=== PATIENT | female | born 1980 | race Caucasian/White ===

== ENCOUNTER 2018-10-12 08:22 | Inpatient (IN) | payer MEDICAID ==
[~2018-10-12] VITALS: Ht 167.6 cm; Wt 62.3 kg
[2018-10-12] VITALS (16 sets, daily range): BP systolic 106–161; BP diastolic 62–101; BMI 20.1
[2018-10-12 09:09] LABS: ALBUMIN 4.8 g/dL (3.4-5.0); ALKALINE PHOSPHATASE 143 U/L (46-116); ALT (SGPT) 66 U/L (10-68); BILIRUBIN - TOTAL 0.38 mg/dL (0.2-1.3); CALC OSMOLALITY 282 mosm/kg (275-300); CALCIUM 9.7 mg/dL (8.5-10.1); CHLORIDE - SERUM 109 mmol/L (98-107); CREATININE - SERUM 1.2 mg/dL (0.6-1.3); GLUCOSE 115 mg/dL (74-106); PROTEIN - SERUM 9.7 g/dL (6.4-8.2); SODIUM 143 mmol/L (136-145); TROPONIN-I < 0.017 ng/mL (0.000-0.060); UREA NITROGEN 5 mg/dL (7-18); eGFR NON AFRICAN AMERICAN 53 mL/min (90-120)
--- NOTE | 2018-10-12 09:14 | NUR ---
CRITICAL LABCO2 6.6; RECEIVED FROM MARÍA ELENA IN LAB; WHITNEY LANDIN NOTIFIED.
[2018-10-12 09:15] LABS: CARBON DIOXIDE 6.6 mmol/L (21.0-32.0)
[2018-10-12 09:19] LABS: UDS - AMPHET NEGATIVE QUAL (NEGATIVE); UDS - BARB NEGATIVE QUAL (NEGATIVE); UDS - BENZO NEGATIVE QUAL (NEGATIVE); UDS - COCAINE NEGATIVE QUAL (NEGATIVE); UDS - OPIATE NEGATIVE QUAL (NEGATIVE); UDS - PCP NEGATIVE QUAL (NEGATIVE); UDS - THC NEGATIVE QUAL (NEGATIVE)
[2018-10-12 09:22] LABS: BASOPHILS 0.3 % (0-2); EOSINOPHILS 0.4 % (0-7); HEMOGLOBIN 17.7 g/dL (12-16); IMMATURE GRANULOCYTES 0.6 % (0-5); LYMPHOCYTES 10.6 % (15-50); MCH 35.5 pg (26.0-34.0); MCV 104.4 fL (80.0-100.0); MEAN PLATELET VOLUME 10.6 fL (7.4-10.4); MONOCYTES 9.1 % (2-11); PLATELET COUNT 206 10x3/uL (130-400); RBC 4.98 10x6/uL (4.00-5.40); RDW 14.5 % (11.5-14.5); WBC 18.7 10x3/uL (4.8-10.8)
[2018-10-12 09:25] LABS: APPEARANCE SL CLDY (CLEAR); BACTERIA MODERATE /hpf (NONE SEEN); BILIRUBIN NEGATIVE (NEGATIVE); COLOR YELLOW (YELLOW); GLUCOSE NEGATIVE (NEGATIVE); KETONE NEGATIVE (NEGATIVE); MUCUS <1+ /lpf (NONE SEEN); NITRITE NEGATIVE (NEGATIVE); PROTEIN TRACE mg/dL (NEGATIVE); SPECIFIC GRAVITY 1.015 (1.005-1.020); UROBILINOGEN NORMAL (NORMAL); WHITE CELLS - URINE RARE /hpf (0-5)
--- NOTE | 2018-10-12 09:25 | NUR ---
HOB AT 70 DEGREE ANGLE; PATIENT RESPONDS TO "YES" AND "NO" TYPE QUESTIONS; DENIES INJURY; PAIN; DRUG USE; ETOH USE; BREATHING CONTINUES TO BE LABORED; BLOOD CULTURES DRAWN BY LAB;
[2018-10-12 09:40] LABS: CALCIUM OXALATE CRYSTALS 0-5 /hpf (NONE SEEN)
[2018-10-12 10:15] LABS: HCG SERUM NEGATIVE (NEGATIVE)
--- NOTE | 2018-10-12 10:31 | NUR ---
PER DAVID COX RN; [facility] WAS CALLED TO REQUEST A BEDSIDE SITTER DUE TO SI WITH ATTEMPT.
--- NOTE | 2018-10-12 10:50 | NUR ---
PT RECEIVED. DIALYSIS AND DR CONROY GIVEN UDPATE
--- NOTE | 2018-10-12 11:05 | NUR ---
UNABLE TO COMPLETE SUICIDE ASSESSMENT AT THIS TIME. PT UNABLE THE ANSWER QUESTIONS AT THIS TIME. SITTER ORDERED PER DR. SHEEHAN. SITTER AT BEDSIDE FOR SAFETY. WILL ATTEMPT SUICIDE ASSESSMENT AT LATER TIME.
--- NOTE | 2018-10-12 11:20 | NUR ---
DR LARA AT BEDSIDE GIVENUPDATE
[2018-10-12 11:21] LABS: % SATURATION 20 % (15-55); IRON 46 ug/dl (35-150); TOTAL IRON BIND CAPACITY 227 ug/dl (260-445); UNSAT IRON BIND CAPACITY 181 ug/dl (150-375)
--- NOTE | 2018-10-12 13:16 | NUR ---
YOSEPH RODRIGUEZ CALLED GIVEN UDPATE, STATED TO GIVE ANTIZOL FOR 24HRS DR LARA CALLED GIVEN UPDATE. NO NEW ORDERS. WILL CONTINUE TO MONITOR
--- NOTE | 2018-10-12 15:15 | NUR ---
REASSESSMENT COMPLETE PER FLOW SHEET. VSS. NO NEW CAHNGES WILL CONTINUE TO MONITOR
--- NOTE | 2018-10-12 17:20 | NUR ---
DR DAVIS AND DR LARA CALLED GIVEN UPDATE NEW ORDERS REICEVED
--- NOTE | 2018-10-12 18:23 | NUR ---
DR. SHEEHAN NOTIIFED AND SITTER ORDERED. SITTER AT BEDSIDE. NOTIFIED CHARGE NURSE AND ATTENDING IN REGARDS TO ASSESSMENT FINDINGS. RESOURCES GIVEN TO PT AND SAFETY PLAN INITIATED.
--- NOTE | 2018-10-12 19:03 | NUR ---
BEDSIDE SHIFT REPORT GIVEN BY DEPARTING RN. PT LAYING IN BED WITH SITTER IN ROOM. AAOX4. PERRLA. DENIES ANY PAIN OR NEEDS. VSS. F/C DRAINING TO GRAVITY. ASSESSMENT COMPLETE. SEE FLOWSHEET FOR DETAILS. SAFETY MEASURES IN PLACE. CBIR.
--- NOTE | 2018-10-12 21:12 | NUR ---
ICE CHIPS PROVIDED
--- NOTE | 2018-10-12 23:38 | NUR ---
REASSESSMENT COMPLETE. NO NEW CHANGES NOTED IN PT CONDITION. ASLEEP SHOWING NO SS OF DISTRESS.
[2018-10-13] VITALS (24 sets, daily range): BP systolic 95–127; BP diastolic 7–91; Ht 167.6 cm; Wt 62.3 kg
--- NOTE | 2018-10-13 00:39 | NUR ---
N&V. WET RAG PROVIDED PER PT REQUEST. TOLERATED WELL. VSS.
--- NOTE | 2018-10-13 01:45 | NUR ---
ASLEEP SHOWING NO SS OF DISTRESS. SITTER REMAINS IN ROOM.
--- NOTE | 2018-10-13 02:36 | NUR ---
SUICIDE RISK ASSESSMENT COMPLETE. MODERATE-SEVERE THREAT NOTED. CONTINUE 1:1 SITTER.
--- NOTE | 2018-10-13 03:54 | NUR ---
CHG BATH GIVEN TO SELF. LINENS CHANGED. ORAL CARE PROVIDED. EKG PADS REPLACED. MARY CARE PERFORMED. TOLERATED WELL. REASSESSMENT COMPLETE. NO NEW CHANGES NOTED. VSS.
[2018-10-13 04:15] LABS: BASOPHILS 0.1 % (0-2); EOSINOPHILS 0.2 % (0-7); IMMATURE GRANULOCYTES 0.3 % (0-5); MCH 34.9 pg (26.0-34.0); MCHC 35.6 g/dL (31.0-37.0); MEAN PLATELET VOLUME 10.3 fL (7.4-10.4); MONOCYTES 9.1 % (2-11); NEUTROPHILS 76.3 % (40-80); RDW 13.9 % (11.5-14.5)
[2018-10-13 04:31] LABS: HEMOGLOBIN 13.9 g/dL (12-16); PLATELET COUNT 142 10x3/uL (130-400); RBC 3.98 10x6/uL (4.00-5.40); WBC 11.8 10x3/uL (4.8-10.8)
[2018-10-13 04:55] LABS: ALBUMIN 2.7 g/dL (3.4-5.0); ANION GAP 8.2 mmol/L (8-16); BILIRUBIN - TOTAL 0.55 mg/dL (0.2-1.3); CALCIUM 7.2 mg/dL (8.5-10.1); CARBON DIOXIDE 35.7 mmol/L (21.0-32.0); CREATININE - SERUM 1.8 mg/dL (0.6-1.3); POTASSIUM - SERUM 2.9 mmol/L (3.5-5.1); PROTEIN - SERUM 5.9 g/dL (6.4-8.2)
--- NOTE | 2018-10-13 07:00 | NUR ---
PATIENT RESTING. VSS. CALL LIGHT WITHIN REACH. BED LOW AND LOCKED. WILL CONTINUE TO MONITOR. SHIFT ASSESSMENT COMPLETED.
--- NOTE | 2018-10-13 09:00 | NUR ---
PATIENT WATCHING TV. LUNGS CLEAR TO AUSCULATION. PATIENT STATES RELIEF OF NAUSEA AND HEADACHE. VSS. WILL CONTINUE TO MONITOR.
--- NOTE | 2018-10-13 11:14 | CN ---
PATIENT NAME:ERNESTINA SIMS MEDICAL RECORD: [id number] : 76 LOCATION:STEVE.2306 ADMIT DATE: 10/12/18 ACCOUNT: [id number] CONSULTING PHYSICIAN: JHONATHAN SHEEHAN MD REFERRING PHYSICIAN: VAMSHI LARA MD DATE OF CONSULTATION: 10/12/2018 IDENTIFYING DATA: The patient is 38 years old and she is admitted to the hospital secondary to a suicide attempt. CHIEF COMPLAINT: Depression. HISTORY OF PRESENT ILLNESS: The patient apparently made some cuts on her arms longitudinally and drank antifreeze. She did this to kill herself. She was found unconscious in her car fortunately and brought to the Hospital Emergency Room, where she had a severe metabolic acidosis. She was and is currently being treated with dialysis. The patient endorses numerous neurovegetative depressive symptoms. She says she did intend to kill herself and denies substance abuse problems as well as any ongoing psychotic symptoms. MENTAL STATUS EXAMINATION: The patient is awake, alert, and oriented fully. She is displaying a mood that is depressed and an affect that is constricted. Thought processes are goal directed and her memory, concentration, and abstraction abilities are mildly impaired. She denies thoughts of harming others as well as psychotic symptoms, but endorses an ongoing desire to kill herself. ASSESSMENT: Major depression. PLAN: The patient is in absolute need of inpatient psychiatric care once medically stabilized. She says she is willing to accept this on a voluntary basis; however, if she changes her mind, she should be committed and sent to an inpatient psychiatric facility based on the current circumstances. She furthermore is denying psychotic symptoms as well as a history of substance abuse. Her urine drug screen is clean, and when questioned carefully about any concerns I need to have about possible alcohol or drug withdrawal, she denies that that is going to be a problem. She should certainly be one-to-one with a sitter until the transfer happens. TRANSINT:[id number] Voice Confirmation ID: [id number] DOCUMENT ID: [id number] JHONATHAN SHEEHAN MD at 1114 CC: [id number] DICTATION DATE: 10/12/18 1522 DRAPERY CUTTER MACHINE: 10/12/18 1653 ADM IN [facility] [id number] [place] [address]
--- NOTE | 2018-10-13 11:28 | NUR ---
SPOKE TO PATIENT ABOUT SISTER WANTING CAR KEYS. PATIENT DENIED TO GIVE CAR KEYS TO SISTER.
--- NOTE | 2018-10-13 13:00 | NUR ---
SITTER AT BEDSIDE. BED LOW AND LOCKED. WILL CONTINUE TO MONITOR PATIENT RESTING. VSS. CALL LIHT WITHIN REACH
[2018-10-13 15:10] LABS: HEPATITIS C ANTIBODY <0.1 S/CO RAT (0.0-0.9)
--- NOTE | 2018-10-13 15:36 | NUR ---
DIALYSIS AT BEDSIDE. SITTER AT BEDSIDE. WILL CONTINUE TO MONITOR.
--- NOTE | 2018-10-13 15:44 | MORECARE ---
CASE MANAGEMENT DISCHARGE SUMMARY PATIENT: ERNESTINA SIMS UNIT: [id number] ADM DATE: 10/12/18 AGE: 38 : 78 SEX: F ROOM/BED: D.2306 AUTHOR: PETER,DOC PHYSICIAN: REFERRING PHYSICIAN: VAMSHI LARA MD DATE OF SERVICE: 10/13/18 Discharge Plan Patient Name: ERNESTINA SIMS Facility: [facility]:[place] : 1980 Planned Disposition: Psych facility Anticipated Discharge Date: Discharge Date: Expected LOS: Initial Reviewer: [email or web address] Initial Review Date: 10/13/2018 Generated: 10/13/18 4:43 pm Comments DCP- Discharge Planning Updated by [email or web address]: Susan Richardson on 10/13/18 2:[address] Patient Name: ERNESTINA SIMS Admission Status: ER Accout number: [id number] Admission Date: 10-12-2018 : 1980 Admission Diagnosis: Attending: VAMSHI LARA Current LOS: 1 Anticipated DC Date: Planned Disposition: Psych facility Primary Insurance: UNINSURED DISCOUNT PLAN Discharge Planning Comments: CM met with patient at bedside after explaining CM role and obtaining verbal consent. Patient lives at home with two roommates and plans to return there upon discharge. Patient is currently having dialysis this is her second treatment thus far. [facility] consult once medically stable. Psych evaluation will determine discharge plan. CM will continue to follow and assist as needed with discharge planning / needs. Able Bodied Watchman: Susan Richardson DCPIA - Discharge Planning Initial Assessment Updated by [email or web address]: Susan Richardson on 10/13/18 3:36 pm * Is the patient Alert and Oriented? Yes * How many steps to enter\exit or inside your home? * PCP NO PCP * Pharmacy NO PHARMACY - CURRENTLY ? [facility] * Preadmission Environment Home with Family * ADLs Independent * Equipment None * List name and contact numbers for known caregivers / representatives who currently or will assist patient after discharge: OLVIN LIU - [facility] [phone] * Verbal permission to speak to the caregivers and representatives has been obtained from the patient. N/A * Community resources currently utilized None * Additional services required to return to the preadmission environment? No * Can the patient safely return to the preadmission environment? Yes * Has this patient been hospitalized within the prior 30 days at any hospital? No Patient Name: ERNESTINA SIMS Page [id number] at 1544 All edits/amendments must be made on the electronic document DICTATION DATE: 10/13/181542 BUFF WHEEL FABRICATOR: DIRK 10/13/18 154 RPT#: [id number] DC DATE: STATUS: ADM IN [facility] [address] [place] [address] END OF REPORT
--- NOTE | 2018-10-13 17:00 | NUR ---
dialysis at bedside. call light within reach. patient stated relief of nausea. will continue to monitor
--- NOTE | 2018-10-13 19:05 | NUR ---
Received patient resting in bed with eyes open and sitter at bedside, assessment completed per flowsheet. Patient AO x4, answers appropriately/follows instructions. Slight bruising/abrasions noted nose and lower lip, no drainage/bleeding noted. S1/S2 noted NSR on telemetry, rythmic and regular. Breathing is even/unlabored on room air with O2 sat 97%, lung sounds clear throughout. Abdomen is round/soft with bowel sounds active x4, non-tender. Slight nausea stated, will provide PRN medication when available. Clark secured, clear rock urine noted. All pulses palpable with cap refill < 3 sec, skin warm/dry with full ROM all extremities. Abrasions noted bilateral arms, scabs noted bilateral arms. C/O headache/acid reflux at this time, repositioned with HoB increased. No further needs at this time, see flowsheet for details. All VSS and will continue to monitor.
--- NOTE | 2018-10-13 21:00 | NUR ---
Patient OOB giving self bath with sitter in room, denies intent to harm self or others at this time. No further needs and will continue to monitor.
--- NOTE | 2018-10-13 23:00 | NUR ---
Reassessment completed per flowsheet, no changes noted from previous assessment. S1/S2 noted NSR on telemetry, rythmic and regular. Breathing is even/unlabored on room air with O2 sat 97%, lung sounds clear throughout. Abrasions noted nose/lower lip, abrasions bilateral arms with no drainage/bleeding noted. All pulses palpable with cap refill < 3 sec, skin warm/dry. Denies further needs at this time, see flowsheet for details. All VSS and will continue to monitor.
[2018-10-14] VITALS (24 sets, daily range): BP systolic 108–134; BP diastolic 65–95
--- NOTE | 2018-10-14 01:00 | NUR ---
Patient resting in bed with eyes open, no s/s of distress at this time. R AC PIV removed with dressing applied, sitter at bedside. No further needs and will continue to monitor.
--- NOTE | 2018-10-14 02:58 | NUR ---
Reassesssment completed per flowsheet, no changes noted from previous assessment. Patient AO x4, answers appropriately/follows instructions. Denies intent to harm self or others at this time, sitter at bedside. S1/S2 noted NSR on telemetry, rhythmic and regular. Breathing is even/unlabored on room air with O2 sat 96%, lung sounds clear throughout. All pulses palpable with cap refill < 3 sec, skin warm/dry. Denies pain or other needs at this time, see flowsheet for details. All VSS and will continue to monitor.
[2018-10-14 04:59] LABS: BASOPHILS 0.1 % (0-2); EOSINOPHILS 0.2 % (0-7); HEMATOCRIT 33.6 % (36.0-48.0); HEMOGLOBIN 11.7 g/dL (12-16); IMMATURE GRANULOCYTES 0.2 % (0-5); LYMPHOCYTES 15.7 % (15-50); MCH 34.5 pg (26.0-34.0); MCHC 34.8 g/dL (31.0-37.0); MCV 99.1 fL (80.0-100.0); MEAN PLATELET VOLUME 10.3 fL (7.4-10.4); MONOCYTES 13.3 % (2-11); NEUTROPHILS 70.5 % (40-80); RBC 3.39 10x6/uL (4.00-5.40); RDW 13.7 % (11.5-14.5); WBC 9.1 10x3/uL (4.8-10.8)
[2018-10-14 05:00] LABS: ALBUMIN 2.7 g/dL (3.4-5.0); ANION GAP 8.2 mmol/L (8-16); BILIRUBIN - TOTAL 0.72 mg/dL (0.2-1.3); CALCIUM 7.5 mg/dL (8.5-10.1); CARBON DIOXIDE 29.7 mmol/L (21.0-32.0); PLATELET COUNT 109 10x3/uL (130-400); POTASSIUM - SERUM 3.9 mmol/L (3.5-5.1); PROTEIN - SERUM 5.6 g/dL (6.4-8.2)
--- NOTE | 2018-10-14 05:00 | NUR ---
Patient resting in bed with eyes open, sitter at bedside. Patient utilized bedside commode without assist, moderate liquid brown BM noted. Denies needs at this time, all VSS and will continue to monitor.
[2018-10-14 05:16] LABS: CREATININE - SERUM 2.3 mg/dL (0.6-1.3)
--- NOTE | 2018-10-14 07:00 | NUR ---
PATIENT RESTING. NO N/V PRESENT AT THIS TIME. NO COMPLAINTS OF PAIN. S. [facility] ONTINUE TO MONIOTR. LEMONS AT BEDSIDE.
[2018-10-14 08:44] LABS: APPEARANCE CLOUDY (CLEAR); BACTERIA MANY /hpf (NONE SEEN); BILIRUBIN NEGATIVE (NEGATIVE); COLOR YELLOW (YELLOW); EPITHELIAL CELLS 0-5 /hpf (0-5); GLUCOSE NEGATIVE (NEGATIVE); KETONE NEGATIVE (NEGATIVE); NITRITE NEGATIVE (NEGATIVE); PROTEIN 1+ mg/dL (NEGATIVE); SPECIFIC GRAVITY 1.005 (1.005-1.020); UROBILINOGEN NORMAL (NORMAL)
[2018-10-14 08:45] LABS: CALCIUM OXALATE CRYSTALS RARE /hpf (NONE SEEN)
--- NOTE | 2018-10-14 09:00 | NUR ---
DAUGHTER CALLED ABOUT THE PATIENT ASKING TO SEE AND SPEAK TO PATIENT. I INFORMED THEM SHE IS CONFIDENTIAL AND I CAN NOT RELEASE ANY INFORMATION. DAUGHTER REQUESTED TO SPEAK TO CHARGE NURSE BUT THEN HUNG UP. J
--- NOTE | 2018-10-14 09:56 | NUR ---
Nutrition follow-up: Pt being held NPO for further testing. Labs reviewed Pt with some nausea noted Wt: 139# RDN following.
--- NOTE | 2018-10-14 11:08 | NUR ---
PATIENT RESTING. COMPLAINS OF HEADACHE-- COLD RAG GIVEN. NO NAUSEA OR VOMITING PRESENT AT THIS TIME. PATIENT REQUESTING PHONE.
[2018-10-14 12:54] LABS: ANION GAP 9.7 mmol/L (8-16); CALCIUM 7.9 mg/dL (8.5-10.1); CARBON DIOXIDE 28.3 mmol/L (21.0-32.0); CREATININE - SERUM 3.1 mg/dL (0.6-1.3)
--- NOTE | 2018-10-14 13:00 | NUR ---
PATIENT EATING AT BEDSIDE. SITTER IN ROOM. VSS. CALL LIGHT WITHIN REACH. LUNGS CTA BILATERALLY. NO COMPLAINTS OF NAUSEA OR PAIN AT THIS TIME. WILL CONTINUE TO MONITOR.
[2018-10-14 13:03] LABS: CREATININE - URINE 34.3 mg/dL (30-125); PRO/CRE RATIO URINE 2.3 mg/g; PROTEIN - URINE 79.8 mg/dL (0.0-11.9)
--- NOTE | 2018-10-14 15:23 | NUR ---
CHG BATH AND COMPLETE LINEN CHANGE AT THIS TIME.
--- NOTE | 2018-10-14 17:39 | NUR ---
SITTER AT BEDSIDE. PATIENT COMPLAINS OF NAUSEA. ZOFRAN GIVEN PER MAY. VSS. WILL CONTINUE OT MONITOR
--- NOTE | 2018-10-14 19:30 | NUR ---
REC'D TO CARE, REIMBURSEMENT SPEC PER FLOWSHEET. PT WATCHING TV. COOPERATIVE, DENIES ANY SUICIDAL IDEATIONS. VSS. SITTER AT BS. SUICIDE PRECAUTIONS IN PLACE.
--- NOTE | 2018-10-14 21:25 | NUR ---
PT RESTING QUIETLY, LYING L SIDE, NO SIGN OF DISTRESS.
--- NOTE | 2018-10-14 23:09 | NUR ---
REASSESSMENT PER FLOWSHEET, NO ACUTE CHANGES. PT UP TO BSC, HAD SMALL BM - MARY-CARE PER PT. BACK TO BED. DENIES NEEDS.
[2018-10-15] VITALS (21 sets, daily range): BP systolic 104–132; BP diastolic 71–101
--- NOTE | 2018-10-15 01:45 | NUR ---
PT UP TO BSC, SMALL LOOSE BROWN STOOL. MARY-CARE PER PT AND BACK TO BED.
--- NOTE | 2018-10-15 03:30 | NUR ---
REASSESSMENT PER FLOWSHEET, NO ACUTE CHANGES. VSS. NO SIGN OF DISTRESS. SITTER AT BS.
--- NOTE | 2018-10-15 05:00 | NUR ---
PT RESTING QUIETLY WITH EYES CLOSED, VSS. NO SIGN OF DISTRESS.
[2018-10-15 05:23] LABS: BASOPHILS 0.3 % (0-2); EOSINOPHILS 1.6 % (0-7); HEMATOCRIT 33.1 % (36.0-48.0); HEMOGLOBIN 11.7 g/dL (12-16); IMMATURE GRANULOCYTES 0.1 % (0-5); LYMPHOCYTES 24.8 % (15-50); MCH 34.7 pg (26.0-34.0); MCHC 35.3 g/dL (31.0-37.0); MCV 98.2 fL (80.0-100.0); MEAN PLATELET VOLUME 10.6 fL (7.4-10.4); MONOCYTES 13.9 % (2-11); NEUTROPHILS 59.3 % (40-80); PLATELET COUNT 111 10x3/uL (130-400); RBC 3.37 10x6/uL (4.00-5.40); RDW 13.6 % (11.5-14.5); WBC 7.4 10x3/uL (4.8-10.8)
[2018-10-15 05:44] LABS: ALBUMIN 2.6 g/dL (3.4-5.0); ANION GAP 11.1 mmol/L (8-16); BILIRUBIN - TOTAL 0.74 mg/dL (0.2-1.3); CALCIUM 7.7 mg/dL (8.5-10.1); CARBON DIOXIDE 26.8 mmol/L (21.0-32.0); POTASSIUM - SERUM 3.9 mmol/L (3.5-5.1); PROTEIN - SERUM 5.4 g/dL (6.4-8.2)
[2018-10-15 05:56] LABS: CREATININE - SERUM 4.2 mg/dL (0.6-1.3)
--- NOTE | 2018-10-15 07:24 | NUR ---
DR CONROY AT BEDSIDE. UPDATE GIVEN.
--- NOTE | 2018-10-15 09:00 | NUR ---
SITTER AT BEDSIDE. ALL LINES CAPPED AND LABELED. VSS. NO NAUSEA AT THIS TIME. PATIENT DID NOT EAT BREAKFAST. WILL CONTINUE TO MONITOR
--- NOTE | 2018-10-15 10:05 | NUR ---
Nutrition follow-up: Diet advanced to renal ADA PO intake 100% of last 2 meals Labs reviewed RDN following.
--- NOTE | 2018-10-15 11:05 | NUR ---
SITTER AT BEDSIDE. PATIENT STATES SHE HAS NO APPETITE. VSS. LASIX GIVEN PER MAY. WILL MONITOR URINE OUTPUT. CALL LIGHT WITHIN REACH. ALL ITEMS TAKEN OUT OF ROOM.
--- NOTE | 2018-10-15 13:12 | NUR ---
DR SHEEHAN CALLED PER DR YOUNG TO COME SEE THE PATIENT
--- NOTE | 2018-10-15 13:23 | NUR ---
poison control called. update given.
--- NOTE | 2018-10-15 13:32 | NUR ---
CHG BATH AND COMPLETE LINEN CHANGE AT THIS TIME.
--- NOTE | 2018-10-15 15:00 | NUR ---
PATIENT RESTING. ICE CHIPS GIVEN. PATIENT HAD BOWEL MOVEMENT. SITTER AT BEDSIDE. VSS. WILL CONTINUE TO MONITOR
--- NOTE | 2018-10-15 19:25 | NUR ---
SUPINE IN BED, A&O X 4. SITTER AT BEDSIDE. PT REPORTS MILD NAUSEA, REQUESTS ZOFRAN. DENIES OTHER NEEDS. WILL CONTINUE TO MONITOR.
--- NOTE | 2018-10-15 23:54 | NUR ---
C/O NAUSEA. INFORMED IT IS TOO EARLY FOR PRN NAUSEA MEDICATION. SUGGESTED TO SIP SOME SPRITE AND TRY SOME CRACKERS. PT AGREED. WILL CONTINUE TO MONITOR.
--- NOTE | 2018-10-15 23:57 | NUR ---
C/O NAUSEA. PRN ZOFRAN NOT DUE UNTIL 0130. GAVE SPRITE AND CRACKERS TO EASE FEELING. WILL CONTIUE TO MONITOR.
[2018-10-16] VITALS (24 sets, daily range): BP systolic 104–146; BP diastolic 69–98
[2018-10-16 05:47] LABS: ALBUMIN 2.6 g/dL (3.4-5.0); ANION GAP 11.1 mmol/L (8-16); BILIRUBIN - TOTAL 0.53 mg/dL (0.2-1.3); CALCIUM 7.8 mg/dL (8.5-10.1); CARBON DIOXIDE 24.1 mmol/L (21.0-32.0); CREATININE - SERUM 5.1 mg/dL (0.6-1.3); POTASSIUM - SERUM 4.2 mmol/L (3.5-5.1); PROTEIN - SERUM 5.3 g/dL (6.4-8.2)
--- NOTE | 2018-10-16 07:00 | NUR ---
SHIFT ASSESSMENT COMPLETED, PT CARE ASSUMED, MONITORS ON AND WORKING, VITALS STABLE. SITTER AT BEDSIDE, SEE FLOW SHEET FOR FURTHER DETAILS. WILL CONTINUE TO OBSERVE.
[2018-10-16 07:32] LABS: BASOPHILS 0.2 % (0-2); EOSINOPHILS 2.2 % (0-7); HEMATOCRIT 33.7 % (36.0-48.0); HEMOGLOBIN 12.1 g/dL (12-16); IMMATURE GRANULOCYTES 0.4 % (0-5); LYMPHOCYTES 17.8 % (15-50); MCH 34.7 pg (26.0-34.0); MCHC 35.9 g/dL (31.0-37.0); MCV 96.6 fL (80.0-100.0); MEAN PLATELET VOLUME 11.3 fL (7.4-10.4); MONOCYTES 14.3 % (2-11); NEUTROPHILS 65.1 % (40-80); RBC 3.49 10x6/uL (4.00-5.40); RDW 13.4 % (11.5-14.5)
[2018-10-16 07:50] LABS: PLATELET COUNT 144 10x3/uL (130-400); WBC 9.3 10x3/uL (4.8-10.8)
--- NOTE | 2018-10-16 09:00 | NUR ---
PT SITTING UP IN BED EATING BREAKFAST. MONITORS ON AND WORKING, VITALS STABLE. SITTER AT BEDSIDE.
--- NOTE | 2018-10-16 11:00 | NUR ---
HD NURSE AT BEDSIDE, MONITORS ON AND WORKING, VITALS STABLE, SITTER AT BEDSIDE, SEE FLOW SHEET FOR FURTHER DETAILS. WILL CONTINUE TO OBSERVE.
--- NOTE | 2018-10-16 13:00 | NUR ---
HD NURSE AND SITTER AT BEDSIDE, MONITORS ON AND WORKING, PT AWAKE AND ALERT, WILL CONTINUE TO OBSERVE.
--- NOTE | 2018-10-16 15:00 | NUR ---
NO CHANGES, SEE FLOW SHEET FOR FURTHER DETAILS. WILL CONTINUE TO OBSERVE.
--- NOTE | 2018-10-16 16:43 | MORECARE ---
CASE MANAGEMENT DISCHARGE SUMMARY PATIENT: ERNESTINA SIMS UNIT: [id number] ADM DATE: 10/12/18 AGE: 38 : 76 SEX: F ROOM/BED: D.2306 AUTHOR: PETER,DOC PHYSICIAN: REFERRING PHYSICIAN: VAMSHI LARA MD DATE OF SERVICE: 10/16/18 Discharge Plan Patient Name: ERNESTINA SIMS Facility: [facility]:[place] : 1980 Planned Disposition: Psych facility Anticipated Discharge Date: Discharge Date: Expected LOS: Initial Reviewer: [email or web address] Initial Review Date: 10/13/2018 Generated: 10/16/18 5:43 pm Comments DCP- Discharge Planning Updated by [email or web address]: Susan Richardson on 10/16/18 3:[address] CM trying to find out if patient has insurance or if it has termed. [employer] is working on trying to figure this information out. Patient is going to need psych placement once medically stable. Patient is most likely going to need dialysis and psych at a facility. CM has notified Jodee Sepulveda that patient will need outpatient dialysis setup. Jodee informed CM that the only facility that will accept dialysis/ psych patient is [facility]. CM will continue to follow and assist as needed with discharge planning / needs. DCP- Discharge Planning Updated by [id number]: Susan Richardson on 10/13/18 2:[address] Patient Name: ERNESTINA SIMS Admission Status: ER Accout number: [id number] Admission Date: 10-12-2018 : 1980 Admission Diagnosis: Attending: VAMSHI LARA Current LOS: 1 Anticipated DC Date: Planned Disposition: Psych facility Primary Insurance: UNINSURED DISCOUNT PLAN Discharge Planning Comments: CM met with patient at bedside after explaining CM role and obtaining verbal consent. Patient lives at home with two roommates and plans to return there upon discharge. Patient is currently having dialysis this is her second treatment thus far. Pysch consult once medically stable. Psych evaluation will determine discharge plan. CM will continue to follow and assist as needed with discharge planning / needs. Geothermal Sheet Metal Worker: Susan Richardson DCPIA - Discharge Planning Initial Assessment Updated by [email or web address]: Susan Richardson on 10/13/18 3:36 pm * Is the patient Alert and Oriented? Yes * How many steps to enter\exit or inside your home? * PCP NO PCP * Pharmacy NO PHARMACY - CURRENTLY ? [facility] * Preadmission Environment Home with Family * ADLs Independent * Equipment None * List name and contact numbers for known caregivers / representatives who currently or will assist patient after discharge: OLVIN LIU [facility]- [phone] * Verbal permission to speak to the caregivers and representatives has been obtained from the patient. N/A * Community resources currently utilized None * Additional services required to return to the preadmission environment? No * Can the patient safely return to the preadmission environment? Yes * Has this patient been hospitalized within the prior 30 days at any hospital? No Last DP export: 10/13/18 2:44 p Patient Name: ERNESTINA SIMS Page [id number] at 1643 All edits/amendments must be made on the electronic document DICTATION DATE: 10/16/181642 BOOK CLEANER: DIRK 10/16/181642 RPT#: [id number] DC DATE: STATUS: ADM IN [facility] [address] [place] [address] END OF REPORT
--- NOTE | 2018-10-16 17:00 | NUR ---
NO CHANGES, CHG BATH DONE, COMPLETE LINEN CHANGE DONE AT THIS TIME WELL. MONITORS ON AND WORKING, VITALS STABLE. SITTER AT BEDSIDE, WILL CONTINUE TO OBSERVE.
--- NOTE | 2018-10-16 19:15 | NUR ---
SUPINE IN BED, A&O X 4. DENIES PAIN OR NAUSEA. AMBULATORY. NO NEEDS AT THIS TIME, WILL CONTINUE TO MONITOR.
--- NOTE | 2018-10-16 20:00 | NUR ---
REPORTS NAUSEA WHEN WATCHING IV INFUSE. WILL CONTIUE WITH PLAN OF CARE.
[2018-10-17] VITALS (25 sets, daily range): BP systolic 101–140; BP diastolic 52–91
[2018-10-17 06:11] LABS: BASOPHILS 0.2 % (0-2); EOSINOPHILS 2.4 % (0-7); HEMATOCRIT 32.7 % (36.0-48.0); HEMOGLOBIN 11.7 g/dL (12-16); IMMATURE GRANULOCYTES 0.4 % (0-5); LYMPHOCYTES 17.1 % (15-50); MCH 34.5 pg (26.0-34.0); MCHC 35.8 g/dL (31.0-37.0); MCV 96.5 fL (80.0-100.0); MEAN PLATELET VOLUME 10.7 fL (7.4-10.4); MONOCYTES 18.8 % (2-11); NEUTROPHILS 61.1 % (40-80); PLATELET COUNT 149 10x3/uL (130-400); RBC 3.39 10x6/uL (4.00-5.40); RDW 13.4 % (11.5-14.5); WBC 8.5 10x3/uL (4.8-10.8)
[2018-10-17 06:35] LABS: ALBUMIN 2.4 g/dL (3.4-5.0); ANION GAP 9.6 mmol/L (8-16); BILIRUBIN - TOTAL 0.54 mg/dL (0.2-1.3); CALCIUM 7.8 mg/dL (8.5-10.1); CARBON DIOXIDE 27.3 mmol/L (21.0-32.0); CREATININE - SERUM 4.3 mg/dL (0.6-1.3); POTASSIUM - SERUM 3.9 mmol/L (3.5-5.1); PROTEIN - SERUM 5.3 g/dL (6.4-8.2)
--- NOTE | 2018-10-17 07:17 | NUR ---
AAOx4. On room air. even unlabored breathing with occasional cough, states she has yellow sputum, none observed, left subclavian trialysis with D51/2NS with 20K at 125ml/hr. Dressing c/d/i. denies any thoughts of suicide at current time. Sitting currently in room. up ad gianni, denies any current needs or discomforts, bed lowered and locked, call light within reach. cpoc
--- NOTE | 2018-10-17 09:03 | NUR ---
AAOx4. denies any thoughts or feelings of self-harm, sitting present in room, resting with eyes closed, trialysis in left subclavian patent, denies any current needs or discomforts, bed lowered and locked, call light within reach. cpoc
--- NOTE | 2018-10-17 11:45 | NUR ---
Resting with eyes closed, on room air, easily aroused with voice, denies any thoughts of suicide or self harm, offered to assist with bath, refused at current time, denies any needs or discomforts, bed lowered and locked, call light within reach. cpoc
--- NOTE | 2018-10-17 14:14 | NUR ---
AAOx4. On room air, continues to deny any suicidal thoughts, sitter present in room, infusing D51/2NS with 20 MEQ of K, at 125ml/hr, dressing c/d/i, denies any needs or discomforts, bed lowered and locked, call light within reach. cpoc
--- NOTE | 2018-10-17 17:08 | NUR ---
aaox4. on room air, poor appetite, independently performed bath, sitter present throughout, denies any current needs or discomforts, slight edema of left hand, elevated on pillow, bed lowered and locked, call light within reach. cpoc
--- NOTE | 2018-10-17 18:00 | NUR ---
RECIEVED REPORT FROM OUT GOING RN - PATIENT WATCHING TELVISION - SITTER AT BEDSIDE - PT DENIED ANY ACCUTE NEEDS OR DISTRESS - VSS PER CONTINOUS CARDIAC MONITORING - I&O COMPLETE - CPOC
--- NOTE | 2018-10-17 19:20 | NUR ---
REPORT REC'D AND CARE ASSUMED, REC'D PT SITTING UP IN BED ON ROOM AIR WATCHING TV, PT AWAKE, ALERT, ORIENTED X 4, LSCL TRIALYSIS CATH DRSG CDI WITH D51/2NS WITH 20 KCL @ 125CC/HR, PT DENIES PAIN OR NEEDS, SITTER HUONG AT BS, SR UP X 2 BED IN LOW POSITION, CALL LIGHT IN REACH.
--- NOTE | 2018-10-17 20:30 | NUR ---
ROUTINE MEDS GIVEN ORDERED, PT DENIES NEEDS, CALM AND COOPERATIVE AT THIS TIME.
--- NOTE | 2018-10-17 21:00 | NUR ---
PT RESTING QUIETLY WATCHING TV, VSS, SITTER AT BS, WILL MONITOR CLOSELY FOR CHANGES.
--- NOTE | 2018-10-17 23:10 | NUR ---
PT RESTING ON SIDE EYES CLOSED, RESP EVEN AND UNLABORED, EASILY AWAKENS, VSS, PT DENIES PAIN OR NEEDS, REASSESSMENT COMPLETED, SR UP X 2, BED IN LOW POSITION.
[2018-10-18] VITALS (24 sets, daily range): BP systolic 108–144; BP diastolic 68–99
--- NOTE | 2018-10-18 02:00 | NUR ---
NO CHANGES IN STATUS AT THIS TIME, VSS, SITTER REMAINS IN ROOM
--- NOTE | 2018-10-18 04:15 | NUR ---
ROUTINE MEDS GIVEN, PT REQUESTING ZOFRAN AT THIS TIME PRIOR TO AM LAB DRAW. ZOFRAN 4MG GIVEN SLOW IVP. PT DENIES FURTHER NEEDS, CALL LIGHT IN REACH.
--- NOTE | 2018-10-18 05:00 | NUR ---
AM LAB DRAWN FROM [facility] AND SENT TO LAB
[2018-10-18 05:25] LABS: BASOPHILS 0.4 % (0-2); EOSINOPHILS 3.1 % (0-7); HEMATOCRIT 31.4 % (36.0-48.0); HEMOGLOBIN 11.3 g/dL (12-16); IMMATURE GRANULOCYTES 0.3 % (0-5); LYMPHOCYTES 22.6 % (15-50); MCH 34.7 pg (26.0-34.0); MCV 96.3 fL (80.0-100.0); MEAN PLATELET VOLUME 10.5 fL (7.4-10.4); MONOCYTES 17.1 % (2-11); NEUTROPHILS 56.5 % (40-80); PLATELET COUNT 173 10x3/uL (130-400); RBC 3.26 10x6/uL (4.00-5.40); RDW 13.4 % (11.5-14.5)
[2018-10-18 05:32] LABS: ANION GAP 10.3 mmol/L (8-16); CARBON DIOXIDE 26.8 mmol/L (21.0-32.0); CREATININE - SERUM 5.1 mg/dL (0.6-1.3); PHOSPHOROUS 3.1 mg/dL (2.5-4.9); POTASSIUM - SERUM 4.1 mmol/L (3.5-5.1)
--- NOTE | 2018-10-18 08:54 | NUR ---
0700 AWAKE ALERT VOICES NO C/O PAIN SITTER REMAINS AT BEDSIDE ASSESSMENT COMPLETE
--- NOTE | 2018-10-18 09:03 | NUR ---
0900 VOICES NO COMPLAINTS SITTER AT BEDSIDE HCG BATH SET UP PROVIDED.
--- NOTE | 2018-10-18 19:20 | NUR ---
PT RECEIVED WITH EYES OPEN. NO S/S OF DISTRESS. SITTER AT BEDSIDE. PT COOPERATIVE. NO NEEDS OR CONCERNS MADE KNOWN. CALL LIGHT IN REACH. WILL CONTINUE TO OBSERVE.
--- NOTE | 2018-10-18 19:57 | NUR ---
1100 LUNCH TRAY SERVED APPETITE GOOD
--- NOTE | 2018-10-18 19:57 | NUR ---
1300 RESTING QUIETLY SITTER REMAINS AT BEDSIDE
--- NOTE | 2018-10-18 19:57 | NUR ---
1500 CHG BATH COMPLETE LINENS CHANGED
--- NOTE | 2018-10-18 19:58 | NUR ---
1700 DINNER TRAY GIVEN APPETITE GOOD DENIES ANY THOUGHT OF HARMING SELF AT THIS TIME
--- NOTE | 2018-10-18 21:49 | NUR ---
PT RESTING WITH EYES CLOSED AND CHEST RISING. SITTER AT BEDSIDE. CALL LIGHT IS IN REACH. VSS. WILL CONTINUE TO OBSERVE. CALL LIGHT IN REACH.
--- NOTE | 2018-10-18 23:13 | NUR ---
REASSESSMENT COMPLETED, SEE FLOW SHEET. NO NEEDS MADE KNOWN. CALL LIGHT IN REACH. WILL CONTINUE TO OBSERVE
[2018-10-19] VITALS (32 sets, daily range): BP systolic 86–141; BP diastolic 66–89
--- NOTE | 2018-10-19 03:06 | NUR ---
PT WITH EYES CLOSED AND CHEST RISING. NO CONCERNS NOTED. SITTER AT BEDSIDE. WILL CONTINUE TO OBSERVE.
--- NOTE | 2018-10-19 03:10 | NUR ---
REASSESSMENT COMPLETED, SEE FLOW SHEET. CALL LIGHT IN REACH.
--- NOTE | 2018-10-19 04:57 | NUR ---
PT RESTING WITH EYES CLOSED AND CHEST RISING. VSS. SITTER AT BEDSIDE. CALL LIGHT IN REACH.
[2018-10-19 05:28] LABS: BASOPHILS 0.3 % (0-2); EOSINOPHILS 3.4 % (0-7); HEMATOCRIT 32.4 % (36.0-48.0); HEMOGLOBIN 11.7 g/dL (12-16); IMMATURE GRANULOCYTES 0.6 % (0-5); LYMPHOCYTES 20.5 % (15-50); MCH 34.6 pg (26.0-34.0); MCHC 36.1 g/dL (31.0-37.0); MCV 95.9 fL (80.0-100.0); MEAN PLATELET VOLUME 10.3 fL (7.4-10.4); MONOCYTES 17.7 % (2-11); NEUTROPHILS 57.5 % (40-80); PLATELET COUNT 205 10x3/uL (130-400); RBC 3.38 10x6/uL (4.00-5.40); RDW 13.2 % (11.5-14.5); WBC 7.7 10x3/uL (4.8-10.8)
[2018-10-19 05:46] LABS: CALCIUM 8.6 mg/dL (8.5-10.1); CARBON DIOXIDE 25.9 mmol/L (21.0-32.0); PHOSPHOROUS 4.3 mg/dL (2.5-4.9); POTASSIUM - SERUM 3.9 mmol/L (3.5-5.1)
--- NOTE | 2018-10-19 08:13 | NUR ---
[address] DAVIS OF CONSULT STOPPED PATIENT FROM EATING BREAKFAST HAD ALREADY EATEN 30%. INSTRUCTED NPO VOICED UNDERSTANDING SITTER REMAINS AT BEDSIDE
[2018-10-19 08:27] LABS: HCG SERUM NEGATIVE (NEGATIVE)
--- NOTE | 2018-10-19 10:44 | NUR ---
0900 PREOP CALLED PER OR STAFF, PLAN TO USE LOCAL FOR PROCEEDURE
--- NOTE | 2018-10-19 10:52 | NUR ---
Nutrition follow-up: Diet: Renal ADA PO intake 25-50% of meals NPO for hemosplit placement today +BM RDN following
--- NOTE | 2018-10-19 11:37 | NUR ---
1100 AWAKE IN BED SITTER REMAINS IN ROOM REMAINS NPO
--- NOTE | 2018-10-19 13:43 | NUR ---
1232 RETURNED STRAIGHT FROM SURGERY AWAKE AND DIAPHORETIC FREQUENT VITAL SIGNS INITIATED
--- NOTE | 2018-10-19 14:20 | NUR ---
[address] DAVIS OF PATIENT DIPHORETIC NO NEW ORDERS NOTED PLACED FAN IN ROOM FOR COMPLAINTS OF BEING HOT
--- NOTE | 2018-10-19 14:26 | NUR ---
1346 C/O PAIN IN CHEST AND ACROSS SHOULDERS R/T HEMOSPLIT CATH PLACEMENT TO LEFT SUBCLAVIAN DSG CDI
--- NOTE | 2018-10-19 15:01 | NUR ---
1347 NORCO 5 PO GIVEN LUNCH TRAY SERVED
--- NOTE | 2018-10-19 16:50 | MORECARE ---
CASE MANAGEMENT DISCHARGE SUMMARY PATIENT: ERNESTINA SIMS UNIT: [id number] ADM DATE: 10/12/18 AGE: 38 : [birth year] SEX: F ROOM/BED: D.2306 AUTHOR: PETER,DOC PHYSICIAN: REFERRING PHYSICIAN: VAMSHI LARA MD DATE OF SERVICE: 10/19/18 Discharge Plan Patient Name: ERNESTINA SIMS Facility: [facility]:[place] : 1980 Planned Disposition: Psych facility Anticipated Discharge Date: Discharge Date: Expected LOS: Initial Reviewer: [email or web address] Initial Review Date: 10/13/2018 Generated: 10/19/18 5:50 pm Comments DCP- Discharge Planning Updated by [email or web address]: Susan Richardson on 10/16/18 3:[address] CM trying to find out if patient has insurance or if it has termed. [employer] is working on trying to figure this information out. Patient is going to need psych placement once medically stable. Patient is most likely going to need dialysis and psych at a facility. CM has notified Jodee Sepulveda that patient will need outpatient dialysis setup. Jodee informed CM that the only facility that will accept dialysis/ psych patient is [facility]. CM will continue to follow and assist as needed with discharge planning / needs. DCP- Discharge Planning Updated by [email or web address]: Susan Richardson on 10/13/18 2:[address] Patient Name: ERNESTINA SIMS Admission Status: ER Accout number: [id number] Admission Date: 10-12-2018 : 1980 Admission Diagnosis: Attending: VAMSHI LARA Current LOS: 1 Anticipated DC Date: Planned Disposition: Psych facility Primary Insurance: UNINSURED DISCOUNT PLAN Discharge Planning Comments: CM met with patient at bedside after explaining CM role and obtaining verbal consent. Patient lives at home with two roommates and plans to return there upon discharge. Patient is currently having dialysis this is her second treatment thus far. Pysch consult once medically stable. Psych evaluation will determine discharge plan. CM will continue to follow and assist as needed with discharge planning / needs. Asw Specialist: Susan Richardson DCPIA - Discharge Planning Initial Assessment Updated by [email or web address]: Susan Richardson on 10/13/18 3:36 pm * Is the patient Alert and Oriented? Yes * How many steps to enter\exit or inside your home? * PCP NO PCP * Pharmacy NO PHARMACY - CURRENTLY ? [facility] * Preadmission Environment Home with Family * ADLs Independent * Equipment None * List name and contact numbers for known caregivers / representatives who currently or will assist patient after discharge: OLVIN LIU - [facility]- [phone] * Verbal permission to speak to the caregivers and representatives has been obtained from the patient. N/A * Community resources currently utilized None * Additional services required to return to the preadmission environment? No * Can the patient safely return to the preadmission environment? Yes * Has this patient been hospitalized within the prior 30 days at any hospital? No External Providers External Provider: [facility] Next Contact Date: Service Request Date: Service Type: Resolution: Reviewer: Comments: Last DP export: 10/16/18 3:43 pm Patient Name: ERNESTINA SIMS Page [phone] at 1650 All edits/amendments must be made on the electronic document DICTATION DATE: 10/19/181649 CERTIFIED DIALYSIS TECHNICIAN: DIRK 10/19/181649 RPT#: [id number] DC DATE: STATUS: ADM IN [address] [place] [address] END OF REPORT
--- NOTE | 2018-10-19 17:52 | NUR ---
TRIED TO START TX ON PT AND VENOUS/BLUE PORT CONNECTED TO FLUIDS RAN IN SURGERY. PRIMARY NURSE DID NOT HANG ANY NEW IV MEDICATION, AND NO ORDER FOR THEM TO USE HEMISPLIT. VENOUS PORT WILL NOT DRAW OUT ANY BLOOD! THIS IS A BRAND NEW CATH! HAVE CALLED MY SIGN LANGUAGE INSTRUCTOR TO INFORM HER OF THIS AND NEPHROLOGY. DO NOT USE PTS HEMISPLITS UNLESS YOU ARE A DIALYSIS. WHEN PRISCILLA Smith RN STARTED TX ON PT, PT STARTED TO COMPLAIN OF PAIN AND PRESSURE IN CHEST. TX STOPPED IMMEDIATELY. BLOOD NOT RETURNED.
--- NOTE | 2018-10-19 18:47 | NUR ---
1545 IN BED WITHOUT ANY COMPLAINTS AT THIS TIME
--- NOTE | 2018-10-19 18:48 | NUR ---
1829 WAS NOTIFIED BY IMPORT CUSTOMER SERVICE MANAGER TO CALL DR DAVIS TO INFORM HIM THAT THE VENOUS LINE OF HEMOSPLIT. CALL MADE
--- NOTE | 2018-10-19 19:15 | NUR ---
assessment completed, pt c/o sob and chest pain worsening with deep breaths, hr-140, sbp 90, rr-36, placed call to dr campo and notified of pt condition, paged dr barakat
[2018-10-19 20:47] LABS: BASOPHILS 0.3 % (0-2); EOSINOPHILS 0.2 % (0-7); IMMATURE GRANULOCYTES 1.3 % (0-5); LYMPHOCYTES 9.2 % (15-50); MCH 35.2 pg (26.0-34.0); MCHC 36.8 g/dL (31.0-37.0); MCV 95.8 fL (80.0-100.0); MONOCYTES 9.2 % (2-11); NEUTROPHILS 79.8 % (40-80); PLATELET COUNT 211 10x3/uL (130-400)
[2018-10-19 20:56] LABS: HEMATOCRIT 25.3 % (36.0-48.0); HEMOGLOBIN 9.3 g/dL (12-16); RBC 2.64 10x6/uL (4.00-5.40)
--- NOTE | 2018-10-19 21:15 | NUR ---
dr campo here for right chest tube placement, pt medicated with morphine, chest tube placed with large amount of blood returned, chest tube to 20 cm suction, 1200 cc blood out to pleuravac initially, pt tolerated procedure well
--- NOTE | 2018-10-19 23:30 | NUR ---
PT ALERT WITH BLOOD TRANSFUSING VIA RIGHT 20G PIV, VITALS STABLE
[2018-10-20] VITALS (25 sets, daily range): BP systolic 115–139; BP diastolic 66–85
--- NOTE | 2018-10-20 01:30 | NUR ---
resting quietly, right chest tube intact, output @1400, vitals stable, 2nd unit of blood transfusing
--- NOTE | 2018-10-20 03:11 | NUR ---
pt asleep with no distress
--- NOTE | 2018-10-20 05:33 | NUR ---
PT AWAKE, REPOSITIONED, C/O RIGHT CHEST PAIN, SP02 90%, GIVEN MORPHINE 4 MG IVP FOR PAIN
[2018-10-20 06:44] LABS: ANION GAP 13.3 mmol/L (8-16); CALCIUM 8.1 mg/dL (8.5-10.1); CARBON DIOXIDE 25.9 mmol/L (21.0-32.0); CREATININE - SERUM 6.2 mg/dL (0.6-1.3); MAGNESIUM - SERUM 1.3 mg/dL (1.8-2.4); POTASSIUM - SERUM 4.2 mmol/L (3.5-5.1)
[2018-10-20 06:45] LABS: PHOSPHOROUS 5.6 mg/dL (2.5-4.9)
[2018-10-20 06:50] LABS: BASOPHILS 0.3 % (0-2); EOSINOPHILS 0.4 % (0-7); IMMATURE GRANULOCYTES 0.9 % (0-5); LYMPHOCYTES 11.6 % (15-50); MCH 32.9 pg (26.0-34.0); MONOCYTES 16.1 % (2-11); NEUTROPHILS 70.7 % (40-80); PLATELET COUNT 199 10x3/uL (130-400); RDW 15.1 % (11.5-14.5)
[2018-10-20 07:00] LABS: HEMATOCRIT 32.2 % (36.0-48.0); HEMOGLOBIN 11.6 g/dL (12-16); MCV 91.2 fL (80.0-100.0); RBC 3.53 10x6/uL (4.00-5.40); WBC 12.7 10x3/uL (4.8-10.8)
--- NOTE | 2018-10-20 07:20 | NUR ---
REPORT RECEIVED. ASSESSMENT COMPLETE PER FLOW SHEET. VSS. NO NEW CHANGES WILL CONTINUE TO MONITOR
--- NOTE | 2018-10-20 08:10 | NUR ---
ASSISTED UP TO BEDSIDE COMMODE. 100 CC VOID NOTED
--- NOTE | 2018-10-20 09:10 | NUR ---
PT RESTING COMFORTABLY VSS NO NEW CHANGES WILL CONTINUE TO MONITOR
--- NOTE | 2018-10-20 11:15 | NUR ---
REASSESSMENT COMPLETE PER FLOW SHEET. VSS. NO NEW CHANGES WILL CONTINUE TO MONITOR
--- NOTE | 2018-10-20 12:23 | NUR ---
DIALYSIS IN UNIT GIVEN BREN WRIGHT STATED UNDERSTANDING
--- NOTE | 2018-10-20 12:30 | NUR ---
DR MEDINA CALLED GIVEN UDPATE REGAURDING PT STATUS DR LEE PAGED TO DR MEDINA OR ROOM AT THIS TIME FOR DOC TO DOC. RADIOLOGY CALLED GIVEN UDPATE REGUARDING STATUS AND ORDERS STATED OKAY.
--- NOTE | 2018-10-20 14:10 | NUR ---
PT TO CT AT THIS TIME.
--- NOTE | 2018-10-20 14:31 | NUR ---
PREOP ADM PER T ORDER
--- NOTE | 2018-10-20 14:45 | NUR ---
OR AT BEDSIDE. PT LEFT VIA BED
--- NOTE | 2018-10-20 16:03 | NUR ---
VANCOMYCIN 1 GRAM IN 250 ML INFUSING VIA DIAL-A-FLOW UPON ENTRY TO PACU. APPROX 250 ML REMAINING TO INFUSE.
--- NOTE | 2018-10-20 16:45 | NUR ---
DR MEDINA AT BEDSIDE. EXPLAINED UPCOMING PROCEDURES AND POSSIBLE PROCEDURES AT GREAT LENGTH. PT STATED UNDERSTANDING. DR MEDINA AT THIS TIME REQUESTED THAT PT BE ABLE TO SEE AND TALK TO FAMILY IF IT WAS HER WISHES. COURTNEY SUAREZ STATED WOULD SPEAK WITH HUMBLE SUAREZ REGAURDING CURRENT POLICY. KASSIDY DAVIS RN CALLED GIVEN UDPATE.REMBERTO CORDOBA CALLED WITH NO ANSWER. KASSIDY CALLED HUMBLE KATE STATED TO LET PT HAVE PHONE AT THIS TIME. EXPLAINED TO PATIENT AT GREAT LENGTH REASON WHY SHE WAS TO RECIEVE THE PHONE AND THAT IT WOULD ONLY BE FOR 1 NIGHT. STATED UNDERSTANDING. WILL CONTINUE TO MONITOR
--- NOTE | 2018-10-20 16:46 | NUR ---
REASSESSMENT COMPLETE PER FLOW SHEET. VSS. NO NEW CHANGES WILL CONTINUE TO MONITOR
--- NOTE | 2018-10-20 18:57 | NUR ---
DR MEDINA CALLED BACK GIVEN UPDATE. NEW ORDERS RECEIVED.
--- NOTE | 2018-10-20 19:30 | NUR ---
PT ALERT, SITTING UP IN BED, RIGHT CHEST TUBE INTACT WITH MINIMAL DRAINAGE, HD IN PROGRESS VIA R THIGH HEMOSPLIT, L CHEST HEMOSPLIT INTACT AND TAPED OFF NOT TO USE, LUNGS CLEAR, PULSES 2+, NO DISTRESS NOTED
--- NOTE | 2018-10-20 20:16 | NUR ---
Patient denies any thoughts of self harm.
--- NOTE | 2018-10-20 21:30 | NUR ---
PT AWAKE WATCHING TV,HD IN PROGRESS, NO FURTHER OUTPUT NOTED FROM CHEST TUBE
--- NOTE | 2018-10-20 23:30 | NUR ---
REMAINS AWAKE WITH NO CHANGES, VITALS STABLE, TEMP 99.2
[2018-10-21] VITALS (34 sets, daily range): BP systolic 93–179; BP diastolic 58–87
--- NOTE | 2018-10-21 01:30 | NUR ---
PT RESTING QIUETLY, NO FURTHER OUTPUT FROM CHEST TUBE
--- NOTE | 2018-10-21 03:30 | NUR ---
PT AWAKW IN BED, REPOSITIONED FOR COMFORT
[2018-10-21 05:14] LABS: BASOPHILS 0.2 % (0-2); EOSINOPHILS 1.2 % (0-7); HEMOGLOBIN 9.8 g/dL (12-16); IMMATURE GRANULOCYTES 0.5 % (0-5); LYMPHOCYTES 16.5 % (15-50); MCH 33.3 pg (26.0-34.0); MCHC 36.3 g/dL (31.0-37.0); MCV 91.8 fL (80.0-100.0); MONOCYTES 18.5 % (2-11); NEUTROPHILS 63.1 % (40-80); RBC 2.94 10x6/uL (4.00-5.40); RDW 15.6 % (11.5-14.5)
--- NOTE | 2018-10-21 05:31 | NUR ---
PT REMAINS AWAKE, WATCHING TV WITH NO C/O, NO FUTHER OUTPUT FROM CHEST TUBE
[2018-10-21 05:44] LABS: PLATELET COUNT 153 10x3/uL (130-400); WBC 9.5 10x3/uL (4.8-10.8)
[2018-10-21 05:48] LABS: ALBUMIN 2.3 g/dL (3.4-5.0); ANION GAP 11.6 mmol/L (8-16); BILIRUBIN - TOTAL 0.54 mg/dL (0.2-1.3); CALCIUM 7.8 mg/dL (8.5-10.1); CARBON DIOXIDE 27.5 mmol/L (21.0-32.0); POTASSIUM - SERUM 4.1 mmol/L (3.5-5.1); PROTEIN - SERUM 5.4 g/dL (6.4-8.2)
[2018-10-21 05:49] LABS: INR 1.17 (0.85-1.17); PROTIME 14.4 SECONDS (11.6-15.0)
[2018-10-21 05:50] LABS: APTT 32.4 SECONDS (22.8-39.4)
--- NOTE | 2018-10-21 06:00 | NUR ---
DR. FLORES HERE, PREOP ORDERS REC'D - SEE EMAR. DR. MEDINA NOTIFIED OF AM H &H.
[2018-10-21 06:01] LABS: MAGNESIUM - SERUM 1.7 mg/dL (1.8-2.4); PHOSPHOROUS 3.6 mg/dL (2.5-4.9)
--- NOTE | 2018-10-21 06:10 | NUR ---
DR. LIEBERMAN NOTIFIED OF AM H & H. ASKED IF HE WANTED CVL, PER DR FLORES REQUEST, HE SAID "NO".
--- NOTE | 2018-10-21 06:55 | NUR ---
ASSESSMENT COMPLETE PER FLOW SHEET. VSS. OR AT BEDSIDE PT TO OR AT THIS TIME.
--- NOTE | 2018-10-21 09:34 | NUR ---
RIGHT CHEST TUBE REMOVED BY DR MEDINA IN OR PRIOR TO PREP.
--- NOTE | 2018-10-21 10:06 | NUR ---
NUTRITION F/U S/P PROCEDURE. CLEAR LIQUID DIET>>ADAT TO RENAL DIET. WILL MONITOR DIET ADVANCEMENT, PO INTAKE. RD FOLLOWING
--- NOTE | 2018-10-21 10:45 | NUR ---
PT BACK FROM OR AT THIS TIME.
--- NOTE | 2018-10-21 11:00 | NUR ---
REASSESSMENT COMPLETE PER FLOW SHEET. VSS. WILL CONTINUE TO MONITOR
--- NOTE | 2018-10-21 12:25 | OP ---
PATIENT NAME: ERNESTINA SIMS MEDICAL RECORD: [id number] :[birth year] LOCATION:D.ICU D.2306 ADMISSION DATE:10/12/18 SURGEON: NIMA MEDINA MD DATE OF OPERATION: 10/21/2018 This is an educational program assistant's note. I assisted Dr. Lieberman with the right mini thoracotomy and oversewing of vena caval perforation. Due to the complexity of the procedure, it was necessary to have 2 attending surgeons present. I was present from the initial incision to the final closure. My involvement in the operation included retraction of tissues, retraction of bone, retraction of sutures, retraction of the lung. Assistance with emptying the hemithorax of clotted blood. Suturing down a chest tube. Placement of clips for closure. Removal of the HemoSplit catheter and placement of the suture around the HemoSplit tract. This was a 3-0 Vicryl Rapide suture to prevent bleeding from the tract. TRANSINT:[id number] Voice Confirmation ID: [id number] DOCUMENT ID: [id number] NIMA MEDINA MD at 1225 CC: VAMSHI LARA MD, FARIDA LIEBERMAN MD and JOSE ROBERTO DVAIS MD [id number] DICTATION DATE: 10/21/18 1208 LOAD MANAGER: 10/21/18 1216 [place] [address]
--- NOTE | 2018-10-21 13:00 | NUR ---
DR LIEBERMAN AT BEDSIDE GIVEN UPDATE. NEW ORDERS RECEIVED.
--- NOTE | 2018-10-21 15:00 | NUR ---
REASSESSMENT COMPLETE PER FLOW SHEET. VSS. DR LIEBERMAN AT BEDSIDE GIVEN UPDATE. NEW ORDERS RECIEVED
--- NOTE | 2018-10-21 17:18 | NUR ---
PT SLEEPING COMFORTABLY VSS NO NEW CHANGES WILL CONTINUE TO MONITOR
--- NOTE | 2018-10-21 19:30 | NUR ---
PT ALERT, ORIENTED, ASSESSMENT COMPLETED, LEFT WRIST ART LINE INTACT, R THIGH HEMOSPLIT INTACT WITH PLASMALITE & NS INFUSING, EPIDURAL INTACT WITH PAIN BUTTON IN REACH, VITALS STABLE
--- NOTE | 2018-10-21 21:30 | NUR ---
RESTING QUIETLY WITHOUT DISTRESS, SITTER PRESENT IN ROOM
--- NOTE | 2018-10-21 23:30 | NUR ---
PT SLEEPING SOUNDLY, DIFFICULT TO AROUSE, NO DISTRESS
[2018-10-22] VITALS (25 sets, daily range): BP systolic 109–142; BP diastolic 70–89
--- NOTE | 2018-10-22 01:30 | NUR ---
PT AWAKE WITH HOB ELEVATED 45 DEGREES, ENCOURAGED INCENTIVE SPIROMETRY
--- NOTE | 2018-10-22 03:30 | NUR ---
PT AWAKE, HOB @ 45 DEGREES, VITALS STABLE, EPIDURAL CATH INTACT
[2018-10-22 04:40] LABS: BASOPHILS 0.1 % (0-2); EOSINOPHILS 0.4 % (0-7); HEMATOCRIT 31.7 % (36.0-48.0); HEMOGLOBIN 11.1 g/dL (12-16); IMMATURE GRANULOCYTES 0.2 % (0-5); LYMPHOCYTES 10.4 % (15-50); MCH 31.5 pg (26.0-34.0); MCV 90.1 fL (80.0-100.0); MONOCYTES 9.7 % (2-11); NEUTROPHILS 79.2 % (40-80); PLATELET COUNT 178 10x3/uL (130-400); RBC 3.52 10x6/uL (4.00-5.40); RDW 15.9 % (11.5-14.5)
[2018-10-22 04:51] LABS: ANION GAP 12.1 mmol/L (8-16); BILIRUBIN - TOTAL 0.47 mg/dL (0.2-1.3); CALCIUM 7.9 mg/dL (8.5-10.1); CREATININE - SERUM 4.4 mg/dL (0.6-1.3); MAGNESIUM - SERUM 1.6 mg/dL (1.8-2.4); POTASSIUM - SERUM 4.1 mmol/L (3.5-5.1); PROTEIN - SERUM 5.5 g/dL (6.4-8.2)
[2018-10-22 04:54] LABS: PHOSPHOROUS 6.1 mg/dL (2.5-4.9)
--- NOTE | 2018-10-22 05:50 | NUR ---
AWAKE WATCHING TV, TALKING WITH SITTER, NO C/O
--- NOTE | 2018-10-22 05:55 | NUR ---
PT NOTICED FLUID LEAKING FROM A-LINE SITE, SMALL AMOUNT OF FLUID NOTED UNDER DRESSING, WILL CONT TO MONITOR
--- NOTE | 2018-10-22 07:15 | NUR ---
REPORT RECEIVED. ASSESSMENT COMPLETE PER FLOW SHEET. VSS. PT RESTING COMFORTABLY DENIES NEEDS WILL CONTINUE TO MONITOR
--- NOTE | 2018-10-22 09:00 | NUR ---
MEDS ADM WITHOUT DIFFICULTY.
--- NOTE | 2018-10-22 10:50 | NUR ---
VINICIO PERRY'Gabriel AT THIS TIME, PT UPTO CHAIR, TOLERATED WELL
--- NOTE | 2018-10-22 11:30 | NUR ---
REASSESSMENT COMPLETE, PT UP IN CHAIR, TOLERATING WELL, DENIES ANY WANTS OR NEEDS, VSS, CALL LIGHT IN REACH
--- NOTE | 2018-10-22 13:05 | NUR ---
NO NEEDS NOTED AT THIS TIME, WILL CON'T TO MONITOR
--- NOTE | 2018-10-22 15:30 | NUR ---
REASSESSMENT COMPLETE, NO CHANGES NOTED, PT RESTING AT THIS TIME, VSS, CALL LIGHT IN REACH
--- NOTE | 2018-10-22 17:47 | NUR ---
PT STATED THAT SHE FEELS BETTER TODAY BUT A LITTLE SORE. DENIES SI. SITTER AT BEDSIDE.
--- NOTE | 2018-10-22 19:00 | NUR ---
SHIFT ASSESSMENT COMPLETE. VS STABLE. NO VISUAL CUES OF DISTRESS NOTED. WILL CONTINUE TO MONITOR,
--- NOTE | 2018-10-22 21:00 | NUR ---
VITAL SIGNS STABLE. NO VISUAL CUES OF DISTRESS NOTED. WILL CONTINUE TO MONITOR.
--- NOTE | 2018-10-22 23:00 | NUR ---
VITAL SIGNS STABLE. NO VISUAL CUES OF DISTRESS NOTED. WILL CONTINUE TO MONITOR.
--- NOTE | 2018-10-22 23:31 | NUR ---
PT STATES SHE WOULD LIKE TO VISIT WITH DR. SHEEHAN. PT SUICIDE RISK SCREENING PERFORMED WITH LOW RISK. RESTING COMFORTABLY IN BED WITH SITTER AT BEDSIDE.
[2018-10-23] VITALS (13 sets, daily range): BP systolic 124–147; BP diastolic 72–90
--- NOTE | 2018-10-23 01:00 | NUR ---
VITAL SIGNS STABLE. NO VISUAL CUES OF DISTRESS NOTED. WILL CONTINUE TO MONITOR.
--- NOTE | 2018-10-23 03:00 | NUR ---
VITAL SIGNS STABLE. NO VISUAL CUES OF DISTRESS NOTED. WILL CONTINUE TO MONITOR.
[2018-10-23 04:13] LABS: HEMATOCRIT 30.6 % (36.0-48.0); HEMOGLOBIN 10.8 g/dL (12-16); MCH 32.5 pg (26.0-34.0); MCHC 35.3 g/dL (31.0-37.0); MEAN PLATELET VOLUME 9.7 fL (7.4-10.4); RBC 3.32 10x6/uL (4.00-5.40); RDW 15.9 % (11.5-14.5); WBC 12.9 10x3/uL (4.8-10.8)
[2018-10-23 04:15] LABS: MCV 92.2 fL (80.0-100.0)
[2018-10-23 04:32] LABS: ALBUMIN 1.8 g/dL (3.4-5.0); ANION GAP 15.3 mmol/L (8-16); BILIRUBIN - TOTAL 0.36 mg/dL (0.2-1.3); CALCIUM 8.5 mg/dL (8.5-10.1); CARBON DIOXIDE 25.5 mmol/L (21.0-32.0); CREATININE - SERUM 4.4 mg/dL (0.6-1.3); MAGNESIUM - SERUM 1.4 mg/dL (1.8-2.4); POTASSIUM - SERUM 3.8 mmol/L (3.5-5.1); PROTEIN - SERUM 5.5 g/dL (6.4-8.2)
--- NOTE | 2018-10-23 05:00 | NUR ---
VITAL SIGNS STABLE. NO VISUAL CUES OF DISTRESS NOTED. WILL CONTINUE TO MONITOR.
--- NOTE | 2018-10-23 07:00 | NUR ---
RECEIVED REPORT. PT RESTING IN BED BUT COMPLAINS OF PAIN FROM CHEST TUBES. WILL TREAT. VSS
--- NOTE | 2018-10-23 09:00 | NUR ---
DR. LIEBERMAN CAME TO MAKE ROUNDS. PLANS TO REMOVE CHEST TUBES TODAY
--- NOTE | 2018-10-23 10:00 | NUR ---
CHEST TUBES REMOVED AT THIS TIME. WILL MONITOR
--- NOTE | 2018-10-23 10:05 | OP ---
PATIENT NAME: ERNESTINA SIMS MEDICAL RECORD: [id number] :[birth year] LOCATION:[facility] D.2306 ADMISSION DATE:10/12/18 SURGEON: JORGE MEDINA MD DATE OF OPERATION: 10/20/2018 PREOPERATIVE DIAGNOSIS: Acute renal failure without functioning access for hemodialysis. POSTOPERATIVE DIAGNOSIS: Acute renal failure without functioning access for hemodialysis. PROCEDURES: 1. Right groin HemoSplit catheter placement (tunneled cuffed dual-lumen hemodialysis catheter) under fluoroscopic guidance. 2. Immediate surgeon interpretation of the fluoroscopic images. SURGEON: Jorge Medina MD INTERNET ASSESSOR: None. BLOOD LOSS: Minimal. ANESTHESIA: General. COMPLICATIONS: None. The risks, possible complications, and alternatives to the procedure were explained to the patient. She elects to proceed. The discussion specifically included, but was not limited to, bleeding requiring emergency reoperation, infection and bleeding. No radiologist was present for this procedure. Static fluoroscopic images were obtained and are kept in the PACS system. The surgeon interpretation of the radiographic images is dictated within the body of this operative note. Last evening, the patient underwent placement of a left-sided HemoSplit catheter. The patient developed a right hemothorax. A chest tube was placed. I spoke with Dr. Barrera today. We have elected not to perform a venogram through that catheter for fear that there may be a clot around the HemoSplit catheter tip and we might dislodge that with a venogram. OPERATIVE COURSE: The patient was conveyed to the operating room electively on 10/20/2018. General anesthesia was induced by the anesthesia staff. The right groin and right anterior thigh were sterilely prepped and draped. Under ultrasonographic guidance, I percutaneously accessed the right common femoral vein in an antegrade fashion. A guidewire was passed easily. This was visualized under fluoroscopy. An incision was accomplished around the wire. A counterincision was accomplished in the anterior mid right thigh. I tunneled a 41-cm HemoSplit catheter from the distal incision to the proximal incision. Over the wire, I dilated to a larger size. Dilator sheath was then advanced. The dilator and wire were removed. Through the sheath, I advanced the tips of the HemoSplit catheter. They were advanced up into the inferior vena cava. The Peel-Away sheath was then removed. I pulled back on the cuff to seat it into the subcutaneous tissues. I then sutured the flange of the HemoSplit catheter to the underlying skin with 2-0 nylons. I then closed the groin incision with OPERATIVE REPORT [id number] ERNESTINA SIMS interrupted intracuticular 3-0 Vicryls. I flushed both lumens with normal saline. I then topped off both lumens of the HemoSplit catheter with concentrated heparin. TRANSINT:[id number] Voice Confirmation ID: [id number] DOCUMENT ID: [id number] 10/22/2018 Edited for floral designer salesperson error, dmm. JORGE MEDINA MD at 1005 CC: [id number] DICTATION DATE: 10/20/18 1554 INTERNATIONAL AFFAIRS VICE PRESIDENT: 10/20/182005 ADM IN [facility] [address] [place] [address]
--- NOTE | 2018-10-23 12:10 | NUR ---
Nutrition follow-up: Diet: Renal PO intake 25-50% of meals Labs reviewed Wt: 136# +BM Pts renal function stable at this time Out to floor soon RDN following.
--- NOTE | 2018-10-23 13:30 | NUR ---
CALLED REPORT TO MED SURG NURSE.
--- NOTE | 2018-10-23 17:18 | NUR ---
PATIENT HAS TRANSFERED FROM ICU. SHE HAS A SITTER AT BEDSIDE. SHE IS ALERT AND AWAKE. SHE DENIES ANY NEEDS AT THIS TIME. SHE IS EATTING HER DINNER, AND TAKING SMALL BITES.
--- NOTE | 2018-10-23 19:44 | NUR ---
EVENING ROUNDS COMPLETED. REPORT RECEIVED. PT SITTING UP IN BED WITH EYES OPEN, RR EVEN AND UNLABORED. BED IN LOW POSITION. OXYGEN AT 2 LITERS BY NASAL CANNULA. SCD'S IN PLACE ON BILATERAL LOWER EXTREMITIES. INTRODUCED SELF TO PT. PT DENIES FURTHER NEEDS AT THIS TIME. SITTER AT BEDSIDE. CALL LIGHT IN REACH, WILL CTM.
--- NOTE | 2018-10-23 20:01 | NUR ---
TELEMETRY ESTABLISHED, CURRENTLY 124 SINUS TAC.
[2018-10-24 00:30] VITALS: BP 146/88
--- NOTE | 2018-10-24 02:34 | NUR ---
ADMINISTERED ORDERED ANALGESIC FOR COMPLAINTS OF PAIN IN RIGHT CHEST, PT STATES PAIN OF A 10 ON A SCALE OF 0-10. WILL CTM.
--- NOTE | 2018-10-24 03:41 | NUR ---
I have reviewed this patient and I concur with the Shift Assessment completed by the Licensed Practical Nurse today this shift.
[2018-10-24 04:30] VITALS: BP 126/82
--- NOTE | 2018-10-24 06:24 | NUR ---
ADMINISTERED ORDERED ANALGESIC FOR COMPLAINTS OF PAIN IN RIGHT CHEST, PT STATES PAIN OF A 9 ON A SCALE OF 0-10. WILL CTM.
[2018-10-24 06:50] LABS: HEMATOCRIT 32.8 % (36.0-48.0); HEMOGLOBIN 11.3 g/dL (12-16); MCH 31.9 pg (26.0-34.0); MCHC 34.5 g/dL (31.0-37.0); MCV 92.7 fL (80.0-100.0); MEAN PLATELET VOLUME 9.7 fL (7.4-10.4); RBC 3.54 10x6/uL (4.00-5.40); RDW 15.1 % (11.5-14.5)
[2018-10-24 07:16] LABS: ANION GAP 12.7 mmol/L (8-16); BILIRUBIN - TOTAL 0.52 mg/dL (0.2-1.3); CALCIUM 9.3 mg/dL (8.5-10.1); CARBON DIOXIDE 27.3 mmol/L (21.0-32.0); CREATININE - SERUM 3.5 mg/dL (0.6-1.3); MAGNESIUM - SERUM 1.6 mg/dL (1.8-2.4); PROTEIN - SERUM 6.4 g/dL (6.4-8.2)
--- NOTE | 2018-10-24 07:56 | NUR ---
RECIEVED REPORT. PATIENT JUST RETURNED FROM XRAY. WRAPPED ALL SITES THAT CAN NOT BE EXPOSED TO WATER. PATIENT IS GETTING IN THE SHOWER. SITTER IS WITH PATIENT AT ALL TIMES ORDERED. PATIENT REPORTS THAT SHE IS FEELING BETTER TODAY. DENIES ANY OTHER NEEDS.
[2018-10-24 08:43] VITALS: BP 126/76
--- NOTE | 2018-10-24 09:26 | OP ---
PATIENT NAME: ERNESTINA SIMS MEDICAL RECORD: [id number] :76 LOCATION:D.M2 D.2140 ADMISSION DATE:10/12/18 SURGEON: FARIDA LIEBERMAN MD DATE OF OPERATION: 10/21/2018 SURGEON: Farida Lieberman MD ASSIGNER: Jorge Laboy MD PROCEDURE PERFORMED: Right thoracotomy, repair of superior vena cava, and removal of dialysis access catheter, evacuation of intrapleural hematoma and localized decortication of the right lower lobe. ANESTHESIA: Double lumen, general endotracheal anesthesia. ESTIMATED BLOOD LOSS: 100 cc. COMPLICATIONS: None. SPECIMENS: None. CONDITION: Stable. DISPOSITION: ICU. OPERATIVE FINDINGS: The tip of the dialysis access catheter was intrapleural from the right superior vena cava. It was amputated, pulled back, and primary repair was performed. The clotted blood was removed from the right chest and some early adhesions along the lower lobe were removed intact with good reexpansion of the lung. The catheter was removed from the left by Dr. Lbaoy after the patient had been returned to the supine position. INDICATION: Perforated superior vena cava after wire change dialysis access in a patient with acute kidney failure in need of emergent hemodialysis. DESCRIPTION OF PROCEDURE: The patient was brought to the operating suite. Double lumen general endotracheal anesthesia was obtained, the patient was turned in left lateral decubitus position with appropriate padding and the right chest was sterilely prepped and draped. Lateral thoracotomy incision was made, mostly a muscle splitting incision. The chest was entered. The lung was retracted posteriorly. The catheter was identified. A pursestring was placed. The catheter was pulled up and amputated the tip so that it would withdraw into the superior vena cava and Dr. Davis pulled this back from outside the operative field. The pursestring was tied down. Additional 2 sutures were placed over this side and FloSeal was used. Clotted blood was then removed. Thorough irrigation was undertaken. Some adhesions along the lower lobe were taken out. Lung reexpanded well. Two chest tubes were placed and intercostal block was performed with Marcaine. The wound was then closed with muscle layer, subcutaneous and skin clips. Dressing was placed. The patient was turned to the supine position. There was no air leak. Dr. Laboy removed the dialysis access and closed the wound. TRANSINT:[id number] Voice Confirmation ID: [id number] DOCUMENT ID: [id number] OPERATIVE REPORT [id number] ERNESTINA SIMS DANIEL W MD at 0926 CC: JOSE ROBERTO DAVIS MD [id number] DICTATION DATE: 10/23/18 1142 MOUNTAIN BI[employer] GUIDE: 10/23/18 1206 ADM IN [place] [id number] [place] [id number]
--- NOTE | 2018-10-24 09:30 | PN ---
PATIENT:ERNESTINA SIMS MEDICAL RECORD: [id number] LOCATION:D.[facility].214 ADMISSION DATE: 10/12/18 PROGRESS NOTE DATE OF SERVICE: 10/23/2018 SUBJECTIVE: The patient's case was discussed with staff. She has no new complaint except she does not want to go to inpatient psychiatric care. OBJECTIVE: The patient has a mildly depressed mood and denies that she would seek to harm herself. Her thought processes are generally logical and goal directed. ASSESSMENT: Major depression. Status post overdose. PLAN: The patient is a significantly and seriously unpredictable individual. She has a number of very serious psychosocial stressors including recent kidney failure with dialysis secondary to her having consumed antifreeze. She also was on parole and her chief scientific officer is visiting her and may well be planning to provoke her. ASSESSMENT: Major depression. PLAN: In my opinion, the patient is a serious risk for suicide and given the itch cream and lethality of what she did and the long-term life altering consequences of it, I think it is prudent that she be transferred to acute inpatient psychiatric care once medically stabilized. I think that this should take place even on an involuntary basis if necessary. She should be maintained with a sitter until transfer can be arranged. TRANSINT:[id number] Voice Confirmation ID: [id number] DOCUMENT ID: [id number] JHONATHAN SHEEHAN MD at 0930 CC: [id number] DICTATION DATE: 10/23/18 1642 POURED CONCRETE WALL TECHNICIAN: 10/23/18 2148 ADM IN [facility] [address] [place] [address]
--- NOTE | 2018-10-24 10:25 | NUR ---
SITTER AT BEDSIDE. PATIENT IS ALERT AND AWAKE. SHE IS REPORTING DISCOMFORT IN THE RIGHT SIDE. HER LEFT ARM IS SWOLLEN AND SEEMS MORE SWOLLEN THEN YESTERDAY.
[2018-10-24 12:13] VITALS: BP 118/77
--- NOTE | 2018-10-24 14:56 | NUR ---
PATIENT HAS A CLOT IN HER LEFT ARM. FOLLOWING DR MORFIN NOW.
[2018-10-24 15:28] LABS: APTT 28.2 SECONDS (22.8-39.4); INR 1.12 (0.85-1.17); PROTIME 13.9 SECONDS (11.6-15.0)
--- NOTE | 2018-10-24 17:14 | NUR ---
HEPRIN DRIP STARTED AT 1515. SITTER AT BEDSIDE. HEPARIN PROTOCOL FOLLOWED ORDERED.
--- NOTE | 2018-10-24 17:37 | NUR ---
NOTIFIED CAROL DE LEON OF NEW ORDERS ON PATIENT BY DR NAVA.
--- NOTE | 2018-10-24 19:48 | NUR ---
EVENING ROUNDS COMPLETED. REPORT RECEIVED. PT SITTING UP IN BED WITH EYES OPEN, RR EVEN AND UNLABORED. BED IN LOW POSITION. SITTER AT BEDSIDE. HEPARIN INFUSING ORDERED ACCORDING TO HEPARIN PROTOCOL. 100 SINUS TAC ON TELEMETRY. INTRODUCED SELF TO PT. ADMINISTERED ORDERED ANALGESIC FOR COMPLAINTS OF PAIN IN RIGHT CHEST AND LEFT ARM. PT DENIES FURTHER NEEDS AT THIS TIME. CALL LIGHT INREACH. WILL CTM.
[2018-10-24 20:00] VITALS: BP 113/59
--- NOTE | 2018-10-24 20:55 | NUR ---
PTT RESULTS RECEIVED. HEPARIN BOLUS ADMINISTERED AND INFUSION INCREASED, PER HEPARIN PROTOCOL.
--- NOTE | 2018-10-24 22:24 | NUR ---
PT CURRENTLY SITTING UP IN BED WITH EYES OPEN, RR EVEN AND UNLABORED. BED IN LOW POSITION. NO S/S OF DISTRESS NOTED. PROVIDED PT BED TIME SNACK OF SUDEEP CRACKERS. PT REQUESTED PEANUT BUTTER, EDUCATED PT THAT SHE WAS ON A RENAL DIET SHE COULD NOT HAVE PEANUT BUTTER.
--- NOTE | 2018-10-24 23:36 | NUR ---
ADMINISTERED ORDERED ANALGESIC FOR COMPLAINTS OF PAIN IN RIGHT CHEST, PT STATES PAIN OF A 6 ON A SCALE OF 0-10.
[2018-10-25] VITALS: BP 103/56
--- NOTE | 2018-10-25 01:54 | NUR ---
I have reviewed this patient and I concur with the Shift Assessment completed by the Licensed Practical Nurse today this shift.
--- NOTE | 2018-10-25 03:02 | NUR ---
CALLED ROMA LUDWIG NURSE PRACTICIONER REGARDING PT COMPLAINTS OF SPASMS AND SITTER STATING OBSERVED INSTANCES OF PT LEGS SUDDENLY SPASMING. ROMA LUDWIG ORDERED ROPINEROLE 0.25 MG PO PRN FOR PT COMPLAINTS OF RESTLESS LEGS.
[2018-10-25 03:42] LABS: BASOPHILS 0.5 % (0-2); EOSINOPHILS 3.5 % (0-7); HEMATOCRIT 30.8 % (36.0-48.0); HEMOGLOBIN 10.4 g/dL (12-16); IMMATURE GRANULOCYTES 0.8 % (0-5); LYMPHOCYTES 22.8 % (15-50); MCH 31.5 pg (26.0-34.0); MCHC 33.8 g/dL (31.0-37.0); MCV 93.3 fL (80.0-100.0); MEAN PLATELET VOLUME 9.8 fL (7.4-10.4); MONOCYTES 11.1 % (2-11); NEUTROPHILS 61.3 % (40-80); PLATELET COUNT 320 10x3/uL (130-400); RDW 14.7 % (11.5-14.5); WBC 9.2 10x3/uL (4.8-10.8)
[2018-10-25 03:54] LABS: ALBUMIN 1.9 g/dL (3.4-5.0); ANION GAP 9.4 mmol/L (8-16); BILIRUBIN - TOTAL 0.38 mg/dL (0.2-1.3); CARBON DIOXIDE 32.4 mmol/L (21.0-32.0); CREATININE - SERUM 2.7 mg/dL (0.6-1.3); POTASSIUM - SERUM 3.8 mmol/L (3.5-5.1); PROTEIN - SERUM 6.1 g/dL (6.4-8.2)
--- NOTE | 2018-10-25 03:57 | NUR ---
APTT LAB RECEIVED, HEPARIN INFUSION ADJUSTED PER HEPARIN PROTOCOL.
[2018-10-25 04:00] VITALS: BP 116/72
--- NOTE | 2018-10-25 07:58 | NUR ---
PT AWAKE AND ALERT THIS AM DURING ROUNDS. SITTER AT BEDSIDE. PATIENT REQUESTING A LARGE GLASS OF ICE WATER. ICE WATER PROVIDED. DENIES ANY ADDITIONAL NEEDS AT THIS TIME. CALL LIGHT IS IN REACH AND BED IS IN LOW POSITION. IV IS IN MARICARMEN LEFT AC WITH HEPARIN RUNNING AT 16 AN HOUR.
[2018-10-25 09:06] VITALS: BP 108/68
--- NOTE | 2018-10-25 19:42 | NUR ---
EVENING ROUNDS COMPLETED. REPORT RECEIVED. PT SITTING UP IN BED WITH EYES OPEN, RR EVEN AND UNLABORED. 98 SINUS ON TELEMETRY. SITTER AT BEDSIDE. NO S/S OF DISTRESS NOTED. INTRODUCED SELF TO PT. PT STATES PAIN IN LEFT ARM HAS DECREASED IN SEVERITY. PT DENIES FURTHER NEEDS AT THIS TIME. HEPARIN INFUSING ORDERED ACCORDING TO HEPARIN PROTOCOL. CALL LIGHT IN REACH. WILL CTM.
[2018-10-25 20:00] VITALS: BP 108/57
--- NOTE | 2018-10-25 21:22 | NUR ---
EVENING MEDICATIONS ADMINISTERED ORDERED. ADMINISTERED ORDERED ANALGESIC AND REQUIP. PT STATES PAIN IN RIGHT CHEST IS A 5 ON A SCALE OF 0-10. ALSO STATES ORDERED REQUIP HAS BEEN EFFECTIVE IN CONTROLLING SYMPTOM OF LEG CRAMPS AND RESTLESS LEGS.
--- NOTE | 2018-10-25 21:51 | NUR ---
PATIENT LYING IN BED, NO DISTRESS. DENIES SUICIDAL IDEATIONS
[2018-10-26 00:14] VITALS: BP 103/60
--- NOTE | 2018-10-26 02:59 | NUR ---
I have reviewed this patient and I concur with the Shift Assessment completed by the Licensed Practical Nurse today this shift.
[2018-10-26 04:15] VITALS: BP 106/64
[2018-10-26 04:18] LABS: BASOPHILS 0.8 % (0-2); EOSINOPHILS 4.3 % (0-7); HEMATOCRIT 29.1 % (36.0-48.0); HEMOGLOBIN 9.5 g/dL (12-16); LYMPHOCYTES 27.8 % (15-50); MCH 30.6 pg (26.0-34.0); MCHC 32.6 g/dL (31.0-37.0); MCV 93.9 fL (80.0-100.0); MEAN PLATELET VOLUME 9.7 fL (7.4-10.4); MONOCYTES 12.5 % (2-11); NEUTROPHILS 53.6 % (40-80); PLATELET COUNT 362 10x3/uL (130-400); RDW 14.6 % (11.5-14.5); WBC 7.7 10x3/uL (4.8-10.8)
[2018-10-26 04:39] LABS: ALBUMIN 1.9 g/dL (3.4-5.0); BILIRUBIN - TOTAL 0.26 mg/dL (0.2-1.3); CALCIUM 8.8 mg/dL (8.5-10.1); CARBON DIOXIDE 31.8 mmol/L (21.0-32.0); CREATININE - SERUM 2.2 mg/dL (0.6-1.3); POTASSIUM - SERUM 3.8 mmol/L (3.5-5.1)
--- NOTE | 2018-10-26 05:04 | NUR ---
PT SITTING UP IN BED WITH EYES OPEN, RR EVEN AND UNLABORED. HEPARIN INFUSING AT 1600 UNITS PER HOUR. APTT DRAW SET FOR AM LABS. CALL LIGHT IN REACH. WILL CTM.
--- NOTE | 2018-10-26 06:15 | NUR ---
ADMINISTERED ORDERED ANALGESIC FOR PT COMPLAINTS OF PAIN IN RIGHT CHEST, PT STATES PAIN OF A 5 ON A SCALE OF 0-10.
[2018-10-26 07:33] VITALS: BP 102/61
[2018-10-26 11:16] VITALS: BP 108/64
[2018-10-26 16:07] VITALS: BP 107/64
--- NOTE | 2018-10-26 19:52 | NUR ---
PT SITTING UP IN BED. CL IN REACH. DENIES NEEDS AT THIS TIME. COMPLAINING OF PAIN IN RIGHT RIB CAGE AT A LEVEL OF 6 OUT OF 10. NORCO GIVEN PER MAY. DENIES FURHTER NEEDS. A/O X4. LUNGS CLEAR. O2 ON 2L. WILL CONTINUE TO MONITOR.
[2018-10-26 20:00] VITALS: BP 108/60
[2018-10-27 00:02] VITALS: BP 108/66
--- NOTE | 2018-10-27 03:27 | NUR ---
I have reviewed this patient and I concur with the Shift Assessment completed by the Licensed Practical Nurse today this shift.
[2018-10-27 04:08] VITALS: BP 107/67
--- NOTE | 2018-10-27 05:39 | NUR ---
PT RESTING QUIETLY. CL IN REACH. SITTER IN ROOM. EYES CLOSED. WCTM
--- NOTE | 2018-10-27 07:26 | NUR ---
REPORT RECEIVED. WILL CONTINUE WITH POC. PT CURRENTLY LYING SEMI FOWLERS. CALL LIGHT W/I REACH. PT IS AAO AND UP AD SUDHA. RR EVEN AND UNLABORED ON 2L 02. HEPARIN INFUSING VIA R.AC. NO S/S OF DISTRESS NOTED. PT DENIES ANY NEEDS. WILL CTM. SITTER AT BEDSIDE.
[2018-10-27 07:48] LABS: EOSINOPHILS 4.2 % (0-7); HEMATOCRIT 30.5 % (36.0-48.0); HEMOGLOBIN 10.2 g/dL (12-16); IMMATURE GRANULOCYTES 1.8 % (0-5); LYMPHOCYTES 25.2 % (15-50); MCH 31.3 pg (26.0-34.0); MCHC 33.4 g/dL (31.0-37.0); MCV 93.6 fL (80.0-100.0); MEAN PLATELET VOLUME 9.7 fL (7.4-10.4); MONOCYTES 13.2 % (2-11); NEUTROPHILS 54.6 % (40-80); PLATELET COUNT 380 10x3/uL (130-400); RBC 3.26 10x6/uL (4.00-5.40); RDW 14.3 % (11.5-14.5); WBC 6.1 10x3/uL (4.8-10.8)
[2018-10-27 07:55] VITALS: BP 118/77
[2018-10-27 08:44] LABS: ALBUMIN 2.2 g/dL (3.4-5.0); BILIRUBIN - TOTAL 0.29 mg/dL (0.2-1.3); CALCIUM 9.1 mg/dL (8.5-10.1); CARBON DIOXIDE 31.1 mmol/L (21.0-32.0); POTASSIUM - SERUM 4.1 mmol/L (3.5-5.1); PROTEIN - SERUM 6.5 g/dL (6.4-8.2)
--- NOTE | 2018-10-27 10:01 | NUR ---
AM MEDICATIONS ADMINISTERED WITH SMALL SIPS OF WATER. APTT INCREASED TO 96.8 THIS AM. SCHEDULED STAT REDRAW TO VERIFY LAB VALUE NEARLY DOUBLING. PAUSED HEPARIN DRIP UNTIL VERIFICATION. WILL CTM. PT DENIES ANY NEEDS.
--- NOTE | 2018-10-27 10:36 | NUR ---
STILL WAITING FOR STAT APTT LAB DRAW.
--- NOTE | 2018-10-27 12:00 | NUR ---
PREOP MEDICATIONS ADMINISTERED PER OR REQUEST. RECEIVED APTT LAD BACK AND IT WAS 49.6. DUE TO THE RAPID VARIATION IN LAB VALUE, PAGED GRZEGORZ DE LEON TO VERIFY WHAT RATE SHE WOULD LIKE THE HEPARIN TO INFUSE R/T TO POSSIBLE DISCREPENCY WITH LAB. WILL CTM.
[2018-10-27 12:25] VITALS: BP 108/69
--- NOTE | 2018-10-27 12:33 | NUR ---
HEPARIN ADJUSTED PER PROTOCOL, NOW INFUSING @17ML/HR VIA R.AC PIV. PT TRANSFERED TO OR. WILL CTM.
--- NOTE | 2018-10-27 13:58 | NUR ---
PT RETURN FROM OR. PT IS AAO. RR EVEN AND UNLABORED ON RA. VSS AND WNL. HEPARIN INFUSING @17ML/HR VIA R.AC PIV. PT DENIES ANY NEEDS AT THIS TIME. SITTER AT BEDSIDE. WILL CTM.
--- NOTE | 2018-10-27 15:17 | NUR ---
I have reviewed this patient and I concur with the Shift Assessment completed by the Licensed Practical Nurse today this shift.
[2018-10-27 20:00] VITALS: BP 106/62
[2018-10-28] VITALS: BP 110/69
[2018-10-28 04:00] VITALS: BP 115/76
[2018-10-28 05:44] LABS: EOSINOPHILS 3.4 % (0-7); HEMATOCRIT 30.9 % (36.0-48.0); HEMOGLOBIN 10.2 g/dL (12-16); IMMATURE GRANULOCYTES 1.4 % (0-5); LYMPHOCYTES 30.7 % (15-50); MCH 30.9 pg (26.0-34.0); MCV 93.6 fL (80.0-100.0); MEAN PLATELET VOLUME 9.2 fL (7.4-10.4); MONOCYTES 9.8 % (2-11); NEUTROPHILS 53.7 % (40-80); PLATELET COUNT 357 10x3/uL (130-400); RDW 14.4 % (11.5-14.5); WBC 7.3 10x3/uL (4.8-10.8)
[2018-10-28 06:12] LABS: ALBUMIN 2.3 g/dL (3.4-5.0); ANION GAP 13.9 mmol/L (8-16); BILIRUBIN - TOTAL 0.24 mg/dL (0.2-1.3); CALCIUM 9.3 mg/dL (8.5-10.1); CARBON DIOXIDE 29.4 mmol/L (21.0-32.0); CREATININE - SERUM 1.6 mg/dL (0.6-1.3); POTASSIUM - SERUM 4.3 mmol/L (3.5-5.1); PROTEIN - SERUM 6.7 g/dL (6.4-8.2)
--- NOTE | 2018-10-28 07:44 | NUR ---
REPORT RECEIVED. WILL CONTINUE WITH POC. PT CURRENTLY LYING SEMI FOWLERS. CALL LIGHT W/I REACH. PT IS NPO FOR POSSIBLE THORACENTESIS. PT IS AAO AND UP AD SUDHA. RR EVEN AND UNLABORED ON 2L 02. HEPARIN INFUSING @16ML/HR VIA R.AC PIV. SITTER AT BEDSIDE. PT DENIES ANY NEEDS AT THIS TIME. WILL CTM.
[2018-10-28 07:58] VITALS: BP 113/75
[2018-10-28 08:08] LABS: INR 1.01 (0.85-1.17); PROTIME 12.8 SECONDS (11.6-15.0)
--- NOTE | 2018-10-28 12:29 | NUR ---
I have reviewed this patient and I concur with the Shift Assessment completed by the Licensed Practical Nurse today this shift.
[2018-10-28 12:45] VITALS: BP 120/72
--- NOTE | 2018-10-28 14:06 | NUR ---
PT TRANSFERED TO CT WITH IR. WILL CTM.
--- NOTE | 2018-10-28 15:20 | OP ---
PATIENT NAME: ERNESTINA SIMS MEDICAL RECORD: [id number] :76 LOCATION:D.M2 D.2140 ADMISSION DATE:10/12/18 SURGEON: JORGE MEDINA MD DATE OF OPERATION: 10/27/2018 PREOPERATIVE DIAGNOSIS: Indwelling HemoSplit catheter in a patient who has had a return of renal function. POSTOPERATIVE DIAGNOSIS: Indwelling HemoSplit catheter in a patient who has had a return of renal function. PROCEDURES: Removal of right groin HemoSplit catheter. SURGEON: Jorge Medina MD HEMOTHERAPIST: None. BLOOD LOSS: Minimal. ANESTHESIA: Local with IV sedation. COMPLICATIONS: None. The risks, possible complications, and alternatives to the procedure were explained to the patient. She elects to proceed. OPERATIVE COURSE: The patient was conveyed to the operating room electively on 10/27/2018. IV sedation was induced by the anesthesia staff. The right thigh was sterilely prepped and draped. A pursestring suture of 3-0 Vicryl Rapide was applied around the HemoSplit catheter near its exit through the skin, after a local anesthetic was used to infiltrate the skin and subcutaneous tissues in this area. I then bluntly dissected up along the catheter tract with a hemostat. I grasped the HemoSplit catheter and removed it in its entirety. I then cinched down on the pursestring suture and tied. There was no bleeding. A sterile dressing was applied. The patient was then conveyed to the post-anesthesia care unit. TRANSINT:[id number] Voice Confirmation ID: [id number] DOCUMENT ID: [id number] JORGE MEDINA MD at 1520 CC: [id number] DICTATION DATE: 10/28/18 1245 MOTION PICTURE SET WORKER: 10/28/18 1348 ADM IN [facility] [address] [place] [address]
[2018-10-28 16:15] VITALS: BP 116/76
--- NOTE | 2018-10-28 16:41 | NUR ---
PT HAD SHOWER. PT CURRENTLY LYING SEMI FOWLERS. CALL LIGHT W/I REACH. SITTER AT BEDSIDE. PT DENIES ANY NEEDS. WILL CTM. NO S/S OF DISTRESS NOTED.
--- NOTE | 2018-10-28 19:00 | NUR ---
PATIENT LAYING IN BED. PATIENT HAS NO COMPLAINTS AT THIS TIME. SITTER AT BEDSIDE.
[2018-10-28 20:00] VITALS: BP 100/58
[2018-10-28 21:36] LABS: EOS BF 11 %; MACROPHAGES BF 29 %; MESOTHELIALS BF 8 %; NEUT - BF 15 %
[2018-10-29 00:30] VITALS: BP 113/68
[2018-10-29 04:00] VITALS: BP 130/68
[2018-10-29 06:14] LABS: BASOPHILS 0.8 % (0-2); EOSINOPHILS 4.2 % (0-7); HEMATOCRIT 32.8 % (36.0-48.0); HEMOGLOBIN 10.9 g/dL (12-16); IMMATURE GRANULOCYTES 1.7 % (0-5); MCHC 33.2 g/dL (31.0-37.0); MCV 93.2 fL (80.0-100.0); MEAN PLATELET VOLUME 9.4 fL (7.4-10.4); MONOCYTES 9.8 % (2-11); NEUTROPHILS 50.5 % (40-80); PLATELET COUNT 401 10x3/uL (130-400); RBC 3.52 10x6/uL (4.00-5.40); RDW 14.4 % (11.5-14.5); WBC 6.6 10x3/uL (4.8-10.8)
[2018-10-29 06:34] LABS: ALBUMIN 2.5 g/dL (3.4-5.0); ANION GAP 13.3 mmol/L (8-16); BILIRUBIN - TOTAL 0.25 mg/dL (0.2-1.3); CALCIUM 9.3 mg/dL (8.5-10.1); CARBON DIOXIDE 29.7 mmol/L (21.0-32.0); CREATININE - SERUM 1.4 mg/dL (0.6-1.3); PROTEIN - SERUM 6.9 g/dL (6.4-8.2)
--- NOTE | 2018-10-29 07:33 | NUR ---
REPORT RECEIVED. WILL CONTINUE WITH POC. PT CURRENTLY LYING SEMI FOWLERS. CALL LIGHT W/I REACH. PT IS AAO AND UP AD SUDHA. SITTER AT BEDSIDE. HEPARIN INFUSING @16ML/HR VIA R.AC PIV. RR EVEN AND UNLABORED ON RA. NO S/S OF DISTRESS NOTED. PT DENIES ANY NEEDS. WILL CTM.
[2018-10-29 08:57] VITALS: BP 103/64
--- NOTE | 2018-10-29 10:07 | MORECARE ---
CASE MANAGEMENT DISCHARGE SUMMARY PATIENT: ERNESTINA SIMS UNIT: [id number] ADM DATE: 10/12/18 AGE: 38 : [birth year] SEX: F ROOM/BED: D.8750 AUTHOR: PETER,DOC PHYSICIAN: REFERRING PHYSICIAN: VAMSHI LARA MD DATE OF SERVICE: 10/29/18 Discharge Plan Patient Name: ERNESTINA SIMS Facility: [facility]:[place] : 1980 Planned Disposition: Psych facility Anticipated Discharge Date: Discharge Date: Expected LOS: Initial Reviewer: [email or web address] Initial Review Date: 10/13/2018 Generated: 10/29/18 8:36 am DCP- Discharge Planning Updated by [email or web address]: Susan Richardson on 10/16/18 3:[address] CM trying to find out if patient has insurance or if it has termed. [employer] is working on trying to figure this information out. Patient is going to need psych placement once medically stable. Patient is most likely going to need dialysis and psych at a facility. CM has notified Jodee Sepulveda that patient will need outpatient dialysis setup. Jodee informed CM that the only facility that will accept dialysis/ psych patient is [facility]. CM will continue to follow and assist as needed with discharge planning / needs. DCP- Discharge Planning Updated by [email or web address]: Susan Richardson on 10/13/18 2:[address] Patient Name: ERNESTINA SIMS Admission Status: ER Accout number: [id number] Admission Date: 10-12-2018 : 1980 Admission Diagnosis: Attending: VAMSHI LARA Current LOS: 1 Anticipated DC Date: Planned Disposition: Psych facility Primary Insurance: UNINSURED DISCOUNT PLAN Discharge Planning Comments: CM met with patient at bedside after explaining CM role and obtaining verbal consent. Patient lives at home with two roommates and plans to return there upon discharge. Patient is currently having dialysis this is her second treatment thus far. Pysch consult once medically stable. Psych evaluation will determine discharge plan. CM will continue to follow and assist as needed with discharge planning / needs. Production Engineer: Susan Richardson DCPIA - Discharge Planning Initial Assessment Updated by [email or web address]: Susan Richardson on 10/13/18 3:36 pm * Is the patient Alert and Oriented? Yes * How many steps to enter\exit or inside your home? * PCP NO PCP * Pharmacy NO PHARMACY - CURRENTLY ? [facility] * Preadmission Environment Home with Family * ADLs Independent * Equipment None * List name and contact numbers for known caregivers / representatives who currently or will assist patient after discharge: OLVIN LIU [facility]- [phone] * Verbal permission to speak to the caregivers and representatives has been obtained from the patient. N/A * Community resources currently utilized None * Additional services required to return to the preadmission environment? No * Can the patient safely return to the preadmission environment? Yes * Has this patient been hospitalized within the prior 30 days at any hospital? No Last DP export: 10/19/18 3:50 pm Patient Name: ERNESTINA SIMS Page [id number] at 1007 All edits/amendments must be made on the electronic document DICTATION DATE: 10/29/18735 MANAGER MEDICAL: DIRK 10/29/18735 RPT#: [id number] DC DATE: STATUS: ADM IN [facility] [address] [place] [address] END OF REPORT
--- NOTE | 2018-10-29 12:02 | MORECARE ---
CASE MANAGEMENT DISCHARGE SUMMARY PATIENT: ERNESTINA SIMS UNIT: [id number] ADM DATE: 10/12/18 AGE: 38 : 76 SEX: F ROOM/BED: D.2140 AUTHOR: PETER,DOC PHYSICIAN: REFERRING PHYSICIAN: VAMSHI LARA MD DATE OF SERVICE: 10/29/18 Discharge Plan Patient Name: ERNESTINA SIMS Facility: [facility]:[place] : 1980 Planned Disposition: Psych facility Anticipated Discharge Date: Discharge Date: Expected LOS: Initial Reviewer: [email or web address] Initial Review Date: 10/13/2018 Generated: 10/29/18 1:01 pm DCP- Discharge Planning Updated by [email or web address]: Susan Richardson on 10/16/18 3:[address] CM trying to find out if patient has insurance or if it has termed. [employer] is working on trying to figure this information out. Patient is going to need psych placement once medically stable. Patient is most likely going to need dialysis and psych at a facility. CM has notified Jodee Sepulveda that patient will need outpatient dialysis setup. Jodee informed CM that the only facility that will accept dialysis/ psych patient is [facility]. CM will continue to follow and assist as needed with discharge planning / needs. DCP- Discharge Planning Updated by [email or web address]: Susan Richardson on 10/13/18 2:[address] Patient Name: ERNESTINA SIMS Admission Status: ER Accout number: [id number] Admission Date: 10-12-2018 : 1980 Admission Diagnosis: Attending: VAMSHI LARA Current LOS: 1 Anticipated DC Date: Planned Disposition: Psych facility Primary Insurance: UNINSURED DISCOUNT PLAN Discharge Planning Comments: CM met with patient at bedside after explaining CM role and obtaining verbal consent. Patient lives at home with two roommates and plans to return there upon discharge. Patient is currently having dialysis this is her second treatment thus far. Pysch consult once medically stable. Psych evaluation will determine discharge plan. CM will continue to follow and assist as needed with discharge planning / needs. Director Of Rehabilitative Services: Susan Richardson DCPIA - Discharge Planning Initial Assessment Updated by [email or web address]: Susan Richardson on 10/13/18 3:36 pm * Is the patient Alert and Oriented? Yes * How many steps to enter\exit or inside your home? * PCP NO PCP * Pharmacy NO PHARMACY - CURRENTLY ? [facility] * Preadmission Environment Home with Family * ADLs Independent * Equipment None * List name and contact numbers for known caregivers / representatives who currently or will assist patient after discharge: OLVIN LIU - [facility]- [phone] * Verbal permission to speak to the caregivers and representatives has been obtained from the patient. N/A * Community resources currently utilized None * Additional services required to return to the preadmission environment? No * Can the patient safely return to the preadmission environment? Yes * Has this patient been hospitalized within the prior 30 days at any hospital? No External Providers External Provider: [facility] Next Contact Date: 10/29/2018 Service Request Date: Service Type: Resolution: Reviewer: Comments: Last DP export: 10/29/18 6:36 a Patient Name: ERNESTINA SIMS Page [phone] at 1202 All edits/amendments must be made on the electronic document DICTATION DATE: 10/29/18 1201 DEAN OF GIRLS: DIRK 10/29/18 1201 RPT#: [id number] DC DATE: STATUS: ADM IN [facility] [address] [place] [address] END OF REPORT
--- NOTE | 2018-10-29 12:11 | MORECARE ---
CASE MANAGEMENT DISCHARGE SUMMARY PATIENT: ERNESTINA SIMS UNIT: [id number] ADM DATE: 10/12/18 AGE: 38 : 76 SEX: F ROOM/BED: D.0560 AUTHOR: PETER,DOC PHYSICIAN: REFERRING PHYSICIAN: VAMSHI LARA MD DATE OF SERVICE: 10/29/18 Discharge Plan Patient Name: ERNESTINA SIMS Facility: [facility]:[place] : 1980 Planned Disposition: Psych facility Anticipated Discharge Date: 10/29/18 Discharge Date: Expected LOS: 17 Initial Reviewer: [email or web address] Initial Review Date: 10/13/2018 Generated: 10/29/18 1:11 pm DCP- Discharge Planning Updated by [email or web address]: Susan Richardson on 10/16/18 3:[address] CM trying to find out if patient has insurance or if it has termed. [employer] is working on trying to figure this information out. Patient is going to need psych placement once medically stable. Patient is most likely going to need dialysis and psych at a facility. CM has notified Jodee Sepulveda that patient will need outpatient dialysis setup. Jodee informed CM that the only facility that will accept dialysis/ psych patient is [facility]. CM will continue to follow and assist as needed with discharge planning / needs. DCP- Discharge Planning Updated by [email or web address]: Susan Richardson on 10/13/18 2:[address] Patient Name: ERNESTINA SIMS Admission Status: ER Accout number: [id number] Admission Date: 10-12-2018 : 1980 Admission Diagnosis: Attending: VAMSHI LARA Current LOS: 1 Anticipated DC Date: Planned Disposition: Psych facility Primary Insurance: UNINSURED DISCOUNT PLAN Discharge Planning Comments: CM met with patient at bedside after explaining CM role and obtaining verbal consent. Patient lives at home with two roommates and plans to return there upon discharge. Patient is currently having dialysis this is her second treatment thus far. Pysch consult once medically stable. Psych evaluation will determine discharge plan. CM will continue to follow and assist as needed with discharge planning / needs. [employer] Representative: Susan Richardson DCPIA - Discharge Planning Initial Assessment Updated by [email or web address]: Susan Richardson on 10/13/18 3:36 pm * Is the patient Alert and Oriented? Yes * How many steps to enter\exit or inside your home? * PCP NO PCP * Pharmacy NO PHARMACY - CURRENTLY ? [facility] * Preadmission Environment Home with Family * ADLs Independent * Equipment None * List name and contact numbers for known caregivers / representatives who currently or will assist patient after discharge: OLVIN LIU - [facility]- [phone] * Verbal permission to speak to the caregivers and representatives has been obtained from the patient. N/A * Community resources currently utilized None * Additional services required to return to the preadmission environment? No * Can the patient safely return to the preadmission environment? Yes * Has this patient been hospitalized within the prior 30 days at any hospital? No Last DP export: 10/29/18 11:02 a Patient Name: ERNESTINA SIMS Page [phone] at 1211 All edits/amendments must be made on the electronic document DICTATION DATE: 10/29/18 1210 ALLERGIST/IMMUNOLOGIST PHYSICIAN: DIRK 10/29/18 1210 RPT#: [id number] DC DATE: STATUS: ADM IN [facility] [address] [place] [address] END OF REPORT
[2018-10-29 13:07] VITALS: BP 105/65
--- NOTE | 2018-10-29 13:12 | NUR ---
Nutrition Follow-up: Diet: Regular PO intake: 67% avg meal intake 10/28 Wt: 134# Last BM: 10/27 per chart Labs reviewed Meds reviewed Rec continue current diet as tolerated. [place] food preferences. RD following.
--- NOTE | 2018-10-29 16:03 | NUR ---
SPOKE WITH GRZEGORZ DE LEON ABOUT HEPARIN DRIP THAT WAS STARTED BY ON THE . BECAUSE PT IS NO LONGER A RISK FOR BLOOD CLOTS, I RECEIVED VERBAL ORDERS TO DC TO THE HEPARIN DRIP. WILL PLACE ORDER AND CTM.
--- NOTE | 2018-10-29 16:08 | NUR ---
HEPARIN INFUSION STOPPED. R.AC PIV IS SALINE LOCKED. WILL CTM.
[2018-10-29 16:37] VITALS: BP 103/64
--- NOTE | 2018-10-29 16:52 | NUR ---
PT DENIES SI AND HAS REMORSE FOR HER ATTEMPT. COPING SKILLS REVIEWED WITH THE PT. VERBALIZED UNDERSTANDING. DR. SHEEHAN STILL WANTS PT TO BE DISCHARGED TO A PSYCH FACILITY UPON DISCHARGE DUE TO THE SEVERITY OF HER ATTEMPT.
--- NOTE | 2018-10-29 16:56 | MORECARE ---
CASE MANAGEMENT DISCHARGE SUMMARY PATIENT: ERNESTINA SIMS UNIT: [id number] ADM DATE: 10/12/18 AGE: 38 : [birth year] SEX: F ROOM/BED: D.8200 AUTHOR: PETER,DOC PHYSICIAN: REFERRING PHYSICIAN: VAMSHI LARA MD DATE OF SERVICE: 10/29/18 Discharge Plan Patient Name: ERNESTINA SIMS Facility: [facility]:[place] : 1980 Planned Disposition: Psych facility Anticipated Discharge Date: 10/29/18 Discharge Date: Expected LOS: 17 Initial Reviewer: [email or web address] Initial Review Date: 10/13/2018 Generated: 10/29/18 5:56 pm Comments DCP- Discharge Planning Updated by [email or web address]: All Howard on 10/29/18 3:[address] Patient Name: ERNESTINA SIMS Encounter No: [id number] : 1980 Primary Insurance: MEDICAID [place] PEND[place] Anticipated DC Date: 10-29-2018 Planned Disposition: Psych facility External Planned Provider: [facility] follow-up note: CM SPOKE TO BEDSIDE NURSE WHO HAD TALKED TO [facility], PT IS BEING CONSIDERED FOR ADMISSION BY [facility]; THEY WILL NOT ACCEPT PT IS ON HEPARIN DRIP. BEDSIDE NURSE REPORT THIS HAS BEEN DISCONTINUED TODAY. CM CALLED [facility], , SPOKE TO TYREL WHO INFORMED CM THAT PT WILL NEED TO HAVE NEW LAB WORK IN THE MORNING AND FAX THAT ALONG WITH NURSES NOTE INDICATING WHEN DRIP WAS STOPPED TO [facility]SFER CENTER IN THE MORNING, 07-30-18 AND THEY WILL RETRY FOR INPATIENT PSYCHIATRIC ADMISSION. BEDSIDE NURSE AND PT NOTIFIED. All Howard, RAJEEV BOOKER DCP- Discharge Planning Updated by [email or web address]: Susan Richardson on 10/16/18 3:[address] CM trying to find out if patient has insurance or if it has termed. [employer] is working on trying to figure this information out. Patient is going to need psych placement once medically stable. Patient is most likely going to need dialysis and psych at a facility. CM has notified Jodee Sepulveda that patient will need outpatient dialysis setup. Jodee informed CM that the only facility that will accept dialysis/ psych patient is [facility]. CM will continue to follow and assist as needed with discharge planning / needs. DCP- Discharge Planning Updated by [email or web address]: Susan Richardson on 10/13/18 2:[address] Patient Name: ERNESTINA SIMS Admission Status: ER Accout number: [id number] Admission Date: 10-12-2018 : 1980 Admission Diagnosis: Attending: VAMSHI LARA Current LOS: 1 Anticipated DC Date: Planned Disposition: Psych facility Primary Insurance: UNINSURED DISCOUNT PLAN Discharge Planning Comments: CM met with patient at bedside after explaining CM role and obtaining verbal consent. Patient lives at home with two roommates and plans to return there upon discharge. Patient is currently having dialysis this is her second treatment thus far. [facility] includes the [facility] consult once medically stable. Psych evaluation will determine discharge plan. CM will continue to follow and assist as needed with discharge planning / needs. Rail Technician: Susan Richardson DCPIA - Discharge Planning Initial Assessment Updated by [email or web address]: Susan Richardson on 10/13/18 3:36 pm * Is the patient Alert and Oriented? Yes * How many steps to enter\exit or inside your home? * PCP NO PCP * Pharmacy NO PHARMACY - CURRENTLY ? [facility] * Preadmission Environment Home with Family * ADLs Independent * Equipment None * List name and contact numbers for known caregivers / representatives who currently or will assist patient after discharge: OLVIN LIU [facility] [phone] * Verbal permission to speak to the caregivers and representatives has been obtained from the patient. N/A * Community resources currently utilized None * Additional services required to return to the preadmission environment? No * Can the patient safely return to the preadmission environment? Yes * Has this patient been hospitalized within the prior 30 days at any hospital? No Last DP export: 10/29/18 11:11 a Patient Name: ERNESTINA SIMS Page [id number] at 165 All edits/amendments must be made on the electronic document DICTATION DATE: 10/29/181655 CERTIFIED WELLNESS PROGRAM COORDINATOR: DIRK 10/29/181655 RPT#: [id number] DC DATE: STATUS: ADM IN [facility] [address] [place] [address] END OF REPORT
--- NOTE | 2018-10-29 17:07 | MORECARE ---
CASE MANAGEMENT DISCHARGE SUMMARY PATIENT: ERNESTINA SIMS UNIT: [id number] ADM DATE: 10/12/18 AGE: 38 : [birth year] SEX: F ROOM/BED: D.6894 AUTHOR: PETER,DOC PHYSICIAN: REFERRING PHYSICIAN: VAMSHI LARA MD DATE OF SERVICE: 10/29/18 Discharge Plan Patient Name: ERNESTINA SMIS Facility: [facility]:[place] : 1980 Planned Disposition: Psych facility Anticipated Discharge Date: 10/29/18 Discharge Date: Expected LOS: 17 Initial Reviewer: [email or web address] Initial Review Date: 10/13/2018 Generated: 10/29/18 6:07 pm Comments DCP- Discharge Planning Updated by [email or web address]: All Howard on 10/29/18 3:[address] Patient Name: ERNESTINA SIMS Encounter No: [id number] : 1980 Primary Insurance: MEDICAID [place] PENDING Anticipated DC Date: 10-29-2018 Planned Disposition: Psych facility External Planned Provider: [facility] DCP follow-up note: ANJALI SPOKE TO MOISES SANON, PT IS STABLE FOR DISCHARGE TO INPATIENT PSYCHIATRIC CARE TODAY. CM SPOKE TO PT IN ROOM WHO IS WILLING FOR INPATIENT PSYCHATIRIC CARE. PT ASKED FOR CM TO FIND OUT WHO TOWED HER CAR FROM THE HOSPTIAL PARKING LOT. CM REFERRED PT TO [facility], [phone]. CM CALLED [facility] IN HOSPITAL ADMINSTRATION, WAS ADVISED THE HOSPITAL HAS NOT HAD ANY VEHICLES TOWED OFF LOT. CM CALLED [employer] WHO REPORTED THEY DID NOT TOW PT'S VEHICLE. CM CALLED PT'S REEL AND REWINDER OPERATOR, ALEXANDER RUTLEDGEGINS, , WHO ADVISED THAT THE CAR WAS REPOSSESSED DUE TO NON PAYMENT TO HIS KNOWLEDGE. CM INFORMED REEL AND REWINDER OPERATOR OF PT'S PENDING PSYCHIATRIC CARE PLACEMENT AFTER OBSERVING A SIGNED CONSENT FOR RELEASE OF MEDICAL INFORMATION TO MR. CHRISTIANSEN IN CHART. CM INFORMED PT IN ROOM. CM SPOKE TO BEDSIDE NURSE WHO HAD TALKED TO TRANSFER CENTER, PT IS BEING CONSIDERED FOR ADMISSION BY [facility] INPATIENT PSYCHIATRIC CARE; THEY WILL NOT ACCEPT PT IS ON HEPARIN DRIP. BEDSIDE NURSE REPORT THIS HAS BEEN DISCONTINUED TODAY. CM CALLED [facility], , SPOKE TO TYREL WHO INFORMED CM THAT PT WILL NEED TO HAVE NEW LAB WORK IN THE MORNING AND FAX THAT ALONG WITH NURSES NOTE INDICATING WHEN DRIP WAS STOPPED TO TRANSFER CENTER IN THE MORNING, 07-30-18 AND THEY WILL RETRY FOR INPATIENT PSYCHIATRIC ADMISSION. BEDSIDE NURSE AND PT NOTIFIED. All Howard, CASE MANAGEMENT DCP- Discharge Planning Updated by [email or web address]: Susan Richardson on 10/16/18 3:[address] CM trying to find out if patient has insurance or if it has termed. [employer] is working on trying to figure this information out. Patient is going to need psych placement once medically stable. Patient is most likely going to need dialysis and psych at a facility. CM has notified Jodee Sepulveda that patient will need outpatient dialysis setup. Jodee informed CM that the only facility that will accept dialysis/ psych patient is [facility]. CM will continue to follow and assist as needed with discharge planning / needs. DCP- Discharge Planning Updated by [email or web address]: Susan Richardson on 10/13/18 2:[address] Patient Name: ERNESTINA SIMS Admission Status: ER Accout number: [id number] Admission Date: 10-12-2018 : 1980 Admission Diagnosis: Attending: VAMSHI LARA Current LOS: 1 Anticipated DC Date: Planned Disposition: Psych facility Primary Insurance: UNINSURED DISCOUNT PLAN Discharge Planning Comments: CM met with patient at bedside after explaining CM role and obtaining verbal consent. Patient lives at home with two roommates and plans to return there upon discharge. Patient is currently having dialysis this is her second treatment thus far. Pysch consult once medically stable. Psych evaluation will determine discharge plan. CM will continue to follow and assist as needed with discharge planning / needs. Black Ash Worker: Susan Richardson DCPIA - Discharge Planning Initial Assessment Updated by [email or web address]: Susan Richardson on 10/13/18 3:36 pm * Is the patient Alert and Oriented? Yes * How many steps to enter\exit or inside your home? * PCP NO PCP * Pharmacy NO PHARMACY - CURRENTLY ? [facility] * Preadmission Environment Home with Family * ADLs Independent * Equipment None * List name and contact numbers for known caregivers / representatives who currently or will assist patient after discharge: OLVIN LIU - [facility]- [phone] * Verbal permission to speak to the caregivers and representatives has been obtained from the patient. N/A * Community resources currently utilized None * Additional services required to return to the preadmission environment? No * Can the patient safely return to the preadmission environment? Yes * Has this patient been hospitalized within the prior 30 days at any hospital? No Last DP export: 10/29/18 3:56 p Patient Name: ERNESTINA SIMS Page 84160 at 1707 All edits/amendments must be made on the electronic document DICTATION DATE: 10/29/181706 SENIOR BIOSTATISTICIAN: DIRK 10/29/181706 RPT#: [id number] DC DATE: STATUS: ADM IN [facility] [address] [place] [address] END OF REPORT
[2018-10-29 20:00] VITALS: BP 106/64
--- NOTE | 2018-10-29 20:00 | NUR ---
REPORT RECEIVED, WILL CONTINUE POC. PATIENT IS AA0X4, UP AD SUDHA. RR EVEN AND UNLABORED, NO S/SX OF DISTRESS NOTED. PATIENT HAS IV TO RT AC THAT IS SL, PATENT, DRSG C/D/I. PATIENT C/O PAIN, BUT ORDER FOR [facility] Q4HPRN WAS D/C'D. CALLED [facility] TO SEE WHAT SHE COULD HAVE FOR PAIN. ORDER FOR [facility] 5/325 Q8HPRN PUT IN. PATIENT DENIES FURTHER NEEDS. BED LOCKED AND LOWERED. WILL CTM.
[2018-10-30] VITALS: BP 117/74
[2018-10-30 04:30] VITALS: BP 102/64
--- NOTE | 2018-10-30 07:35 | NUR ---
RECIEVED REPORT. PATIENT IS ALERT AND ORIENTED. SHE IS SITTING UP IN BED AND COMPLETED HER BREATHING TREATMENT. SHE HAS A SITTER AT BEDSIDE. SHE MAY BE DISCHARGED TODAY. SHE DENIES ANY NEEDS AT THIS TIME.
--- NOTE | 2018-10-30 07:50 | MORECARE ---
CASE MANAGEMENT DISCHARGE SUMMARY PATIENT: ERNESTINA SIMS UNIT: [id number] ADM DATE: 10/12/18 AGE: 38 : [birth year] SEX: F ROOM/BED: D.6960 AUTHOR: PETER,DOC PHYSICIAN: REFERRING PHYSICIAN: VAMSHI LARA MD DATE OF SERVICE: 10/30/18 Discharge Plan Patient Name: ERNESTINA SIMS Facility: [facility]:[place] : 1980 Planned Disposition: Psych facility Anticipated Discharge Date: 10/29/18 Discharge Date: Expected LOS: 17 Initial Reviewer: [email or web address] Initial Review Date: 10/13/2018 Generated: 10/30/18 8:50 am Comments DCP- Discharge Planning Updated by [email or web address]: All Howard on 10/30/18 6:[address] Patient Name: ERNESTINA SIMS Encounter No: [id number] : 1980 Primary Insurance: MEDICAID [place] PENDING Anticipated DC Date: 10-29-2018 Planned Disposition: Psych facility External Planned Provider: [facility] DCP follow-up note: CM FAXED NEW COAGULATION LAB RESULTS ALONG WITH NURSES NOTE INDICATING WHEN DRIP WAS STOPPED TO TRANSFER CENTER. 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 QUARRYING MANAGER NURSE. All Howard, CASE MANAGEMENT DCP- Discharge Planning Updated by [id number]: All Howard on 10/29/18 3:[address] Patient Name: ERNESTINA SIMS Encounter No: [id number] : 1980 Primary Insurance: MEDICAID [place] PENDING Anticipated DC Date: 10-29-2018 Planned Disposition: Psych facility External [facility] follow-up note: CM SPOKE TO MOISES SANON, PT IS STABLE FOR DISCHARGE TO INPATIENT PSYCHIATRIC CARE TODAY. CM SPOKE TO PT IN ROOM WHO IS WILLING FOR INPATIENT PSYCHATIRIC CARE. PT ASKED FOR CM TO FIND OUT WHO TOWED HER CAR FROM THE HOSPTIAL PARKING LOT. CM REFERRED PT TO [facility], [phone]. CM CALLED [facility] IN HOSPITAL ADMINSTRATION, WAS ADVISED THE HOSPITAL HAS NOT HAD ANY VEHICLES TOWED OFF LOT. CM CALLED [employer] POL[employer] WHO REPORTED THEY DID NOT TOW PT'S VEHICLE. CM CALLED PT'S MUSIC ENGINEER, ALEXANDER CHRISTIANSEN, , WHO ADVISED THAT THE CAR WAS REPOSSESSED DUE TO NON PAYMENT TO HIS KNOWLEDGE. CM INFORMED MUSIC ENGINEER OF PT'S PENDING PSYCHIATRIC CARE PLACEMENT AFTER OBSERVING A SIGNED CONSENT FOR RELEASE OF MEDICAL INFORMATION TO MR. CHRISTIANSEN IN CHART. CM INFORMED PT IN ROOM. CM SPOKE TO BEDSIDE NURSE WHO HAD TALKED TO TRANSFER CENTER, PT IS BEING CONSIDERED FOR ADMISSION BY [facility] INPATIENT PSYCHIATRIC CARE; THEY WILL NOT ACCEPT PT IS ON HEPARIN DRIP. BEDSIDE NURSE REPORT THIS HAS BEEN DISCONTINUED TODAY. CM CALLED [facility], , SPOKE TO TYREL WHO INFORMED CM THAT PT WILL NEED TO HAVE NEW LAB WORK IN THE MORNING AND FAX THAT ALONG WITH NURSES NOTE INDICATING WHEN DRIP WAS STOPPED TO TRANSFER CENTER IN THE MORNING, 07-30-18 AND THEY WILL RETRY FOR INPATIENT PSYCHIATRIC ADMISSION. BEDSIDE NURSE AND PT NOTIFIED. All Howard, CASE MANAGEMENT DCP- Discharge Planning Updated by [email or web address]: Susan Richardson on 10/16/18 3:[address] CM trying to find out if patient has insurance or if it has termed. [employer] is working on trying to figure this information out. Patient is going to need psych placement once medically stable. Patient is most likely going to need dialysis and psych at a facility. CM has notified Jodee Sepulveda that patient will need outpatient dialysis setup. Jodee informed CM that the only facility that will accept dialysis/ psych patient is [facility]. CM will continue to follow and assist as needed with discharge planning / needs. DCP- Discharge Planning Updated by [email or web address]: Susan Richardson on 10/13/18 2:[address] Patient Name: ERNESTINA SIMS Admission Status: ER Accout number: [id number] Admission Date: 10-12-2018 : 1980 Admission Diagnosis: Attending: VAMSHI LARA Current LOS: 1 Anticipated DC Date: Planned Disposition: Psych facility Primary Insurance: UNINSURED DISCOUNT PLAN Discharge Planning Comments: CM met with patient at bedside after explaining CM role and obtaining verbal consent. Patient lives at home with two roommates and plans to return there upon discharge. Patient is currently having dialysis this is her second treatment thus far. Adinasch consult once medically stable. Psych evaluation will determine discharge plan. CM will continue to follow and assist as needed with discharge planning / needs. Clinical Analyst: Susan JIMENEZ - Discharge Planning Initial Assessment Updated by [id number]: Susan Richardson on 10/13/18 3:36 pm * Is the patient Alert and Oriented? Yes * How many steps to enter\exit or inside your home? * PCP NO PCP * Pharmacy NO PHARMACY - CURRENTLY ? [facility] * Preadmission Environment Home with Family * ADLs Independent * Equipment None * List name and contact numbers for known caregivers / representatives who currently or will assist patient after discharge: OLVIN LIU - [facility] [phone] * Verbal permission to speak to the caregivers and representatives has been obtained from the patient. N/A * Community resources currently utilized None * Additional services required to return to the preadmission environment? No * Can the patient safely return to the preadmission environment? Yes * Has this patient been hospitalized within the prior 30 days at any hospital? No Last DP export: 10/29/18 4:07 p Patient Name: ERNESTINA SIMS Page 71972 at 0750 All edits/amendments must be made on the electronic document DICTATION DATE: 10/30/18749 CLIPPER AUTOMATIC: DIRK 10/30/18749 RPT#: [id number] DC DATE: STATUS: ADM IN [facility] [address] [place] [address] END OF REPORT
--- NOTE | 2018-10-30 08:34 | NUR ---
B/P 108/61
[2018-10-30 09:04] VITALS: BP 104/64
[2018-10-30] MEDS ORDERED: ELIQUIS5 MG PO ×2 (09:52→09:53)
[2018-10-30] MEDS ORDERED: Zoloft PO (09:53)
[2018-10-30] MEDS ORDERED: LOPRESSOR25 MG PO (09:54)
[2018-10-30] MEDS ORDERED: ASPIRIN EC81 M1 PO (09:54)
[2018-10-30] MEDS ORDERED: ZOLOFT50 MG PO (09:54)
[2018-10-30 12:20] VITALS: BP 119/73
--- NOTE | 2018-10-30 12:31 | NUR ---
PATIENT IS RESTING QUIETLY IN BED AT THIS TIME. SHE FINISHED LUNCH AND SHE IS FEELING BETTER EACH DAY.
--- NOTE | 2018-10-30 15:28 | MORECARE ---
CASE MANAGEMENT DISCHARGE SUMMARY PATIENT: ERNESTINA SIMS UNIT: [id number] ADM DATE: 10/12/18 AGE: 38 : [birth year] SEX: F ROOM/BED: D.1600 AUTHOR: SURI GREEN PHYSICIAN: REFERRING PHYSICIAN: VAMSHI LARA MD DATE OF SERVICE: 10/30/18 Discharge Plan Patient Name: ERNESTINA SIMS Facility: [facility]:[place] : 1980 Planned Disposition: Psych facility Anticipated Discharge Date: 10/29/18 Discharge Date: Expected LOS: 17 Initial Reviewer: [id number] Initial Review Date: 10/13/2018 Generated: 10/30/18 4:28 pm Comments DCP- Discharge Planning Updated by [email or web address]: All Howard on 10/30/18 2:[address] Patient Name: ERNESTINA SIMS Encounter No: [id number] : 1980 Primary Insurance: MEDICAID [place] PENDING Anticipated DC Date: 10-29-2018 Planned Disposition: Psych facility External Planned Provider: [facility] OR FIRST ACCEPTING INPATIENT PSYCHIATRIC FACILITY DCP follow-up note: TRANSFER CENTER INFORMED BEDSIDE NURSE THAT PT WILL NEED TO BE OFF ALL OXYGEN AND UPDRAFT TREATMENTS FOR 24 HOURS FOR THEM TO ATTEMPT PLACEMENT IN INPATIENT PSYCHIATRIC CARE. TRANSFER CENTER TO CONTINUE ATTEMPTING PLACMENT TOMORROW, 10-31-18. RAJEEV Martell DCP- Discharge Planning Updated by [email or web address]: All Howard on 10/30/18 6:[address] Patient Name: ERNESTINA SIMS Encounter No: [id number] : 1980 Primary Insurance: MEDICAID [place] PENDING Anticipated DC Date: 10-29-2018 Planned Disposition: Psych facility External Planned Provider: [facility] DCP follow-up note: CM FAXED NEW COAGULATION LAB RESULTS ALONG WITH NURSES NOTE INDICATING WHEN DRIP WAS STOPPED TO TRANSFER CENTER. 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 WRAPPER LAYER AND EXAMINER SOFT WORK NURSE. RAJEEV Martell DCP- Discharge Planning Updated by [email or web address]: All Howard on 10/29/18 3:[address] Patient Name: ERNESTINA SIMS Encounter No: [id number] : 1980 Primary Insurance: MEDICAID [place] PENDING Anticipated DC Date: 10-29-2018 Planned Disposition: Psych facility External Planned Provider: [facility] follow-up note: CM SPOKE TO MOISES SANON, PT IS STABLE FOR DISCHARGE TO INPATIENT PSYCHIATRIC CARE TODAY. CM SPOKE TO PT IN ROOM WHO IS WILLING FOR INPATIENT PSYCHATIRIC CARE. PT ASKED FOR CM TO FIND OUT WHO TOWED HER CAR FROM THE HOSPTIAL PARKING LOT. CM REFERRED PT TO [facility], [phone]. CM CALLED [facility] IN HOSPITAL ADMINSTRATION, WAS ADVISED THE HOSPITAL HAS NOT HAD ANY VEHICLES TOWED OFF LOT. CM CALLED [facility] POLICE WHO REPORTED THEY DID NOT TOW PT'S VEHICLE. CM CALLED PT'S PRESSROOM SUPERVISOR, ALEXANDER CHRISTIANSEN, , WHO ADVISED THAT THE CAR WAS REPOSSESSED DUE TO NON PAYMENT TO HIS KNOWLEDGE. CM INFORMED PRESSROOM SUPERVISOR OF PT'S PENDING PSYCHIATRIC CARE PLACEMENT AFTER OBSERVING A SIGNED CONSENT FOR RELEASE OF MEDICAL INFORMATION TO MR. CHRISTIANSEN IN CHART. CM INFORMED PT IN ROOM. CM SPOKE TO BEDSIDE NURSE WHO HAD TALKED TO [facility], PT IS BEING CONSIDERED FOR ADMISSION BY [facility] INPATIENT PSYCHIATRIC CARE; THEY WILL NOT ACCEPT PT IS ON HEPARIN DRIP. BEDSIDE NURSE REPORT THIS HAS BEEN DISCONTINUED TODAY. CM CALLED [facility], , SPOKE TO TYREL WHO INFORMED CM THAT PT WILL NEED TO HAVE NEW LAB WORK IN THE MORNING AND FAX THAT ALONG WITH NURSES NOTE INDICATING WHEN DRIP WAS STOPPED TO TRANSFER CENTER IN THE MORNING, 07-30-18 AND THEY WILL RETRY FOR INPATIENT PSYCHIATRIC ADMISSION. BEDSIDE NURSE AND PT NOTIFIED. All Howard, CASE MANAGEMENT MAP- Discharge Planning Updated by [email or web address]: Susan Richardson on 10/16/18 3:[address] CM trying to find out if patient has insurance or if it has termed. [employer] is working on trying to figure this information out. Patient is going to need psych placement once medically stable. Patient is most likely going to need dialysis and psych at a facility. ANJALI has notified Jodee Sepulveda that patient will need outpatient dialysis setup. Jodee informed CM that the only facility that will accept dialysis/ psych patient is [facility]. CM will continue to follow and assist as needed with discharge planning / needs. DCP- Discharge Planning Updated by [email or web address]: Susan Richardson on 10/13/18 2:[address] Patient Name: ERNESTINA SIMS Admission Status: ER Accout number: [id number] Admission Date: 10-12-2018 : 1980 Admission Diagnosis: Attending: VAMSHI LARA Current LOS: 1 Anticipated DC Date: Planned Disposition: Psych facility Primary Insurance: UNINSURED DISCOUNT PLAN Discharge Planning Comments: CM met with patient at bedside after explaining CM role and obtaining verbal consent. Patient lives at home with two roommates and plans to return there upon discharge. Patient is currently having dialysis this is her second treatment thus far. Pysch consult once medically stable. Psych evaluation will determine discharge plan. CM will continue to follow and assist as needed with discharge planning / needs. Instructor Of Sociology: Susan Richardson DCPIA - Discharge Planning Initial Assessment Updated by [email or web address]: Susan Dylan on 10/13/18 3:36 pm * Is the patient Alert and Oriented? Yes * How many steps to enter\exit or inside your home? * PCP NO PCP * Pharmacy NO PHARMACY - CURRENTLY ? [facility] * Preadmission Environment Home with Family * ADLs Independent * Equipment None * List name and contact numbers for known caregivers / representatives who currently or will assist patient after discharge: OLVIN LIU [facility] [phone] * Verbal permission to speak to the caregivers and representatives has been obtained from the patient. N/A * Community resources currently utilized None * Additional services required to return to the preadmission environment? No * Can the patient safely return to the preadmission environment? Yes * Has this patient been hospitalized within the prior 30 days at any hospital? No Last DP export: 10/30/18 6:50 a Patient Name: ERNESTINA SIMS Page [id number] at 1528 All edits/amendments must be made on the electronic document DICTATION DATE: 10/30/181527 TOOLS PROGRAMMER: DIRK 10/30/181527 RPT#: [id number] DC DATE: STATUS: ADM IN [facility] [address] [place] [address] END OF REPORT
--- NOTE | 2018-10-30 19:50 | NUR ---
PT CARE ASSUMED. RR EVEN AND UNLABORED. NO S/S OF DISTRESS NOTED. SITTER AT BEDSIDE. DENIES NEEDS AT THIS TIME. WILL CPOC.
[2018-10-30 20:00] VITALS: BP 106/66
[2018-10-31] VITALS: BP 97/63
[2018-10-31 04:00] VITALS: BP 106/65
--- NOTE | 2018-10-31 05:56 | NUR ---
I have reviewed this patient and I concur with the Shift Assessment completed by the Licensed Practical Nurse today this shift.
--- NOTE | 2018-10-31 07:30 | NUR ---
A/A/OX4. DENIES ANY PAIN OR DISCOMFORT. ONLY REQUEST IS FOR DRESSING CHANGE TO UPPER LEFT CHEST. DRESSING CHANGED, INCISION CLEAN WITH 2 STITCHES REMAINING. AREA COVERED WITH TEGADERM TO PROTECT WHEN IN SHOWER. SL PATENT TO RIGHT AC WITHOUT REDNESS OR EDEMA AT SITE. PT SEEMS TO BE IN GOOD SPIRITS. SITTER IN ROOM AT BEDSIDE. ASSESSMENT COMPLETED AND WILL CONTINUE POC. BED IN LOWER LOCKED POSITION AND CALL LIGHT IN REACH.
[2018-10-31 07:55] VITALS: BP 110/70
[2018-10-31 12:25] VITALS: BP 94/51
--- NOTE | 2018-10-31 13:01 | MORECARE ---
CASE MANAGEMENT DISCHARGE SUMMARY PATIENT: ERNESTINA SIMS UNIT: [id number] ADM DATE: 10/12/18 AGE: 38 : [birth year] SEX: F ROOM/BED: D.0140 AUTHOR: PETER,DOC PHYSICIAN: REFERRING PHYSICIAN: VAMSHI LARA MD DATE OF SERVICE: 10/31/18 Discharge Plan Patient Name: ERNESTINA SIMS Facility: [facility]:[place] : 1980 Planned Disposition: Psych facility Anticipated Discharge Date: 10/29/18 Discharge Date: Expected LOS: 17 Initial Reviewer: [id number] Initial Review Date: 10/13/2018 Generated: 10/31/18 2:00 pm Comments DCP- Discharge Planning Updated by [id number]: Lahsay Griffith on 10/31/18 11:[address] CM TELEPHONED EASY ADMIT. SPOKE W/ DANIELLE. VERBAL UPDATE GIVEN, CM ALSO FAXED UPDATED MED LIST, OXYGEN NOTE, PROGRESS NOTE FOR TODAY AND DISCHARGE SUMMARY. NURSE REPORTED MULTIPLE CALLS ON FRIDAY REGARDING PROGRESS AND DENIALS. AWAIT CALL BACK WITH ACCEPTANCE WHEN PSYCH BED IS AVAILABLE. DCP- Discharge Planning Updated by [id number]: All Howard on 10/30/18 2:[address] Patient Name: ERNESTINA SIMS Encounter No: [id number] : 1980 Primary Insurance: MEDICAID [place] PEND[place] Anticipated DC Date: 10-29-2018 Planned Disposition: Psych facility External Planned Provider: [facility] OR FIRST ACCEPTING INPATIENT PSYCHIATRIC FACILITY DCP follow-up note: [facility]SFER CENTER INFORMED BEDSIDE NURSE THAT PT WILL NEED TO BE OFF ALL OXYGEN AND UPDRAFT TREATMENTS FOR 24 HOURS FOR THEM TO ATTEMPT PLACEMENT IN INPATIENT PSYCHIATRIC CARE. TRANSFER CENTER TO CONTINUE ATTEMPTING PLACMENT TOMORROW, 10-31-18. All Howard CASE ADE DCP- Discharge Planning Updated by [id number]: All Howard on 10/30/18 6:[address] Patient Name: ERNESTINA SIMS Encounter No: [id number] : 1980 Primary Insurance: MEDICAID [place] PEND[place] Anticipated DC Date: 10-29-2018 Planned Disposition: Psych facility External Planned Provider: [facility] DCP follow-up note: CM FAXED NEW COAGULATION LAB RESULTS ALONG WITH NURSES NOTE INDICATING WHEN DRIP WAS STOPPED TO TRANSFER CENTER. 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 SCALLOP CUTTER NURSE. All Howard, CASE MANAGEMENT DCP- Discharge Planning Updated by [id number]: All Howard on 10/29/18 3:[address] Patient Name: ERNESTINA SIMS Encounter No: [id number] : 1980 Primary Insurance: MEDICAID [place] PEND[place] Anticipated DC Date: 10-29-2018 Planned Disposition: Psych facility External Planned Provider: [facility] follow-up note: CM SPOKE TO MOISES SANON, PT IS STABLE FOR DISCHARGE TO INPATIENT PSYCHIATRIC CARE TODAY. CM SPOKE TO PT IN ROOM WHO IS WILLING FOR INPATIENT PSYCHATIRIC CARE. PT ASKED FOR CM TO FIND OUT WHO TOWED HER CAR FROM THE HOSPTIAL PARKING LOT. CM REFERRED PT TO [facility], [phone]. CM CALLED [facility] IN HOSPITAL ADMINSTRATION, WAS ADVISED THE HOSPITAL HAS NOT HAD ANY VEHICLES TOWED OFF LOT. CM CALLED [email or web address] POLICE WHO REPORTED THEY DID NOT TOW PT'S VEHICLE. CM CALLED PT'S STUDENT MINISTRIES DIRECTOR, ALEXANDER RUTLEDGEGINS, , WHO ADVISED THAT THE CAR WAS REPOSSESSED DUE TO NON PAYMENT TO HIS KNOWLEDGE. CM INFORMED STUDENT MINISTRIES DIRECTOR OF PT'S PENDING PSYCHIATRIC CARE PLACEMENT AFTER OBSERVING A SIGNED CONSENT FOR RELEASE OF MEDICAL INFORMATION TO MR. CHRISTIANSEN IN CHART. CM INFORMED PT IN ROOM. CM SPOKE TO BEDSIDE NURSE WHO HAD TALKED TO TRANSFER CENTER, PT IS BEING CONSIDERED FOR ADMISSION BY [facility] INPATIENT PSYCHIATRIC CARE; THEY WILL NOT ACCEPT PT IS ON HEPARIN DRIP. BEDSIDE NURSE REPORT THIS HAS BEEN DISCONTINUED TODAY. CM CALLED [facility], , SPOKE TO TYREL WHO INFORMED CM THAT PT WILL NEED TO HAVE NEW LAB WORK IN THE MORNING AND FAX THAT ALONG WITH NURSES NOTE INDICATING WHEN DRIP WAS STOPPED TO TRANSFER CENTER IN THE MORNING, 07-30-18 AND THEY WILL RETRY FOR INPATIENT PSYCHIATRIC ADMISSION. BEDSIDE NURSE AND PT NOTIFIED. All Howard CASE MANAGEMENT DCP- Discharge Planning Updated by [id number]: Susan Richardson on 10/16/18 3:[address] CM trying to find out if patient has insurance or if it has termed. [employer] is working on trying to figure this information out. Patient is going to need psych placement once medically stable. Patient is most likely going to need dialysis and psych at a facility. CM has notified Jodee Sepulveda that patient will need outpatient dialysis setup. Jodee informed CM that the only facility that will accept dialysis/ psych patient is [facility]. CM will continue to follow and assist as needed with discharge planning / needs. DCP- Discharge Planning Updated by [id number]: Susan Richardson on 10/13/18 2:[address] Patient Name: ERNESTINA SIMS Admission Status: ER Accout number: [id number] Admission Date: 10-12-2018 : 1980 Admission Diagnosis: Attending: VAMSHI LARA Current LOS: 1 Anticipated DC Date: Planned Disposition: Psych facility Primary Insurance: UNINSURED DISCOUNT PLAN Discharge Planning Comments: CM met with patient at bedside after explaining CM role and obtaining verbal consent. Patient lives at home with two roommates and plans to return there upon discharge. Patient is currently having dialysis this is her second treatment thus far. Pysch consult once medically stable. Psych evaluation will determine discharge plan. CM will continue to follow and assist as needed with discharge planning / needs. Gas Welding Machine Operator: Susan Richardson DCPIA - Discharge Planning Initial Assessment Updated by [email or web address]: Susan Richardson on 10/13/18 3:36 pm * Is the patient Alert and Oriented? Yes * How many steps to enter\exit or inside your home? * PCP NO PCP * Pharmacy NO PHARMACY - CURRENTLY ? [facility] * Preadmission Environment Home with Family * ADLs Independent * Equipment None * List name and contact numbers for known caregivers / representatives who currently or will assist patient after discharge: OLVIN LIU - [facility]- [phone] * Verbal permission to speak to the caregivers and representatives has been obtained from the patient. N/A * Community resources currently utilized None * Additional services required to return to the preadmission environment? No * Can the patient safely return to the preadmission environment? Yes * Has this patient been hospitalized within the prior 30 days at any hospital? No Last DP export: 10/30/18 2:29 p Patient Name: ERNESTINA SIMS Page 85533 at 1301 All edits/amendments must be made on the electronic document DICTATION DATE: 10/31/18 1300 DRYWALL CONTRACTOR: DIRK 10/31/18 1300 RPT#: [id number] DC DATE: STATUS: ADM IN [facility] [address] [place] [address] END OF REPORT
--- NOTE | 2018-10-31 14:31 | NUR ---
PATIENT RESTING IN BED. PATIENT IS SR ON TELEMETRY, RATE OF 74. NO DISTRESS. CALL LIGHT WITHIN REACH.
[2018-10-31 16:02] VITALS: BP 105/63
[2018-10-31 20:00] VITALS: BP 95/64
--- NOTE | 2018-10-31 20:05 | NUR ---
EVENING ROUNDS COMPLETED. REPORT RECEIVED. PT SITTING UP IN BED WITH EYES OPEN, RR EVEN AND UNLABORED. BED IN LOW POSITION. NO S/S OF DISTRESS NOTED. 76 SINUS ON TELEMETRY. SITTER AT BEDSIDE. INTRODUCED SELF TO PT. PT DENIES FURTHER NEEDS AT THIS TIME. CALL LIGHT IN REACH. WILL CTM.
--- NOTE | 2018-11-01 01:55 | NUR ---
I have reviewed this patient and I concur with the Shift Assessment completed by the Licensed Practical Nurse today this shift.
[2018-11-01 04:00] VITALS: BP 98/66
--- NOTE | 2018-11-01 07:00 | NUR ---
RECEIVED REPORT. ASSUMED CARE OF PATIENT. PATIENT SITTING UP IN BED WITH EYES OPEN. SITTER AT BEDSIDE. PATIENT STATES SHE FEELS GOOD THIS MORNING. PATIENT SMILING. NO DISTRESS.
[2018-11-01 07:58] VITALS: BP 101/66
--- NOTE | 2018-11-01 08:30 | NUR ---
RECEIVED CALL FROM TRANSFER CENTER AND THEY DO NOT HAVE ANY DISCHARGING FROM [facility] TODAY THEREFORE, THERE IS NOT AN OPEN BED BUT PATIENT TRANSFER IS CONTINUING TO BE KEPT OPEN. TRANSFER CENTER IS ALSO CHECKING WITH 'S IN [place]. TRANSFER CENTER WILL CHECK BACK WITH THEM THIS MORNING AFTER THEIR PHYSICIAN HAS BEEN IN. THANKED [facility] FOR CALLING.
[2018-11-01 08:35] LABS: BASOPHILS 0.7 % (0-2); EOSINOPHILS 5.2 % (0-7); HEMATOCRIT 34.4 % (36.0-48.0); HEMOGLOBIN 11.5 g/dL (12-16); IMMATURE GRANULOCYTES 1.4 % (0-5); LYMPHOCYTES 25.9 % (15-50); MCH 31.1 pg (26.0-34.0); MCHC 33.4 g/dL (31.0-37.0); MEAN PLATELET VOLUME 9.6 fL (7.4-10.4); MONOCYTES 10.3 % (2-11); NEUTROPHILS 56.5 % (40-80); PLATELET COUNT 328 10x3/uL (130-400); WBC 7.3 10x3/uL (4.8-10.8)
[2018-11-01 08:37] LABS: ANION GAP 15.1 mmol/L (8-16); CALCIUM 9.4 mg/dL (8.5-10.1); CARBON DIOXIDE 26.5 mmol/L (21.0-32.0); CREATININE - SERUM 1.1 mg/dL (0.6-1.3); POTASSIUM - SERUM 4.6 mmol/L (3.5-5.1)
[2018-11-01 11:57] VITALS: BP 106/68
--- NOTE | 2018-11-01 11:59 | NUR ---
PATIENT SITTING IN BED. DENIES NEEDS. SITTER AT BEDSIDE. CALL LIGHT WITHIN REACH. NO DISTRESS.
[2018-11-01 14:55] VITALS: BP 101/68
--- NOTE | 2018-11-01 16:39 | NUR ---
RESTING IN BED WITH EYES OPEN. PATIENT DENIES ANY NEEDS BUT THEN ASK IF SHE CAN HAVE SOME ICE. CUP OF ICE PROVIDED UPON REQUEST. PATIENT HAS A SITTER AT BEDSIDE. PATIENT IS SMILING, LAUGHING, DENIES ANY FURTHER NEEDS. PATIENT IS FREQUENTLY MONITORED DUE TO THIS BEHAVIOR. CALL LIGHT WITHIN REACH. NO DISTRESS.
[2018-11-01 20:00] VITALS: BP 102/55
--- NOTE | 2018-11-01 20:42 | NUR ---
EVENING ROUNDS COMPLETED. REPORT RECEIVED. PT SITTING UP IN BED WITH EYES OPEN, RR EVEN AND UNLABORED. BED IN LOW POSITION. NO S/S OF DISTRESS NOTED. 74 SINUS ON TELEMETRY. SITTER AT BEDSIDE. INTRODUCED SELF TO PT. PT DENIES FURTHER NEEDS AT THIS TIME. CALL LIGHT IN REACH. WILL CTM.
[2018-11-02] VITALS: BP 100/61
--- NOTE | 2018-11-02 02:58 | NUR ---
I have reviewed this patient and I concur with the Shift Assessment completed by the Licensed Practical Nurse today this shift.
[2018-11-02 04:00] VITALS: BP 101/61
[2018-11-02 08:39] VITALS: BP 100/63
--- NOTE | 2018-11-02 09:04 | MORECARE ---
CASE MANAGEMENT DISCHARGE SUMMARY PATIENT: ERNESTINA SIMS UNIT: [id number] ADM DATE: 10/12/18 AGE: 38 : [birth year] SEX: F ROOM/BED: D.2700 AUTHOR: PETER,DOC PHYSICIAN: REFERRING PHYSICIAN: VAMSHI LARA MD DATE OF SERVICE: 11/02/18 Discharge Plan Patient Name: ERNESTINA SIMS Facility: [facility]:[place] : 1980 Planned Disposition: Psych facility Anticipated Discharge Date: 11/02/18 Discharge Date: Expected LOS: 21 Initial Reviewer: [email or web address] Initial Review Date: 10/13/2018 Generated: 11/02/18 10:04 am Comments DCP- Discharge Planning Updated by [id number]: Lashay Griffith on 10/31/18 11:[address] CM TELEPHONED EASY ADMIT. SPOKE W/ DANIELLE. VERBAL UPDATE GIVEN, CM ALSO FAXED UPDATED MED LIST, OXYGEN NOTE, PROGRESS NOTE FOR TODAY AND DISCHARGE SUMMARY. NURSE REPORTED MULTIPLE CALLS ON FRIDAY REGARDING PROGRESS AND DENIALS. AWAIT CALL BACK WITH ACCEPTANCE WHEN PSYCH BED IS AVAILABLE. DCP- Discharge Planning Updated by [id number]: All Howard on 10/30/18 2:[address] Patient Name: ERNESTINA SIMS Encounter No: [id number] : 1980 Primary Insurance: MEDICAID [place] PENDING Anticipated DC Date: 10-29-2018 Planned Disposition: Psych facility External Planned Provider: [facility] OR FIRST ACCEPTING INPATIENT PSYCHIATRIC FACILITY DCP follow-up note: TRANSFER CENTER INFORMED BEDSIDE NURSE THAT PT WILL NEED TO BE OFF ALL OXYGEN AND UPDRAFT TREATMENTS FOR 24 HOURS FOR THEM TO ATTEMPT PLACEMENT IN INPATIENT PSYCHIATRIC CARE. TRAN[facility] TO CONTINUE ATTEMPTING PLACMENT TOMORROW, 10-31-18. All Howard CASE ADE DCP- Discharge Planning Updated by [id number]: All Howard on 10/30/18 6:[address] Patient Name: ERNESTINA SIMS Encounter No: [id number] : 1980 Primary Insurance: MEDICAID [place] PEND[place] Anticipated DC Date: 10-29-2018 Planned Disposition: Psych facility External Planned Provider: [facility] DCP follow-up note: CM FAXED NEW COAGULATION LAB RESULTS ALONG WITH NURSES NOTE INDICATING WHEN DRIP WAS STOPPED TO TRANSFER CENTER. 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 AUDIOMETRIC TECHNICIAN NURSE. All Howard, CASE MANAGEMENT DCP- Discharge Planning Updated by [id number]: All Howard on 10/29/18 3:[address] Patient Name: ERNESTINA SIMS Encounter No: [id number] : 1980 Primary Insurance: MEDICAID [place] PEND[place] Anticipated DC Date: 10-29-2018 Planned Disposition: Psych facility External Planned Provider: [facility] follow-up note: CM SPOKE TO MOISES SANON, PT IS STABLE FOR DISCHARGE TO INPATIENT PSYCHIATRIC CARE TODAY. CM SPOKE TO PT IN ROOM WHO IS WILLING FOR INPATIENT PSYCHATIRIC CARE. PT ASKED FOR CM TO FIND OUT WHO TOWED HER CAR FROM THE HOSPTIAL PARKING LOT. CM REFERRED PT TO [facility], [phone]. CM CALLED [facility] IN HOSPITAL ADMINSTRATION, WAS ADVISED THE HOSPITAL HAS NOT HAD ANY VEHICLES TOWED OFF LOT. CM [facility] [employer] [facility] [employer] [facility] WHO REPORTED THEY DID NOT TOW PT'S VEHICLE. CM CALLED PT'S MACHINE OPERATOR HOP PICKER, ALEXANDER RUTLEDGEGINS, , WHO ADVISED THAT THE CAR WAS REPOSSESSED DUE TO NON PAYMENT TO HIS KNOWLEDGE. CM INFORMED MACHINE OPERATOR HOP PICKER OF PT'S PENDING PSYCHIATRIC CARE PLACEMENT AFTER OBSERVING A SIGNED CONSENT FOR RELEASE OF MEDICAL INFORMATION TO MR. CHRISTIANSEN IN CHART. CM INFORMED PT IN ROOM. CM SPOKE TO BEDSIDE NURSE WHO HAD TALKED TO TRANSFER CENTER, PT IS BEING CONSIDERED FOR ADMISSION BY [facility] INPATIENT PSYCHIATRIC CARE; THEY WILL NOT ACCEPT PT IS ON HEPARIN DRIP. BEDSIDE NURSE REPORT THIS HAS BEEN DISCONTINUED TODAY. CM CALLED [facility], , SPOKE TO TYREL WHO INFORMED CM THAT PT WILL NEED TO HAVE NEW LAB WORK IN THE MORNING AND FAX THAT ALONG WITH NURSES NOTE INDICATING WHEN DRIP WAS STOPPED TO TRANSFER CENTER IN THE MORNING, 07-30-18 AND THEY WILL RETRY FOR INPATIENT PSYCHIATRIC ADMISSION. BEDSIDE NURSE AND PT NOTIFIED. All Howard CASE MANAGEMENT DCP- Discharge Planning Updated by [id number]: Susan Richardson on 10/16/18 3:[address] CM trying to find out if patient has insurance or if it has termed. [employer] is working on trying to figure this information out. Patient is going to need psych placement once medically stable. Patient is most likely going to need dialysis and psych at a facility. CM has notified Jodee Sepulveda that patient will need outpatient dialysis setup. Jodee informed CM that the only facility that will accept dialysis/ psych patient is [facility]. CM will continue to follow and assist as needed with discharge planning / needs. DCP- Discharge Planning Updated by [id number]: Susan Richardson on 10/13/18 2:[address] Patient Name: ERNESTINA SIMS Admission Status: ER Accout number: [id number] Admission Date: 10-12-2018 : 1980 Admission Diagnosis: Attending: VAMSHI LARA Current LOS: 1 Anticipated DC Date: Planned Disposition: Psych facility Primary Insurance: UNINSURED DISCOUNT PLAN Discharge Planning Comments: CM met with patient at bedside after explaining CM role and obtaining verbal consent. Patient lives at home with two roommates and plans to return there upon discharge. Patient is currently having dialysis this is her second treatment thus far. Pysch consult once medically stable. Psych evaluation will determine discharge plan. CM will continue to follow and assist as needed with discharge planning / needs. Small Animal Veterinarian: Susan Richardson DCPIA - Discharge Planning Initial Assessment Updated by [email or web address]: Susan Richardson on 10/13/18 3:36 pm * Is the patient Alert and Oriented? Yes * How many steps to enter\exit or inside your home? * PCP NO PCP * Pharmacy NO PHARMACY - CURRENTLY ? [facility] * Preadmission Environment Home with Family * ADLs Independent * Equipment None * List name and contact numbers for known caregivers / representatives who currently or will assist patient after discharge: OLVIN LIU - [facility]- [phone] * Verbal permission to speak to the caregivers and representatives has been obtained from the patient. N/A * Community resources currently utilized None * Additional services required to return to the preadmission environment? No * Can the patient safely return to the preadmission environment? Yes * Has this patient been hospitalized within the prior 30 days at any hospital? No Last DP export: 10/31/18 12:01 p Patient Name: ERNESTINA SIMS Page 31555 at 0904 All edits/amendments must be made on the electronic document DICTATION DATE: 11/02/18902 SILK SCREEN CUTTER: DIRK 11/02/18902 RPT#: [id number] DC DATE: STATUS: ADM IN [facility] [address] [place] [address] END OF REPORT
--- NOTE | 2018-11-02 09:10 | MORECARE ---
CASE MANAGEMENT DISCHARGE SUMMARY PATIENT: ERNESTINA SIMS UNIT: [id number] ADM DATE: 10/12/18 AGE: 38 : [birth year] SEX: F ROOM/BED: D.6215 AUTHOR: PETERDOC PHYSICIAN: REFERRING PHYSICIAN: VAMSHI LARA MD DATE OF SERVICE: 11/02/18 Discharge Plan Patient Name: ERNESTINA SIMS Facility: [facility]:[place] : 1980 Planned Disposition: Psych facility Anticipated Discharge Date: 11/02/18 Discharge Date: Expected LOS: 21 Initial Reviewer: [id number] Initial Review Date: 10/13/2018 Generated: 11/02/18 10:10 am Comments DCP- Discharge Planning Updated by [id number]: All Howard on 11/02/18 8:[address] Patient Name: ERNESTINA SIMS Encounter No: [id number] : 1980 Primary Insurance: MEDICAID [place] PENDING Anticipated DC Date: 11-02-2018 Planned Disposition: Psych facility External Planned Provider: [facility] INPATIENT PSYCHIATRIC DCP follow-up note: CM FAXED HOSPITAL UPDATE TO TRANSFER CENTER AT [phone]. CM CONTINUES TO WAIT INPATIENT PSYCHIATRIC FACILITY ACCEPTANCE. All Howard, CASE MANAGEMENT DCP- Discharge Planning Updated by [id number]: Lashay Griffith on 10/31/18 11:[address] CM TELEPHONED EASY ADMIT. SPOKE W/ DANIELLE. VERBAL UPDATE GIVEN, CM ALSO FAXED UPDATED MED LIST, OXYGEN NOTE, PROGRESS NOTE FOR TODAY AND DISCHARGE SUMMARY. NURSE REPORTED MULTIPLE CALLS ON FRIDAY REGARDING PROGRESS AND DENIALS. AWAIT CALL BACK WITH ACCEPTANCE WHEN PSYCH BED IS AVAILABLE. DCP- Discharge Planning Updated by [id number]: All Howard on 10/30/18 2:[address] Patient Name: ERNESTINA SIMS Encounter No: [id number] : 1980 Primary Insurance: MEDICAID [place] PEND[place] Anticipated DC Date: 10-29-2018 Planned Disposition: Psych facility External Planned Provider: [facility] OR FIRST ACCEPTING INPATIENT PSYCHIATRIC FACILITY DCP follow-up note: TRANSFER CENTER INFORMED BEDSIDE NURSE THAT PT WILL NEED TO BE OFF ALL OXYGEN AND UPDRAFT TREATMENTS FOR 24 HOURS FOR THEM TO ATTEMPT PLACEMENT IN INPATIENT PSYCHIATRIC CARE. TRAN[facility]ER C[facility] TO CONTINUE ATTEMPTING PLACMENT TOMORROW, 10-31-18. All Howard CASE MANAGEMENT DCP- Discharge Planning Updated by [id number]: All Howard on 10/30/18 6:[address] Patient Name: ERNESTINA SIMS Encounter No: [id number] : 1980 Primary Insurance: MEDICAID [place] PEND[place] Anticipated DC Date: 10-29-2018 Planned Disposition: Psych facility External Planned Provider: [facility] follow-up note: CM FAXED NEW COAGULATION LAB RESULTS ALONG WITH NURSES NOTE INDICATING WHEN DRIP WAS STOPPED TO TRANSFER CENTER. 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 STORE DELI MANAGER NURSE. RAJEEV Martell DCP- Discharge Planning Updated by [id number]: All Howard on 10/29/18 3:[address] Patient Name: ERNESTINA SIMS Encounter No: [id number] : 1980 Primary Insurance: MEDICAID [place] PEND[place] Anticipated DC Date: 10-29-2018 Planned Disposition: Psych facility External Planned Provider: [facility] follow-up note: ANJALI SPOKE TO MOISES SANON, PT IS STABLE FOR DISCHARGE TO INPATIENT PSYCHIATRIC CARE TODAY. CM SPOKE TO PT IN ROOM WHO IS WILLING FOR INPATIENT PSYCHATIRIC CARE. PT ASKED FOR CM TO FIND OUT WHO TOWED HER CAR FROM THE HOSPTIAL PARKING LOT. CM REFERRED PT TO [facility], [phone]. CM CALLED [facility] IN HOSPITAL ADMINSTRATION, WAS ADVISED THE HOSPITAL HAS NOT HAD ANY VEHICLES TOWED OFF LOT. CM CALLED [employer] POLICE WHO REPORTED THEY DID NOT TOW PT'S VEHICLE. CM CALLED PT'S GROUND SUPPORT EQUIPMENT ASSEMBLER, ALEXANDER RUTLEDGEGINS, , WHO ADVISED THAT THE CAR WAS REPOSSESSED DUE TO NON PAYMENT TO HIS KNOWLEDGE. CM INFORMED GROUND SUPPORT EQUIPMENT ASSEMBLER OF PT'S PENDING PSYCHIATRIC CARE PLACEMENT AFTER OBSERVING A SIGNED CONSENT FOR RELEASE OF MEDICAL INFORMATION TO MR. CHRISTIANSEN IN CHART. CM INFORMED PT IN ROOM. CM SPOKE TO BEDSIDE NURSE WHO HAD TALKED TO TRANSFER GRAY, PT IS BEING CONSIDERED FOR ADMISSION BY [facility] INPATIENT PSYCHIATRIC CARE; THEY WILL NOT ACCEPT PT IS ON HEPARIN DRIP. BEDSIDE NURSE REPORT THIS HAS BEEN DISCONTINUED TODAY. CM CALLED [facility], , SPOKE TO TYREL WHO INFORMED CM THAT PT WILL NEED TO HAVE NEW LAB WORK IN THE MORNING AND FAX THAT ALONG WITH NURSES NOTE INDICATING WHEN DRIP WAS STOPPED TO TRANSFER CENTER IN THE MORNING, 07-30-18 AND THEY WILL RETRY FOR INPATIENT PSYCHIATRIC ADMISSION. BEDSIDE NURSE AND PT NOTIFIED. All Howard, CASE MANAGEMENT DCP- Discharge Planning Updated by [id number]: Susan Richardson on 10/16/18 3:[address] CM trying to find out if patient has insurance or if it has termed. [employer] is working on trying to figure this information out. Patient is going to need psych placement once medically stable. Patient is most likely going to need dialysis and psych at a facility. CM has notified Jodee Sepulveda that patient will need outpatient dialysis setup. Jodee informed CM that the only facility that will accept dialysis/ psych patient is [facility]. CM will continue to follow and assist as needed with discharge planning / needs. DCP- Discharge Planning Updated by [id number]: Susan Richardson on 10/13/18 2:[address] Patient Name: ERNESTINA SIMS Admission Status: ER Accout number: [id number] Admission Date: 10-12-2018 : 1980 Admission Diagnosis: Attending: VAMSHI LARA Current LOS: 1 Anticipated DC Date: Planned Disposition: Psych facility Primary Insurance: UNINSURED DISCOUNT PLAN Discharge Planning Comments: CM met with patient at bedside after explaining CM role and obtaining verbal consent. Patient lives at home with two roommates and plans to return there upon discharge. Patient is currently having dialysis this is her second treatment thus far. Pysch consult once medically stable. Psych evaluation will determine discharge plan. CM will continue to follow and assist as needed with discharge planning / needs. Farm Equipment Maintenance Supervisor: Susan Richardson DCPIA - Discharge Planning Initial Assessment Updated by [id number]: Susan Richardson on 10/13/18 3:36 pm * Is the patient Alert and Oriented? Yes * How many steps to enter\exit or inside your home? * PCP NO PCP * Pharmacy NO PHARMACY - CURRENTLY ? [facility] * Preadmission Environment Home with Family * ADLs Independent * Equipment None * List name and contact numbers for known caregivers / representatives who currently or will assist patient after discharge: OLVIN LIU - [facility] [phone] * Verbal permission to speak to the caregivers and representatives has been obtained from the patient. N/A * Community resources currently utilized None * Additional services required to return to the preadmission environment? No * Can the patient safely return to the preadmission environment? Yes * Has this patient been hospitalized within the prior 30 days at any hospital? No Last DP export: 11/02/18 8:04 a Patient Name: ERNESTINA SIMS Page [id number] at 0910 All edits/amendments must be made on the electronic document DICTATION DATE: 11/02/18909 FLOUR BLENDER: DIRK 11/02/18909 RPT#: [id number] DC DATE: STATUS: ADM IN [facility] [address] [place] [address] END OF REPORT
[2018-11-02 10:09] LABS: FUNGUS STAIN Final report (())
[2018-11-02 18:18] VITALS: BP 100/60
--- NOTE | 2018-11-02 19:53 | NUR ---
PT CARE ASSUMED. SITTER AT BEDSIDE. RR EVEN AND UNLABORED. DENIES NEEDS AT THIS TIME. NO S/S OF DISTRESS NOTED. WILL CPOC.
[2018-11-02 20:00] VITALS: BP 92/54
[2018-11-03 04:00] VITALS: BP 97/57
--- NOTE | 2018-11-03 08:42 | NUR ---
PT IS AWAKE AND ALERDT WITH NO CO. SITTER AT BEDSIDE.
--- NOTE | 2018-11-03 08:59 | MORECARE ---
CASE MANAGEMENT DISCHARGE SUMMARY PATIENT: ERNESTINA SIMS UNIT: [id number] ADM DATE: 10/12/18 AGE: 38 : [birth year] SEX: F ROOM/BED: D.7650 AUTHOR: PETERDOC PHYSICIAN: REFERRING PHYSICIAN: VAMSHI LARA MD DATE OF SERVICE: 11/03/18 Discharge Plan Patient Name: ERNESTINA SIMS Facility: [facility]:[place] : 1980 Planned Disposition: Psych facility Anticipated Discharge Date: 11/03/18 Discharge Date: Expected LOS: 22 Initial Reviewer: [id number] Initial Review Date: 10/13/2018 Generated: 11/03/18 9:59 am Comments DCP- Discharge Planning Updated by [id number]: All Howard on 11/03/18 7:[address] Patient Name: ERNESTINA SIMS Encounter No: [id number] : 1980 Primary Insurance: MED[place]ID [place] Anticipated DC Date: 11-03-2018 Planned Disposition: Psych facility External Planned Provider: [facility] DCP follow-up note: CM FAXED HOSPITAL UPDATE TO [facility]SFER C[facility] AT [phone]. CM CONTINUES TO WAIT INPATIENT PSYCHIATRIC FACILITY ACCEPTANCE. RAJEEV Martell DCP- Discharge Planning Updated by [id number]: All Howard on 11/02/18 8:[address] Patient Name: ERNESTINA SIMS Encounter No: [id number] : 1980 Primary Insurance: [place]ID [place] Anticipated DC Date: 11-02-2018 Planned Disposition: Psych facility External Planned Provider: [facility] DCP follow-up note: CM FAXED HOSPITAL UPDATE TO TRANSFER CENTER AT [phone]. CM CONTINUES TO WAIT INPATIENT PSYCHIATRIC FACILITY ACCEPTANCE. RAJEEV Martell DCP- Discharge Planning Updated by [id number]: Lashay Griffith on 10/31/18 11:[address] CM TELEPHONED EASY ADMIT. SPOKE W/ DANIELLE. VERBAL UPDATE GIVEN, CM ALSO FAXED UPDATED MED LIST, OXYGEN NOTE, PROGRESS NOTE FOR TODAY AND DISCHARGE SUMMARY. NURSE REPORTED MULTIPLE CALLS ON FRIDAY REGARDING PROGRESS AND DENIALS. AWAIT CALL BACK WITH ACCEPTANCE WHEN PSYCH BED IS AVAILABLE. DCP- Discharge Planning Updated by [id number]: All Howard on 10/30/18 2:[address] Patient Name: ERNESTINA SIMS Encounter No: [id number] : 1980 Primary Insurance: [place] Anticipated DC Date: 10-29-2018 Planned Disposition: Psych facility External Planned Provider: [facility] OR [facility] DCP follow-up note: [facility] INFORMED BEDSIDE NURSE THAT PT WILL NEED TO BE OFF ALL OXYGEN AND UPDRAFT TREATMENTS FOR 24 HOURS FOR THEM TO ATTEMPT PLACEMENT IN INPATIENT PSYCHIATRIC CARE. [facility] TO CONTINUE ATTEMPTING PLACMENT TOMORROW, 10-31-18. All Howard CASE MANAGEMENT DCP- Discharge Planning Updated by [email or web address]: All Howard on 10/30/18 6:[address] Patient Name: ERNESTINA SIMS Encounter No: [id number] : 1980 Primary Insurance: [place]ID [place] Anticipated DC Date: 10-29-2018 Planned Disposition: Psych facility External Planned Provider: [facility] DCP follow-up note: CM FAXED NEW COAGULATION LAB RESULTS ALONG WITH NURSES NOTE INDICATING WHEN DRIP WAS STOPPED TO TRANSFER CENTER. 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 All Howard CASE ADE DCP- Discharge Planning Updated by [id number]: All Howard on 10/29/18 3:[address] Patient Name: ERNESTINA SIMS Encounter No: [id number] : 1980 Primary Insurance: [place] Anticipated DC Date: 10-29-2018 Planned Disposition: Psych facility External Planned Provider: [facility] DCP follow-up note: CM SPOKE TO MOISES SANON, PT IS STABLE FOR DISCHARGE TO INPATIENT PSYCHIATRIC CARE TODAY. CM SPOKE TO PT IN ROOM WHO IS WILLING FOR INPATIENT PSYCHATIRIC CARE. PT ASKED FOR CM TO FIND OUT WHO TOWED HER CAR FROM THE HOSPTIAL PARKING LOT. CM REFERRED PT TO [facility], [phone]. CM CALLED [facility] IN HOSPITAL ADMINSTRATION, WAS ADVISED THE HOSPITAL HAS NOT HAD ANY VEHICLES TOWED OFF LOT. CM CALLED [facility] WHO REPORTED THEY DID NOT TOW PT'S VEHICLE. CM CALLED PT'S CYCLE REPAIRER, ALEXANDER CHRISTIANSEN, , WHO ADVISED THAT THE CAR WAS REPOSSESSED DUE TO NON PAYMENT TO HIS KNOWLEDGE. CM INFORMED CYCLE REPAIRER OF PT'S PENDING PSYCHIATRIC CARE PLACEMENT AFTER OBSERVING A SIGNED CONSENT FOR RELEASE OF MEDICAL INFORMATION TO MR. CHRISTIANSEN IN CHART. CM INFORMED PT IN ROOM. CM SPOKE TO BEDSIDE NURSE WHO HAD TALKED TO TRANSFER CENTER, PT IS BEING CONSIDERED FOR ADMISSION BY [facility] INPATIENT PSYCHIATRIC CARE; THEY WILL NOT ACCEPT PT IS ON HEPARIN DRIP. BEDSIDE NURSE REPORT THIS HAS BEEN DISCONTINUED TODAY. CM CALLED [facility], , SPOKE TO TYREL WHO INFORMED CM THAT PT WILL NEED TO HAVE NEW LAB WORK IN THE MORNING AND FAX THAT ALONG WITH NURSES NOTE INDICATING WHEN DRIP WAS STOPPED TO TRANSFER CENTER IN THE MORNING, 07-30-18 AND THEY WILL RETRY FOR INPATIENT PSYCHIATRIC ADMISSION. BEDSIDE NURSE AND PT NOTIFIED. All Howard, CASE MANAGEMENT DCP- Discharge Planning Updated by [email or web address]: Susan Richardson on 10/16/18 3:[address] CM trying to find out if patient has insurance or if it has termed. [employer] is working on trying to figure this information out. Patient is going to need psych placement once medically stable. Patient is most likely going to need dialysis and psych at a facility. CM has notified Jodee Sepulveda that patient will need outpatient dialysis setup. Jodee informed CM that the only facility that will accept dialysis/ psych patient is [facility]. CM will continue to follow and assist as needed with discharge planning / needs. DCP- Discharge Planning Updated by [id number]: Susan Richardson on 10/13/18 2:[address] Patient Name: ERNESTINA SIMS Admission Status: ER Accout number: [id number] Admission Date: 10-12-2018 : 1980 Admission Diagnosis: Attending: VAMSHI LARA Current LOS: 1 Anticipated DC Date: Planned Disposition: Psych facility Primary Insurance: UNINSURED DISCOUNT PLAN Discharge Planning Comments: CM met with patient at bedside after explaining CM role and obtaining verbal consent. Patient lives at home with two roommates and plans to return there upon discharge. Patient is currently having dialysis this is her second treatment thus far. Pysch consult once medically stable. Psych evaluation will determine discharge plan. CM will continue to follow and assist as needed with discharge planning / needs. Wardrobe Specialist: Susan Richardson DCPIA - Discharge Planning Initial Assessment Updated by [email or web address]: Susan Richardson on 10/13/18 3:36 pm * Is the patient Alert and Oriented? Yes * How many steps to enter\exit or inside your home? * PCP NO PCP * Pharmacy NO PHARMACY - CURRENTLY ? [facility] * Preadmission Environment Home with Family * ADLs Independent * Equipment None * List name and contact numbers for known caregivers / representatives who currently or will assist patient after discharge: OLVIN LIU [facility] [phone] * Verbal permission to speak to the caregivers and representatives has been obtained from the patient. N/A * Community resources currently utilized None * Additional services required to return to the preadmission environment? No * Can the patient safely return to the preadmission environment? Yes * Has this patient been hospitalized within the prior 30 days at any hospital? No Last DP export: 11/02/18 8:10 a Patient Name: ERNESTINA SIMS Page [id number] at 0859 All edits/amendments must be made on the electronic document DICTATION DATE: 11/03/18858 CREDIT AND COLLECTIONS REPRESENTATIVE: DIRK 11/03/18858 RPT#: [id number] DC DATE: STATUS: ADM IN [facility] [address] [place] [address] END OF REPORT
[2018-11-03 09:20] VITALS: BP 120/74
--- NOTE | 2018-11-03 13:05 | NUR ---
[facility] [place] CALLED FOR INFORMATION IN ORDER TO ACCEPT PT.
[2018-11-03 13:35] VITALS: BP 143/64
--- NOTE | 2018-11-03 15:07 | NUR ---
1500 PATIENT IN [facility] T[facility] SITTER REMAINS AT BEDSIDE
--- NOTE | 2018-11-03 17:39 | NUR ---
1730 [facility] CALLED AND WILL EVALUATE FOR ADMISSION IN AM.
[2018-11-03 17:42] VITALS: BP 96/61
--- NOTE | 2018-11-03 19:00 | NUR ---
PATIENT SITTING UP IN BED. NO COMPLAINTS AT THIS TIME. NO DISTRESS NOTED.
[2018-11-03 20:00] VITALS: BP 91/53
--- NOTE | 2018-11-04 01:38 | NUR ---
PATIENT HAS ORDER FOR TELEMETRY FROM 10/23/18. THE LAST DOCUMENTATION STATES PATIENT WAS ON IT ON 11/02/18. CHECKED WITH [employer]PERINT[employer], TELEMETRY WAS TURNED IN ON 11/02/18 BUT NO REASON WHY.
--- NOTE | 2018-11-04 02:33 | NUR ---
i have reviewed this patient and i concur with shift assessment conducted by Licensed Practical Nurse.
[2018-11-04 04:00] VITALS: BP 95/49
[2018-11-04 09:31] VITALS: BP 93/53
[2018-11-04 11:24] VITALS: BP 98/61
--- NOTE | 2018-11-04 12:14 | NUR ---
I have reviewed this patient and I concur with the Shift Assessment completed by the Licensed Practical Nurse today this shift.
--- NOTE | 2018-11-04 12:19 | NUR ---
I have reviewed this patient and I concur with the Shift Assessment completed by the Licensed Practical Nurse today this shift.
--- NOTE | 2018-11-04 15:13 | MORECARE ---
CASE MANAGEMENT DISCHARGE SUMMARY PATIENT: ERNESTINA SIMS UNIT: [id number] ADM DATE: 10/12/18 AGE: 38 : [birth year] SEX: F ROOM/BED: D.8010 AUTHOR: PETERDOC PHYSICIAN: REFERRING PHYSICIAN: VAMSHI LARA MD DATE OF SERVICE: 11/04/18 Discharge Plan Patient Name: ERNESTINA SIMS Facility: [facility]:[place] : 1980 Planned Disposition: Psych facility Anticipated Discharge Date: 11/03/18 Discharge Date: Expected LOS: 22 Initial Reviewer: [id number] Initial Review Date: 10/13/2018 Generated: 11/04/18 4:13 pm Comments DCP- Discharge Planning Updated by [id number]: All Howard on 11/04/18 2:[address] Patient Name: ERNESTINA SIMS Encounter No: [id number] : 1980 Primary Insurance: MEDICAID [place] PENDING Anticipated DC Date: 11-03-2018 Planned Disposition: Psych facility External Planned Provider: [facility] DCP follow-up note: CM SPKE TO ERNESTINE OF THE TRANSFER CENTER, , WHO INFORMED CM THAT PT HAS BEEN DECLINED BY 16 FACILITIES IN THE [facility], SOME OF WHICH DECLINED DUE TO NO FUNDING SOURCE. ERNESTINE WILL CONTINUE TO TRY PLACEMENT AND ASKED CM TO NOTIFY TRANSFER CENTER IF ANY FUNDING SOURCE CAN BE LOCATED. CM CALLED [facility], , SPOKE TO [place] CHA AND REQEUSTED INDIGENT CONTACT FOR INPATIENT PSYCHIATRIC CARE. [place] REQUESTED REFERRAL VIA EMAIL. CM EMAILED REFERRAL FOR INDIGENT FUNDING REQUEST TO "[email or web address]". [place] WILL RESPOND VIA EMAIL. CM WAITING TO DETERMINE IF INDIGENT FUNDING CAN BE OBTAINED FOR INPATIENT PSYCHIATRIC CARE FROM [facility]. RAJEEV Martell DCP- Discharge Planning Updated by [id number]: All Howard on 11/03/18 7:[address] Patient Name: ERNESTINA SIMS Encounter No: [id number] : 1980 Primary Insurance: MEDICAID [place] PENDING Anticipated DC Date: 11-03-2018 Planned Disposition: Psych facility External Planned Provider: [facility] DCP follow-up note: CM FAXED HOSPITAL UPDATE TO TRANSFER CENTER AT [phone]. CM CONTINUES TO WAIT INPATIENT PSYCHIATRIC FACILITY ACCEPTANCE. All Howard CASE MANAGEMENT DCP- Discharge Planning Updated by [id number]: All Howard on 11/02/18 8:[address] Patient Name: ERNESTINA SIMS Encounter No: [id number] : 1980 Primary Insurance: MEDICAID [place] PENDING Anticipated DC Date: 11-02-2018 Planned Disposition: Psych facility External Planned Provider: [facility] INPATIENT PSYCH[facility]RIC DCP follow-up note: CM FAXED HOSPITAL UPDATE TO TRANSFER CENTER AT [phone]. CM CONTINUES TO WAIT INPATIENT PSYCHIATRIC FACILITY ACCEPTANCE. All Howard CASE MANAGEMENT DCP- Discharge Planning Updated by [email or web address]: Lashay Griffith on 10/31/18 11:[address] CM TELEPHONED EASY ADMIT. SPOKE W/ DANIELLE. VERBAL UPDATE GIVEN, CM ALSO FAXED UPDATED MED LIST, OXYGEN NOTE, PROGRESS NOTE FOR TODAY AND DISCHARGE SUMMARY. NURSE REPORTED MULTIPLE CALLS ON FRIDAY REGARDING PROGRESS AND DENIALS. AWAIT CALL BACK WITH ACCEPTANCE WHEN PSYCH BED IS AVAILABLE. DCP- Discharge Planning Updated by [email or web address]: All Howard on 10/30/18 2:[address] Patient Name: ERNESTINA SIMS Encounter No: [id number] : 1980 Primary Insurance: MED[place]ID [place] PEND[place] Anticipated DC Date: 10-29-2018 Planned Disposition: Psych facility External Planned Provider: [facility] OR [facility] ACCEPT[facility]PATIENT [facility]IATRIC [facility]ACILITY DCP follow-up note: TRAN[facility]ER CENTER INFORMED BEDSIDE NURSE THAT PT WILL NEED TO BE OFF ALL OXYGEN AND UPDRAFT TREATMENTS FOR 24 HOURS FOR THEM TO ATTEMPT PLACEMENT IN INPATIENT PSYCHIATRIC CARE. [facility] TO CONTINUE ATTEMPTING PLACMENT TOMORROW, 10-31-18. RAJEEV Martell DCP- Discharge Planning Updated by [id number]: All Howard on 10/30/18 6:[address] Patient Name: ERNESTINA SIMS Encounter No: [id number] : 1980 Primary Insurance: MEDICAID [place] PEND[place] Anticipated DC Date: 10-29-2018 Planned Disposition: Psych facility External [facility] follow-up note: CM FAXED NEW COAGULATION LAB RESULTS ALONG WITH NURSES NOTE INDICATING WHEN DRIP WAS STOPPED TO TRANSFER CENTER. 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 All Howard, CASE MANAGEMENT DCP- Discharge Planning Updated by [id number]: All Howard on 10/29/18 3:[address] Patient Name: ERNESTINA SIMS Encounter No: [id number] : 1980 Primary Insurance: MEDICAID [place] PEND[place] Anticipated DC Date: 10-29-2018 Planned Disposition: Psych facility External Planned Provider: [facility] follow-up note: CM SPOKE TO MOISES SANON, PT IS STABLE FOR DISCHARGE TO INPATIENT PSYCHIATRIC CARE TODAY. CM SPOKE TO PT IN ROOM WHO IS WILLING FOR INPATIENT PSYCHATIRIC CARE. PT ASKED FOR CM TO FIND OUT WHO TOWED HER CAR FROM THE HOSPTIAL PARKING LOT. CM REFERRED PT TO [facility] [place], [phone]. CM CALLED [facility] IN HOSPITAL ADMINSTRATION, WAS ADVISED THE HOSPITAL HAS NOT HAD ANY VEHICLES TOWED OFF LOT. CM CALLED [facility] POLICE WHO REPORTED THEY DID NOT TOW PT'S VEHICLE. CM CALLED PT'S NETWORK PROGRAM MANAGER, ALEXANDER CHRISTIANSEN, , WHO ADVISED THAT THE CAR WAS REPOSSESSED DUE TO NON PAYMENT TO HIS KNOWLEDGE. CM INFORMED NETWORK PROGRAM MANAGER OF PT'S PENDING PSYCHIATRIC CARE PLACEMENT AFTER OBSERVING A SIGNED CONSENT FOR RELEASE OF MEDICAL INFORMATION TO MR. CHRISTIANSEN IN CHART. CM INFORMED PT IN ROOM. CM SPOKE TO BEDSIDE NURSE WHO HAD TALKED TO TRANSFER CENTER, PT IS BEING CONSIDERED FOR ADMISSION BY [facility] INPATIENT PSYCHIATRIC CARE; THEY WILL NOT ACCEPT PT IS ON HEPARIN DRIP. BEDSIDE NURSE REPORT THIS HAS BEEN DISCONTINUED TODAY. CM CALLED [facility], , SPOKE TO TYREL WHO INFORMED CM THAT PT WILL NEED TO HAVE NEW LAB WORK IN THE MORNING AND FAX THAT ALONG WITH NURSES NOTE INDICATING WHEN DRIP WAS STOPPED TO TRANSFER CENTER IN THE MORNING, 07-30-18 AND THEY WILL RETRY FOR INPATIENT PSYCHIATRIC ADMISSION. BEDSIDE NURSE AND PT NOTIFIED. All Howard CASE MANAGEMENT DCP- Discharge Planning Updated by [id number]: Susan Richardson on 10/16/18 3:[address] CM trying to find out if patient has insurance or if it has termed. [employer] is working on trying to figure this information out. Patient is going to need psych placement once medically stable. Patient is most likely going to need dialysis and psych at a facility. CM has notified Jodee Sepulveda that patient will need outpatient dialysis setup. Jodee informed CM that the only facility that will accept dialysis/ psych patient is [facility]. CM will continue to follow and assist as needed with discharge planning / needs. DCP- Discharge Planning Updated by [email or web address]: Susan Richardson on 10/13/18 2:[address] Patient Name: ERNESTINA SIMS Admission Status: ER Accout number: [id number] Admission Date: 10-12-2018 : 1980 Admission Diagnosis: Attending: VAMSHI LARA Current LOS: 1 Anticipated DC Date: Planned Disposition: Psych facility Primary Insurance: UNINSURED DISCOUNT PLAN Discharge Planning Comments: CM met with patient at bedside after explaining CM role and obtaining verbal consent. Patient lives at home with two roommates and plans to return there upon discharge. Patient is currently having dialysis this is her second treatment thus far. Pysch consult once medically stable. Psych evaluation will determine discharge plan. CM will continue to follow and assist as needed with discharge planning / needs. Manager Welding: Susan Richardson DCPIA - Discharge Planning Initial Assessment Updated by [email or web address]: Susan Richardson on 10/13/18 3:36 pm * Is the patient Alert and Oriented? Yes * How many steps to enter\\exit or inside your home? * PCP NO PCP * Pharmacy NO PHARMACY - CURRENTLY ? [facility] * Preadmission Environment Home with Family * ADLs Independent * Equipment None * List name and contact numbers for known caregivers / representatives who currently or will assist patient after discharge: OLVIN LIU - [facility]- [phone] * Verbal permission to speak to the caregivers and representatives has been obtained from the patient. N/A * Community resources currently utilized None * Additional services required to return to the preadmission environment? No * Can the patient safely return to the preadmission environment? Yes * Has this patient been hospitalized within the prior 30 days at any hospital? No Last DP export: 11/03/18 7:59 a Patient Name: ERNESTINA SIMS Page 67753 at 1513 All edits/amendments must be made on the electronic document DICTATION DATE: 11/04/181512 LEATHER STITCHER: DIRK 11/04/181512 RPT#: [id number] DC DATE: STATUS: ADM IN [facility] [address] [place] [address] END OF REPORT
--- NOTE | 2018-11-04 15:15 | NUR ---
Nutrition Follow-up: Overall good appetite/PO intake. Diet: Regular Wt: 137# Last BM: 11/01 per chart Labs reviewed Meds reviewed Continue current diet as tolerated. [place] food preferences. RD following.
--- NOTE | 2018-11-04 15:21 | MORECARE ---
CASE MANAGEMENT DISCHARGE SUMMARY PATIENT: ERNESTINA SIMS UNIT: [id number] ADM DATE: 10/12/18 AGE: 38 : [birth year] SEX: F ROOM/BED: D.1450 AUTHOR: PETER,DOC PHYSICIAN: REFERRING PHYSICIAN: VAMSHI LARA MD DATE OF SERVICE: 11/04/18 Discharge Plan Patient Name: ERNESTINA SIMS Facility: [facility]:[place] : 1980 Planned Disposition: Psych facility Anticipated Discharge Date: 11/03/18 Discharge Date: Expected LOS: 22 Initial Reviewer: [email or web address] Initial Review Date: 10/13/2018 Generated: 11/04/18 4:21 pm Comments DCP- Discharge Planning Updated by [email or web address]: Jose Salas on 11/04/18 2:[address] Patient Name: ERNESTINA SIMS Encounter No: [id number] : 1980 Primary Insurance: MEDICAID [place] PENDING Anticipated DC Date: 11-03-2018 Planned Disposition: Psych facility External Planned Provider: [facility] DCP follow-up note: CM SPKE TO ERNESTINE OF THE TRANSFER CENTER, , WHO INFORMED THAT PT HAS BEEN DECLINED BY 16 FACILITIES IN THE [facility], SOME OF WHICH DECLINED DUE TO NO FUNDING SOURCE. ERNESTINE WILL CONTINUE TO TRY PLACEMENT AND ASKED CM TO NOTIFY TRANSFER CENTER IF ANY FUNDING SOURCE CAN BE LOCATED. CM CALLED [facility], , SPOKE TO [place] [facility] AND REQEUSTED INDIGENT CONTACT FOR INPATIENT PSYCHIATRIC CARE. [place] REQUESTED REFERRAL VIA EMAIL. CM EMAILED REFERRAL FOR INDIGENT FUNDING REQUEST TO "[email or web address]". [place] WILL RESPOND VIA EMAIL. CM WAITING TO DETERMINE IF INDIGENT FUNDING CAN BE OBTAINED FOR INPATIENT PSYCHIATRIC CARE FROM [facility]. Jose Salas, CASE MANAGEMENT Appended by Jose Salas on 11/04/2018 15:20 CDT: CM RECEIVED EMAIL CONFIRMATION OF INITIAL 3 DAY APPROVAL FOR INDIGENT INPATIENT PSYCHIATRIC CONTACT. CM CALLED [facility], , NOTIFIED ERNESTINE WHO WILL UPDATE PACKET AND CONTINUE SEEKING INPATIENT PSYCHIATRIC CARE FOR PT. CM FAXED COPY OF EMAIL TO ERNESTINE AT TRANSFER CENTER. CM CONTINUES TO AWAIT ACCEPTANCE AT ANY INPATIENT PSYCHIATRIC FACILITY IN [place]. JOSE SALAS CASE MANAGEMENT DCP- Discharge Planning Updated by [id number]: Jose Salas on 11/03/18 7:[address] Patient Name: ERNESTINA SIMS Encounter No: [id number] : 1980 Primary Insurance: MEDICAID [place] PENDING Anticipated DC Date: 11-03-2018 Planned Disposition: Psych facility External Planned Provider: [facility] DCP follow-up note: CM FAXED HOSPITAL UPDATE TO [facility]ER C[facility] AT [phone]. CM CONTINUES TO WAIT INPATIENT PSYCHIATRIC FACILITY ACCEPTANCE. Jose Salas CASE ADE DCP- Discharge Planning Updated by [id number]: Jose Salas on 11/02/18 8:[address] Patient Name: ERNESTINA SIMS Encounter No: [id number] : 1980 Primary Insurance: MEDICAID [place] PENDING Anticipated DC Date: 11-02-2018 Planned Disposition: Psych facility External Planned Provider: [facility] INPATIENT PSYCHIATRIC DCP follow-up note: CM FAXED HOSPITAL UPDATE TO TRANSFER CENTER AT [phone]. CM CONTINUES TO WAIT INPATIENT PSYCHIATRIC FACILITY ACCEPTANCE. RAJEEV Martell MANAGEMENT DCP- Discharge Planning Updated by [id number]: Lashay Griffith on 10/31/18 11:[address] CM TELEPHONED EASY ADMIT. SPOKE W/ DANIELLE. VERBAL UPDATE GIVEN, CM ALSO FAXED UPDATED MED LIST, OXYGEN NOTE, PROGRESS NOTE FOR TODAY AND DISCHARGE SUMMARY. NURSE REPORTED MULTIPLE CALLS ON FRIDAY REGARDING PROGRESS AND DENIALS. AWAIT CALL BACK WITH ACCEPTANCE WHEN PSYCH BED IS AVAILABLE. DCP- Discharge Planning Updated by [id number]: Jose Salas on 10/30/18 2:[address] Patient Name: ERNESTINA SIMS Encounter No: [id number] : 1980 Primary Insurance: MEDICAID [place] PENDING Anticipated DC Date: 10-29-2018 Planned Disposition: Psych facility External Planned Provider: [facility] OR [facility] ACCEPT[facility] INPATIENT PSYCHIATRIC FACILITY DCP follow-up note: [facility] INFORMED BEDSIDE NURSE THAT PT WILL NEED TO BE OFF ALL OXYGEN AND UPDRAFT TREATMENTS FOR 24 HOURS FOR THEM TO ATTEMPT PLACEMENT IN INPATIENT PSYCHIATRIC CARE. [facility] TO CONTINUE ATTEMPTING PLACMENT TOMORROW, 10-31-18. Jose Salas CASE MANAGEMENT DCP- Discharge Planning Updated by [id number]: Jose Salas on 10/30/18 6:[address] Patient Name: ERNESTINA SIMS Encounter No: [id number] : 1980 Primary Insurance: MEDICAID [place]END[place] Anticipated DC Date: 10-29-2018 Planned Disposition: Psych facility External Planned Provider: [facility] follow-up note: CM FAXED NEW COAGULATION LAB RESULTS ALONG WITH NURSES NOTE INDICATING WHEN DRIP WAS STOPPED TO TRANSFER CENTER. 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 SHRIMP PEELER NURSE. RAJEEV Martell DCP- Discharge Planning Updated by [id number]: Jose Salas on 10/29/18 3:[address] Patient Name: ERNESTINA SIMS Encounter No: [id number] : 1980 Primary Insurance: MEDICAID [place]END[place] Anticipated DC Date: 10-29-2018 Planned Disposition: Psych facility External Planned Provider: [facility] follow-up note: ANJALI SPOKE TO MOISES SANON, PT IS STABLE FOR DISCHARGE TO INPATIENT PSYCHIATRIC CARE TODAY. CM SPOKE TO PT IN ROOM WHO IS WILLING FOR INPATIENT PSYCHATIRIC CARE. PT ASKED FOR CM TO FIND OUT WHO TOWED HER CAR FROM THE HOSPTIAL PARKING LOT. CM REFERRED PT TO [facility], [phone]. CM CALLED [facility] IN HOSPITAL ADMINSTRATION, WAS ADVISED THE HOSPITAL HAS NOT HAD ANY VEHICLES TOWED OFF LOT. CM CALLED [facility] POLICE WHO REPORTED THEY DID NOT TOW PT'S VEHICLE. CM CALLED PT'S ENGRAVER WOOD, ALEXANDER CHRISTIANSEN, , WHO ADVISED THAT THE CAR WAS REPOSSESSED DUE TO NON PAYMENT TO HIS KNOWLEDGE. CM INFORMED ENGRAVER WOOD OF PT'S PENDING PSYCHIATRIC CARE PLACEMENT AFTER OBSERVING A SIGNED CONSENT FOR RELEASE OF MEDICAL INFORMATION TO MR. CHRISTIANSEN IN CHART. CM INFORMED PT IN ROOM. ANJALI SPOKE TO BEDSIDE NURSE WHO HAD TALKED TO [facility], PT IS BEING CONSIDERED FOR ADMISSION BY [facility] INPATIENT PSYCHIATRIC CARE; THEY WILL NOT ACCEPT PT IS ON HEPARIN DRIP. BEDSIDE NURSE REPORT THIS HAS BEEN DISCONTINUED TODAY. CM CALLED [facility], , SPOKE TO TYREL WHO INFORMED CM THAT PT WILL NEED TO HAVE NEW LAB WORK IN THE MORNING AND FAX THAT ALONG WITH NURSES NOTE INDICATING WHEN DRIP WAS STOPPED TO TRANSFER CENTER IN THE MORNING, 07-30-18 AND THEY WILL RETRY FOR INPATIENT PSYCHIATRIC ADMISSION. BEDSIDE NURSE AND PT NOTIFIED. Jose Salas, CASE MANAGEMENT DCP- Discharge Planning Updated by [id number]: Susan Richardson on 10/16/18 3:[address] CM trying to find out if patient has insurance or if it has termed. [employer] is working on trying to figure this information out. Patient is going to need psych placement once medically stable. Patient is most likely going to need dialysis and psych at a facility. CM has notified Jodee Sepulveda that patient will need outpatient dialysis setup. Jodee informed CM that the only facility that will accept dialysis/ psych patient is [facility]. CM will continue to follow and assist as needed with discharge planning / needs. DCP- Discharge Planning Updated by [id number]: Susan Richardson on 10/13/18 2:[address] Patient Name: ERNESTINA SIMS Admission Status: ER Accout number: [id number] Admission Date: 10-12-2018 : 1980 Admission Diagnosis: Attending: VAMSHI LARA Current LOS: 1 Anticipated DC Date: Planned Disposition: Psych facility Primary Insurance: UNINSURED DISCOUNT PLAN Discharge Planning Comments: CM met with patient at bedside after explaining CM role and obtaining verbal consent. Patient lives at home with two roommates and plans to return there upon discharge. Patient is currently having dialysis this is her second treatment thus far. Pysch consult once medically stable. Psych evaluation will determine discharge plan. CM will continue to follow and assist as needed with discharge planning / needs. Art Class Model: Susan Richardson DCPIA - Discharge Planning Initial Assessment Updated by [id number]: Susan Richardson on 10/13/18 3:36 pm * Is the patient Alert and Oriented? Yes * How many steps to enter\\exit or inside your home? * PCP NO PCP * Pharmacy NO PHARMACY - CURRENTLY ? [facility] * Preadmission Environment Home with Family * ADLs Independent * Equipment None * List name and contact numbers for known caregivers / representatives who currently or will assist patient after discharge: OLVIN [facility] [phone] * Verbal permission to speak to the caregivers and representatives has been obtained from the patient. N/A * Community resources currently utilized None * Additional services required to return to the preadmission environment? No * Can the patient safely return to the preadmission environment? Yes * Has this patient been hospitalized within the prior 30 days at any hospital? No Last DP export: 11/04/18 2:13 p Patient Name: ERNESTINA SIMS Page 70116 at 1521 All edits/amendments must be made on the electronic document DICTATION DATE: 11/04/18 152 SALES SPECIAL AGENT: DIRK 11/04/181520 RPT#: [id number] DC DATE: STATUS: ADM IN [address] [place] [address] END OF REPORT
[2018-11-04 16:14] VITALS: BP 99/59
--- NOTE | 2018-11-04 17:30 | NUR ---
RECIEVED CALL FROM [facility] ABOUT PT STATUS. THEY WANTED TO KNOW IF THE PT WAS VOLUNTARY OR NOT AND IF SHE HAD BEEN SCREENED. I INFORMED THEM THAT THE TRANSFER CENTER HAD THAT INFORMATION AND THEY SAID THEY WOULD CALL THEM. THE TRANSFER CENTER THEN CALLED ME AND REQUESTED A COPY OF THE NURSES NOTES AND DR PEREZ FROM TODAY (11/04/18). ASKED MAKENZIE TO FAX THIS INFORMATION TO THEM.
--- NOTE | 2018-11-04 17:45 | MORECARE ---
CASE MANAGEMENT DISCHARGE SUMMARY PATIENT: ERNESTINA SIMS UNIT: [id number] ADM DATE: 10/12/18 AGE: 38 : [birth year] SEX: F ROOM/BED: D.3420 AUTHOR: PETER,DOC PHYSICIAN: REFERRING PHYSICIAN: VAMSHI LARA MD DATE OF SERVICE: 11/04/18 Discharge Plan Patient Name: ERNESTINA SIMS Facility: [facility]:[place] : 1980 Planned Disposition: Psych facility Anticipated Discharge Date: 11/03/18 Discharge Date: Expected LOS: 22 Initial Reviewer: [id number] Initial Review Date: 10/13/2018 Generated: 11/04/18 6:44 pm Comments DCP- Discharge Planning Updated by [id number]: Jose Salas on 11/04/18 4:[address] Patient Name: ERNESTINA SIMS Encounter No: [id number] : 1980 Primary Insurance: MEDICAID [place] PENDING Anticipated DC Date: 11-03-2018 Planned Disposition: Psych facility External Planned Provider:[facility] DCP follow-up note: CM SPOKE TO ERNESTINE OF THE [facility], , WHO INFORMED THAT PT HAS BEEN DECLINED BY 16 FACILITIES IN THE [facility], SOME OF WHICH DECLINED DUE TO NO FUNDING SOURCE. ERNESTINE WILL CONTINUE TO TRY PLACEMENT AND ASKED CM TO NOTIFY TRANSFER CENTER IF ANY FUNDING SOURCE CAN BE LOCATED. [facility] , SPOKE TO [place] [facility] AND REQEUSTED INDIGENT CONTACT FOR INPATIENT PSYCHIATRIC CARE. [place] REQUESTED REFERRAL VIA EMAIL. CM EMAILED REFERRAL FOR INDIGENT FUNDING REQUEST TO "[email or web address]". [place] WILL RESPOND VIA EMAIL. CM WAITING TO DETERMINE IF INDIGENT FUNDING CAN BE OBTAINED FOR INPATIENT PSYCHIATRIC CARE FROM [facility]. Jose Salas, CASE MANAGEMENT Appended by Jose Salas on 11/04/2018 15:20 CDT: CM RECEIVED EMAIL CONFIRMATION OF INITIAL 3 DAY APPROVAL FOR INDIGENT INPATIENT PSYCHIATRIC CONTACT. CM CALLED [facility], , NOTIFIED ERNESTINE WHO WILL UPDATE PACKET AND CONTINUE SEEKING INPATIENT PSYCHIATRIC CARE FOR PT. CM FAXED COPY OF EMAIL TO ERNESTINE AT TRANSFER CENTER. CM CONTINUES TO AWAIT ACCEPTANCE AT ANY INPATIENT PSYCHIATRIC FACILITY IN [place]. JOSE SALAS CASE MANAGEMENT DCP- Discharge Planning Updated by [id number]: Jose Salas on 11/03/18 7:[address] Patient Name: ERNESTINA SIMS Encounter No: [id number] : 1980 Primary Insurance: MEDICAID [place] PENDING Anticipated DC Date: 11-03-2018 Planned Disposition: Psych facility External Planned Provider: [facility] DCP follow-up note: CM FAXED HOSPITAL UPDATE TO TRANSFER C[facility] AT [phone]. CM CONTINUES TO WAIT INPATIENT PSYCHIATRIC FACILITY ACCEPTANCE. Jose Salas CASE ADE DCP- Discharge Planning Updated by [id number]: Jose Salas on 11/02/18 8:[address] Patient Name: ERNESTINA SIMS Encounter No: [id number] : 1980 Primary Insurance: MEDICAID [place] PENDING Anticipated DC Date: 11-02-2018 Planned Disposition: Psych facility External Planned Provider: [facility] INPATIENT PSYCHIATRIC DCP follow-up note: CM FAXED HOSPITAL UPDATE TO TRANSFER CENTER AT [phone]. CM CONTINUES TO WAIT INPATIENT PSYCHIATRIC FACILITY ACCEPTANCE. RAJEEV Martell MANAGEMENT DCP- Discharge Planning Updated by [id number]: Lashay Griffith on 10/31/18 11:[address] CM TELEPHONED EASY ADMIT. SPOKE W/ DANIELLE. VERBAL UPDATE GIVEN, CM ALSO FAXED UPDATED MED LIST, OXYGEN NOTE, PROGRESS NOTE FOR TODAY AND DISCHARGE SUMMARY. NURSE REPORTED MULTIPLE CALLS ON FRIDAY REGARDING PROGRESS AND DENIALS. AWAIT CALL BACK WITH ACCEPTANCE WHEN PSYCH BED IS AVAILABLE. DCP- Discharge Planning Updated by [email or web address]: Jose Salas on 10/30/18 2:[address] Patient Name: ERNESTINA SIMS Encounter No: [id number] : 1980 Primary Insurance: MEDICAID [place] PENDING Anticipated DC Date: 10-29-2018 Planned Disposition: Psych facility External Planned Provider: [facility] OR FIRST ACCEPTING INPATIENT PSYCHIATRIC FACILITY DCP follow-up note: [facility] INFORMED BEDSIDE NURSE THAT PT WILL NEED TO BE OFF ALL OXYGEN AND UPDRAFT TREATMENTS FOR 24 HOURS FOR THEM TO ATTEMPT PLACEMENT IN INPATIENT PSYCHIATRIC CARE. [facility] TO CONTINUE ATTEMPTING PLACMENT TOMORROW, 10-31-18. Jose Salas CASE MANAGEMENT DCP- Discharge Planning Updated by [id number]: Jose Salas on 10/30/18 6:[address] Patient Name: ERNESTINA SIMS Encounter No: [id number] : 1980 Primary Insurance: MEDICAID [place] PENDING Anticipated DC Date: 10-29-2018 Planned Disposition: Psych facility External Planned Provider: [facility] follow-up note: CM FAXED NEW COAGULATION LAB RESULTS ALONG WITH NURSES NOTE INDICATING WHEN DRIP WAS STOPPED TO TRANSFER CENTER. 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 CHANGE NUMBER OPERATOR NURSE. RAJEEV Martell DCP- Discharge Planning Updated by [id number]: Jose Salas on 10/29/18 3:[address] Patient Name: ERNESTINA SIMS Encounter No: [id number] : 1980 Primary Insurance: MEDICAID [place] PENDING Anticipated DC Date: 10-29-2018 Planned Disposition: Psych facility External Planned Provider: [facility] follow-up note: ANJALI SPOKE TO MOISES SANON, PT IS STABLE FOR DISCHARGE TO INPATIENT PSYCHIATRIC CARE TODAY. CM SPOKE TO PT IN ROOM WHO IS WILLING FOR INPATIENT PSYCHATIRIC CARE. PT ASKED FOR CM TO FIND OUT WHO TOWED HER CAR FROM THE HOSPTIAL PARKING LOT. CM REFERRED PT TO [facility] [place], [phone]. CM CALLED [facility] IN HOSPITAL ADMINSTRATION, WAS ADVISED THE HOSPITAL HAS NOT HAD ANY VEHICLES TOWED OFF LOT. CM CALLED [facility] POLICE WHO REPORTED THEY DID NOT TOW PT'S VEHICLE. CM CALLED PT'S VOLLEYBALL ASSEMBLER, ALEXANDER CHRISTIANSEN, , WHO ADVISED THAT THE CAR WAS REPOSSESSED DUE TO NON PAYMENT TO HIS KNOWLEDGE. CM INFORMED VOLLEYBALL ASSEMBLER OF PT'S PENDING PSYCHIATRIC CARE PLACEMENT AFTER OBSERVING A SIGNED CONSENT FOR RELEASE OF MEDICAL INFORMATION TO MR. CHRISTIANSEN IN CHART. CM INFORMED PT IN ROOM. ANJALI SPOKE TO BEDSIDE NURSE WHO HAD TALKED TO [facility], PT IS BEING CONSIDERED FOR ADMISSION BY [facility] INPATIENT PSYCHIATRIC CARE; THEY WILL NOT ACCEPT PT IS ON HEPARIN DRIP. BEDSIDE NURSE REPORT THIS HAS BEEN DISCONTINUED TODAY. CM CALLED [facility], , SPOKE TO TYREL WHO INFORMED CM THAT PT WILL NEED TO HAVE NEW LAB WORK IN THE MORNING AND FAX THAT ALONG WITH NURSES NOTE INDICATING WHEN DRIP WAS STOPPED TO TRANSFER CENTER IN THE MORNING, 07-30-18 AND THEY WILL RETRY FOR INPATIENT PSYCHIATRIC ADMISSION. BEDSIDE NURSE AND PT NOTIFIED. Jose Salas, CASE MANAGEMENT DCP- Discharge Planning Updated by [id number]: Susan Richardson on 10/16/18 3:[address] CM trying to find out if patient has insurance or if it has termed. [employer] is working on trying to figure this information out. Patient is going to need psych placement once medically stable. Patient is most likely going to need dialysis and psych at a facility. CM has notified Jodee Sepulveda that patient will need outpatient dialysis setup. Jodee informed CM that the only facility that will accept dialysis/ psych patient is [facility]. CM will continue to follow and assist as needed with discharge planning / needs. DCP- Discharge Planning Updated by [id number]: Susan Richardson on 10/13/18 2:[address] Patient Name: ERNESTINA SIMS Admission Status: ER Accout number: [id number] Admission Date: 10-12-2018 : 1980 Admission Diagnosis: Attending: VAMSHI LARA Current LOS: 1 Anticipated DC Date: Planned Disposition: Psych facility Primary Insurance: UNINSURED DISCOUNT PLAN Discharge Planning Comments: CM met with patient at bedside after explaining CM role and obtaining verbal consent. Patient lives at home with two roommates and plans to return there upon discharge. Patient is currently having dialysis this is her second treatment thus far. Pysch consult once medically stable. Psych evaluation will determine discharge plan. CM will continue to follow and assist as needed with discharge planning / needs. Skin Care Therapist: Susan Richardson DCPIA - Discharge Planning Initial Assessment Updated by [id number]: Susan Richardson on 10/13/18 3:36 pm * Is the patient Alert and Oriented? Yes * How many steps to enter\\exit or inside your home? * PCP NO PCP * Pharmacy NO PHARMACY - CURRENTLY ? [facility] * Preadmission Environment Home with Family * ADLs Independent * Equipment None * List name and contact numbers for known caregivers / representatives who currently or will assist patient after discharge: OLVIN [facility] [phone] * Verbal permission to speak to the caregivers and representatives has been obtained from the patient. N/A * Community resources currently utilized None * Additional services required to return to the preadmission environment? No * Can the patient safely return to the preadmission environment? Yes * Has this patient been hospitalized within the prior 30 days at any hospital? No Last DP export: 11/04/18 2:21 p Patient Name: ERNESTINA SIMS Page 62933 at 1746 All edits/amendments must be made on the electronic document DICTATION DATE: 11/04/181743 TRAVEL DIRECTOR: DIRK 11/04/181743 RPT#: [id number] [place] DATE: STATUS: ADM IN [facility] [address] [place] [address] END OF REPORT
[2018-11-04 20:00] VITALS: BP 102/57
--- NOTE | 2018-11-04 23:33 | NUR ---
PT RESTING IN BED. EYES CLOSED. NO SIGNS OF DISTRESS. BREATHING EVEN AND UNLABORED. NO IV SITE AT THIS TIME. BOWEL SOUNDS ACTIVE. SKIN CLEAN DRY AND ITNACT. SITTER AT BEDSIDE AT ALL TIMES. WILL CONTINUE PLAN OF CARE. CALL LIGHT IN REACH. BED LOWERED AND LOCKED. BED RAILS UPX2.
[2018-11-05] VITALS: BP 94/57
[2018-11-05 04:00] VITALS: BP 90/50
--- NOTE | 2018-11-05 06:08 | NUR ---
I have reviewed this patient and I concur with the Shift Assessment completed by the Licensed Practical Nurse today this shift.
[2018-11-05 06:09] LABS: BASOPHILS 0.9 % (0-2); EOSINOPHILS 5.8 % (0-7); HEMATOCRIT 32.4 % (36.0-48.0); LYMPHOCYTES 25.1 % (15-50); MCH 31.2 pg (26.0-34.0); MCV 91.8 fL (80.0-100.0); MEAN PLATELET VOLUME 9.8 fL (7.4-10.4); MONOCYTES 9.3 % (2-11); NEUTROPHILS 57.9 % (40-80); PLATELET COUNT 291 10x3/uL (130-400); RBC 3.53 10x6/uL (4.00-5.40); RDW 14.2 % (11.5-14.5); WBC 6.9 10x3/uL (4.8-10.8)
[2018-11-05 06:39] LABS: ANION GAP 11.1 mmol/L (8-16); CALCIUM 9.3 mg/dL (8.5-10.1); CARBON DIOXIDE 28.6 mmol/L (21.0-32.0); POTASSIUM - SERUM 4.7 mmol/L (3.5-5.1)
--- NOTE | 2018-11-05 07:45 | NUR ---
A/A/OX4. DENIES ANY PAIN OR DISCOMFORT AND NO REQUESTS VOICED. ASSESSMENT COMPLETED AND WILL CONTINUE POC.
[2018-11-05 08:25] VITALS: BP 102/65
[2018-11-05 11:33] VITALS: BP 110/76
[2018-11-05 14:51] VITALS: BP 106/73
--- NOTE | 2018-11-05 15:38 | NUR ---
I have reviewed this patient and I concur with the Shift Assessment completed by the Licensed Practical Nurse today this shift.
--- NOTE | 2018-11-05 17:55 | NUR ---
TRANSFER CENTER CALLED TODAY AND STATED PT HAS BEEN TURNED DOWN BY 16 FACILITIES AND ONLY ONE LEFT THAT MAY BE INTERESTED IN TAKING HER.
--- NOTE | 2018-11-05 19:46 | NUR ---
REPORT RECIEVED AND ROUNDING COMPLETE. PATIENT SITTING UP IN HER BED. PATIENT STATES SHE IS FEELING FINE. PATIENT HAS A SITTER IN HER ROOM AT THIS TIME. PATIENT HAS NO PIV AND IS ON ROOM AIR. ASSESMENT COMPLETE. PATIENT STATES SHE IS IN NO PAIN AT THIS TIME. PATIENT STATES SHE HAS NO NEEDS AT THIS TIME. CALL LIGHT WITHIN REACH AND BED IN LOWEST LOCKED POSITION.
[2018-11-05 20:27] VITALS: BP 101/62
[2018-11-06 00:27] VITALS: BP 95/55
--- NOTE | 2018-11-06 03:21 | NUR ---
I have reviewed this patient and I concur with the Shift Assessment completed by the Licensed Practical Nurse today this shift.
[2018-11-06 04:19] VITALS: BP 94/54
[2018-11-06 06:09] LABS: BASOPHILS 1.1 % (0-2); EOSINOPHILS 6.8 % (0-7); HEMATOCRIT 32.4 % (36.0-48.0); HEMOGLOBIN 11.2 g/dL (12-16); IMMATURE GRANULOCYTES 1.1 % (0-5); MCH 31.7 pg (26.0-34.0); MCHC 34.6 g/dL (31.0-37.0); MCV 91.8 fL (80.0-100.0); MEAN PLATELET VOLUME 9.8 fL (7.4-10.4); PLATELET COUNT 315 10x3/uL (130-400); RBC 3.53 10x6/uL (4.00-5.40); RDW 14.2 % (11.5-14.5); WBC 6.6 10x3/uL (4.8-10.8)
[2018-11-06 06:30] LABS: ANION GAP 12.1 mmol/L (8-16); CALCIUM 9.2 mg/dL (8.5-10.1); CARBON DIOXIDE 27.3 mmol/L (21.0-32.0); POTASSIUM - SERUM 4.4 mmol/L (3.5-5.1)
[2018-11-06 08:32] VITALS: BP 103/56
--- NOTE | 2018-11-06 09:26 | MORECARE ---
CASE MANAGEMENT DISCHARGE SUMMARY PATIENT: ERNESTINA SIMS UNIT: [id number] ADM DATE: 10/12/18 AGE: 38 : [birth year] SEX: F ROOM/BED: D.2140 AUTHOR: PETER,DOC PHYSICIAN: REFERRING PHYSICIAN: VAMSHI LARA MD DATE OF SERVICE: 11/06/18 Discharge Plan Patient Name: ERNESTINA SIMS Facility: [facility]:[place] : 1980 Planned Disposition: Psych facility Anticipated Discharge Date: 11/03/18 Discharge Date: Expected LOS: 22 Initial Reviewer: [id number] Initial Review Date: 10/13/2018 Generated: 11/06/18 10:25 am Comments DCP- Discharge Planning Updated by [id number]: Jose Salas on 11/06/18 8:[address] Patient Name: ERNESTINA SIMS Encounter No: [id number] : 1980 Primary Insurance: MEDICAID [place]END[place] Anticipated DC Date: 11-03-2018 Planned Disposition: Psych facility External Planned Provider: TO BE DETERMINED DCP follow-up note: CM CALLED PT'S LAYOUT INSPECTOR, ALEXANDER CHRISTIANSEN, , LEFT DETAILED MESSAGE REGARDING BEING UNSUCCESSFUL IN PLACING PT INTO INPATIENT PSYCHIATRIC FACIILITY IN THE ENTIRE [facility]. CM ALSO EXPLAINED THAT PT NOW REPORTING NO SUICIDAL IDEATION AND WANTS TO DISCHARGE TO COMMUNITY FOR OUTPATIENT MENTAL HEALTH FOLLOWUP. CM ADVISED THAT THE DOCTOR IS RECONSULTING PSYCHIATRISTS FOR RECOMMENDATIONS. CM TO CONTINUE TO FOLLOW AND ASSIST NEEDED. Jose Salas, CASE ADE DCP- Discharge Planning Updated by [id number]: Jose Salas on 11/04/18 4:[address] Patient Name: ERNESTINA SIMS Encounter No: [id number] : 1980 Primary Insurance: MEDICAID [place]END[place] Anticipated DC Date: 11-03-2018 Planned Disposition: Psych facility External Planned Provider:[facility] DCP follow-up note: CM SPOKE TO ERNESTINE OF THE TRANSFER CENTER, , WHO INFORMED CM THAT PT HAS BEEN DECLINED BY 16 FACILITIES IN THE [facility], SOME OF WHICH DECLINED DUE TO NO FUNDING SOURCE. ERNESTINE WILL CONTINUE TO TRY PLACEMENT AND ASKED CM TO NOTIFY TRANSFER CENTER IF ANY FUNDING SOURCE CAN BE LOCATED. CM CALLED [facility], , SPOKE TO [place] CHA AND REQEUSTED INDIGENT CONTACT FOR INPATIENT PSYCHIATRIC CARE. [place] REQUESTED REFERRAL VIA EMAIL. CM EMAILED REFERRAL FOR INDIGENT FUNDING REQUEST TO "[email or web address]". [place] WILL RESPOND VIA EMAIL. CM WAITING TO DETERMINE IF INDIGENT FUNDING CAN BE OBTAINED FOR INPATIENT PSYCHIATRIC CARE FROM [facility]. Jose Salas, CASE MANAGEMENT Appended by Jose Salas on 11/04/2018 15:20 CDT: CM RECEIVED EMAIL CONFIRMATION OF INITIAL 3 DAY APPROVAL FOR INDIGENT INPATIENT PSYCHIATRIC CONTACT. CM CALLED [facility], , NOTIFIED ERNESTINE WHO WILL UPDATE PACKET AND CONTINUE SEEKING INPATIENT PSYCHIATRIC CARE FOR PT. CM FAXED COPY OF EMAIL TO ERNESTINE AT [facility]SFER CENTER. CM CONTINUES TO AWAIT ACCEPTANCE AT ANY INPATIENT PSYCHIATRIC FACILITY IN [place]. JOSE SALAS CASE MANAGEMENT DCP- Discharge Planning Updated by [id number]: Jose Salas on 11/03/18 7:[address] Patient Name: ERNESTINA SIMS Encounter No: [id number] : 1980 Primary Insurance: MEDICAID [place] Anticipated DC Date: 11-03-2018 Planned Disposition: Psych facility External Planned Provider: [facility] DCP follow-up note: CM FAXED HOSPITAL UPDATE TO TRANSFER C[facility] AT [phone]. CM CONTINUES TO WAIT INPATIENT PSYCHIATRIC FACILITY ACCEPTANCE. Jose Salas CASE MANAGEMENT DCP- Discharge Planning Updated by [id number]: Jose Salas on 11/02/18 8:[address] Patient Name: ERNESTINA SIMS Encounter No: [id number] : 1980 Primary Insurance: MED[place]ID [place] Anticipated DC Date: 11-02-2018 Planned Disposition: Psych facility External Planned Provider: [facility] INPATIENT PSYCHIATRIC DCP follow-up note: CM FAXED HOSPITAL UPDATE TO TRANSFER CENTER AT [phone]. CM CONTINUES TO WAIT INPATIENT PSYCHIATRIC FACILITY ACCEPTANCE. Jose Salas CASE MANAGEMENT DCP- Discharge Planning Updated by [id number]: Lashay Griffith on 10/31/18 11:[address] CM TELEPHONED EASY ADMIT. SPOKE W/ DANIELLE. VERBAL UPDATE GIVEN, CM ALSO FAXED UPDATED MED LIST, OXYGEN NOTE, PROGRESS NOTE FOR TODAY AND DISCHARGE SUMMARY. NURSE REPORTED MULTIPLE CALLS ON FRIDAY REGARDING PROGRESS AND DENIALS. AWAIT CALL BACK WITH ACCEPTANCE WHEN PSYCH BED IS AVAILABLE. DCP- Discharge Planning Updated by [id number]: Jose Salas on 10/30/18 2:[address] Patient Name: ERNESTINA SIMS Encounter No: [id number] : 1980 Primary Insurance: MEDICAID [place] Anticipated DC Date: 10-29-2018 Planned Disposition: Psych facility External Planned Provider: [facility] OR [facility] ACCEPT[facility] INPATIENT PSYCHIATRIC FACILITY DCP follow-up note: [facility] INFORMED BEDSIDE NURSE THAT PT WILL NEED TO BE OFF ALL OXYGEN AND UPDRAFT TREATMENTS FOR 24 HOURS FOR THEM TO ATTEMPT PLACEMENT IN INPATIENT PSYCHIATRIC CARE. [facility] TO CONTINUE ATTEMPTING PLACMENT TOMORROW, 10-31-18. Jose Salas CASE MANAGEMENT DCP- Discharge Planning Updated by [id number]: Jose Salas on 10/30/18 6:[address] Patient Name: ERNESTINA SIMS Encounter No: [id number] : 1980 Primary Insurance: MEDICAID [place] Anticipated DC Date: 10-29-2018 Planned Disposition: Psych facility External Planned Provider: [facility] DCP follow-up note: CM FAXED NEW COAGULATION LAB RESULTS ALONG WITH NURSES NOTE INDICATING WHEN DRIP WAS STOPPED TO TRANSFER CENTER. 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 WELL LOGGING OPERATOR MUD ANALYSIS NURSE. Jose Salas CASE MANAGEMENT DCP- Discharge Planning Updated by [id number]: Jose Salas on 10/29/18 3:[address] Patient Name: ERNESTINA SIMS Encounter No: [id number] : 1980 Primary Insurance: MEDICAID [place] PEND[place] Anticipated DC Date: 10-29-2018 Planned Disposition: Psych facility External Planned Provider: [facility] DCP follow-up note: CM SPOKE TO MOISES SANON, PT IS STABLE FOR DISCHARGE TO INPATIENT PSYCHIATRIC CARE TODAY. CM SPOKE TO PT IN ROOM WHO IS WILLING FOR INPATIENT PSYCHATIRIC CARE. PT ASKED FOR CM TO FIND OUT WHO TOWED HER CAR FROM THE HOSPTIAL PARKING LOT. CM REFERRED PT TO [facility], [phone]. CM CALLED [facility] IN HOSPITAL ADMINSTRATION, WAS ADVISED THE HOSPITAL HAS NOT HAD ANY VEHICLES TOWED OFF LOT. CM CALLED [employer] WHO REPORTED THEY DID NOT TOW PT'S VEHICLE. CM CALLED PT'S LAYOUT INSPECTOR, ALEXANDER CHRISTIANSEN, , WHO ADVISED THAT THE CAR WAS REPOSSESSED DUE TO NON PAYMENT TO HIS KNOWLEDGE. CM INFORMED LAYOUT INSPECTOR OF PT'S PENDING PSYCHIATRIC CARE PLACEMENT AFTER OBSERVING A SIGNED CONSENT FOR RELEASE OF MEDICAL INFORMATION TO MR. CHRISTIANSEN IN CHART. CM INFORMED PT IN ROOM. CM SPOKE TO BEDSIDE NURSE WHO HAD TALKED TO TRANSFER CENTER, PT IS BEING CONSIDERED FOR ADMISSION BY [facility] INPATIENT PSYCHIATRIC CARE; THEY WILL NOT ACCEPT PT IS ON HEPARIN DRIP. BEDSIDE NURSE REPORT THIS HAS BEEN DISCONTINUED TODAY. CM CALLED [facility], , SPOKE TO TYREL WHO INFORMED CM THAT PT WILL NEED TO HAVE NEW LAB WORK IN THE MORNING AND FAX THAT ALONG WITH NURSES NOTE INDICATING WHEN DRIP WAS STOPPED TO TRANSFER CENTER IN THE MORNING, 07-30-18 AND THEY WILL RETRY FOR INPATIENT PSYCHIATRIC ADMISSION. BEDSIDE NURSE AND PT NOTIFIED. Jose Salas, CASE MANAGEMENT DCP- Discharge Planning Updated by [id number]: Susan Richardson on 10/16/18 3:[address] CM trying to find out if patient has insurance or if it has termed. [employer] is working on trying to figure this information out. Patient is going to need psych placement once medically stable. Patient is most likely going to need dialysis and psych at a facility. CM has notified Jodee Sepulveda that patient will need outpatient dialysis setup. Jodee informed CM that the only facility that will accept dialysis/ psych patient is [facility]. CM will continue to follow and assist as needed with discharge planning / needs. DCP- Discharge Planning Updated by [id number]: Susan Richardson on 10/13/18 2:[address] Patient Name: ERNESTINA SIMS Admission Status: ER Accout number: [id number] Admission Date: 10-12-2018 : 1980 Admission Diagnosis: Attending: VAMSHI LARA Current LOS: 1 Anticipated DC Date: Planned Disposition: Psych facility Primary Insurance: UNINSURED DISCOUNT PLAN Discharge Planning Comments: CM met with patient at bedside after explaining CM role and obtaining verbal consent. Patient lives at home with two roommates and plans to return there upon discharge. Patient is currently having dialysis this is her second treatment thus far. Pysch consult once medically stable. Psych evaluation will determine discharge plan. CM will continue to follow and assist as needed with discharge planning / needs. Sql Consultant: Susan Richardson DCPIA - Discharge Planning Initial Assessment Updated by [id number]: Susan Richardson on 10/13/18 3:36 pm * Is the patient Alert and Oriented? Yes * How many steps to enter\\exit or inside your home? * PCP NO PCP * Pharmacy NO PHARMACY - CURRENTLY ? [facility] * Preadmission Environment Home with Family * ADLs Independent * Equipment None * List name and contact numbers for known caregivers / representatives who currently or will assist patient after discharge: OLVIN [facility] - [facility] [place] [phone] * Verbal permission to speak to the caregivers and representatives has been obtained from the patient. N/A * Community resources currently utilized None * Additional services required to return to the preadmission environment? No * Can the patient safely return to the preadmission environment? Yes * Has this patient been hospitalized within the prior 30 days at any hospital? No Last DP export: 11/04/18 4:45 p Patient Name: ERNESTINA SIMS Page [id number] at 0926 All edits/amendments must be made on the electronic document DICTATION DATE: 11/06/18924 TITLE INSURANCE AGENT: DIRK 11/06/18924 RPT#: [id number] DC DATE: STATUS: ADM IN [facility] [address] [place] [address] END OF REPORT
[2018-11-06 11:34] VITALS: BP 104/65
--- NOTE | 2018-11-06 15:41 | NUR ---
I have reviewed this patient and I concur with the Shift Assessment completed by the Licensed Practical Nurse today this shift.
[2018-11-06 16:23] VITALS: BP 103/70
--- NOTE | 2018-11-06 19:30 | NUR ---
REPORT RECIEVED AND ROUNDING COMPLETE. PATIENT LAIYING WATCHING TV, PATIENT HAS A SITTER IN HER ROOM. PATIENT HAS NO PIV. PATIENT STAES SHE HAS NO NEEDS AT THIS TIME. CALL LIGHT WITH IN REACH AND BED IN LOWEST POSITION.
[2018-11-06 20:00] VITALS: BP 100/62
--- NOTE | 2018-11-07 02:37 | NUR ---
I have reviewed this patient and I concur with the Shift Assessment completed by the Licensed Practical Nurse today this shift.
[2018-11-07 04:00] VITALS: BP 92/63
[2018-11-07 06:22] LABS: BASOPHILS 0.8 % (0-2); EOSINOPHILS 7.2 % (0-7); HEMATOCRIT 33.3 % (36.0-48.0); HEMOGLOBIN 11.4 g/dL (12-16); IMMATURE GRANULOCYTES 1.1 % (0-5); LYMPHOCYTES 33.9 % (15-50); MCH 31.3 pg (26.0-34.0); MCHC 34.2 g/dL (31.0-37.0); MCV 91.5 fL (80.0-100.0); MEAN PLATELET VOLUME 9.6 fL (7.4-10.4); MONOCYTES 9.5 % (2-11); NEUTROPHILS 47.5 % (40-80); PLATELET COUNT 333 10x3/uL (130-400); RBC 3.64 10x6/uL (4.00-5.40); RDW 13.9 % (11.5-14.5); WBC 6.2 10x3/uL (4.8-10.8)
[2018-11-07 06:57] LABS: CALCIUM 9.3 mg/dL (8.5-10.1); CARBON DIOXIDE 28.4 mmol/L (21.0-32.0); POTASSIUM - SERUM 4.4 mmol/L (3.5-5.1)
--- NOTE | 2018-11-07 08:05 | NUR ---
PT SITTING UP IN BED WATCHING TV. DENIES ANY NEEDS. SITTER AT BEDSIDE. NO S/S OF ACUTE DISTRESS. CL IN PLACE.
[2018-11-07 09:14] VITALS: BP 101/66
--- NOTE | 2018-11-07 12:39 | CN ---
PATIENT NAME:ERNESTINA SIMS MEDICAL RECORD: [id number] : [birth year] LOCATION:D.M2 D.2140 ADMIT DATE: 10/12/18 ACCOUNT: [id number] CONSULTING PHYSICIAN: JHONATHAN SHEEHAN MD REFERRING PHYSICIAN: VAMSHI LARA MD DATE OF CONSULTATION: 11/06/2018 IDENTIFYING DATA: The patient is 38 years old and admitted to the hospital weeks ago because of a serious suicide attempt. CHIEF COMPLAINT: Depression. HISTORY OF PRESENT ILLNESS: The patient has a long history of mental illness and chaotic dysfunctional interpersonal relationships. She made a very serious attempt on her life with full knowledge of how dangerous it was to drink a half a bottle of antifreeze. She also had herself in isolated position without informing anyone what she had done and it was only because she was seen sleeping in a car in the parking lot of the hospital that attempts to intervene were made. The patient has ongoing severe psychosocial stressors including the possibility of being sent back to [facility] as she is on parole. ASSESSMENT: Major depression. PLAN: The patient is in need of inpatient psychiatric evaluation. She is appropriate for an inpatient unit for at least a brief period of observation given the serious nature of her overdose. TRANSINT:[id number] Voice Confirmation ID: [id number] DOCUMENT ID: [id number] JHONATHAN SHEEHAN MD at 1239 CC: [id number] DICTATION DATE: 11/06/18 183 JEWELRY SALESPERSON: 11/06/18 1852 ADM IN [facility] [place] [address] [place] [address]
[2018-11-07 12:58] VITALS: BP 114/68
--- NOTE | 2018-11-07 16:07 | MORECARE ---
CASE MANAGEMENT DISCHARGE SUMMARY PATIENT: ERNESTINA SIMS UNIT: [id number] ADM DATE: 10/12/18 AGE: 38 : 78 SEX: F ROOM/BED: D.3770 AUTHOR: PETERDOC PHYSICIAN: REFERRING PHYSICIAN: VAMSHI LARA MD DATE OF SERVICE: 11/07/18 Discharge Plan Patient Name: ERNESTINA SIMS Facility: [facility]:[place] : 1980 Planned Disposition: Psych facility Anticipated Discharge Date: 11/03/18 Discharge Date: Expected LOS: 22 Initial Reviewer: [email or web address] Initial Review Date: 10/13/2018 Generated: 11/07/18 5:06 pm Comments DCP- Discharge Planning Updated by [id number]: Lashay Griffith on 11/07/18 3:[address] EASY ADMIT TRANSFER CENTER CALLED. THE SHIPPING SUPPORT TOOK THE CALL. NO AVAILABLE BED AT THIS TIME. DCP- Discharge Planning Updated by [id number]: All Howard on 11/06/18 8:[address] Patient Name: ERNESTINA SIMS Encounter No: [id number] : 1980 Primary Insurance: MEDICAID [place] PENDING Anticipated DC Date: 11-03-2018 Planned Disposition: Psych facility External Planned Provider: TO BE DETERMINED DCP follow-up note: CM CALLED PT'S ENVIRONMENTAL MANAGEMENT SPECIALIST, ALEXANDER CHRISTIANSEN, , LEFT DETAILED MESSAGE REGARDING BEING UNSUCCESSFUL IN PLACING PT INTO INPATIENT PSYCHIATRIC FACIILITY IN THE [place]IRE [place]. CM ALSO EXPLAINED THAT PT NOW REPORTING NO SUICIDAL IDEATION AND WANTS TO DISCHARGE TO COMMUNITY FOR OUTPATIENT MENTAL HEALTH FOLLOWUP. CM ADVISED THAT THE DOCTOR IS RECONSULTING PSYCHIATRISTS FOR RECOMMENDATIONS. CM TO CONTINUE TO FOLLOW AND ASSIST NEEDED. All Howard, CASE ADE DCP- Discharge Planning Updated by [id number]: All Howard on 11/04/18 4:[address] Patient Name: ERNESTINA SIMS Encounter No: [id number] : 1980 Primary Insurance: MEDICAID [place] PENDING Anticipated DC Date: 11-03-2018 Planned Disposition: Psych facility External Planned Provider:[facility] DCP follow-up note: CM SPOKE TO ERNESTINE OF THE [facility], , WHO INFORMED CM THAT PT HAS BEEN DECLINED BY 16 FACILITIES IN THE [facility], SOME OF WHICH DECLINED DUE TO NO FUNDING SOURCE. ERNESTINE WILL CONTINUE TO TRY PLACEMENT AND ASKED CM TO NOTIFY THE [facility] IF ANY FUNDING SOURCE CAN BE LOCATED. CM CALLED [facility], , SPOKE TO [place] CHA AND REQEUSTED INDIGENT CONTACT FOR INPATIENT PSYCHIATRIC CARE. [place] REQUESTED REFERRAL VIA EMAIL. CM EMAILED REFERRAL FOR INDIGENT FUNDING REQUEST TO "[email or web address]". [place] WILL RESPOND VIA EMAIL. CM WAITING TO DETERMINE IF INDIGENT FUNDING CAN BE OBTAINED FOR INPATIENT PSYCHIATRIC CARE FROM [facility]. All Howard, CASE MANAGEMENT Appended by All Howard on 11/04/2018 15:20 CDT: CM RECEIVED EMAIL CONFIRMATION OF INITIAL 3 DAY APPROVAL FOR INDIGENT INPATIENT PSYCHIATRIC CONTACT. CM CALLED THE [facility], , NOTIFIED ERNESTINE WHO WILL UPDATE PACKET AND CONTINUE SEEKING INPATIENT PSYCHIATRIC CARE FOR PT. CM FAXED COPY OF EMAIL TO ERNESTINE AT THE [facility]. CM CONTINUES TO AWAIT ACCEPTANCE AT ANY INPATIENT PSYCHIATRIC FACILITY IN [place]. RAJEEV DELUCA DCP- Discharge Planning Updated by [id number]: All Howard on 11/03/18 7:[address] Patient Name: ERNESTINA SIMS Encounter No: [id number] : 1980 Primary Insurance: MEDICAID [place] PENDING Anticipated DC Date: 11-03-2018 Planned Disposition: Psych facility External Planned Provider: [facility] DCP follow-up note: CM FAXED HOSPITAL UPDATE TO TRANSFER CENTER AT [phone]. CM CONTINUES TO WAIT INPATIENT PSYCHIATRIC FACILITY ACCEPTANCE. RAJEEV Deluca DCP- Discharge Planning Updated by [id number]: All Howard on 11/02/18 8:[address] Patient Name: ERNESTINA SIMS Encounter No: [id number] : 1980 Primary Insurance: MEDICAID [place] PENDING Anticipated DC Date: 11-02-2018 Planned Disposition: Psych facility External Planned Provider: [facility] INPATIENT PSYCHIATRIC DCP follow-up note: CM FAXED HOSPITAL UPDATE TO TRANSFER CENTER AT [phone]. CM CONTINUES TO WAIT INPATIENT PSYCHIATRIC FACILITY ACCEPTANCE. RAJEEV Deluca DCP- Discharge Planning Updated by [id number]: Lashay Griffith on 10/31/18 11:[address] CM TELEPHONED EASY ADMIT. SPOKE W/ DANIELLE. VERBAL UPDATE GIVEN, CM ALSO FAXED UPDATED MED LIST, OXYGEN NOTE, PROGRESS NOTE FOR TODAY AND DISCHARGE SUMMARY. NURSE REPORTED MULTIPLE CALLS ON FRIDAY REGARDING PROGRESS AND DENIALS. AWAIT CALL BACK WITH ACCEPTANCE WHEN PSYCH BED IS AVAILABLE. DCP- Discharge Planning Updated by [id number]: All Howard on 10/30/18 2:[address] Patient Name: ERNESTINA SIMS Encounter No: [id number] : 1980 Primary Insurance: MEDICAID [place] PENDING Anticipated DC Date: 10-29-2018 Planned Disposition: Psych facility External Planned Provider: [facility] OR FIRST ACCEPTING INPATIENT PSYCHIATRIC FACILITY DCP follow-up note: [facility] INFORMED BEDSIDE NURSE THAT PT WILL NEED TO BE OFF ALL OXYGEN AND UPDRAFT TREATMENTS FOR 24 HOURS FOR THEM TO ATTEMPT PLACEMENT IN INPATIENT PSYCHIATRIC CARE. [facility] TO CONTINUE ATTEMPTING PLACMENT TOMORROW, 10-31-18. RAJEEV Deluca DCP- Discharge Planning Updated by [id number]: All Howard on 10/30/18 6:[address] Patient Name: ERNESTINA SIMS Encounter No: [id number] : 1980 Primary Insurance: MEDICAID [place] PENDING Anticipated DC Date: 10-29-2018 Planned Disposition: Psych facility External Planned Provider: [facility] DCP follow-up note: CM FAXED NEW COAGULATION LAB RESULTS ALONG WITH NURSES NOTE INDICATING WHEN DRIP WAS STOPPED TO TRANSFER CENTER. 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 OPERATIONS RESEARCH ENGINEER NURSE. RAJEEV Deluca DCP- Discharge Planning Updated by [id number]: All Howard on 10/29/18 3:[address] Patient Name: ERNESTINA SIMS Encounter No: [id number] : 1980 Primary Insurance: MEDICAID [place] PENDING Anticipated DC Date: 10-29-2018 Planned Disposition: Psych facility External Planned Provider: [facility] DCP follow-up note: CM SPOKE TO MOISES SANON, PT IS STABLE FOR DISCHARGE TO INPATIENT PSYCHIATRIC CARE TODAY. CM SPOKE TO PT IN ROOM WHO IS WILLING FOR INPATIENT PSYCHATIRIC CARE. PT ASKED FOR CM TO FIND OUT WHO TOWED HER CAR FROM THE HOSPTIAL PARKING LOT. CM REFERRED PT TO [facility], [phone]. CM CALLED [facility] IN HOSPITAL ADMINSTRATION, WAS ADVISED THE HOSPITAL HAS NOT HAD ANY VEHICLES TOWED OFF LOT. CM CALLED [facility] [employer] POLICE WHO REPORTED THEY DID NOT TOW PT'S VEHICLE. CM CALLED PT'S ENVIRONMENTAL MANAGEMENT SPECIALIST, ALEXANDER CHRISTIANSEN, , WHO ADVISED THAT THE CAR WAS REPOSSESSED DUE TO NON PAYMENT TO HIS KNOWLEDGE. CM INFORMED ENVIRONMENTAL MANAGEMENT SPECIALIST OF PT'S PENDING PSYCHIATRIC CARE PLACEMENT AFTER OBSERVING A SIGNED CONSENT FOR RELEASE OF MEDICAL INFORMATION TO MR. CHRISTIANSEN IN CHART. CM INFORMED PT IN ROOM. CM SPOKE TO BEDSIDE NURSE WHO HAD TALKED TO TRANSFER C[facility], PT IS BEING CONSIDERED FOR ADMISSION BY [facility] INPATIENT PSYCHIATRIC CARE; THEY WILL NOT ACCEPT PT IS ON HEPARIN DRIP. BEDSIDE NURSE REPORT THIS HAS BEEN DISCONTINUED TODAY. CM CALLED [facility], , SPOKE TO TYREL WHO INFORMED CM THAT PT WILL NEED TO HAVE NEW LAB WORK IN THE MORNING AND FAX THAT ALONG WITH NURSES NOTE INDICATING WHEN DRIP WAS STOPPED TO TRANSFER CENTER IN THE MORNING, 07-30-18 AND THEY WILL RETRY FOR INPATIENT PSYCHIATRIC ADMISSION. BEDSIDE NURSE AND PT NOTIFIED. All Hoawrd, CASE MANAGEMENT DCP- Discharge Planning Updated by [id number]: Susan Richardson on 10/16/18 3:[address] CM trying to find out if patient has insurance or if it has termed. [employer] is working on trying to figure this information out. Patient is going to need psych placement once medically stable. Patient is most likely going to need dialysis and psych at a facility. CM has notified Jodee Sepulveda that patient will need outpatient dialysis setup. Jodee informed CM that the only facility that will accept dialysis/ psych patient is [facility]. CM will continue to follow and assist as needed with discharge planning / needs. DCP- Discharge Planning Updated by [id number]: Susan Richardson on 10/13/18 2:[address] Patient Name: ERNESTINA SIMS Admission Status: ER Accout number: [id number] Admission Date: 10-12-2018 : 1980 Admission Diagnosis: Attending: VAMSHI LARA Current LOS: 1 Anticipated DC Date: Planned Disposition: Psych facility Primary Insurance: UNINSURED DISCOUNT PLAN Discharge Planning Comments: CM met with patient at bedside after explaining CM role and obtaining verbal consent. Patient lives at home with two roommates and plans to return there upon discharge. Patient is currently having dialysis this is her second treatment thus far. Pysch consult once medically stable. Psych evaluation will determine discharge plan. CM will continue to follow and assist as needed with discharge planning / needs. Core Drilling Supervisor: Susan Richardson DCPIA - Discharge Planning Initial Assessment Updated by [id number]: Susan Richardson on 10/13/18 3:36 pm * Is the patient Alert and Oriented? Yes * How many steps to enter\\exit or inside your home? * PCP NO PCP * Pharmacy NO PHARMACY - CURRENTLY ? [facility] * Preadmission Environment Home with Family * ADLs Independent * Equipment None * List name and contact numbers for known caregivers / representatives who currently or will assist patient after discharge: OLVIN [facility] [phone] * Verbal permission to speak to the caregivers and representatives has been obtained from the patient. N/A * Community resources currently utilized None * Additional services required to return to the preadmission environment? No * Can the patient safely return to the preadmission environment? Yes * Has this patient been hospitalized within the prior 30 days at any hospital? No Last DP export: 11/06/18 8:26 a Patient Name: ERNESTINA SIMS Page 80004 at 1607 All edits/amendments must be made on the electronic document DICTATION DATE: 11/07/18 1606 PLANT TENDER: DIRK 11/07/18 1606 RPT#: [id number] DC DATE: STATUS: ADM IN [facility] [address] [place] [address] END OF REPORT
[2018-11-07 16:49] VITALS: BP 103/65
--- NOTE | 2018-11-07 17:01 | NUR ---
PT SITTING UP IN BED DRINKING COFFEE. SITTER AT BEDSIDE. NO S/S OF ACUTE DISTRESS. CL IN PLACE.
--- NOTE | 2018-11-07 17:30 | NUR ---
RECEIVED PATIENT FROM WILLIAM, ASSUMED CARE OF PATIENT. NO DISTRESS. SITTING IN BED. SITTER AT BEDSIDE. CALL LIGHT WITHIN REACH. COFFEE PROVIDED UPON REQUEST.
--- NOTE | 2018-11-07 18:21 | NUR ---
NO DISTRESS. PATIENT SITTING IN BED. SITTER AT BEDSIDE. CALL LIGHT WITHIN REACH.
--- NOTE | 2018-11-07 19:20 | NUR ---
REPORT RECEIVED FROM DAY SHIFT, ASSUMED PT CARE. INTRODUCED SELF AND WROTE NAME ON BOARD, PT SITTING UP IN BED WATCHING TV, AAOX4, DENIES PAIN, THOUGHTS OF HARMING SELF, OR ANY OTHER NEEDS AT THIS TIME. BED IN LOWEST POSITION, SR X2, CALL LIGHT WITHIN REACH. SITTER AT BEDSIDE. WILL CONTINUE TO MONITOR.
[2018-11-07 21:30] VITALS: BP 102/59
[2018-11-08 00:07] VITALS: BP 102/54
--- NOTE | 2018-11-08 03:38 | NUR ---
PT LYING IN BED WITH EYES CLOSED, RR EVEN AND NONLABORED, NO S/S OF DISTRESS, EASILY AROUSED BY VOICE, DENIES PAIN OR ANY OTHER NEEDS AT THIS TIME. BED IN LOWEST POSITION, SR X2, CALL LIGHT WITHIN REACH. SITTER AT BEDSIDE. WILL CONTINUE TO MONITOR.
[2018-11-08 05:29] LABS: EOSINOPHILS 8.6 % (0-7); HEMATOCRIT 33.7 % (36.0-48.0); HEMOGLOBIN 11.5 g/dL (12-16); IMMATURE GRANULOCYTES 0.8 % (0-5); LYMPHOCYTES 34.2 % (15-50); MCH 31.2 pg (26.0-34.0); MCHC 34.1 g/dL (31.0-37.0); MCV 91.3 fL (80.0-100.0); MEAN PLATELET VOLUME 9.7 fL (7.4-10.4); NEUTROPHILS 43.4 % (40-80); PLATELET COUNT 315 10x3/uL (130-400); RBC 3.69 10x6/uL (4.00-5.40); RDW 13.9 % (11.5-14.5); WBC 5.9 10x3/uL (4.8-10.8)
[2018-11-08 05:41] LABS: ANION GAP 9.5 mmol/L (8-16); CALCIUM 9.2 mg/dL (8.5-10.1); CARBON DIOXIDE 30.3 mmol/L (21.0-32.0); CREATININE - SERUM 1.1 mg/dL (0.6-1.3); POTASSIUM - SERUM 4.8 mmol/L (3.5-5.1)
[2018-11-08 06:13] VITALS: BP 98/62
--- NOTE | 2018-11-08 07:55 | NUR ---
REY BURRELL FROM THE TRANSFER CENTER CALLED AND REQUEST A MENTAL HEALTH SCREENING BE COMPLETED ON THIS PATIENT AND FAXED TO [facility] AT .
[2018-11-08 08:08] VITALS: BP 104/67
--- NOTE | 2018-11-08 08:09 | NUR ---
PATIENT IS SITTING UP IN BED. SHE DENIES ANY NEEDS AT THIS TIME. WAITING FOR PLACEMENT.
[2018-11-08 11:40] VITALS: BP 102/64
[2018-11-08 16:52] VITALS: BP 100/60
--- NOTE | 2018-11-08 18:42 | NUR ---
PATIENT IS SITTING UP IN BED. SHE DENIES ANY NEEDS. WAITING ON PLACEMENT STILL. SITTER AT BEDSIDE.
--- NOTE | 2018-11-08 19:40 | NUR ---
ALERT AND ORIENTED WITH SITTER PRESENT PT DENIES ANY NEEDS AT THIS TIME ROOM SAFTY CHECK DONE BED IS LOW AND LOCKED CALL LIGHT IS IN REACH LCTA SKIN WARM AND DRY BOWEL SOUNDS X4
[2018-11-08 20:00] VITALS: BP 107/66
[2018-11-09] VITALS: BP 110/60
[2018-11-09 04:00] VITALS: BP 112/68
--- NOTE | 2018-11-09 04:48 | NUR ---
I have reviewed this patient and I concur with the Shift Assessment completed by the Licensed Practical Nurse today this shift.
--- NOTE | 2018-11-09 08:02 | NUR ---
PT SITTING UP IN BED WATCHING TV, SITTER AT THE BEDSIDE. BREATHING EVEN AND NONLABORED, NO S/S OF DISTRESS. PT REQUEST A CUP OF COFFEE BUT DENIES ANY OTHER NEEDS. WILL CONTINUE TO MONITOR.
[2018-11-09 08:17] VITALS: BP 98/66
--- NOTE | 2018-11-09 08:21 | MORECARE ---
CASE MANAGEMENT DISCHARGE SUMMARY PATIENT: ERNESTINA SIMS UNIT: [id number] ADM DATE: 10/12/18 AGE: 38 : [birth year] SEX: F ROOM/BED: D.9198 AUTHOR: PETERDOC PHYSICIAN: REFERRING PHYSICIAN: VAMSHI LARA MD DATE OF SERVICE: 11/09/18 Discharge Plan Patient Name: ERNESTINA SIMS Facility: [facility]:[place] : 1980 Planned Disposition: Psych facility Anticipated Discharge Date: 11/03/18 Discharge Date: Expected LOS: 22 Initial Reviewer: [id number] Initial Review Date: 10/13/2018 Generated: 11/09/18 9:21 am Comments DCP- Discharge Planning Updated by [id number]: All Howard on 11/09/18 7:[address] Patient Name: ERNESTINA SIMS Encounter No: [id number] : 1980 Primary Insurance: MEDICAID [place] PENDING Anticipated DC Date: 11-03-2018 Planned Disposition: Psych facility External Planned Provider: [facility] ACCEPTING FACILITY DCP follow-up note: CM FAXED UPDATE TO TRANSFER CENTER REQUESTING INPATIENT PSYCHIATRIC PLACEMENT. PT'S BUNCH BREAKER HAS NOT RETURNED TELPHONE MESSAGE FROM FRIDAY. CM WAITING PSYCHIATRIC INPATIENT BED AVAILABLITY AND ACCEPTANCE FROM ANY FACILITY STATEWIDE. All Howard, CASE MANAGEMENT DCP- Discharge Planning Updated by [id number]: Lashay Griffith on 11/07/18 3:[address] EASY ADMIT TRANSFER CENTER CALLED. THE MEMBERSHIP SALES ADVISOR TOOK THE CALL. NO AVAILABLE BED AT THIS TIME. DCP- Discharge Planning Updated by [email or web address]: All Howard on 11/06/18 8:[address] Patient Name: ERNESTINA SIMS Encounter No: [id number] : 1980 Primary Insurance: MEDICAID [place] PENDING Anticipated DC Date: 11-03-2018 Planned Disposition: Psych facility External Planned Provider: TO BE DETERMINED DCP follow-up note: CM CALLED PT'S BUNCH BREAKER, ALEXANDER CHRISTIANSEN, , LEFT DETAILED MESSAGE REGARDING BEING UNSUCCESSFUL IN PLACING PT INTO INPATIENT PSYCHIATRIC FACIILITY IN THE ENTIRE STATE. CM ALSO EXPLAINED THAT PT NOW REPORTING NO SUICIDAL IDEATION AND WANTS TO DISCHARGE TO COMMUNITY FOR OUTPATIENT MENTAL HEALTH FOLLOWUP. CM ADVISED THAT THE DOCTOR IS RECONSULTING PSYCHIATRISTS FOR RECOMMENDATIONS. CM TO CONTINUE TO FOLLOW AND ASSIST NEEDED. RAJEEV Deluca DCP- Discharge Planning Updated by [id number]: All Howard on 11/04/18 4:[address] Patient Name: ERNESTINA SIMS Encounter No: [id number] : 1980 Primary Insurance: MEDICAID [place] PENDING Anticipated DC Date: 11-03-2018 Planned Disposition: Psych facility External Planned Provider:[facility] ACCEPT[facility] DCP follow-up note: CM SPOKE TO ERNESTINE OF THE TRANSFER [facility], , WHO INFORMED CM THAT PT HAS BEEN DECLINED BY 16 FACILITIES IN THE [facility], SOME OF WHICH DECLINED DUE TO NO FUNDING SOURCE. ERNESTINE WILL CONTINUE TO TRY PLACEMENT AND ASKED CM TO NOTIFY [facility] IF ANY FUNDING SOURCE CAN BE LOCATED. CM CALLED [facility], , SPOKE TO [place] CHA AND REQEUSTED INDIGENT CONTACT FOR INPATIENT PSYCHIATRIC CARE. [place] REQUESTED REFERRAL VIA EMAIL. CM EMAILED REFERRAL FOR INDIGENT FUNDING REQUEST TO "[email or web address]". [place] WILL RESPOND VIA EMAIL. CM WAITING TO DETERMINE IF INDIGENT FUNDING CAN BE OBTAINED FOR INPATIENT PSYCHIATRIC CARE FROM [facility]. All Howard, CASE MANAGEMENT Appended by All Howard on 11/04/2018 15:20 CDT: CM RECEIVED EMAIL CONFIRMATION OF INITIAL 3 DAY APPROVAL FOR INDIGENT INPATIENT PSYCHIATRIC CONTACT. CM CALLED [facility], , NOTIFIED ERNESTINE WHO WILL UPDATE PACKET AND CONTINUE SEEKING INPATIENT PSYCHIATRIC CARE FOR PT. CM FAXED COPY OF EMAIL TO ERNESTINE AT [facility]. CM CONTINUES TO AWAIT ACCEPTANCE AT ANY INPATIENT PSYCHIATRIC FACILITY IN [place]. RAJEEV DELUCA DCP- Discharge Planning Updated by [id number]: All Howard on 11/03/18 7:[address] Patient Name: ERNESTINA SIMS Encounter No: [id number] : 1980 Primary Insurance: MEDICAID [place] PENDING Anticipated DC Date: 11-03-2018 Planned Disposition: Psych facility External Planned Provider: FIRST ACCEPTING INPATIENT PSYCHIATRIC UNIT DCP follow-up note: CM FAXED HOSPITAL UPDATE TO TRANSFER CENTER AT [phone]. CM CONTINUES TO WAIT INPATIENT PSYCHIATRIC FACILITY ACCEPTANCE. RAJEEV Deluca DCP- Discharge Planning Updated by [id number]: All Howard on 11/02/18 8:[address] Patient Name: ERNESTINA SIMS Encounter No: [id number] : 1980 Primary Insurance: MEDICAID [place] PENDING Anticipated DC Date: 11-02-2018 Planned Disposition: Psych facility External Planned Provider: [facility] INPATIENT PSYCHIATRIC DCP follow-up note: CM FAXED HOSPITAL UPDATE TO TRANSFER CENTER AT [phone]. CM CONTINUES TO WAIT INPATIENT PSYCHIATRIC FACILITY ACCEPTANCE. RAJEEV Deluca DCP- Discharge Planning Updated by [id number]: Lashay Griffith on 10/31/18 11:[address] CM TELEPHONED EASY ADMIT. SPOKE W/ DANIELLE. VERBAL UPDATE GIVEN, CM ALSO FAXED UPDATED MED LIST, OXYGEN NOTE, PROGRESS NOTE FOR TODAY AND DISCHARGE SUMMARY. NURSE REPORTED MULTIPLE CALLS ON FRIDAY REGARDING PROGRESS AND DENIALS. AWAIT CALL BACK WITH ACCEPTANCE WHEN PSYCH BED IS AVAILABLE. DCP- Discharge Planning Updated by [id number]: All Howard on 10/30/18 2:[address] Patient Name: ERNESTINA SIMS Encounter No: [id number] : 1980 Primary Insurance: MEDICAID [place] PENDING Anticipated DC Date: 10-29-2018 Planned Disposition: Psych facility External Planned Provider: [facility] OR FIRST ACCEPTING INPATIENT PSYCHIATRIC FACILITY DCP follow-up note: TRANSFER CENTER INFORMED BEDSIDE NURSE THAT PT WILL NEED TO BE OFF ALL OXYGEN AND UPDRAFT TREATMENTS FOR 24 HOURS FOR THEM TO ATTEMPT PLACEMENT IN INPATIENT PSYCHIATRIC CARE. TRANSFER CENTER TO CONTINUE ATTEMPTING PLACMENT TOMORROW, 10-31-18. RAJEEV Deluca DCP- Discharge Planning Updated by [id number]: All Howard on 10/30/18 6:[address] Patient Name: ERNESTINA SIMS Encounter No: [id number] : 1980 Primary Insurance: MEDICAID [place] PENDING Anticipated DC Date: 10-29-2018 Planned Disposition: Psych facility External Planned Provider: [facility] DCP follow-up note: CM FAXED NEW COAGULATION LAB RESULTS ALONG WITH NURSES NOTE INDICATING WHEN DRIP WAS STOPPED TO TRANSFER CENTER. 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 COMBINATION WINDOW INSTALLER NURSE. All Howard, CASE MANAGEMENT DCP- Discharge Planning Updated by [id number]: All Howard on 10/29/18 3:[address] Patient Name: ERNESTINA SIMS Encounter No: [id number] : 1980 Primary Insurance: MEDICAID [place] PENDING Anticipated DC Date: 10-29-2018 Planned Disposition: Psych facility External Planned Provider: [facility] follow-up note: CM SPOKE TO MOISES SANON, PT IS STABLE FOR DISCHARGE TO INPATIENT PSYCHIATRIC CARE TODAY. CM SPOKE TO PT IN ROOM WHO IS WILLING FOR INPATIENT PSYCHATIRIC CARE. PT ASKED FOR CM TO FIND OUT WHO TOWED HER CAR FROM THE HOSPTIAL PARKING LOT. CM REFERRED PT TO [facility], [phone]. CM CALLED [facility] IN HOSPITAL ADMINSTRATION, WAS ADVISED THE HOSPITAL HAS NOT HAD ANY VEHICLES TOWED OFF LOT. CM CALLED [facility] POLICE WHO REPORTED THEY DID NOT TOW PT'S VEHICLE. CM CALLED PT'S BUNCH BREAKER, ALEXANDER CHRISTIANSEN, , WHO ADVISED THAT THE CAR WAS REPOSSESSED DUE TO NON PAYMENT TO HIS KNOWLEDGE. CM INFORMED BUNCH BREAKER OF PT'S PENDING PSYCHIATRIC CARE PLACEMENT AFTER OBSERVING A SIGNED CONSENT FOR RELEASE OF MEDICAL INFORMATION TO MR. CHRISTIANSEN IN CHART. CM INFORMED PT IN ROOM. CM SPOKE TO BEDSIDE NURSE WHO HAD TALKED TO TRANSFER CENTER, PT IS BEING CONSIDERED FOR ADMISSION BY [facility] INPATIENT PSYCHIATRIC CARE; THEY WILL NOT ACCEPT PT IS ON HEPARIN DRIP. BEDSIDE NURSE REPORT THIS HAS BEEN DISCONTINUED TODAY. CM CALLED [facility] TRANSFER [facility], , SPOKE TO TYREL WHO INFORMED CM THAT PT WILL NEED TO HAVE NEW LAB WORK IN THE MORNING AND FAX THAT ALONG WITH NURSES NOTE INDICATING WHEN DRIP WAS STOPPED TO TRANSFER CENTER IN THE MORNING, 07-30-18 AND THEY WILL RETRY FOR INPATIENT PSYCHIATRIC ADMISSION. BEDSIDE NURSE AND PT NOTIFIED. All Howard, CASE MANAGEMENT DCP- Discharge Planning Updated by [id number]: Susan Richardson on 10/16/18 3:[address] CM trying to find out if patient has insurance or if it has termed. [employer] is working on trying to figure this information out. Patient is going to need psych placement once medically stable. Patient is most likely going to need dialysis and psych at a facility. CM has notified Jodee Sepulveda that patient will need outpatient dialysis setup. Jodee informed CM that the only facility that will accept dialysis/ psych patient is [facility]. CM will continue to follow and assist as needed with discharge planning / needs. DCP- Discharge Planning Updated by [id number]: Susan Richardson on 10/13/18 2:[address] Patient Name: ERNESTINA SIMS Admission Status: ER Accout number: [id number] Admission Date: 10-12-2018 : 1980 Admission Diagnosis: Attending: VAMSHI LARA Current LOS: 1 Anticipated DC Date: Planned Disposition: Psych facility Primary Insurance: UNINSURED DISCOUNT PLAN Discharge Planning Comments: CM met with patient at bedside after explaining CM role and obtaining verbal consent. Patient lives at home with two roommates and plans to return there upon discharge. Patient is currently having dialysis this is her second treatment thus far. Pysch consult once medically stable. Psych evaluation will determine discharge plan. CM will continue to follow and assist as needed with discharge planning / needs. Bit Setter: Susan Richardson DCPIA - Discharge Planning Initial Assessment Updated by [id number]: Susan Richardson on 10/13/18 3:36 pm * Is the patient Alert and Oriented? Yes * How many steps to enter\\exit or inside your home? * PCP NO PCP * Pharmacy NO PHARMACY - CURRENTLY ? [facility] * Preadmission Environment Home with Family * ADLs Independent * Equipment None * List name and contact numbers for known caregivers / representatives who currently or will assist patient after discharge: OLVIN [facility] [phone] * Verbal permission to speak to the caregivers and representatives has been obtained from the patient. N/A * Community resources currently utilized None * Additional services required to return to the preadmission environment? No * Can the patient safely return to the preadmission environment? Yes * Has this patient been hospitalized within the prior 30 days at any hospital? No Last DP export: 11/07/18 3:07 p Patient Name: ERNESTINA SIMS Page 67590 at 0821 All edits/amendments must be made on the electronic document DICTATION DATE: 11/09/18819 SLEEVE SETTER LOCKSTITCH: DIRK 11/09/18819 RPT#: [id number] DC DATE: STATUS: ADM IN [facility] [address] [place] [address] END OF REPORT
--- NOTE | 2018-11-09 10:41 | NUR ---
PATIENT CONTINUES TO DENY SUICIDAL IDEATIONS. SITTER AT BEDSIDE FOR CONTINUED LINE OF SIGHT OBSERVATION. WILL CONTINUE TO MONITOR.
--- NOTE | 2018-11-09 11:43 | MORECARE ---
CASE MANAGEMENT DISCHARGE SUMMARY PATIENT: ERNESTINA SIMS UNIT: [id number] ADM DATE: 10/12/18 AGE: 38 : [birth year] SEX: F ROOM/BED: D.2140 AUTHOR: SURI GREEN PHYSICIAN: REFERRING PHYSICIAN: VAMSHI LARA MD DATE OF SERVICE: 11/09/18 Discharge Plan Patient Name: ERNESTINA SIMS Facility: [facility]:[place] : 1980 Planned Disposition: Psych facility Anticipated Discharge Date: 11/03/18 Discharge Date: Expected LOS: 22 Initial Reviewer: [id number] Initial Review Date: 10/13/2018 Generated: 11/09/18 12:42 pm Comments DCP- Discharge Planning Updated by [id number]: Ronel Ross on 11/09/18 10:41 am SOFIA LEAL, DAIRY HELPER STATED THAT SHE TALKED WITH AAYUSH, DAIRY HELPER OF [facility], AND SHE RECOMMENDED THAT WE BYPASS THE TRANSFER CENTER AND START CALLING ALL THE PSYCH FACILITIES OURSELVES BECAUSE SHE KNEW FOR A FACT THAT THEY WERE PLACING PATIENT OUT OF THE ER THIS WEEKEND. I CALLED AND SPOKE WITH AAYUSH, EXPLAINED THAT THERE WAS A DIFFERENCE PLACING PATIENTS FROM THE ER AND ON THE FLOOR. SHE STATED THAT SHE KNEW THIS. SHE ALSO STATED THAT SHE KNEW THE TRANSFER CENTER PUTS THE PSYCH PATIENTS ON THE BACK BURNER AND DOESN'T TRY HARD. SHE RECOMMENDED THAT WE CALL AROUND TO THE PSYCH FACILITIES IN [place] OURSELF. I EXPLAINED THAT I GUESS I WOULD STOP TENDING TO THE PATIENTS ON THE FLOOR AND CALL AROUND AND DO WHAT THE TRANSFER CENTER IS DOING. SHE STATED THAT I DIDN'T NEED TO DO THAT, JUST SEND A PACKET OUT TO MULTIPLE PLACES AND GIVE THEM A CHANCE TO REFER THE PACKET BEFORE I CALL THEM TO TALK TO THEM. I EXPLAINED I WOULD SEE WHAT I COULD DO. I CALLED AND SPOKE WITH TYREL AT THE TRANSFER CENTER @ 0908. EXPLAINED THE SITUTATION TO HIM AND THE OPINION OF THE NUTRITION ASSOCIATE FROM OUR PSYCH DEPARTMENT. HE HAS ASSURED ME THAT THEY ARE DOING ALL THEY CAN, AND HE HAS EVEN FAXED ME THE RUNNING LOG OF ALL CONTACTS MADE IN REGARDS TO TRANSFER WITH THE REASON OF REFUSAL TO TAKE (8 PAGES TYPED), AND I HAVE SCANNED IT INTO [employer]. TIME PERMITS, CÉSAR AND I WILL CALL AROUND TO OTHER FACILITIES ABOUT POSSIBLE TRANSFER. DCP- Discharge Planning Updated by [id number]: All Howard on 11/09/18 7:[address] Patient Name: ERNESTINA SIMS Encounter No: [id number] : 1980 Primary Insurance: MEDICAID [place] PENDING Anticipated DC Date: 11-03-2018 Planned Disposition: Psych facility External Planned Provider: FIRST ACCEPTING FACILITY DCP follow-up note: CM FAXED UPDATE TO TRANSFER CENTER REQUESTING INPATIENT PSYCHIATRIC PLACEMENT. PT'S STENO POOL SUPERVISOR HAS NOT RETURNED TELPHONE MESSAGE FROM FRIDAY. CM WAITING PSYCHIATRIC INPATIENT BED AVAILABLITY AND ACCEPTANCE FROM ANY FACILITY STATEWIDE. All Howard, CASE MANAGEMENT DCP- Discharge Planning Updated by [id number]: Lashya Griffith on 11/07/18 3:[address] EASY ADMIT TRANSFER CENTER CALLED. THE JEWELRY INSPECTOR TOOK THE CALL. NO AVAILABLE BED AT THIS TIME. DCP- Discharge Planning Updated by [id number]: All Howard on 11/06/18 8:[address] Patient Name: ERNESTINA SIMS Encounter No: [id number] : 1980 Primary Insurance: MEDICAID [place] PENDING Anticipated DC Date: 11-03-2018 Planned Disposition: Psych facility External Planned Provider: TO BE DETERMINED DCP follow-up note: CM CALLED PT'S STENO POOL SUPERVISOR, ALEXANDER CHRISTIANSEN, , LEFT DETAILED MESSAGE REGARDING BEING UNSUCCESSFUL IN PLACING PT INTO INPATIENT PSYCHIATRIC FACIILITY IN THE ENTIRE STATE. CM ALSO EXPLAINED THAT PT NOW REPORTING NO SUICIDAL IDEATION AND WANTS TO DISCHARGE TO COMMUNITY FOR OUTPATIENT MENTAL HEALTH FOLLOWUP. CM ADVISED THAT THE DOCTOR IS RECONSULTING PSYCHIATRISTS FOR RECOMMENDATIONS. CM TO CONTINUE TO FOLLOW AND ASSIST NEEDED. All Howard, CASE MANAGEMENT DCP- Discharge Planning Updated by [id number]: All Howard on 11/04/18 4:[address] Patient Name: ERNESTINA SIMS Encounter No: [id number] : 1980 Primary Insurance: MEDICAID [place] PEND[place] Anticipated DC Date: 11-03-2018 Planned Disposition: Psych facility External Planned Provider:[facility] ACCEPT[facility] DCP follow-up note: CM SPOKE TO ERNESTINE OF THE TRANSFER CENTER, , WHO INFORMED CM THAT PT HAS BEEN DECLINED BY 16 FACILITIES IN THE [facility], SOME OF WHICH DECLINED DUE TO NO FUNDING SOURCE. ERNESTINE WILL CONTINUE TO TRY PLACEMENT AND ASKED CM TO NOTIFY TRANSFER CENTER IF ANY FUNDING SOURCE CAN BE LOCATED. CM CALLED [facility], , SPOKE TO [place] CHA AND REQEUSTED INDIGENT CONTACT FOR INPATIENT PSYCHIATRIC CARE. [place] REQUESTED REFERRAL VIA EMAIL. CM EMAILED REFERRAL FOR INDIGENT FUNDING REQUEST TO "[email or web address]". [place] WILL RESPOND VIA EMAIL. CM WAITING TO DETERMINE IF INDIGENT FUNDING CAN BE OBTAINED FOR INPATIENT PSYCHIATRIC CARE FROM [facility]. All Howard CASE MANAGEMENT Appended by All Howard on 11/04/2018 15:20 CDT: CM RECEIVED EMAIL CONFIRMATION OF INITIAL 3 DAY APPROVAL FOR INDIGENT INPATIENT PSYCHIATRIC CONTACT. CM CALLED [facility], , NOTIFIED ERNESTINE WHO WILL UPDATE PACKET AND CONTINUE SEEKING INPATIENT PSYCHIATRIC CARE FOR PT. CM FAXED COPY OF EMAIL TO ERNESTINE AT [facility]. CM CONTINUES TO AWAIT ACCEPTANCE AT ANY INPATIENT PSYCHIATRIC FACILITY IN [place]. RAJEEV DELUCA DCP- Discharge Planning Updated by [email or web address]: All Howard on 11/03/18 7:[address] Patient Name: ERNESTINA SIMS Encounter No: [id number] : 1980 Primary Insurance: MEDICAID [place] PEND[place] Anticipated DC Date: 11-03-2018 Planned Disposition: Psych facility External Planned Provider: [facility] ACCEPTING INPATIENT PSYCHIATRIC UNIT DCP follow-up note: CM FAXED HOSPITAL UPDATE TO TRANSFER CENTER AT [phone]. CM CONTINUES TO WAIT INPATIENT PSYCHIATRIC FACILITY ACCEPTANCE. RAJEEV Deluca DCP- Discharge Planning Updated by [id number]: All Howard on 11/02/18 8:[address] Patient Name: ERNESTINA SIMS Encounter No: [id number] : 1980 Primary Insurance: MEDICAID [place] PENDING Anticipated DC Date: 11-02-2018 Planned Disposition: Psych facility External Planned Provider: [facility] DCP follow-up note: CM FAXED HOSPITAL UPDATE TO TRANSFER CENTER AT [phone]. CM CONTINUES TO WAIT INPATIENT PSYCHIATRIC FACILITY ACCEPTANCE. RAJEEV Deluca DCP- Discharge Planning Updated by [id number]: Lashaychantell Griffith on 10/31/18 11:[address] CM TELEPHONED EASY ADMIT. SPOKE W/ DANIELLE. VERBAL UPDATE GIVEN, CM ALSO FAXED UPDATED MED LIST, OXYGEN NOTE, PROGRESS NOTE FOR TODAY AND DISCHARGE SUMMARY. NURSE REPORTED MULTIPLE CALLS ON FRIDAY REGARDING PROGRESS AND DENIALS. AWAIT CALL BACK WITH ACCEPTANCE WHEN PSYCH BED IS AVAILABLE. DCP- Discharge Planning Updated by [id number]: All Howard on 10/30/18 2:[address] Patient Name: ERNESTINA SIMS Encounter No: [id number] : 1980 Primary Insurance: MEDICAID [place] PENDING Anticipated DC Date: 10-29-2018 Planned Disposition: Psych facility External Planned Provider: [facility] OR FIRST ACCEPTING INPATIENT PSYCHIATRIC FACILITY DCP follow-up note: TRANSFER CENTER INFORMED BEDSIDE NURSE THAT PT WILL NEED TO BE OFF ALL OXYGEN AND UPDRAFT TREATMENTS FOR 24 HOURS FOR THEM TO ATTEMPT PLACEMENT IN INPATIENT PSYCHIATRIC CARE. TRANSFER CENTER TO CONTINUE ATTEMPTING PLACMENT TOMORROW, 10-31-18. RAJEEV Deluca DCP- Discharge Planning Updated by [id number]: All Howard on 10/30/18 6:[address] Patient Name: ERNESTINA SIMS Encounter No: [id number] : 1980 Primary Insurance: MEDICAID [place] PEND[place] Anticipated DC Date: 10-29-2018 Planned Disposition: Psych facility External Planned Provider: [facility] DCP follow-up note: CM FAXED NEW COAGULATION LAB RESULTS ALONG WITH NURSES NOTE INDICATING WHEN DRIP WAS STOPPED TO TRANSFER CENTER. 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 APPAREL MACHINERY INSTRUCTOR NURSE. RAJEEV Deluca DCP- Discharge Planning Updated by [id number]: All Howard on 10/29/18 3:[address] Patient Name: ERNESTINA SIMS Encounter No: [id number] : 1980 Primary Insurance: MEDICAID [place] PEND[place] Anticipated DC Date: 10-29-2018 Planned Disposition: Psych facility External Planned Provider: [facility] DCP follow-up note: CM SPOKE TO MOISES SANON, PT IS STABLE FOR DISCHARGE TO INPATIENT PSYCHIATRIC CARE TODAY. CM SPOKE TO PT IN ROOM WHO IS WILLING FOR INPATIENT PSYCHATIRIC CARE. PT ASKED FOR CM TO FIND OUT WHO TOWED HER CAR FROM THE HOSPTIAL PARKING LOT. CM REFERRED PT TO [facility], [phone]. CM CALLED [facility] IN HOSPITAL ADMINSTRATION, WAS ADVISED THE HOSPITAL HAS NOT HAD ANY VEHICLES TOWED OFF LOT. CM CALLED [facility] [employer] POLICE WHO REPORTED THEY DID NOT TOW PT'S VEHICLE. CM CALLED PT'S STENO POOL SUPERVISOR, ALEXANDER CHRISTIANSEN, , WHO ADVISED THAT THE CAR WAS REPOSSESSED DUE TO NON PAYMENT TO HIS KNOWLEDGE. CM INFORMED STENO POOL SUPERVISOR OF PT'S PENDING PSYCHIATRIC CARE PLACEMENT AFTER OBSERVING A SIGNED CONSENT FOR RELEASE OF MEDICAL INFORMATION TO MR. CHRISTIANSEN IN CHART. CM INFORMED PT IN ROOM. CM SPOKE TO BEDSIDE NURSE WHO HAD TALKED TO TRANSFER CENTER, PT IS BEING CONSIDERED FOR ADMISSION BY [facility] INPATIENT PSYCHIATRIC CARE; THEY WILL NOT ACCEPT PT IS ON HEPARIN DRIP. BEDSIDE NURSE REPORT THIS HAS BEEN DISCONTINUED TODAY. CM CALLED [facility], , SPOKE TO TYREL WHO INFORMED CM THAT PT WILL NEED TO HAVE NEW LAB WORK IN THE MORNING AND FAX THAT ALONG WITH NURSES NOTE INDICATING WHEN DRIP WAS STOPPED TO TRANSFER CENTER IN THE MORNING, 07-30-18 AND THEY WILL RETRY FOR INPATIENT PSYCHIATRIC ADMISSION. BEDSIDE NURSE AND PT NOTIFIED. All Howard, CASE MANAGEMENT DCP- Discharge Planning Updated by [id number]: Susan Richardson on 10/16/18 3:[address] CM trying to find out if patient has insurance or if it has termed. [employer] is working on trying to figure this information out. Patient is going to need psych placement once medically stable. Patient is most likely going to need dialysis and psych at a facility. CM has notified Jodee Sepulveda that patient will need outpatient dialysis setup. Jodee informed CM that the only facility that will accept dialysis/ psych patient is [facility]. CM will continue to follow and assist as needed with discharge planning / needs. DCP- Discharge Planning Updated by [id number]: Susan Richardson on 10/13/18 2:[address] Patient Name: ERNESTINA SIMS Admission Status: ER Accout number: [id number] Admission Date: 10-12-2018 : 1980 Admission Diagnosis: Attending: VAMSHI LARA Current LOS: 1 Anticipated DC Date: Planned Disposition: Psych facility Primary Insurance: UNINSURED DISCOUNT PLAN Discharge Planning Comments: CM met with patient at bedside after explaining CM role and obtaining verbal consent. Patient lives at home with two roommates and plans to return there upon discharge. Patient is currently having dialysis this is her second treatment thus far. Pysch consult once medically stable. Psych evaluation will determine discharge plan. CM will continue to follow and assist as needed with discharge planning / needs. Headhunter: Susan Richardson DCPIA - Discharge Planning Initial Assessment Updated by [id number]: Susan Richardson on 10/13/18 3:36 pm * Is the patient Alert and Oriented? Yes * How many steps to enter\\exit or inside your home? * PCP NO PCP * Pharmacy NO PHARMACY - CURRENTLY ? [facility] * Preadmission Environment Home with Family * ADLs Independent * Equipment None * List name and contact numbers for known caregivers / representatives who currently or will assist patient after discharge: O[facility]IN [facility] [phone] * Verbal permission to speak to the caregivers and representatives has been obtained from the patient. N/A * Community resources currently utilized None * Additional services required to return to the preadmission environment? No * Can the patient safely return to the preadmission environment? Yes * Has this patient been hospitalized within the prior 30 days at any hospital? No Last DP export: 11/09/18 7:21 a Patient Name: ERNESTINA SIMS Page 04779 at 1143 All edits/amendments must be made on the electronic document DICTATION DATE: 11/09/181141 CURRENCY MACHINE OPERATOR: DIRK 11/09/181141 RPT#: [id number] DC DATE: STATUS: ADM IN [facility] [address] [place] [address] END OF REPORT
--- NOTE | 2018-11-09 12:09 | NUR ---
PT SITTING UP IN BEDSIDE CHAIR EATING LUNCH, SITTER AT THE BEDSIDE. NO S/S OF DISTRESS AND DENIES ANY NEEDS AT THIS TIME.
[2018-11-09 12:10] VITALS: BP 102/69
--- NOTE | 2018-11-09 14:28 | MORECARE ---
CASE MANAGEMENT DISCHARGE SUMMARY PATIENT: ERNESTINA SIMS UNIT: [id number] ADM DATE: 10/12/18 AGE: 38 : [birth year] SEX: F ROOM/BED: D.6243 AUTHOR: PETER,DOC PHYSICIAN: REFERRING PHYSICIAN: VAMSHI LARA MD DATE OF SERVICE: 11/09/18 Discharge Plan Patient Name: ERNESTINA SIMS Facility: [facility] : 1980 Planned Disposition: Psych facility Anticipated Discharge Date: 11/03/18 Discharge Date: Expected LOS: 22 Initial Reviewer: [email or web address] Initial Review Date: 10/13/2018 Generated: 11/09/18 3:28 pm Comments DCP- Discharge Planning Updated by [id number]: Ronel Ross on 11/09/18 1:[address] PER TRANSFER CENTER DOCUMENTATION, THIS IS THE FOLLOWING CONTACTS AND OUTCOMES: 1. [facility]: DENIED ON 10/30 AND 11/02 2. [facility]: DENIED 10/1968, NO REASON GIVEN 3. [facility]: 10/29 DENIED STATING COULD NOT MEET NEEDS 4. [facility]: DENIED 10/30 WITH NO REASON GIVEN 5. [facility]: DENIED, WITH FINAL DENIAL ON 11/05 AFTER WE MET ALL THEIR REQUEST FOR THE PATIENT STATING SHE IS TOO SICK 6. [facility]: DENIED FOR NO INSURANCE ON 10/30 & 11/05 7. [facility]: NO ANSWER AFTER REFERRAL SENT 8. [facility]: 10/30 DENIED, CAN'T MEET NEEDS 9. [facility]: 11/01 HAD NO BEDS 10. [facility]: DENIED 10/31 FOR NO INSURANCE 11. [facility]: 10/31 DENIED STATING NEEDS MEDICAL PSYCH 12. [facility]: 10/31 DENIED SECONDARY TO HD (WHICH ENDED 10/25) 13. [facility]: 10/30 & 11/05 DENIED BECAUSE NO INSURANCE 14. [facility]: IS CONSIDERING THE PATIENT 15. [facility]: 11/01 MD DENIED, NO REASON GIVEN 16. [facility]: 11/05 DENIED, STATED NOT A GOOD FIT FOR THEM 17. [facility]: NO BEDS, KEEP CALLING BACK 18. [facility]: DENIED BECAUSE OF HD ON 11/08 (AGAIN, NO LONGER ON HD) 19. [facility]: HAS NOT ANSWERED ANY ATTEMPT THE TRANSFER CENTER HAS MADE TO CALL. CÉSAR AND I WILL CALL THE ABOVE, WE HAVE TIME,, AND SEE IF THEY WILL CHANGE THEIR MIND. DCP- Discharge Planning Updated by [id number]: Ronel Rsos on 11/09/18 10:[address] MEL, EYEWEAR CONSULTANT STATED THAT SHE TALKED WITH AAYUSH, EYEWEAR CONSULTANT OF [facility], AND SHE RECOMMENDED THAT WE BYPASS THE TRANSFER CENTER AND START CALLING ALL THE PSYCH FACILITIES OURSELVES BECAUSE SHE KNEW FOR A FACT THAT THEY WERE PLACING PATIENT OUT OF THE ER THIS WEEKEND. I CALLED AND SPOKE WITH AAYUSH, EXPLAINED THAT THERE WAS A DIFFERENCE PLACING PATIENTS FROM THE ER AND ON THE FLOOR. SHE STATED THAT SHE KNEW THIS. SHE ALSO STATED THAT SHE KNEW THE TRANSFER CENTER PUTS THE PSYCH PATIENTS ON THE BACK BURNER AND DOESN'T TRY HARD. SHE RECOMMENDED THAT WE CALL AROUND TO THE PSYCH FACILITIES IN [place] OURSELF. I EXPLAINED THAT I GUESS I WOULD STOP TENDING TO THE PATIENTS ON THE FLOOR AND CALL AROUND AND DO WHAT THE TRANSFER CENTER IS DOING. SHE STATED THAT I DIDN'T NEED TO DO THAT, JUST SEND A PACKET OUT TO MULTIPLE PLACES AND GIVE THEM A CHANCE TO REFER THE PACKET BEFORE I CALL THEM TO TALK TO THEM. I EXPLAINED I WOULD SEE WHAT I COULD DO. I CALLED AND SPOKE WITH TYREL AT THE TRANSFER CENTER @ 0908. EXPLAINED THE SITUTATION TO HIM AND THE OPINION OF THE FIRE DEPARTMENT BATTALION CHIEF FROM OUR PSYCH DEPARTMENT. HE HAS ASSURED ME THAT THEY ARE DOING ALL THEY CAN, AND HE HAS EVEN FAXED ME THE RUNNING LOG OF ALL CONTACTS MADE IN REGARDS TO TRANSFER WITH THE REASON OF REFUSAL TO TAKE (8 PAGES TYPED), AND I HAVE SCANNED IT INTO [employer]. TIME PERMITS, CÉSAR AND I WILL CALL AROUND TO OTHER FACILITIES ABOUT POSSIBLE TRANSFER. DCP- Discharge Planning Updated by [id number]: All Howard on 11/09/18 7:[address] Patient Name: ERNESTINA SIMS Encounter No: [id number] : 1980 Primary Insurance: MEDICAID [place] PENDING Anticipated DC Date: 11-03-2018 Planned Disposition: Psych facility External Planned Provider: FIRST ACCEPTING FACILITY DCP follow-up note: CM FAXED UPDATE TO TRANSFER CENTER REQUESTING INPATIENT PSYCHIATRIC PLACEMENT. PT'S GRINDER MACHINE SETTER HAS NOT RETURNED TELPHONE MESSAGE FROM FRIDAY. CM WAITING PSYCHIATRIC INPATIENT BED AVAILABLITY AND ACCEPTANCE FROM ANY FACILITY [employer]. All Howard, CASE MANAGEMENT DCP- Discharge Planning Updated by [id number]: Lashay Griffith on 11/07/18 3:[address] EASY ADMIT TRANSFER CENTER CALLED. THE TASTE TESTER TOOK THE CALL. NO AVAILABLE BED AT THIS TIME. DCP- Discharge Planning Updated by [id number]: All Howard on 11/06/18 8:[address] Patient Name: ERNESTINA SIMS Encounter No: [id number] : 1980 Primary Insurance: MEDICAID [place] PENDING Anticipated DC Date: 11-03-2018 Planned Disposition: Psych facility External Planned Provider: TO BE DETERMINED DCP follow-up note: CM CALLED PT'S GRINDER MACHINE SETTER, ALEXANDER RUTLEDGEGINS, , LEFT DETAILED MESSAGE REGARDING BEING UNSUCCESSFUL IN PLACING PT INTO INPATIENT PSYCHIATRIC FACIILITY IN THE [facility]. CM ALSO EXPLAINED THAT PT NOW REPORTING NO SUICIDAL IDEATION AND WANTS TO DISCHARGE TO COMMUNITY FOR OUTPATIENT MENTAL HEALTH FOLLOWUP. CM ADVISED THAT THE DOCTOR IS RECONSULTING PSYCHIATRISTS FOR RECOMMENDATIONS. CM TO CONTINUE TO FOLLOW AND ASSIST NEEDED. All Howard CASE MANAGEMENT DCP- Discharge Planning Updated by [id number]: All Howard on 11/04/18 4:[address] Patient Name: ERNESTINA SIMS Encounter No: [id number] : 1980 Primary Insurance: MEDICAID [place] PENDING Anticipated DC Date: 11-03-2018 Planned Disposition: Psych facility External Planned Provider:[facility] DCP follow-up note: CM SPOKE TO ERNESTINE OF THE TRANSFER CENTER, , WHO INFORMED CM THAT PT HAS BEEN DECLINED BY 16 FACILITIES IN THE [facility], SOME OF WHICH DECLINED DUE TO NO FUNDING SOURCE. ERNESTINE WILL CONTINUE TO TRY PLACEMENT AND ASKED CM TO NOTIFY TRANSFER CENTER IF ANY FUNDING SOURCE CAN BE LOCATED. CM CALLED [facility], , SPOKE TO [place] CHA AND REQEUSTED INDIGENT CONTACT FOR INPATIENT PSYCHIATRIC CARE. [place] REQUESTED REFERRAL VIA EMAIL. CM EMAILED REFERRAL FOR INDIGENT FUNDING REQUEST TO " ". [place] WILL RESPOND VIA EMAIL. CM WAITING TO DETERMINE IF INDIGENT FUNDING CAN BE OBTAINED FOR INPATIENT PSYCHIATRIC CARE FROM [facility]. All Howard, CASE MANAGEMENT Appended by All Howard on 11/04/2018 15:20 CDT: CM RECEIVED EMAIL CONFIRMATION OF INITIAL 3 DAY APPROVAL FOR INDIGENT INPATIENT PSYCHIATRIC CONTACT. CM CALLED [facility], , NOTIFIED ERNESTINE WHO WILL UPDATE PACKET AND CONTINUE SEEKING INPATIENT PSYCHIATRIC CARE FOR PT. CM FAXED COPY OF EMAIL TO ERNESTINE AT [facility]. CM CONTINUES TO AWAIT ACCEPTANCE AT ANY INPATIENT PSYCHIATRIC FACILITY IN [place]. RAJEEV DELUCA DCP- Discharge Planning Updated by [id number]: All Howard on 11/03/18 7:[address] Patient Name: ERNESTINA SIMS Encounter No: [id number] : 1980 Primary Insurance: MEDICAID [place] PENDING Anticipated DC Date: 11-03-2018 Planned Disposition: Psych facility External Planned Provider: [facility]PATIENT [facility]IATRIC [facility] DCP follow-up note: CM FAXED HOSPITAL UPDATE TO TRANSFER CENTER AT [phone]. CM CONTINUES TO WAIT INPATIENT PSYCHIATRIC FACILITY ACCEPTANCE. RAJEEV Deluca MANAGEMENT DCP- Discharge Planning Updated by [id number]: All Howard on 11/02/18 8:[address] Patient Name: ERNESTINA SIMS Encounter No: [id number] : 1980 Primary Insurance: MEDICAID [place] PENDING Anticipated DC Date: 11-02-2018 Planned Disposition: Psych facility External Planned Provider: [facility] INPATIENT PSYCHIATRIC DCP follow-up note: CM FAXED HOSPITAL UPDATE TO TRANSFER CENTER AT [phone]. CM CONTINUES TO WAIT INPATIENT PSYCHIATRIC FACILITY ACCEPTANCE. All Howard CASE MANAGEMENT DCP- Discharge Planning Updated by [id number]: Lashay Griffith on 10/31/18 11:[address] CM TELEPHONED EASY ADMIT. SPOKE W/ DANIELLE. VERBAL UPDATE GIVEN, CM ALSO FAXED UPDATED MED LIST, OXYGEN NOTE, PROGRESS NOTE FOR TODAY AND DISCHARGE SUMMARY. NURSE REPORTED MULTIPLE CALLS ON FRIDAY REGARDING PROGRESS AND DENIALS. AWAIT CALL BACK WITH ACCEPTANCE WHEN PSYCH BED IS AVAILABLE. DCP- Discharge Planning Updated by [id number]: All Howard on 10/30/18 2:[address] Patient Name: ERNESTINA SIMS Encounter No: [id number] : 1980 Primary Insurance: MEDICAID [place] PENDING Anticipated DC Date: 10-29-2018 Planned Disposition: Psych facility External Planned Provider: [facility] OR FIRST ACCEPTING INPATIENT PSYCHIATRIC FACILITY DCP follow-up note: TRANSFER CENTER INFORMED BEDSIDE NURSE THAT PT WILL NEED TO BE OFF ALL OXYGEN AND UPDRAFT TREATMENTS FOR 24 HOURS FOR THEM TO ATTEMPT PLACEMENT IN INPATIENT PSYCHIATRIC CARE. TRANSFER CENTER TO CONTINUE ATTEMPTING PLACMENT TOMORROW, 10-31-18. RAJEEV Deluca MANAGEMENT DCP- Discharge Planning Updated by [id number]: All Howard on 10/30/18 6:[address] Patient Name: ERNESTINA SIMS Encounter No: [id number] : 1980 Primary Insurance: MEDICAID [place] PENDING Anticipated DC Date: 10-29-2018 Planned Disposition: Psych facility External Planned Provider: [facility] DCP follow-up note: CM FAXED NEW COAGULATION LAB RESULTS ALONG WITH NURSES NOTE INDICATING WHEN DRIP WAS STOPPED TO TRANSFER CENTER. 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 SHELLFISH PROCESSING MACHINE TENDER NURSE. RAJEEV Deluca DCP- Discharge Planning Updated by [id number]: All Howard on 10/29/18 3:[address] Patient Name: ERNESTINA SIMS Encounter No: [id number] : 1980 Primary Insurance: MEDICAID [place] PENDING Anticipated DC Date: 10-29-2018 Planned Disposition: Psych facility External Planned Provider: [facility] DCP follow-up note: CM SPOKE TO MOISES SANON, PT IS STABLE FOR DISCHARGE TO INPATIENT PSYCHIATRIC CARE TODAY. CM SPOKE TO PT IN ROOM WHO IS WILLING FOR INPATIENT PSYCHATIRIC CARE. PT ASKED FOR CM TO FIND OUT WHO TOWED HER CAR FROM THE HOSPTIAL PARKING LOT. CM REFERRED PT TO [facility], [phone]. CM CALLED [facility] IN HOSPITAL ADMINSTRATION, WAS ADVISED THE HOSPITAL HAS NOT HAD ANY VEHICLES TOWED OFF LOT. CM CALLED [facility] POL[facility] WHO REPORTED THEY DID NOT TOW PT'S VEHICLE. CM CALLED PT'S GRINDER MACHINE SETTER, ALEXANDER CHRISTIANSEN, , WHO ADVISED THAT THE CAR WAS REPOSSESSED DUE TO NON PAYMENT TO HIS KNOWLEDGE. CM INFORMED GRINDER MACHINE SETTER OF PT'S PENDING PSYCHIATRIC CARE PLACEMENT AFTER OBSERVING A SIGNED CONSENT FOR RELEASE OF MEDICAL INFORMATION TO MR. CHRISTIANSEN IN CHART. CM INFORMED PT IN ROOM. CM SPOKE TO BEDSIDE NURSE WHO HAD TALKED TO TRANSFER CENTER, PT IS BEING CONSIDERED FOR ADMISSION BY [facility] INPATIENT PSYCHIATRIC CARE; THEY WILL NOT ACCEPT PT IS ON HEPARIN DRIP. BEDSIDE NURSE REPORT THIS HAS BEEN DISCONTINUED TODAY. CM CALLED [facility], , SPOKE TO TYREL WHO INFORMED CM THAT PT WILL NEED TO HAVE NEW LAB WORK IN THE MORNING AND FAX THAT ALONG WITH NURSES NOTE INDICATING WHEN DRIP WAS STOPPED TO TRANSFER CENTER IN THE MORNING, 07-30-18 AND THEY WILL RETRY FOR INPATIENT PSYCHIATRIC ADMISSION. BEDSIDE NURSE AND PT NOTIFIED. All Howard, CASE MANAGEMENT DCP- Discharge Planning Updated by [id number]: Susan Richardson on 10/16/18 3:[address] CM trying to find out if patient has insurance or if it has termed. [employer] is working on trying to figure this information out. Patient is going to need psych placement once medically stable. Patient is most likely going to need dialysis and psych at a facility. CM has notified Jodee Sepulveda that patient will need outpatient dialysis setup. Jodee informed CM that the only facility that will accept dialysis/ psych patient is [facility]. CM will continue to follow and assist as needed with discharge planning / needs. DCP- Discharge Planning Updated by [id number]: Susan Richardson on 10/13/18 2:[address] Patient Name: ERNESTINA SIMS Admission Status: ER Accout number: [id number] Admission Date: 10-12-2018 : 1980 Admission Diagnosis: Attending: VAMSHI LARA Current LOS: 1 Anticipated DC Date: Planned Disposition: Psych facility Primary Insurance: UNINSURED DISCOUNT PLAN Discharge Planning Comments: CM met with patient at bedside after explaining CM role and obtaining verbal consent. Patient lives at home with two roommates and plans to return there upon discharge. Patient is currently having dialysis this is her second treatment thus far. Pysch consult once medically stable. Psych evaluation will determine discharge plan. CM will continue to follow and assist as needed with discharge planning / needs. Machine Sewer: Susan Richardson DCPIA - Discharge Planning Initial Assessment Updated by [id number]: Susan Richardson on 10/13/18 3:36 pm * Is the patient Alert and Oriented? Yes * How many steps to enter\\exit or inside your home? * PCP NO PCP * Pharmacy NO PHARMACY - CURRENTLY ? [facility] * Preadmission Environment Home with Family * ADLs Independent * Equipment None * List name and contact numbers for known caregivers / representatives who currently or will assist patient after discharge: OLVIN LIU - [facility]- [phone] * Verbal permission to speak to the caregivers and representatives has been obtained from the patient. N/A * Community resources currently utilized None * Additional services required to return to the preadmission environment? No * Can the patient safely return to the preadmission environment? Yes * Has this patient been hospitalized within the prior 30 days at any hospital? No Last DP export: 11/09/18 10:43 a Patient Name: ERNESTINA SIMS Page [id number] at 1428 All edits/amendments must be made on the electronic document DICTATION DATE: 11/09/181427 RIVET HOLE MACHINE OPERATOR: DIRK 11/09/181427 RPT#: [id number] DC DATE: STATUS: ADM IN [facility] [address] [place] [address] END OF REPORT
[2018-11-09 15:31] VITALS: BP 99/60
--- NOTE | 2018-11-09 17:03 | MORECARE ---
CASE MANAGEMENT DISCHARGE SUMMARY PATIENT: ERNESTINA SIMS UNIT: [id number] ADM DATE: 10/12/18 AGE: 38 : [birth year] SEX: F ROOM/BED: D.0961 AUTHOR: PETER,DOC PHYSICIAN: REFERRING PHYSICIAN: VAMSHI LARA MD DATE OF SERVICE: 11/09/18 Discharge Plan Patient Name: ERNESTINA SIMS Facility: [facility]:[place] : 1980 Planned Disposition: Psych facility Anticipated Discharge Date: 11/03/18 Discharge Date: Expected LOS: 22 Initial Reviewer: [id number] Initial Review Date: 10/13/2018 Generated: 11/09/18 6:02 pm Comments DCP- Discharge Planning Updated by [id number]: Ronel Ross on 11/09/18 1:[address] PER TRANSFER CENTER DOCUMENTATION, THIS IS THE FOLLOWING CONTACTS AND OUTCOMES: 1. [facility]: DENIED ON 10/30 AND 11/02 2. [facility]: DENIED 10/1968, NO REASON GIVEN 3. [facility]: 10/29 DENIED STATING COULD NOT MEET NEEDS 4. [facility]: DENIED 10/30 WITH NO REASON GIVEN 5. [facility]: DENIED, WITH FINAL DENIAL ON 11/05 AFTER WE MET ALL THEIR REQUEST FOR THE PATIENT STATING SHE IS TOO SICK 6. [facility]: DENIED FOR NO INSURANCE ON 10/30 & 11/05 7. [facility]: NO ANSWER AFTER REFERRAL SENT 8. [facility]: 10/30 DENIED, CAN'T MEET NEEDS 9. [facility]: 11/01 HAD NO BEDS 10. [facility]: DENIED 10/31 FOR NO INSURANCE 11. [facility]: 10/31 DENIED STATING NEEDS MEDICAL PSYCH 12. [facility]: 10/31 DENIED SECONDARY TO HD (WHICH ENDED 10/25) 13. [facility]: 10/30 & 11/05 DENIED BECAUSE NO INSURANCE 14. [facility]: IS CONSIDERING THE PATIENT 15. [facility]: 11/01 MD DENIED, NO REASON GIVEN 16. [facility]: 11/05 DENIED, STATED NOT A GOOD FIT FOR THEM 17. [facility]: NO BEDS, KEEP CALLING BACK 18. [facility]: DENIED BECAUSE OF HD ON 11/08 (AGAIN, NO LONGER ON HD) 19. [facility]: HAS NOT ANSWERED ANY ATTEMPT THE TRANSFER CENTER HAS MADE TO CALL. CÉSAR AND I WILL CALL THE ABOVE, WE HAVE TIME,, AND SEE IF THEY WILL CHANGE THEIR MIND. DCP- Discharge Planning Updated by [id number]: Ronel Ross on 11/09/18 10:[address] MEL, PATIENT FINANCIAL COUNSELOR STATED THAT SHE TALKED WITH AAYUSH, PATIENT FINANCIAL COUNSELOR OF [facility], AND SHE RECOMMENDED THAT WE BYPASS THE TRANSFER CENTER AND START CALLING ALL THE PSYCH FACILITIES OURSELVES BECAUSE SHE KNEW FOR A FACT THAT THEY WERE PLACING PATIENT OUT OF THE ER THIS WEEKEND. I CALLED AND SPOKE WITH AAYUSH, EXPLAINED THAT THERE WAS A DIFFERENCE PLACING PATIENTS FROM THE ER AND ON THE FLOOR. SHE STATED THAT SHE KNEW THIS. SHE ALSO STATED THAT SHE KNEW THE TRANSFER CENTER PUTS THE PSYCH PATIENTS ON THE BACK BURNER AND DOESN'T TRY HARD. SHE RECOMMENDED THAT WE CALL AROUND TO THE PSYCH FACILITIES IN [place] OURSELF. I EXPLAINED THAT I GUESS I WOULD STOP TENDING TO THE PATIENTS ON THE FLOOR AND CALL AROUND AND DO WHAT THE TRANSFER CENTER IS DOING. SHE STATED THAT I DIDN'T NEED TO DO THAT, JUST SEND A PACKET OUT TO MULTIPLE PLACES AND GIVE THEM A CHANCE TO REFER THE PACKET BEFORE I CALL THEM TO TALK TO THEM. I EXPLAINED I WOULD SEE WHAT I COULD DO. I CALLED AND SPOKE WITH TYREL AT THE TRANSFER CENTER @ 0908. EXPLAINED THE SITUTATION TO HIM AND THE OPINION OF THE MANAGER MANUFACTURING FROM OUR PSYCH DEPARTMENT. HE HAS ASSURED ME THAT THEY ARE DOING ALL THEY CAN, AND HE HAS EVEN FAXED ME THE RUNNING LOG OF ALL CONTACTS MADE IN REGARDS TO TRANSFER WITH THE REASON OF REFUSAL TO TAKE (8 PAGES TYPED), AND I HAVE SCANNED IT INTO [employer]. TIME PERMITS, CÉSAR AND I WILL CALL AROUND TO OTHER FACILITIES ABOUT POSSIBLE TRANSFER. DCP- Discharge Planning Updated by [email or web address]: All Howard on 11/09/18 7:[address] Patient Name: ERNESTINA SIMS Encounter No: [id number] : 1980 Primary Insurance: MEDICAID [place] PENDING Anticipated DC Date: 11-03-2018 Planned Disposition: Psych facility External Planned Provider: [facility] ACCEPTING FAC[facility] DCP follow-up note: CM FAXED UPDATE TO TRANSFER CENTER REQUESTING INPATIENT PSYCHIATRIC PLACEMENT. PT'S AIRPLANE FLIGHT ATTENDANT HAS NOT RETURNED TELPHONE MESSAGE FROM FRIDAY. CM WAITING PSYCHIATRIC INPATIENT BED AVAILABLITY AND ACCEPTANCE FROM ANY FACILITY [employer]. All Howard, CASE MANAGEMENT DCP- Discharge Planning Updated by [id number]: Lashay Griffith on 11/07/18 3:[address] EASY ADMIT TRANSFER CENTER CALLED. THE OCULARIST TOOK THE CALL. NO AVAILABLE BED AT THIS TIME. DCP- Discharge Planning Updated by [id number]: All Howard on 11/06/18 8:[address] Patient Name: ERNESTINA SIMS Encounter No: [id number] : 1980 Primary Insurance: MEDICAID [place] PENDING Anticipated DC Date: 11-03-2018 Planned Disposition: Psych facility External Planned Provider: TO BE DETERMINED DCP follow-up note: CM CALLED PT'S AIRPLANE FLIGHT ATTENDANT, ALEXANDER RUTLEDGEGINS, , LEFT DETAILED MESSAGE REGARDING BEING UNSUCCESSFUL IN PLACING PT INTO INPATIENT PSYCHIATRIC FACIILITY IN THE [facility]IRE [facility]. CM ALSO EXPLAINED THAT PT NOW REPORTING NO SUICIDAL IDEATION AND WANTS TO DISCHARGE TO COMMUNITY FOR OUTPATIENT MENTAL HEALTH FOLLOWUP. CM ADVISED THAT THE DOCTOR IS RECONSULTING PSYCHIATRISTS FOR RECOMMENDATIONS. CM TO CONTINUE TO FOLLOW AND ASSIST NEEDED. All Howard CASE MANAGEMENT DCP- Discharge Planning Updated by [id number]: All Howard on 11/04/18 4:[address] Patient Name: ERNESTINA SIMS Encounter No: [id number] : 1980 Primary Insurance: MEDICAID [place] PENDING Anticipated DC Date: 11-03-2018 Planned Disposition: Psych facility External Planned Provider:[facility] DCP follow-up note: CM SPOKE TO ERNESTINE OF THE TRANSFER CENTER, , WHO INFORMED CM THAT PT HAS BEEN DECLINED BY 16 FACILITIES IN THE [facility], SOME OF WHICH DECLINED DUE TO NO FUNDING SOURCE. ERNESTINE WILL CONTINUE TO TRY PLACEMENT AND ASKED CM TO NOTIFY TRANSFER CENTER IF ANY FUNDING SOURCE CAN BE LOCATED. CM CALLED [facility], , SPOKE TO [place] [facility] AND REQEUSTED INDIGENT CONTACT FOR INPATIENT PSYCHIATRIC CARE. [place] REQUESTED REFERRAL VIA EMAIL. CM EMAILED REFERRAL FOR INDIGENT FUNDING REQUEST TO " ". [place] WILL RESPOND VIA EMAIL. CM WAITING TO DETERMINE IF INDIGENT FUNDING CAN BE OBTAINED FOR INPATIENT PSYCHIATRIC CARE FROM [facility]. All Howard, CASE MANAGEMENT Appended by All Howard on 11/04/2018 15:20 CDT: CM RECEIVED EMAIL CONFIRMATION OF INITIAL 3 DAY APPROVAL FOR INDIGENT INPATIENT PSYCHIATRIC CONTACT. CM CALLED [facility], , NOTIFIED ERNESTINE WHO WILL UPDATE PACKET AND CONTINUE SEEKING INPATIENT PSYCHIATRIC CARE FOR PT. CM FAXED COPY OF EMAIL TO ERNESTINE AT [facility]. CM CONTINUES TO AWAIT ACCEPTANCE AT ANY INPATIENT PSYCHIATRIC FACILITY IN [place]. RAJEEV DELUCA DCP- Discharge Planning Updated by [id number]: All Howard on 11/03/18 7:[address] Patient Name: ERNESTINA SIMS Encounter No: [id number] : 1980 Primary Insurance: MEDICAID [place] PENDING Anticipated DC Date: 11-03-2018 Planned Disposition: Psych facility External Planned Provider: [facility]IENT [facility]ATRIC [facility] DCP follow-up note: CM FAXED HOSPITAL UPDATE TO TRANSFER CENTER AT [phone]. CM CONTINUES TO WAIT INPATIENT PSYCHIATRIC FACILITY ACCEPTANCE. RAJEEV Deluca MANAGEMENT DCP- Discharge Planning Updated by [id number]: All Howard on 11/02/18 8:[address] Patient Name: ERNESTINA SIMS Encounter No: [id number] : 1980 Primary Insurance: MEDICAID [place] PENDING Anticipated DC Date: 11-02-2018 Planned Disposition: Psych facility External Planned Provider: [facility] INPATIENT PSYCHIATRIC DCP follow-up note: CM FAXED HOSPITAL UPDATE TO TRANSFER CENTER AT [phone]. CM CONTINUES TO WAIT INPATIENT PSYCHIATRIC FACILITY ACCEPTANCE. All Howard CASE MANAGEMENT DCP- Discharge Planning Updated by [id number]: Lashay Griffith on 10/31/18 11:[address] CM TELEPHONED EASY ADMIT. SPOKE W/ DANIELLE. VERBAL UPDATE GIVEN, CM ALSO FAXED UPDATED MED LIST, OXYGEN NOTE, PROGRESS NOTE FOR TODAY AND DISCHARGE SUMMARY. NURSE REPORTED MULTIPLE CALLS ON FRIDAY REGARDING PROGRESS AND DENIALS. AWAIT CALL BACK WITH ACCEPTANCE WHEN PSYCH BED IS AVAILABLE. DCP- Discharge Planning Updated by [id number]: All Howard on 10/30/18 2:[address] Patient Name: ERNESTINA SIMS Encounter No: [id number] : 1980 Primary Insurance: MEDICAID [place] PENDING Anticipated DC Date: 10-29-2018 Planned Disposition: Psych facility External Planned Provider: [facility] OR [facility] ACCEPTING INPATIENT PSYCHIATRIC FACILITY DCP follow-up note: TRANSFER CENTER INFORMED BEDSIDE NURSE THAT PT WILL NEED TO BE OFF ALL OXYGEN AND UPDRAFT TREATMENTS FOR 24 HOURS FOR THEM TO ATTEMPT PLACEMENT IN INPATIENT PSYCHIATRIC CARE. TRANSFER CENTER TO CONTINUE ATTEMPTING PLACMENT TOMORROW, 10-31-18. RAJEEV Deluca MANAGEMENT DCP- Discharge Planning Updated by [id number]: All Howard on 10/30/18 6:[address] Patient Name: ERNESTINA SIMS Encounter No: [id number] : 1980 Primary Insurance: MEDICAID [place] PENDING Anticipated DC Date: 10-29-2018 Planned Disposition: Psych facility External Planned Provider: [facility] DCP follow-up note: CM FAXED NEW COAGULATION LAB RESULTS ALONG WITH NURSES NOTE INDICATING WHEN DRIP WAS STOPPED TO TRANSFER CENTER. 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 MEDICAL DIR NURSE. RAJEEV Deluca DCP- Discharge Planning Updated by [id number]: All Howard on 10/29/18 3:[address] Patient Name: ERNESTINA SIMS Encounter No: [id number] : 1980 Primary Insurance: MEDICAID [place] PENDING Anticipated DC Date: 10-29-2018 Planned Disposition: Psych facility External Planned Provider: [facility] DCP follow-up note: CM SPOKE TO MOISES SANON, PT IS STABLE FOR DISCHARGE TO INPATIENT PSYCHIATRIC CARE TODAY. CM SPOKE TO PT IN ROOM WHO IS WILLING FOR INPATIENT PSYCHATIRIC CARE. PT ASKED FOR CM TO FIND OUT WHO TOWED HER CAR FROM THE HOSPTIAL PARKING LOT. CM REFERRED PT TO [facility], [phone]. CM CALLED [facility] IN HOSPITAL ADMINSTRATION, WAS ADVISED THE HOSPITAL HAS NOT HAD ANY VEHICLES TOWED OFF LOT. CM [facility]ED [facility] WHO REPORTED THEY DID NOT TOW PT'S VEHICLE. CM CALLED PT'S AIRPLANE FLIGHT ATTENDANT, ALEXANDER CHRISTIANSEN, , WHO ADVISED THAT THE CAR WAS REPOSSESSED DUE TO NON PAYMENT TO HIS KNOWLEDGE. CM INFORMED AIRPLANE FLIGHT ATTENDANT OF PT'S PENDING PSYCHIATRIC CARE PLACEMENT AFTER OBSERVING A SIGNED CONSENT FOR RELEASE OF MEDICAL INFORMATION TO MR. CHRISTIANSEN IN CHART. CM INFORMED PT IN ROOM. CM SPOKE TO BEDSIDE NURSE WHO HAD TALKED TO TRANSFER CENTER, PT IS BEING CONSIDERED FOR ADMISSION BY [facility] INPATIENT PSYCHIATRIC CARE; THEY WILL NOT ACCEPT PT IS ON HEPARIN DRIP. BEDSIDE NURSE REPORT THIS HAS BEEN DISCONTINUED TODAY. CM CALLED [facility], , SPOKE TO TYREL WHO INFORMED CM THAT PT WILL NEED TO HAVE NEW LAB WORK IN THE MORNING AND FAX THAT ALONG WITH NURSES NOTE INDICATING WHEN DRIP WAS STOPPED TO TRANSFER CENTER IN THE MORNING, 07-30-18 AND THEY WILL RETRY FOR INPATIENT PSYCHIATRIC ADMISSION. BEDSIDE NURSE AND PT NOTIFIED. All Howard, CASE MANAGEMENT DCP- Discharge Planning Updated by [id number]: Susan Richardson on 10/16/18 3:[address] CM trying to find out if patient has insurance or if it has termed. [employer] is working on trying to figure this information out. Patient is going to need psych placement once medically stable. Patient is most likely going to need dialysis and psych at a facility. CM has notified Jodee Sepulveda that patient will need outpatient dialysis setup. Jodee informed CM that the only facility that will accept dialysis/ psych patient [facility]. CM will continue to follow and assist as needed with discharge planning / needs. DCP- Discharge Planning Updated by [id number]: Susan Richardson on 10/13/18 2:[address] Patient Name: ERNESTINA SIMS Admission Status: ER Accout number: [id number] Admission Date: 10-12-2018 : 1980 Admission Diagnosis: Attending: VAMSHI LARA Current LOS: 1 Anticipated DC Date: Planned Disposition: Psych facility Primary Insurance: UNINSURED DISCOUNT PLAN Discharge Planning Comments: CM met with patient at bedside after explaining CM role and obtaining verbal consent. Patient lives at home with two roommates and plans to return there upon discharge. Patient is currently having dialysis this is her second treatment thus far. Pysch consult once medically stable. Psych evaluation will determine discharge plan. CM will continue to follow and assist as needed with discharge planning / needs. Longwall Foreman: Susan BULLOCKA - Discharge Planning Initial Assessment Updated by [id number]: Susan Richardson on 10/13/18 3:36 pm * Is the patient Alert and Oriented? Yes * How many steps to enter\\exit or inside your home? * PCP NO PCP * Pharmacy NO PHARMACY - CURRENTLY ? [facility] * Preadmission Environment Home with Family * ADLs Independent * Equipment None * List name and contact numbers for known caregivers / representatives who currently or will assist patient after discharge: OLVIN LIU - [facility]- [phone] * Verbal permission to speak to the caregivers and representatives has been obtained from the patient. N/A * Community resources currently utilized None * Additional services required to return to the preadmission environment? No * Can the patient safely return to the preadmission environment? Yes * Has this patient been hospitalized within the prior 30 days at any hospital? No External Providers External Provider: [facility] Next Contact Date: 11/09/2018 Service Request Date: Service Type: Resolution: Reviewer: Comments: Last DP export: 11/09/18 1:28 p Patient Name: ERNESTINA SIMS Page [phone] at 1703 All edits/amendments must be made on the electronic document DICTATION DATE: 11/09/181701 [employer]: DIRK 11/09/181701 RPT#: [id number] DC DATE: STATUS: ADM IN [facility] [address] [place] [address] END OF REPORT
--- NOTE | 2018-11-09 17:19 | MORECARE ---
CASE MANAGEMENT DISCHARGE SUMMARY PATIENT: ERNESTINA SIMS UNIT: [id number] ADM DATE: 10/12/18 AGE: 38 : 76 SEX: F ROOM/BED: D.8730 AUTHOR: PETER,DOC PHYSICIAN: REFERRING PHYSICIAN: VAMSHI LARA MD DATE OF SERVICE: 11/09/18 Discharge Plan Patient Name: ERNESTINA SIMS Facility: [facility]:[place] : 1980 Planned Disposition: Psych facility Anticipated Discharge Date: 11/03/18 Discharge Date: Expected LOS: 22 Initial Reviewer: [id number] Initial Review Date: 10/13/2018 Generated: 11/09/18 6:19 pm Comments DCP- Discharge Planning Updated by [id number]: All Howard on 11/09/18 4:[address] Patient Name: ERNESTINA SIMS Encounter No: [id number] : 1980 Primary Insurance: MEDICAID [place] PENDING Anticipated DC Date: 11-03-2018 Planned Disposition: Psych facility External Planned Provider: FIRST ACCEPTING FACILITY DCP follow-up note: CM CALLED [facility], , SPOKE TO BREEZY AND PROVIDED REFERRAL INFORMATION. CM WAS IN PROCESS OF FAXING REFERRAL FOR CONSIDERATION AND RECEIVED CALL FROM BREEZY WHO INFORMED CM THAT SHE CHECKED WITH THE "FLOOR" AND WAS ADVISED THEY COULD NOT MEET PT'S NEEDS. CM CALLED AND SPOKE TO [facility] [place], , WHO INFORMED CM THAT THEY DO NOT KEEP REFERRALS WHEN DECLINED AND STATES THAT CM CAN FAX ANOTHER REFERRAL TO THEM FOR CONSIDERATION. CM FAXED REFERRAL FOR [facility] IN [facility] TO [phone]. CM RECEIVED CALL FROM [place] CHA OF [facility], CM EXPLAINED PROBLEM WITH PLACEMENT. [place] FIRST SUGGESTED PARTIAL HOSPITALIZATION AT [facility] WHERE PT WOULD GO FRIDAY THRU FRIDAY, 9AM TO 3:30PM AND GO HOME AT NIGHT. ANJALI EXPLAINED THIS WOULD NOT BE APPROPRIATE. [place] SUGGESTED CM CALL [facility] STABALIZATION UNIT. ANJALI CALLED AND SPOKE TO [facility] ST[facility]IZATION [facility], ; SUE ADVISED THAT PT WOULD HAVE TO BE VOLUNTARY AND THAT THE FACILITY IS NOT LOCKED AND PT CAN LEAVE AT ANY TIME. CM FAXED REFERRAL TO SUE AT [phone]. CM WAITING ADMISSION DETERMINATIONS FROM [facility] IN [place] AND [facility] STABALIZATION UNIT. CM ALSO WAITING RESULTS FROM [facility] WHO CONTINUES SEEKING PLACEMENT FOR INPATIENT PSYCHIATRIC STABALIZATION. All Howard, CASE MANAGEMENT DCP- Discharge Planning Updated by [id number]: Ronel Ross on 11/09/18 1:[address] PER TRANSFER CENTER DOCUMENTATION, THIS IS THE FOLLOWING CONTACTS AND OUTCOMES: 1. [facility]: DENIED ON 10/30 AND 11/02 2. [facility]: DENIED 10/1968, NO REASON GIVEN 3. [facility]: 10/29 DENIED STATING COULD NOT MEET NEEDS 4. [facility]: DENIED 10/30 WITH NO REASON GIVEN 5. [facility]: DENIED, WITH FINAL DENIAL ON 11/05 AFTER WE MET ALL THEIR REQUEST FOR THE PATIENT STATING SHE IS TOO SICK 6. [facility]-: DENIED FOR NO INSURANCE ON 10/30 & 11/05 7. [facility]: NO ANSWER AFTER REFERRAL SENT 8. [facility]: 10/30 DENIED, CAN'T MEET NEEDS 9. [facility]: 11/01 HAD NO BEDS 10. [facility]: DENIED 10/31 FOR NO INSURANCE 11. [facility]: 10/31 DENIED STATING NEEDS MEDICAL PSYCH 12. [facility]: 10/31 DENIED SECONDARY TO HD (WHICH ENDED 10/25) 13. [facility]: 10/30 & 11/05 DENIED BECAUSE NO INSURANCE 14. [facility]: IS CONSIDERING THE PATIENT 15. [facility]: 11/01 DENIED, NO REASON GIVEN 16. [facility]: 11/05 DENIED, STATED NOT A GOOD FIT FOR THEM 17. [facility]: NO [facility]EDS, KEEP CALLING BACK 18. [facility]- : DENIED BECAUSE OF HD ON 11/08 (AGAIN, NO LONGER ON HD) 19. [facility]: HAS NOT ANSWERED ANY ATTEMPT THE TRANSFER CENTER HAS MADE TO CALL. CÉSAR AND I WILL CALL THE ABOVE, WE HAVE TIME,, AND SEE IF THEY WILL CHANGE THEIR MIND. DCP- Discharge Planning Updated by [id number]: Roneldelfino Ross on 11/09/18 10:[address] MEL, READING RECOVERY TEACHER STATED THAT SHE TALKED WITH AAYUSH, READING RECOVERY TEACHER OF [facility], AND SHE RECOMMENDED THAT WE BYPASS THE TRANSFER CENTER AND START CALLING ALL THE PSYCH FACILITIES OURSELVES BECAUSE SHE KNEW FOR A FACT THAT THEY WERE PLACING PATIENT OUT OF THE ER THIS WEEKEND. I CALLED AND SPOKE WITH AAYUSH, EXPLAINED THAT THERE WAS A DIFFERENCE PLACING PATIENTS FROM THE ER AND ON THE FLOOR. SHE STATED THAT SHE KNEW THIS. SHE ALSO STATED THAT SHE KNEW THE TRANSFER CENTER PUTS THE PSYCH PATIENTS ON THE BACK BURNER AND DOESN'T TRY HARD. SHE RECOMMENDED THAT WE CALL AROUND TO THE PSYCH FACILITIES IN [place] OURSELF. I EXPLAINED THAT I GUESS I WOULD STOP TENDING TO THE PATIENTS ON THE FLOOR AND CALL AROUND AND DO WHAT THE TRANSFER CENTER IS DOING. SHE STATED THAT I DIDN'T NEED TO DO THAT, JUST SEND A PACKET OUT TO MULTIPLE PLACES AND GIVE THEM A CHANCE TO REFER THE PACKET BEFORE I CALL THEM TO TALK TO THEM. I EXPLAINED I WOULD SEE WHAT I COULD DO. I CALLED AND SPOKE WITH TYREL AT THE TRANSFER CENTER @ 0908. EXPLAINED THE SITUTATION TO HIM AND THE OPINION OF THE CHART PICKER FROM OUR PSYCH DEPARTMENT. HE HAS ASSURED ME THAT THEY ARE DOING ALL THEY CAN, AND HE HAS EVEN FAXED ME THE RUNNING LOG OF ALL CONTACTS MADE IN REGARDS TO TRANSFER WITH THE REASON OF REFUSAL TO TAKE (8 PAGES TYPED), AND I HAVE SCANNED IT [facility] TIME PERMITS, CÉSAR AND I WILL CALL AROUND TO OTHER FACILITIES ABOUT POSSIBLE TRANSFER. DCP- Discharge Planning Updated by [id number]: All Howard on 11/09/18 7:[address] Patient Name: ERNESTINA SIMS Encounter No: [id number] : 1980 Primary Insurance: MEDICAID [place] PENDING Anticipated DC Date: 11-03-2018 Planned Disposition: Psych facility External Planned Provider: FIRST ACCEPTING FACILITY DCP follow-up note: CM FAXED UPDATE TO TRANSFER CENTER REQUESTING INPATIENT PSYCHIATRIC PLACEMENT. PT'S MOLDING PLASTERER HAS NOT RETURNED TELPHONE MESSAGE FROM FRIDAY. CM WAITING PSYCHIATRIC INPATIENT BED AVAILABLITY AND ACCEPTANCE FROM ANY FACILITY [facility]. All Howard, CASE MANAGEMENT DCP- Discharge Planning Updated by [id number]: Lashay Griffith on 11/07/18 3:[address] EASY ADMIT TRANSFER CENTER CALLED. THE SUPERVISOR TOOK THE CALL. NO AVAILABLE BED AT THIS TIME. DCP- Discharge Planning Updated by [id number]: All Howard on 11/06/18 8:[address] Patient Name: ERNESTINA SIMS Encounter No: [id number] : 1980 Primary Insurance: MEDICAID [place] PENDING Anticipated DC Date: 11-03-2018 Planned Disposition: Psych facility External Planned Provider: TO BE DETERMINED DCP follow-up note: CM CALLED PT'S MOLDING PLASTERER, ALEXANDER CHRISTIANSEN, , LEFT DETAILED MESSAGE REGARDING BEING UNSUCCESSFUL IN PLACING PT INTO INPATIENT PSYCHIATRIC FACIILITY IN THE [facility]. CM ALSO EXPLAINED THAT PT NOW REPORTING NO SUICIDAL IDEATION AND WANTS TO DISCHARGE TO COMMUNITY FOR OUTPATIENT MENTAL HEALTH FOLLOWUP. CM ADVISED THAT THE DOCTOR IS RECONSULTING PSYCHIATRISTS FOR RECOMMENDATIONS. CM TO CONTINUE TO FOLLOW AND ASSIST NEEDED. All Howard, CASE MANAGEMENT DCP- Discharge Planning Updated by [id number]: All Howard on 11/04/18 4:[address] Patient Name: ERNESTINA SIMS Encounter No: [id number] : 1980 Primary Insurance: MEDICAID [place] PEND[place] Anticipated DC Date: 11-03-2018 Planned Disposition: Psych facility External Planned Provider:[facility] ACC[facility] DCP follow-up note: CM SPOKE TO ERNESTINE OF THE TRANSFER CENTER, , WHO INFORMED CM THAT PT HAS BEEN DECLINED BY 16 FACILITIES IN THE [facility], SOME OF WHICH DECLINED DUE TO NO FUNDING SOURCE. ERNESTINE WILL CONTINUE TO TRY PLACEMENT AND ASKED CM TO NOTIFY TRANSFER CENTER IF ANY FUNDING SOURCE CAN BE LOCATED. [facility], , SPOKE TO [place] CHA AND MARYAMED INDIGENT CONTACT FOR INPATIENT PSYCHIATRIC CARE. [place] REQUESTED REFERRAL VIA EMAIL. CM EMAILED REFERRAL FOR INDIGENT FUNDING REQUEST TO " ". [place] WILL RESPOND VIA EMAIL. CM WAITING TO DETERMINE IF INDIGENT FUNDING CAN BE OBTAINED FOR INPATIENT PSYCHIATRIC CARE FROM [facility] AND [facility]. All Howard CASE MANAGEMENT Appended by All Howard on 11/04/2018 15:20 CDT: CM RECEIVED EMAIL CONFIRMATION OF INITIAL 3 DAY APPROVAL FOR INDIGENT INPATIENT PSYCHIATRIC CONTACT. CM CALLED TRANSFER CENTER, , NOTIFIED ERNESTINE WHO WILL UPDATE PACKET AND CONTINUE SEEKING INPATIENT PSYCHIATRIC CARE FOR PT. CM FAXED COPY OF EMAIL TO ERNESTINE AT TRANSFER CENTER. CM CONTINUES TO AWAIT ACCEPTANCE AT ANY INPATIENT PSYCHIATRIC FACILITY IN [place]. RAJEEV DELUCA DCP- Discharge Planning Updated by [id number]: All Howard on 11/03/18 7:[address] Patient Name: ERNESTINA SIMS Encounter No: [id number] : 1980 Primary Insurance: MEDICAID [place] PENDING Anticipated DC Date: 11-03-2018 Planned Disposition: Psych facility External Planned Provider: [facility] ACCEPTING INPATIENT PSYCHIATRIC UNIT DCP follow-up note: CM FAXED HOSPITAL UPDATE TO TRANSFER CENTER AT [phone]. CM CONTINUES TO WAIT INPATIENT PSYCHIATRIC FACILITY ACCEPTANCE. RAJEEV Deluca MANAGEMENT DCP- Discharge Planning Updated by [id number]: All Howard on 11/02/18 8:[address] Patient Name: ERNESTINA SIMS Encounter No: [id number] : 1980 Primary Insurance: MEDICAID [place] PENDING Anticipated DC Date: 11-02-2018 Planned Disposition: Psych facility External Planned Provider: [facility] INPATIENT PSYCHIATRIC DCP follow-up note: CM FAXED HOSPITAL UPDATE TO TRANSFER CENTER AT [phone]. CM CONTINUES TO WAIT INPATIENT PSYCHIATRIC FACILITY ACCEPTANCE. RAJEEV Deluca DCP- Discharge Planning Updated by [id number]: Lashay Griffith on 10/31/18 11:[address] CM TELEPHONED EASY ADMIT. SPOKE W/ DANIELLE. VERBAL UPDATE GIVEN, CM ALSO FAXED UPDATED MED LIST, OXYGEN NOTE, PROGRESS NOTE FOR TODAY AND DISCHARGE SUMMARY. NURSE REPORTED MULTIPLE CALLS ON FRIDAY REGARDING PROGRESS AND DENIALS. AWAIT CALL BACK WITH ACCEPTANCE WHEN PSYCH BED IS AVAILABLE. DCP- Discharge Planning Updated by [id number]: All Howard on 10/30/18 2:[address] Patient Name: ERNESTINA SIMS Encounter No: [id number] : 1980 Primary Insurance: MEDICAID [place] PENDING Anticipated DC Date: 10-29-2018 Planned Disposition: Psych facility External Planned Provider: [facility] ACCEPT[facility]PATIENT PSYCHIATRIC FACILITY DCP follow-up note: TRANSFER CENTER INFORMED BEDSIDE NURSE THAT PT WILL NEED TO BE OFF ALL OXYGEN AND UPDRAFT TREATMENTS FOR 24 HOURS FOR THEM TO ATTEMPT PLACEMENT IN INPATIENT PSYCHIATRIC CARE. TRANSFER CENTER TO CONTINUE ATTEMPTING PLACMENT TOMORROW, 10-31-18. All Howard CASE MANAGEMENT DCP- Discharge Planning Updated by [id number]: All Howard on 10/30/18 6:[address] Patient Name: ERNESTINA SIMS Encounter No: [id number] : 1980 Primary Insurance: MEDICAID [place] PENDING Anticipated DC Date: 10-29-2018 Planned Disposition: Psych facility External Planned Provider: [facility] DCP follow-up note: CM FAXED NEW COAGULATION LAB RESULTS ALONG WITH NURSES NOTE INDICATING WHEN DRIP WAS STOPPED TO TRANSFER CENTER. 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 MARINE SAFETY OFFICER NURSE. All Howard CASE MANAGEMENT DCP- Discharge Planning Updated by [id number]: All Howard on 10/29/18 3:[address] Patient Name: ERNESTINA SIMS Encounter No: [id number] : 1980 Primary Insurance: MEDICAID [place] PENDING Anticipated DC Date: 10-29-2018 Planned Disposition: Psych facility External Planned Provider: [facility] DCP follow-up note: ANJALI SPOKE TO MOISES SANON, PT IS STABLE FOR DISCHARGE TO INPATIENT PSYCHIATRIC CARE TODAY. CM SPOKE TO PT IN ROOM WHO IS WILLING FOR INPATIENT PSYCHATIRIC CARE. PT ASKED FOR CM TO FIND OUT WHO TOWED HER CAR FROM THE HOSPTIAL PARKING LOT. CM REFERRED PT TO [facility], [phone]. CM CALLED [facility] IN HOSPITAL ADMINSTRATION, WAS ADVISED THE HOSPITAL HAS NOT HAD ANY VEHICLES TOWED OFF LOT. [facility] WHO REPORTED THEY DID NOT TOW PT'S VEHICLE. CM CALLED PT'S MOLDING PLASTERER, ALEXANDER CHRISTIANSEN, , WHO ADVISED THAT THE CAR WAS REPOSSESSED DUE TO NON PAYMENT TO HIS KNOWLEDGE. CM INFORMED MOLDING PLASTERER OF PT'S PENDING PSYCHIATRIC CARE PLACEMENT AFTER OBSERVING A SIGNED CONSENT FOR RELEASE OF MEDICAL INFORMATION TO MR. CHRISTIANSEN IN CHART. CM INFORMED PT IN ROOM. CM SPOKE TO BEDSIDE NURSE WHO HAD TALKED TO TRANSFER CENTER, PT IS BEING CONSIDERED FOR ADMISSION BY [facility] INPATIENT PSYCHIATRIC CARE; THEY WILL NOT ACCEPT PT IS ON HEPARIN DRIP. BEDSIDE NURSE REPORT THIS HAS BEEN DISCONTINUED TODAY. CM CALLED [facility], , SPOKE TO TYREL WHO INFORMED CM THAT PT WILL NEED TO HAVE NEW LAB WORK IN THE MORNING AND FAX THAT ALONG WITH NURSES NOTE INDICATING WHEN DRIP WAS STOPPED TO TRANSFER CENTER IN THE MORNING, 07-30-18 AND THEY WILL RETRY FOR INPATIENT PSYCHIATRIC ADMISSION. BEDSIDE NURSE AND PT NOTIFIED. All Howard, CASE MANAGEMENT DCP- Discharge Planning Updated by [id number]: Susan Richardson on 10/16/18 3:[address] CM trying to find out if patient has insurance or if it has termed. [employer] is working on trying to figure this information out. Patient is going to need psych placement once medically stable. Patient is most likely going to need dialysis and psych at a facility. CM has notified Jodee Sepulveda that patient will need outpatient dialysis setup. Jodee informed CM that the only facility that will accept dialysis/ psych patient is [facility]. CM will continue to follow and assist as needed with discharge planning / needs. DCP- Discharge Planning Updated by [id number]: Susan Richardson on 10/13/18 2:[address] Patient Name: ERNESTINA SIMS Admission Status: ER Accout number: [id number] Admission Date: 10-12-2018 : 1980 Admission Diagnosis: Attending: VAMSHI LARA Current LOS: 1 Anticipated DC Date: Planned Disposition: Psych facility Primary Insurance: UNINSURED DISCOUNT PLAN Discharge Planning Comments: CM met with patient at bedside after explaining CM role and obtaining verbal consent. Patient lives at home with two roommates and plans to return there upon discharge. Patient is currently having dialysis this is her second treatment thus far. Pysch consult once medically stable. Psych evaluation will determine discharge plan. CM will continue to follow and assist as needed with discharge planning / needs. Evening Sitter: Susan Richardson DCPIA - Discharge Planning Initial Assessment Updated by [id number]: Susan Richardson on 10/13/18 3:36 pm * Is the patient Alert and Oriented? Yes * How many steps to enter\\exit or inside your home? * PCP NO PCP * Pharmacy NO PHARMACY - CURRENTLY ? [facility] * Preadmission Environment Home with Family * ADLs Independent * Equipment None * List name and contact numbers for known caregivers / representatives who currently or will assist patient after discharge: OLVIN [facility]- [phone] * Verbal permission to speak to the caregivers and representatives has been obtained from the patient. N/A * Community resources currently utilized None * Additional services required to return to the preadmission environment? No * Can the patient safely return to the preadmission environment? Yes * Has this patient been hospitalized within the prior 30 days at any hospital? No Last DP export: 11/09/18 4:03 p Patient Name: ERNESTINA SIMS Page 85011 at 1719 All edits/amendments must be made on the electronic document DICTATION DATE: 11/09/181718 OCEAN LIFEGUARD SPECIALIST: DIRK 11/09/181718 RPT#: [id number] DC DATE: STATUS: ADM IN [facility] [address] [place] [address] END OF REPORT
[2018-11-09 20:00] VITALS: BP 101/64
--- NOTE | 2018-11-09 20:00 | NUR ---
ALERT REATIGN IN BED DENIES NEEDS AT THIS TIME, SEE SHIFT ASSESSMENT, CALL LIGHT IN REACH SITTER AT BEDSIDE
[2018-11-10 04:00] VITALS: BP 101/57
--- NOTE | 2018-11-10 08:53 | MORECARE ---
CASE MANAGEMENT DISCHARGE SUMMARY PATIENT: ERNESTINA SIMS UNIT: [id number] ADM DATE: 10/12/18 AGE: 38 : [birth year] SEX: F ROOM/BED: D.8410 AUTHOR: PETER,DOC PHYSICIAN: REFERRING PHYSICIAN: VAMSHI LARA MD DATE OF SERVICE: 11/10/18 Discharge Plan Patient Name: ERNESTINA SIMS Facility: [facility]:[place] : 1980 Planned Disposition: Psych facility Anticipated Discharge Date: 11/03/18 Discharge Date: Expected LOS: 22 Initial Reviewer: [id number] Initial Review Date: 10/13/2018 Generated: 11/10/18 9:53 am Comments DCP- Discharge Planning Updated by [id number]: All Howard on 11/10/18 7:[address] Patient Name: ERNESTINA SIMS Encounter No: [id number] : 1980 Primary Insurance: MEDICAID [place] Anticipated DC Date: 11-03-2018 Planned Disposition: Psych facility External Planned Provider: [facility] DCP follow-up note: CM SPOKE TO UNIT NURSE AIR CONDITIONING ENGINEER MEL WHO HAS RECEIVED CALL FROM TRANSFER CENTER REQUESTING DOCTOR PROGRESS NOTES FOR THREE DAYS AND VITALS FOR THE LAST 48 HOURS. CM FAXED REQUESTED INFORMATION WELL TODAYS MEDICATION LISTING TO TRANSFER CENTER AT [phone]. CM CALLED AND SPOKE TO HORACE OF [facility], , WHO INFORMED CM THAT THEY DID NOT RECEIVE FAX LAST EVENING. CM FAXED REFERRAL FOR [facility] INPATIENT [facility]ILITIES IN [facility] TO [phone]. CM RECEIVED CALL FROM [facility], ; HE HAS DISCUSSED REFERRAL WITH UTILITY HELICOPTER REPAIRER OF FACILITY, PT IS NOT APPROPRIATE FOR THE FACILITY. CM WAITING ADMISSION DETERMINATIONS FROM [facility] IN [facility]. CM ALSO WAITING RESULTS FROM [facility] WHO CONTINUES SEEKING PLACEMENT FOR INPATIENT PSYCHIATRIC STABALIZATION. All Howard, CASE MANAGEMENT DCP- Discharge Planning Updated by [id number]: All Howard on 11/09/18 4:[address] Patient Name: ERNESTINA SIMS Encounter No: [id number] : 1980 Primary Insurance: MEDICAID [place]END[place] Anticipated DC Date: 11-03-2018 Planned Disposition: Psych facility External Planned Provider: [facility] DCP follow-up note: CM CALLED [facility], , SPOKE TO BREEZY AND PROVIDED REFERRAL INFORMATION. CM WAS IN PROCESS OF FAXING REFERRAL FOR CONSIDERATION AND RECEIVED CALL FROM BREEZY WHO INFORMED CM THAT SHE CHECKED WITH THE "FLOOR" AND WAS ADVISED THEY COULD NOT MEET PT'S NEEDS. CM CALLED AND SPOKE TO HORACE OF [facility], , WHO INFORMED CM THAT THEY DO NOT KEEP REFERRALS WHEN DECLINED AND STATES THAT CM CAN FAX ANOTHER REFERRAL TO THEM FOR CONSIDERATION. CM FAXED REFERRAL FOR [facility]ILITIES IN [place] AND [place] TO [phone]. CM RECEIVED CALL FROM [place] [facility], CM EXPLAINED PROBLEM WITH PLACEMENT. [place] FIRST SUGGESTED PARTIAL HOSPITALIZATION AT [facility] WHERE PT WOULD GO FRIDAY THRU FRIDAY, 9AM TO 3:30PM AND GO HOME AT NIGHT. CM EXPLAINED THIS WOULD NOT BE APPROPRIATE. [place] SUGGESTED CM CALL [facility]. CM CALLED AND SPOKE TO SUE OF [facility], ; SUE ADVISED THAT PT WOULD HAVE TO BE VOLUNTARY AND THAT THE FACILITY IS NOT LOCKED AND PT CAN LEAVE AT ANY TIME. CM FAXED REFERRAL TO [facility] AT [phone]. CM WAITING ADMISSION DETERMINATIONS FROM [facility] IN [place] [facility]IZ[facility]. CM ALSO WAITING RESULTS FROM [facility] WHO CONTINUES SEEKING PLACEMENT FOR INPATIENT PSYCHIATRIC STABALIZATION. All Howard, CASE MANAGEMENT DCP- Discharge Planning Updated by [id number]: Ronel Ross on 11/09/18 1:[address] PER TRANSFER CENTER DOCUMENTATION, THIS IS THE FOLLOWING CONTACTS AND OUTCOMES: 1. [facility]: DENIED ON 10/30 AND 11/02 2. [facility]: DENIED 10/1968, NO REASON GIVEN 3. [facility]: 10/29 DENIED STATING COULD NOT MEET NEEDS 4. [facility]: DENIED 10/30 WITH NO REASON GIVEN 5. [facility]: DENIED, WITH FINAL DENIAL ON 11/05 AFTER WE MET ALL THEIR REQUEST FOR THE PATIENT STATING SHE IS TOO SICK 6. [facility]: DENIED FOR NO INSURANCE ON 10/30 & 11/05 7. [facility]: NO ANSWER AFTER REFERRAL SENT 8. [facility]: 10/30 DENIED, CAN'T MEET NEEDS 9. [facility]: 11/01 HAD NO BEDS 10. [facility]: DENIED 10/31 FOR NO INSURANCE 11. [facility]: 10/31 DENIED STATING NEEDS MEDICAL PSYCH 12. [facility]: 10/31 DENIED SECONDARY TO HD (WHICH ENDED 10/25) 13. [facility]: 10/30 & 11/05 DENIED BECAUSE NO INSURANCE 14. [facility]: IS CONSIDERING THE PATIENT 15. [facility]: 11/01 DENIED, NO REASON GIVEN 16. [facility]: 11/05 DENIED, STATED NOT A GOOD FIT FOR THEM 17. [facility]: NO BEDS, KEEP CALLING BACK 18. [facility] : DENIED BECAUSE OF HD ON 11/08 (AGAIN, NO LONGER ON HD) 19. [facility]: HAS NOT ANSWERED ANY ATTEMPT THE TRANSFER CENTER HAS MADE TO CALL. CÉSAR AND I WILL CALL THE ABOVE, WE HAVE TIME,, AND SEE IF THEY WILL CHANGE THEIR MIND. DCP- Discharge Planning Updated by [id number]: Ronel Ross on 11/09/18 10:41 am SOFIA LEAL, DIGITAL LEARNING PLATFORMS MANAGER STATED THAT SHE TALKED WITH AAYUSH, DIGITAL LEARNING PLATFORMS MANAGER OF [facility], AND SHE RECOMMENDED THAT WE BYPASS THE TRANSFER CENTER AND START CALLING ALL THE PSYCH FACILITIES OURSELVES BECAUSE SHE KNEW FOR A FACT THAT THEY WERE PLACING PATIENT OUT OF THE ER THIS WEEKEND. I CALLED AND SPOKE WITH AAYUSH, EXPLAINED THAT THERE WAS A DIFFERENCE PLACING PATIENTS FROM THE ER AND ON THE FLOOR. SHE STATED THAT SHE KNEW THIS. SHE ALSO STATED THAT SHE KNEW THE TRANSFER CENTER PUTS THE PSYCH PATIENTS ON THE BACK BURNER AND DOESN'T TRY HARD. SHE RECOMMENDED THAT WE CALL AROUND TO THE PSYCH FACILITIES IN [place] OURSELF. I EXPLAINED THAT I GUESS I WOULD STOP TENDING TO THE PATIENTS ON THE FLOOR AND CALL AROUND AND DO WHAT THE TRANSFER CENTER IS DOING. SHE STATED THAT I DIDN'T NEED TO DO THAT, JUST SEND A PACKET OUT TO MULTIPLE PLACES AND GIVE THEM A CHANCE TO REFER THE PACKET BEFORE I CALL THEM TO TALK TO THEM. I EXPLAINED I WOULD SEE WHAT I COULD DO. I CALLED AND SPOKE WITH TYREL AT THE TRANSFER CENTER @ 0908. EXPLAINED THE SITUTATION TO HIM AND THE OPINION OF THE TRANSACTION MANAGER FROM OUR PSYCH DEPARTMENT. HE HAS ASSURED ME THAT THEY ARE DOING ALL THEY CAN, AND HE HAS EVEN FAXED ME THE RUNNING LOG OF ALL CONTACTS MADE IN REGARDS TO TRANSFER WITH THE REASON OF REFUSAL TO TAKE (8 PAGES TYPED), AND I HAVE SCANNED IT INTO [employer]. TIME PERMITS, CÉSAR AND I WILL CALL AROUND TO OTHER FACILITIES ABOUT POSSIBLE TRANSFER. DCP- Discharge Planning Updated by [id number]: All Howard on 11/09/18 7:[address] Patient Name: ERNESTINA SIMS Encounter No: [id number] : 1980 Primary Insurance: MEDICAID [place] PEND[place] Anticipated DC Date: 11-03-2018 Planned Disposition: Psych facility External Planned Provider: [facility] ACCE[facility] DCP follow-up note: CM FAXED UPDATE TO TRANSFER CENTER REQUESTING INPATIENT PSYCHIATRIC PLACEMENT. PT'S ROOM SERVICE SUPERVISOR HAS NOT RETURNED TELPHONE MESSAGE FROM FRIDAY. CM WAITING PSYCHIATRIC INPATIENT BED AVAILABLITY AND ACCEPTANCE FROM ANY FACILITY STATE[facility]. All Howard, CASE MANAGEMENT DCP- Discharge Planning Updated by [id number]: Lashay Griffith on 11/07/18 3:[address] EASY ADMIT TRANSFER CENTER CALLED. THE HAULAGE ENGINE OPERATOR TOOK THE CALL. NO AVAILABLE BED AT THIS TIME. DCP- Discharge Planning Updated by [id number]: All Howard on 11/06/18 8:[address] Patient Name: ERNESTINA SIMS Encounter No: [id number] : 1980 Primary Insurance: MEDICAID [place]END[place] Anticipated DC Date: 11-03-2018 Planned Disposition: Psych facility External Planned Provider: TO BE DETERMINED DCP follow-up note: CM CALLED PT'S ROOM SERVICE SUPERVISOR, ALEXANDER CHRISTIANSEN, , LEFT DETAILED MESSAGE REGARDING BEING UNSUCCESSFUL IN PLACING PT INTO INPATIENT PSYCHIATRIC FACIILITY IN THE [place]IRE [place]. CM ALSO EXPLAINED THAT PT NOW REPORTING NO SUICIDAL IDEATION AND WANTS TO DISCHARGE TO COMMUNITY FOR OUTPATIENT MENTAL HEALTH FOLLOWUP. CM ADVISED THAT THE DOCTOR IS RECONSULTING PSYCHIATRISTS FOR RECOMMENDATIONS. CM TO CONTINUE TO FOLLOW AND ASSIST NEEDED. RAJEEV Deluca DCP- Discharge Planning Updated by [id number]: All Howard on 11/04/18 4:[address] Patient Name: ERNESTINA SIMS Encounter No: [id number] : 1980 Primary Insurance: MEDICAID [place] PEND[place] Anticipated DC Date: 11-03-2018 Planned Disposition: Psych facility External Planned Provider:[facility] DCP follow-up note: CM SPOKE TO ERNESTINE OF THE TRANSFER [place], , WHO INFORMED CM THAT PT HAS BEEN DECLINED BY 16 FACILITIES IN THE [facility], SOME OF WHICH DECLINED DUE TO NO FUNDING SOURCE. ERNESTINE WILL CONTINUE TO TRY PLACEMENT AND ASKED CM TO NOTIFY [facility] IF ANY FUNDING SOURCE CAN BE LOCATED. CM CALLED [facility], , SPOKE TO [place] CHA AND REQEUSTED INDIGENT CONTACT FOR INPATIENT PSYCHIATRIC CARE. [place] REQUESTED REFERRAL VIA EMAIL. CM EMAILED REFERRAL FOR INDIGENT FUNDING REQUEST TO "[email or web address]". [place] WILL RESPOND VIA EMAIL. CM WAITING TO DETERMINE IF INDIGENT FUNDING CAN BE OBTAINED FOR INPATIENT PSYCHIATRIC CARE FROM [facility]. All Howard, CASE MANAGEMENT Appended by All Howard on 11/04/2018 15:20 CDT: CM RECEIVED EMAIL CONFIRMATION OF INITIAL 3 DAY APPROVAL FOR INDIGENT INPATIENT PSYCHIATRIC CONTACT. CM CALLED [facility], , NOTIFIED ERNESTINE WHO WILL UPDATE PACKET AND CONTINUE SEEKING INPATIENT PSYCHIATRIC CARE FOR PT. CM FAXED COPY OF EMAIL TO ERNESTINE AT [facility]. CM CONTINUES TO AWAIT ACCEPTANCE AT ANY INPATIENT PSYCHIATRIC FACILITY IN [place]. RAJEEV DELUCA DCP- Discharge Planning Updated by [id number]: All Howard on 11/03/18 7:[address] Patient Name: ERNESTINA SIMS Encounter No: [id number] : 1980 Primary Insurance: MEDICAID [place] PEND[place] Anticipated DC Date: 11-03-2018 Planned Disposition: Psych facility External Planned Provider: [facility] DCP follow-up note: CM FAXED HOSPITAL UPDATE TO TRANSFER CENTER AT [phone]. CM CONTINUES TO WAIT INPATIENT PSYCHIATRIC FACILITY ACCEPTANCE. RAJEEV Deluca MANAGEMENT DCP- Discharge Planning Updated by [id number]: All Howard on 11/02/18 8:[address] Patient Name: ERNESTINA SIMS Encounter No: [id number] : 1980 Primary Insurance: MEDICAID [place]END[place] Anticipated DC Date: 11-02-2018 Planned Disposition: Psych facility External Planned Provider: [facility] DCP follow-up note: CM FAXED HOSPITAL UPDATE TO TRANSFER CENTER AT [phone]. CM CONTINUES TO WAIT INPATIENT PSYCHIATRIC FACILITY ACCEPTANCE. RAJEEV Deluca DCP- Discharge Planning Updated by [id number]: Lashay Griffith on 10/31/18 11:[address] CM TELEPHONED EASY ADMIT. SPOKE W/ DANIELLE. VERBAL UPDATE GIVEN, CM ALSO FAXED UPDATED MED LIST, OXYGEN NOTE, PROGRESS NOTE FOR TODAY AND DISCHARGE SUMMARY. NURSE REPORTED MULTIPLE CALLS ON FRIDAY REGARDING PROGRESS AND DENIALS. AWAIT CALL BACK WITH ACCEPTANCE WHEN PSYCH BED IS AVAILABLE. DCP- Discharge Planning Updated by [id number]: All Howard on 10/30/18 2:[address] Patient Name: ERNESTINA SIMS Encounter No: [id number] : 1980 Primary Insurance: MEDICAID [place] PEND[place] Anticipated DC Date: 10-29-2018 Planned Disposition: Psych facility External Planned Provider: [facility] OR FIRST ACCEPTING INPATIENT PSYCHIATRIC FACILITY DCP follow-up note: TRANSFER CENTER INFORMED BEDSIDE NURSE THAT PT WILL NEED TO BE OFF ALL OXYGEN AND UPDRAFT TREATMENTS FOR 24 HOURS FOR THEM TO ATTEMPT PLACEMENT IN INPATIENT PSYCHIATRIC CARE. TRANSFER CENTER TO CONTINUE ATTEMPTING PLACMENT TOMORROW, 10-31-18. All Howard CASE ADE DCP- Discharge Planning Updated by [id number]: All Howard on 10/30/18 6:[address] Patient Name: ERNESTINA SIMS Encounter No: [id number] : 1980 Primary Insurance: MEDICAID [place] Anticipated DC Date: 10-29-2018 Planned Disposition: Psych facility External Planned Provider: [facility] DCP follow-up note: CM FAXED NEW COAGULATION LAB RESULTS ALONG WITH NURSES NOTE INDICATING WHEN DRIP WAS STOPPED TO TRANSFER CENTER. 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 BONE DRIER OPERATOR NURSE. All Howard, CASE MANAGEMENT DCP- Discharge Planning Updated by [id number]: All Howard on 10/29/18 3:[address] Patient Name: ERNESTINA SIMS Encounter No: [id number] : 1980 Primary Insurance: MEDICAID [place] Anticipated DC Date: 10-29-2018 Planned Disposition: Psych facility External Planned Provider: [facility] follow-up note: CM SPOKE TO MOISES SANON, PT IS STABLE FOR DISCHARGE TO INPATIENT PSYCHIATRIC CARE TODAY. CM SPOKE TO PT IN ROOM WHO IS WILLING FOR INPATIENT PSYCHATIRIC CARE. PT ASKED FOR CM TO FIND OUT WHO TOWED HER CAR FROM THE HOSPTIAL PARKING LOT. CM REFERRED PT TO [facility], [phone]. CM CALLED [facility] IN HOSPITAL ADMINSTRATION, WAS ADVISED THE HOSPITAL HAS NOT HAD ANY VEHICLES TOWED OFF LOT. CM CALLED [facility] POLICE WHO REPORTED THEY DID NOT TOW PT'S VEHICLE. CM CALLED PT'S ROOM SERVICE SUPERVISOR, ALEXANDER CHRISTIANSEN, , WHO ADVISED THAT THE CAR WAS REPOSSESSED DUE TO NON PAYMENT TO HIS KNOWLEDGE. CM INFORMED ROOM SERVICE SUPERVISOR OF PT'S PENDING PSYCHIATRIC CARE PLACEMENT AFTER OBSERVING A SIGNED CONSENT FOR RELEASE OF MEDICAL INFORMATION TO MR. CHRISTIANSEN IN CHART. CM INFORMED PT IN ROOM. CM SPOKE TO BEDSIDE NURSE WHO HAD TALKED TO TRANSFER CENTER, PT IS BEING CONSIDERED FOR ADMISSION BY [facility] INPATIENT PSYCHIATRIC CARE; THEY WILL NOT ACCEPT PT IS ON HEPARIN DRIP. BEDSIDE NURSE REPORT THIS HAS BEEN DISCONTINUED TODAY. CM CALLED [facility], , SPOKE TO TYREL WHO INFORMED CM THAT PT WILL NEED TO HAVE NEW LAB WORK IN THE MORNING AND FAX THAT ALONG WITH NURSES NOTE INDICATING WHEN DRIP WAS STOPPED TO TRANSFER CENTER IN THE MORNING, 07-30-18 AND THEY WILL RETRY FOR INPATIENT PSYCHIATRIC ADMISSION. BEDSIDE NURSE AND PT NOTIFIED. All Howard, CASE MANAGEMENT DCP- Discharge Planning Updated by [id number]: Susan Richardson on 10/16/18 3:[address] CM trying to find out if patient has insurance or if it has termed. Med-data is working on trying to figure this information out. Patient is going to need psych placement once medically stable. Patient is most likely going to need dialysis and psych at a facility. CM has notified Jodee Sepulveda that patient will need outpatient dialysis setup. Jodee informed CM that the only facility that will accept dialysis/ psych patient is [facility]. CM will continue to follow and assist as needed with discharge planning / needs. DCP- Discharge Planning Updated by [id number]: Susan Richardson on 10/13/18 2:[address] Patient Name: ERNESTINA SIMS Admission Status: ER Accout number: [id number] Admission Date: 10-12-2018 : 1980 Admission Diagnosis: Attending: VAMSHI LARA Current LOS: 1 Anticipated DC Date: Planned Disposition: Psych facility Primary Insurance: UNINSURED DISCOUNT PLAN Discharge Planning Comments: CM met with patient at bedside after explaining CM role and obtaining verbal consent. Patient lives at home with two roommates and plans to return there upon discharge. Patient is currently having dialysis this is her second treatment thus far. Pysch consult once medically stable. Psych evaluation will determine discharge plan. CM will continue to follow and assist as needed with discharge planning / needs. Director Of Epidemiology: Susan Richardson DCPIA - Discharge Planning Initial Assessment Updated by [id number]: Susan Richardson on 10/13/18 3:36 pm * Is the patient Alert and Oriented? Yes * How many steps to enter\\exit or inside your home? * PCP NO PCP * Pharmacy NO PHARMACY - CURRENTLY ? [facility] * Preadmission Environment Home with Family * ADLs Independent * Equipment None * List name and contact numbers for known caregivers / representatives who currently or will assist patient after discharge: OLVIN LIU - [facility]- [phone] * Verbal permission to speak to the caregivers and representatives has been obtained from the patient. N/A * Community resources currently utilized None * Additional services required to return to the preadmission environment? No * Can the patient safely return to the preadmission environment? Yes * Has this patient been hospitalized within the prior 30 days at any hospital? No Last DP export: 11/09/18 4:19 p Patient Name: ERNESTINA SIMS Page [id number] at 0853 All edits/amendments must be made on the electronic document DICTATION DATE: 11/10/18852 AUTO HEADLIGHT MECHANIC: DIRK 11/10/18852 RPT#: [id number] DC DATE: STATUS: ADM IN [facility] [address] [place] [address] END OF REPORT
[2018-11-10 09:29] VITALS: BP 104/62
--- NOTE | 2018-11-10 09:47 | MORECARE ---
CASE MANAGEMENT DISCHARGE SUMMARY PATIENT: ERNESTINA SIMS UNIT: [id number] ADM DATE: 10/12/18 AGE: 38 : 76 SEX: F ROOM/BED: D.5390 AUTHOR: PETER,DOC PHYSICIAN: REFERRING PHYSICIAN: VAMSHI LARA MD DATE OF SERVICE: 11/10/18 Discharge Plan Patient Name: ERNESTINA SIMS Facility: [facility] : 1980 Planned Disposition: Psych facility Anticipated Discharge Date: 11/03/18 Discharge Date: Expected LOS: 22 Initial Reviewer: [id number] Initial Review Date: 10/13/2018 Generated: 11/10/18 10:47 am Comments DCP- Discharge Planning Updated by [id number]: All Howard on 11/10/18 7:[address] Patient Name: ERNESTINA SIMS Encounter No: [id number] : 1980 Primary Insurance: MEDICAID [place] PENDING Anticipated DC Date: 11-03-2018 Planned Disposition: Psych facility External Planned Provider: [facility] DCP follow-up note: CM SPOKE TO UNIT NURSE TILE AND MARBLE INSTALLER MEL WHO HAS RECEIVED CALL FROM TRANSFER CENTER REQUESTING DOCTOR PROGRESS NOTES FOR THREE DAYS AND VITALS FOR THE LAST 48 HOURS. CM FAXED REQUESTED INFORMATION WE[facility] TODA[facility] MEDICATION LISTING TO TRANSFER CENTER AT [phone]. CM CALLED AND SPOKE TO HORACE OF [facility] [place], , WHO INFORMED CM THAT THEY DID NOT RECEIVE FAX LAST EVENING. CM FAXED REFERRAL FOR [facility] INPATIENT PSYCH [facility]ILITIES IN [facility] TO [phone]. 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 CM WAITING ADMISSION DETERMINATIONS FROM [facility] [place] IN [facility]. CM ALSO WAITING RESULTS FROM [facility] WHO CONTINUES SEEKING PLACEMENT FOR INPATIENT PSYCHIATRIC STABALIZATION. All Howard, CASE MANAGEMENT DCP- Discharge Planning Updated by [id number]: All Howard on 11/09/18 4:[address] Patient Name: ERNESTINA SIMS Encounter No: [id number] : 1980 Primary Insurance: MEDICAID [place] PENDING Anticipated DC Date: 11-03-2018 Planned Disposition: Psych facility External Planned Provider: [facility] DCP follow-up note: CM CALLED [facility], , SPOKE TO BREEZY AND PROVIDED REFERRAL INFORMATION. CM WAS IN PROCESS OF FAXING REFERRAL FOR CONSIDERATION AND RECEIVED CALL FROM BREEZY WHO INFORMED CM THAT SHE CHECKED WITH THE "FLOOR" AND WAS ADVISED THEY COULD NOT MEET PT'S NEEDS. CM CALLED AND SPOKE TO HORACE OF [facility] [place], , WHO INFORMED CM THAT THEY DO NOT KEEP REFERRALS WHEN DECLINED AND STATES THAT CM CAN FAX ANOTHER REFERRAL TO THEM FOR CONSIDERATION. CM FAXED REFERRAL FOR [facility]ITIES IN [place] TO [phone]. CM RECEIVED CALL FROM [place] [facility] OF [facility], CM EXPLAINED PROBLEM WITH PLACEMENT. [place] FIRST SUGGESTED PARTIAL HOSPITALIZATION AT [facility] WHERE PT WOULD GO FRIDAY THRU FRIDAY, 9AM TO 3:30PM AND GO HOME AT NIGHT. CM EXPLAINED THIS WOULD NOT BE APPROPRIATE. [place] SUGGESTED CM CALL [facility]. CM CALLED AND SPOKE TO SUE OF [facility]IZ[facility], ; SUE ADVISED THAT PT WOULD HAVE TO BE VOLUNTARY AND THAT THE FACILITY IS NOT LOCKED AND PT CAN LEAVE AT ANY TIME. CM FAXED REFERRAL TO PENDING SALE TO [facility] AT [phone]. CM WAITING ADMISSION DETERMINATIONS FROM [facility] [place] IN [place] [facility]. CM ALSO WAITING RESULTS FROM [facility] WHO CONTINUES SEEKING PLACEMENT FOR INPATIENT PSYCHIATRIC STABALIZATION. All Howard, CASE MANAGEMENT DCP- Discharge Planning Updated by [id number]: Ronel Ross on 11/09/18 1:[address] PER TRANSFER CENTER DOCUMENTATION, THIS IS THE FOLLOWING CONTACTS AND OUTCOMES: 1. [facility]: DENIED ON 10/30 AND 11/02 2. [facility]: DENIED 10/1968, NO REASON GIVEN 3. [facility]: 10/29 DENIED STATING COULD NOT MEET NEEDS 4. [facility]: DENIED 10/30 WITH NO REASON GIVEN 5. [facility]: DENIED, WITH FINAL DENIAL ON 11/05 AFTER WE MET ALL THEIR REQUEST FOR THE PATIENT STATING SHE IS TOO SICK 6. [facility]-: DENIED FOR NO INSURANCE ON 10/30 & 11/05 7. [facility]: NO ANSWER AFTER REFERRAL SENT 8. [facility]: 10/30 DENIED, CAN'T MEET NEEDS 9. [facility]: 11/01 HAD NO BEDS 10. [facility]: DENIED 10/31 FOR NO INSURANCE 11. [facility]: 10/31 DENIED STATING NEEDS MEDICAL PSYCH 12. [facility]: 10/31 DENIED SECONDARY TO HD (WHICH ENDED 10/25) 13. [facility]: 10/30 & 11/05 DENIED BECAUSE NO INSURANCE 14. [facility]: IS CONSIDERING THE PATIENT 15. [facility]: 11/01 DENIED, NO REASON GIVEN 16. [facility]: 11/05 DENIED, STATED NOT A GOOD FIT FOR THEM 17. [facility]: NO BEDS, KEEP CALLING BACK 18. [facility]- : DENIED BECAUSE OF HD ON 11/08 (AGAIN, NO LONGER ON HD) 19. [facility]: HAS NOT ANSWERED ANY ATTEMPT THE TRANSFER CENTER HAS MADE TO CALL. CÉSAR AND I WILL CALL THE ABOVE, WE HAVE TIME,, AND SEE IF THEY WILL CHANGE THEIR MIND. DCP- Discharge Planning Updated by [id number]: Ronel Ross on 11/09/18 10:41 am SOFIA LEAL, BASKET BRAIDER STATED THAT SHE TALKED WITH AAYUSH, BASKET BRAIDER OF [facility], AND SHE RECOMMENDED THAT WE BYPASS THE TRANSFER CENTER AND START CALLING ALL THE PSYCH FACILITIES OURSELVES BECAUSE SHE KNEW FOR A FACT THAT THEY WERE PLACING PATIENT OUT OF THE ER THIS WEEKEND. I CALLED AND SPOKE WITH AAYUSH, EXPLAINED THAT THERE WAS A DIFFERENCE PLACING PATIENTS FROM THE ER AND ON THE FLOOR. SHE STATED THAT SHE KNEW THIS. SHE ALSO STATED THAT SHE KNEW THE TRANSFER CENTER PUTS THE PSYCH PATIENTS ON THE BACK BURNER AND DOESN'T TRY HARD. SHE RECOMMENDED THAT WE CALL AROUND TO THE PSYCH FACILITIES IN [place] OURSELF. I EXPLAINED THAT I GUESS I WOULD STOP TENDING TO THE PATIENTS ON THE FLOOR AND CALL AROUND AND DO WHAT THE TRANSFER CENTER IS DOING. SHE STATED THAT I DIDN'T NEED TO DO THAT, JUST SEND A PACKET OUT TO MULTIPLE PLACES AND GIVE THEM A CHANCE TO REFER THE PACKET BEFORE I CALL THEM TO TALK TO THEM. I EXPLAINED I WOULD SEE WHAT I COULD DO. I CALLED AND SPOKE WITH TYREL AT THE TRANSFER CENTER @ 0908. EXPLAINED THE SITUTATION TO HIM AND THE OPINION OF THE GEOLOGY SCIENTIST FROM OUR PSYCH DEPARTMENT. HE HAS ASSURED ME THAT THEY ARE DOING ALL THEY CAN, AND HE HAS EVEN FAXED ME THE RUNNING LOG OF ALL CONTACTS MADE IN REGARDS TO TRANSFER WITH THE REASON OF REFUSAL TO TAKE (8 PAGES TYPED), AND I HAVE SCANNED IT INTO [employer]. TIME PERMITS, CÉSAR AND I WILL CALL AROUND TO OTHER FACILITIES ABOUT POSSIBLE TRANSFER. DCP- Discharge Planning Updated by [id number]: All Howard on 11/09/18 7:[address] Patient Name: ERNESTINA SIMS Encounter No: [id number] : 1980 Primary Insurance: MEDICAID [place] PENDING Anticipated DC Date: 11-03-2018 Planned Disposition: Psych facility External Planned Provider: FIRST ACCEPTING FACILITY DCP follow-up note: CM FAXED UPDATE TO TRANSFER CENTER REQUESTING INPATIENT PSYCHIATRIC PLACEMENT. PT'S SHELVING SUPERVISOR HAS NOT RETURNED TELPHONE MESSAGE FROM FRIDAY. CM WAITING PSYCHIATRIC INPATIENT BED AVAILABLITY AND ACCEPTANCE FROM ANY FACILITY STATEWIDE. All Howard, CASE MANAGEMENT DCP- Discharge Planning Updated by [id number]: Lashay Griffith on 11/07/18 3:[address] EASY ADMIT TRANSFER CENTER CALLED. THE LOOP TACKER TOOK THE CALL. NO AVAILABLE BED AT THIS TIME. DCP- Discharge Planning Updated by [id number]: All Howard on 11/06/18 8:[address] Patient Name: ERNESTINA SIMS Encounter No: [id number] : 1980 Primary Insurance: MEDICAID [place] PENDING Anticipated DC Date: 11-03-2018 Planned Disposition: Psych facility External Planned Provider: TO BE DETERMINED DCP follow-up note: CM CALLED PT'S SHELVING SUPERVISOR, ALEXANDER CHRISTIANSEN, , LEFT DETAILED MESSAGE REGARDING BEING UNSUCCESSFUL IN PLACING PT INTO INPATIENT PSYCHIATRIC FACIILITY IN THE ENTIRE [place]. CM ALSO EXPLAINED THAT PT NOW REPORTING NO SUICIDAL IDEATION AND WANTS TO DISCHARGE TO COMMUNITY FOR OUTPATIENT MENTAL HEALTH FOLLOWUP. CM ADVISED THAT THE DOCTOR IS RECONSULTING PSYCHIATRISTS FOR RECOMMENDATIONS. CM TO CONTINUE TO FOLLOW AND ASSIST NEEDED. RAJEEV Deluca DCP- Discharge Planning Updated by [id number]: All Howard on 11/04/18 4:[address] Patient Name: ERNESTINA SIMS Encounter No: [id number] : 1980 Primary Insurance: MEDICAID [place] PENDING Anticipated DC Date: 11-03-2018 Planned Disposition: Psych facility External Planned Provider:[facility] ACCEPT[facility] DCP follow-up note: CM SPOKE TO ERNESTINE OF THE TRANSFER [facility], , WHO INFORMED CM THAT PT HAS BEEN DECLINED BY 16 FACILITIES IN THE [facility], SOME OF WHICH DECLINED DUE TO NO FUNDING SOURCE. ERNESTINE WILL CONTINUE TO TRY PLACEMENT AND ASKED CM TO NOTIFY [facility] IF ANY FUNDING SOURCE CAN BE LOCATED. CM CALLED [facility], , SPOKE TO [place] CHA AND REQEUSTED INDIGENT CONTACT FOR INPATIENT PSYCHIATRIC CARE. [place] REQUESTED REFERRAL VIA EMAIL. CM EMAILED REFERRAL FOR INDIGENT FUNDING REQUEST TO "[email or web address]". [place] WILL RESPOND VIA EMAIL. CM WAITING TO DETERMINE IF INDIGENT FUNDING CAN BE OBTAINED FOR INPATIENT PSYCHIATRIC CARE FROM [facility]. All Howard, CASE MANAGEMENT Appended by All Howard on 11/04/2018 15:20 CDT: CM RECEIVED EMAIL CONFIRMATION OF INITIAL 3 DAY APPROVAL FOR INDIGENT INPATIENT PSYCHIATRIC CONTACT. CM CALLED [facility], , NOTIFIED ERNESTINE WHO WILL UPDATE PACKET AND CONTINUE SEEKING INPATIENT PSYCHIATRIC CARE FOR PT. CM FAXED COPY OF EMAIL TO ERNESTINE AT [facility]. CM CONTINUES TO AWAIT ACCEPTANCE AT ANY INPATIENT PSYCHIATRIC FACILITY IN [place]. RAJEEV DELUCA DCP- Discharge Planning Updated by [id number]: All Howard on 11/03/18 7:[address] Patient Name: ERNESTINA SIMS Encounter No: [id number] : 1980 Primary Insurance: MEDICAID [place] PENDING Anticipated DC Date: 11-03-2018 Planned Disposition: Psych facility External Planned Provider: [facility]IENT [facility] DCP follow-up note: CM FAXED HOSPITAL UPDATE TO TRANSFER CENTER AT [phone]. CM CONTINUES TO WAIT INPATIENT PSYCHIATRIC FACILITY ACCEPTANCE. RAJEEV Deluca MANAGEMENT DCP- Discharge Planning Updated by [id number]: All Howard on 11/02/18 8:[address] Patient Name: ERNESTINA SIMS Encounter No: [id number] : 1980 Primary Insurance: MEDICAID [place] PENDING Anticipated DC Date: 11-02-2018 Planned Disposition: Psych facility External Planned Provider: [facility] DCP follow-up note: CM FAXED HOSPITAL UPDATE TO TRANSFER CENTER AT [phone]. CM CONTINUES TO WAIT INPATIENT PSYCHIATRIC FACILITY ACCEPTANCE. RAJEEV Deluca DCP- Discharge Planning Updated by [id number]: Lashay Griffith on 10/31/18 11:[address] CM TELEPHONED EASY ADMIT. SPOKE W/ DANIELLE. VERBAL UPDATE GIVEN, CM ALSO FAXED UPDATED MED LIST, OXYGEN NOTE, PROGRESS NOTE FOR TODAY AND DISCHARGE SUMMARY. NURSE REPORTED MULTIPLE CALLS ON FRIDAY REGARDING PROGRESS AND DENIALS. AWAIT CALL BACK WITH ACCEPTANCE WHEN PSYCH BED IS AVAILABLE. DCP- Discharge Planning Updated by [id number]: All Howard on 10/30/18 2:[address] Patient Name: ERNESTINA SIMS Encounter No: [id number] : 1980 Primary Insurance: [place]END[place] Anticipated DC Date: 10-29-2018 Planned Disposition: Psych facility External Planned Provider: [facility] OR FIRST ACCEPTING INPATIENT PSYCHIATRIC FACILITY DCP follow-up note: TRANSFER CENTER INFORMED BEDSIDE NURSE THAT PT WILL NEED TO BE OFF ALL OXYGEN AND UPDRAFT TREATMENTS FOR 24 HOURS FOR THEM TO ATTEMPT PLACEMENT IN INPATIENT PSYCHIATRIC CARE. TRANSFER CENTER TO CONTINUE ATTEMPTING PLACMENT TOMORROW, 10-31-18. All Howard CASE ADE DCP- Discharge Planning Updated by [id number]: All Howard on 10/30/18 6:[address] Patient Name: ERNESTINA SIMS Encounter No: [id number] : 1980 Primary Insurance: MEDICAID [place] PENDING Anticipated DC Date: 10-29-2018 Planned Disposition: Psych facility External Planned Provider: [facility] DCP follow-up note: CM FAXED NEW COAGULATION LAB RESULTS ALONG WITH NURSES NOTE INDICATING WHEN DRIP WAS STOPPED TO TRANSFER CENTER. 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 RAGS LABORER NURSE. All Howard, CASE MANAGEMENT DCP- Discharge Planning Updated by [id number]: All Howard on 10/29/18 3:[address] Patient Name: ERNESTINA SIMS Encounter No: [id number] : 1980 Primary Insurance: MEDICAID [place] PENDING Anticipated DC Date: 10-29-2018 Planned Disposition: Psych facility External Planned Provider: [facility] follow-up note: CM SPOKE TO MOISES SANON, PT IS STABLE FOR DISCHARGE TO INPATIENT PSYCHIATRIC CARE TODAY. CM SPOKE TO PT IN ROOM WHO IS WILLING FOR INPATIENT PSYCHATIRIC CARE. PT ASKED FOR CM TO FIND OUT WHO TOWED HER CAR FROM THE HOSPTIAL PARKING LOT. CM REFERRED PT TO [facility], [phone]. CM CALLED [facility] IN HOSPITAL ADMINSTRATION, WAS ADVISED THE HOSPITAL HAS NOT HAD ANY VEHICLES TOWED OFF LOT. CM CALLED [facility] WHO REPORTED THEY DID NOT TOW PT'S VEHICLE. CM CALLED PT'S SHELVING SUPERVISOR, ALEXANDER CHRISTIANSEN, , WHO ADVISED THAT THE CAR WAS REPOSSESSED DUE TO NON PAYMENT TO HIS KNOWLEDGE. CM INFORMED SHELVING SUPERVISOR OF PT'S PENDING PSYCHIATRIC CARE PLACEMENT AFTER OBSERVING A SIGNED CONSENT FOR RELEASE OF MEDICAL INFORMATION TO MR. CHRISTIANSEN IN CHART. CM INFORMED PT IN ROOM. CM SPOKE TO BEDSIDE NURSE WHO HAD TALKED TO TRANSFER CENTER, PT IS BEING CONSIDERED FOR ADMISSION BY [facility] INPATIENT PSYCHIATRIC CARE; THEY WILL NOT ACCEPT PT IS ON HEPARIN DRIP. BEDSIDE NURSE REPORT THIS HAS BEEN DISCONTINUED TODAY. CM CALLED [facility], , SPOKE TO TYREL WHO INFORMED CM THAT PT WILL NEED TO HAVE NEW LAB WORK IN THE MORNING AND FAX THAT ALONG WITH NURSES NOTE INDICATING WHEN DRIP WAS STOPPED TO TRANSFER CENTER IN THE MORNING, 07-30-18 AND THEY WILL RETRY FOR INPATIENT PSYCHIATRIC ADMISSION. BEDSIDE NURSE AND PT NOTIFIED. All Howard, CASE MANAGEMENT DCP- Discharge Planning Updated by [id number]: Susan Richardson on 10/16/18 3:[address] CM trying to find out if patient has insurance or if it has termed. Med-data is working on trying to figure this information out. Patient is going to need psych placement once medically stable. Patient is most likely going to need dialysis and psych at a facility. CM has notified Jodee Sepulveda that patient will need outpatient dialysis setup. Jodee informed CM that the only facility that will accept dialysis/ psych patient is [facility]. CM will continue to follow and assist as needed with discharge planning / needs. DCP- Discharge Planning Updated by [id number]: Susan Richardson on 10/13/18 2:[address] Patient Name: ERNESTINA SIMS Admission Status: ER Accout number: [id number] Admission Date: 10-12-2018 : 1980 Admission Diagnosis: Attending: VAMSHI LARA Current LOS: 1 Anticipated DC Date: Planned Disposition: Psych facility Primary Insurance: UNINSURED DISCOUNT PLAN Discharge Planning Comments: CM met with patient at bedside after explaining CM role and obtaining verbal consent. Patient lives at home with two roommates and plans to return there upon discharge. Patient is currently having dialysis this is her second treatment thus far. Pysch consult once medically stable. Psych evaluation will determine discharge plan. CM will continue to follow and assist as needed with discharge planning / needs. Key Account Director: Susan Richardson DCPIA - Discharge Planning Initial Assessment Updated by [id number]: Susan Richardson on 10/13/18 3:36 pm * Is the patient Alert and Oriented? Yes * How many steps to enter\\exit or inside your home? * PCP NO PCP * Pharmacy NO PHARMACY - CURRENTLY ? [facility] * Preadmission Environment Home with Family * ADLs Independent * Equipment None * List name and contact numbers for known caregivers / representatives who currently or will assist patient after discharge: [facility]- [phone] * Verbal permission to speak to the caregivers and representatives has been obtained from the patient. N/A * Community resources currently utilized None * Additional services required to return to the preadmission environment? No * Can the patient safely return to the preadmission environment? Yes * Has this patient been hospitalized within the prior 30 days at any hospital? No Last DP export: 11/10/18 7:53 a Patient Name: ERNESTINA SIMS Page [id number] at 0947 All edits/amendments must be made on the electronic document DICTATION DATE: 11/10/18945 AIRCRAFT HYDRAULIC EQUIPMENT MECHANIC: IDRK 11/10/18945 RPT#: [id number] DC DATE: STATUS: ADM [facility] [address] [place] [address] END OF REPORT
--- NOTE | 2018-11-10 10:00 | MORECARE ---
CASE MANAGEMENT DISCHARGE SUMMARY PATIENT: ERNESTINA SIMS UNIT: [id number] ADM DATE: 10/12/18 AGE: 38 : [birth year] SEX: F ROOM/BED: D.0400 AUTHOR: PETER,DOC PHYSICIAN: REFERRING PHYSICIAN: VAMSHI LARA MD DATE OF SERVICE: 11/10/18 Discharge Plan Patient Name: ERNESTINA SIMS Facility: [facility]:[place] : 1980 Planned Disposition: Psych facility Anticipated Discharge Date: 11/03/18 Discharge Date: Expected LOS: 22 Initial Reviewer: [id number] Initial Review Date: 10/13/2018 Generated: 11/10/18 11:00 am Comments DCP- Discharge Planning Updated by [id number]: All Howard on 11/10/18 8:[address] Patient Name: ERNESTINA SIMS Encounter No: [id number] : 1980 Primary Insurance: MEDICAID [place] PEND[place] Anticipated DC Date: 11-03-2018 Planned Disposition: Psych facility External Planned Provider: [facility] DCP follow-up note: CM SPOKE TO UNIT NURSE CUSTOMER SUPPORT PROFESSIONAL MEL WHO HAS RECEIVED CALL FROM TRANSFER CENTER REQUESTING DOCTOR PROGRESS NOTES FOR THREE DAYS AND VITALS FOR THE LAST 48 HOURS. CM FAXED REQUESTED INFORMATION [facility] MEDICATION LISTING TO TRANSFER CENTER AT [phone]. CM CALLED AND SPOKE TO HORACE OF [facility] INTAKE, , WHO INFORMED CM THAT THEY DID NOT RECEIVE FAX LAST EVENING. CM FAXED REFERRAL FOR [facility] INPATIENT PSYCH FACILITIES IN [facility] TO [phone]. CM RECEIVED CALL FROM [facility], ; HE HAS DISCUSSED REFERRAL WITH BINDERY CHIEF OF FACILITY, PT IS NOT APPROPRIATE FOR THE FACILITY. CM WAITING ADMISSION DETERMINATIONS FROM [facility] IN [facility]. CM ALSO WAITING RESULTS FROM [facility] WHO CONTINUES SEEKING PLACEMENT FOR INPATIENT PSYCHIATRIC STABALIZATION. All Howard, CASE MANAGEMENT Appended by All Howard on 11/10/2018 9:58 CDT: CM CALLED PT'S DINING SERVICE WORKER, ALEXANDER CHRISTIANSEN, ; CM SPOKE TO OFFICE STEPHAN WHO ADVISED THAT ALEXANDER IS OUT UNTIL FRIDAY OF THIS WEEK. CM EXPLAINED PLACEMENT ISSUE FOR PATIENT. OFFICER ROBERT ADVISED THEY WOULD UTILIZE THE SAME RESOURCES FOR PLACEMENT. CM ASKED IF THERE WERE ANY OTHER OPTIONS AVAILABLE THROUGH [facility] OR IF THERE IS A [facility] HOLD OR VIOLATION. OFFICER STEPHAN REVIEWED [facility] FILE AND INFORMED CM THAT THERE IS NO HOLD DOCUMENTED AT THIS TIME AND THAT THERE IS NO DOCUMENTATION OF VIOLATION; OFFICER KULDIP HAS DOCUMENTED AN EXCEPTION FOR PT'S OFFICE REPORTING VISITS PT IS IN THE HOSPITAL. OFFICER KULDIP ALSO NOTED IN HIS FILE THAT [facility] MAY HAVE RESOURCES TO ASSIST. CM ASKED IF THERE IS ANY RESOURCE FOR PT TO BE PLACED THROUGH [facility], AGAIN, OFFICER STEPHAN REPORTS SHE WOULD USE THE SAME PSYCHIATRIC FACILITIES AVAILABLE TO THE COMMUNITY. CM WAITING ADMISSION DETERMINATIONS FROM [facility] IN [facility]. CM ALSO WAITING RESULTS FROM [facility] WHO CONTINUES SEEKING PLACEMENT FOR INPATIENT PSYCHIATRIC STABALIZATION. All Howard, CASE MANAGEMENT DCP- Discharge Planning Updated by [id number]: All Howard on 11/09/18 4:[address] Patient Name: ERNESTINA SIMS Encounter No: [id number] : 1980 Primary Insurance: MEDICAID [place] Anticipated DC Date: 11-03-2018 Planned Disposition: Psych facility External Planned Provider: [facility] ACC[facility]PT[facility] DCP follow-up note: CM CALLED [facility], , SPOKE TO BREEZY AND PROVIDED REFERRAL INFORMATION. CM WAS IN PROCESS OF FAXING REFERRAL FOR CONSIDERATION AND RECEIVED CALL FROM BREEZY WHO INFORMED CM THAT SHE CHECKED WITH THE "FLOOR" AND WAS ADVISED THEY COULD NOT MEET PT'S NEEDS. CM CALLED AND SPOKE TO HORACE OF [facility] INTAKE, , WHO INFORMED CM THAT THEY DO NOT KEEP REFERRALS WHEN DECLINED AND STATES THAT CM CAN FAX ANOTHER REFERRAL TO THEM FOR CONSIDERATION. CM FAXED REFERRAL FOR [facility] INPATIENT PSYCH FACILITIES IN [facility] TO [phone]. CM RECEIVED CALL FROM [place] [facility] OF [facility], CM EXPLAINED PROBLEM WITH PLACEMENT. [place] FIRST SUGGESTED PARTIAL HOSPITALIZATION AT [facility] WHERE PT WOULD GO FRIDAY THRU FRIDAY, 9AM TO 3:30PM AND GO HOME AT NIGHT. ANJALI EXPLAINED THIS WOULD NOT BE APPROPRIATE. [place] SUGGESTED CM CALL [facility]IZ[facility]. CM CALLED AND SPOKE TO SUE OF [facility], ; SUE ADVISED THAT PT WOULD HAVE TO BE VOLUNTARY AND THAT THE FACILITY IS NOT LOCKED AND PT CAN LEAVE AT ANY TIME. CM FAXED REFERRAL TO SUE AT [phone]. CM WAITING ADMISSION DETERMINATIONS FROM [facility] IN [place] AND [facility] ST[facility]IZATION UN[facility]. CM ALSO WAITING RESULTS FROM [facility] WHO CONTINUES SEEKING PLACEMENT FOR INPATIENT PSYCHIATRIC STABALIZATION. All Howard, CASE MANAGEMENT DCP- Discharge Planning Updated by [id number]: Ronel Ross on 11/09/18 1:[address] PER TRANSFER CENTER DOCUMENTATION, THIS IS THE FOLLOWING CONTACTS AND OUTCOMES: 1. [facility]: DENIED ON 10/30 AND 11/02 2. [facility]: DENIED 10/1968, NO REASON GIVEN 3. [facility]: 10/29 DENIED STATING COULD NOT MEET NEEDS 4. [facility]: DENIED 10/30 WITH NO REASON GIVEN 5. [facility]: DENIED, WITH FINAL DENIAL ON 11/05 AFTER WE MET ALL THEIR REQUEST FOR THE PATIENT STATING SHE IS TOO SICK 6. [facility]-: DENIED FOR NO INSURANCE ON 10/30 & 11/05 7. [facility]: NO ANSWER AFTER REFERRAL SENT 8. [facility]: 10/30 DENIED, CAN'T MEET NEEDS 9. [facility]: 11/01 HAD NO BEDS 10. [facility]: DENIED 10/31 FOR NO INSURANCE 11. [facility]: 10/31 DENIED STATING NEEDS MEDICAL PSYCH 12. [facility]: 10/31 DENIED SECONDARY TO HD (WHICH ENDED 10/25) 13. [facility]: 10/30 & 11/05 DENIED BECAUSE NO INSURANCE 14. [facility]: IS CONSIDERING THE PATIENT 15. [facility]: 11/01 DENIED, NO REASON GIVEN 16. [facility]: 11/05 DENIED, STATED NOT A GOOD FIT FOR THEM 17. [facility]: NO [facility]EDS, KEEP CALLING BACK 18. [facility]: DENIED BECAUSE OF HD ON 11/08 (AGAIN, NO LONGER ON HD) 19. [facility]: HAS NOT ANSWERED ANY ATTEMPT THE TRANSFER CENTER HAS MADE TO CALL. CÉSAR AND I WILL CALL THE ABOVE, WE HAVE TIME,, AND SEE IF THEY WILL CHANGE THEIR MIND. DCP- Discharge Planning Updated by [id number]: Roneldelfino Ross on 11/09/18 10:[address] MEL, PRODUCT MGR STATED THAT SHE TALKED WITH AAYUSH, PRODUCT MGR OF [facility], AND SHE RECOMMENDED THAT WE BYPASS THE TRANSFER CENTER AND START CALLING ALL THE PSYCH FACILITIES OURSELVES BECAUSE SHE KNEW FOR A FACT THAT THEY WERE PLACING PATIENT OUT OF THE ER THIS WEEKEND. I CALLED AND SPOKE WITH AAYUSH, EXPLAINED THAT THERE WAS A DIFFERENCE PLACING PATIENTS FROM THE ER AND ON THE FLOOR. SHE STATED THAT SHE KNEW THIS. SHE ALSO STATED THAT SHE KNEW THE TRANSFER CENTER PUTS THE PSYCH PATIENTS ON THE BACK BURNER AND DOESN'T TRY HARD. SHE RECOMMENDED THAT WE CALL AROUND TO THE PSYCH FACILITIES IN [place] OURSELF. I EXPLAINED THAT I GUESS I WOULD STOP TENDING TO THE PATIENTS ON THE FLOOR AND CALL AROUND AND DO WHAT THE TRANSFER CENTER IS DOING. SHE STATED THAT I DIDN'T NEED TO DO THAT, JUST SEND A PACKET OUT TO MULTIPLE PLACES AND GIVE THEM A CHANCE TO REFER THE PACKET BEFORE I CALL THEM TO TALK TO THEM. I EXPLAINED I WOULD SEE WHAT I COULD DO. I CALLED AND SPOKE WITH TYREL AT THE TRANSFER CENTER @ 0908. EXPLAINED THE SITUTATION TO HIM AND THE OPINION OF THE TOWER CRANE OPERATOR FROM OUR PSYCH DEPARTMENT. HE HAS ASSURED ME THAT THEY ARE DOING ALL THEY CAN, AND HE HAS EVEN FAXED ME THE RUNNING LOG OF ALL CONTACTS MADE IN REGARDS TO TRANSFER WITH THE REASON OF REFUSAL TO TAKE (8 PAGES TYPED), AND I HAVE SCANNED IT INTO [employer]. TIME PERMITS, CÉSAR AND I WILL CALL AROUND TO OTHER FACILITIES ABOUT POSSIBLE TRANSFER. DCP- Discharge Planning Updated by [id number]: All Howard on 11/09/18 7:[address] Patient Name: ERNESTINA SIMS Encounter No: [id number] : 1980 Primary Insurance: MEDICAID [place] Anticipated DC Date: 11-03-2018 Planned Disposition: Psych facility External Planned Provider: [facility] ACCEPTING FACILITY DCP follow-up note: CM FAXED UPDATE TO TRANSFER CENTER REQUESTING INPATIENT PSYCHIATRIC PLACEMENT. PT'S DINING SERVICE WORKER HAS NOT RETURNED TELPHONE MESSAGE FROM FRIDAY. CM WAITING PSYCHIATRIC INPATIENT BED AVAILABLITY AND ACCEPTANCE FROM ANY FACILITY [facility]. All Howard CASE MANAGEMENT DCP- Discharge Planning Updated by [id number]: Lashay Griffith on 11/07/18 3:[address] EASY ADMIT TRANSFER CENTER CALLED. THE MANAGER PRACTICE TOOK THE CALL. NO AVAILABLE BED AT THIS TIME. DCP- Discharge Planning Updated by [id number]: All Howard on 11/06/18 8:[address] Patient Name: ERNESTINA SIMS Encounter No: [id number] : 1980 Primary Insurance: MEDICAID [place] Anticipated DC Date: 11-03-2018 Planned Disposition: Psych facility External Planned Provider: TO BE DETERMINED DCP follow-up note: CM CALLED PT'S DINING SERVICE WORKER, ALEXANDER KULDIP, , LEFT DETAILED MESSAGE REGARDING BEING UNSUCCESSFUL IN PLACING PT INTO INPATIENT PSYCHIATRIC FACIILITY IN THE [place]. CM ALSO EXPLAINED THAT PT NOW REPORTING NO SUICIDAL IDEATION AND WANTS TO DISCHARGE TO COMMUNITY FOR OUTPATIENT MENTAL HEALTH FOLLOWUP. CM ADVISED THAT THE DOCTOR IS RECONSULTING PSYCHIATRISTS FOR RECOMMENDATIONS. CM TO CONTINUE TO FOLLOW AND ASSIST NEEDED. All Howard CASE MANAGEMENT DCP- Discharge Planning Updated by [id number]: All Howard on 11/04/18 4:[address] Patient Name: ERNESTINA SIMS Encounter No: [id number] : 1980 Primary Insurance: MEDICAID [place] Anticipated DC Date: 11-03-2018 Planned Disposition: Psych facility External Planned Provider:[facility] ACCEPT[facility] DCP follow-up note: CM SPOKE TO ERNESTINE OF THE TRANSFER CENTER, , WHO INFORMED CM THAT PT HAS BEEN DECLINED BY 16 FACILITIES IN THE [facility], SOME OF WHICH DECLINED DUE TO NO FUNDING SOURCE. ERNESTINE WILL CONTINUE TO TRY PLACEMENT AND ASKED CM TO NOTIFY TRANSFER CENTER IF ANY FUNDING SOURCE CAN BE LOCATED. CM CALLED [facility], , SPOKE TO [place] CHA AND REQEUSTED INDIGENT CONTACT FOR INPATIENT PSYCHIATRIC CARE. [place] REQUESTED REFERRAL VIA EMAIL. CM EMAILED REFERRAL FOR INDIGENT FUNDING REQUEST TO " ". [place] WILL RESPOND VIA EMAIL. CM WAITING TO DETERMINE IF INDIGENT FUNDING CAN BE OBTAINED FOR INPATIENT PSYCHIATRIC CARE FROM [facility]. All Howard, CASE MANAGEMENT Appended by All Howard on 11/04/2018 15:20 CDT: CM RECEIVED EMAIL CONFIRMATION OF INITIAL 3 DAY APPROVAL FOR INDIGENT INPATIENT PSYCHIATRIC CONTACT. CM CALLED [facility], , NOTIFIED ERNESTINE WHO WILL UPDATE PACKET AND CONTINUE SEEKING INPATIENT PSYCHIATRIC CARE FOR PT. CM FAXED COPY OF EMAIL TO ERNESTINE AT [facility]. CM CONTINUES TO AWAIT ACCEPTANCE AT ANY INPATIENT PSYCHIATRIC FACILITY IN [place]. RAJEEV DELUCA DCP- Discharge Planning Updated by [id number]: All Howard on 11/03/18 7:[address] Patient Name: ERNESTINA SIMS Encounter No: [id number] : 1980 Primary Insurance: MEDICAID [place] Anticipated DC Date: 11-03-2018 Planned Disposition: Psych facility External Planned Provider: [facility] ACCE[facility]PATIENT [facility]ATRIC [facility] DCP follow-up note: CM FAXED HOSPITAL UPDATE TO TRANSFER CENTER AT [phone]. CM CONTINUES TO WAIT INPATIENT PSYCHIATRIC FACILITY ACCEPTANCE. RAJEEV Deluca DCP- Discharge Planning Updated by [id number]: All Howard on 11/02/18 8:[address] Patient Name: ERNESTINA SIMS Encounter No: [id number] : 1980 Primary Insurance: MEDICAID [place] Anticipated DC Date: 11-02-2018 Planned Disposition: Psych facility External Planned Provider: [facility] INPATIENT PSYCHIATRIC DCP follow-up note: CM FAXED HOSPITAL UPDATE TO TRANSFER CENTER AT [phone]. CM CONTINUES TO WAIT INPATIENT PSYCHIATRIC FACILITY ACCEPTANCE. RAJEEV Deluca DCP- Discharge Planning Updated by [id number]: Lashay Griffith on 10/31/18 11:[address] CM TELEPHONED EASY ADMIT. SPOKE W/ DANIELLE. VERBAL UPDATE GIVEN, CM ALSO FAXED UPDATED MED LIST, OXYGEN NOTE, PROGRESS NOTE FOR TODAY AND DISCHARGE SUMMARY. NURSE REPORTED MULTIPLE CALLS ON FRIDAY REGARDING PROGRESS AND DENIALS. AWAIT CALL BACK WITH ACCEPTANCE WHEN PSYCH BED IS AVAILABLE. DCP- Discharge Planning Updated by [id number]: All Howard on 10/30/18 2:[address] Patient Name: ERNESTINA SIMS Encounter No: [id number] : 1980 Primary Insurance: MEDICAID [place] Anticipated DC Date: 10-29-2018 Planned Disposition: Psych facility External Planned Provider: [facility] OR FIRST ACCEPTING INPATIENT PSYCHIATRIC FACILITY DCP follow-up note: TRANSFER CENTER INFORMED BEDSIDE NURSE THAT PT WILL NEED TO BE OFF ALL OXYGEN AND UPDRAFT TREATMENTS FOR 24 HOURS FOR THEM TO ATTEMPT PLACEMENT IN INPATIENT PSYCHIATRIC CARE. TRANSFER CENTER TO CONTINUE ATTEMPTING PLACMENT TOMORROW, 10-31-18. All Howard CASE MANAGEMENT DCP- Discharge Planning Updated by [id number]: All Howard on 10/30/18 6:[address] Patient Name: ERNESTINA SIMS Encounter No: [id number] : 1980 Primary Insurance: [place]ICAID [place] Anticipated DC Date: 10-29-2018 Planned Disposition: Psych facility External Planned Provider: [facility] DCP follow-up note: CM FAXED NEW COAGULATION LAB RESULTS ALONG WITH NURSES NOTE INDICATING WHEN DRIP WAS STOPPED TO TRANSFER CENTER. 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 REPAIRER WELDING SYSTEMS AND EQUIPMENT NURSE. All Howard, CASE MANAGEMENT DCP- Discharge Planning Updated by [id number]: All Howard on 10/29/18 3:[address] Patient Name: ERNESTINA SIMS Encounter No: [id number] : 1980 Primary Insurance: MEDICAID [place] Anticipated DC Date: 10-29-2018 Planned Disposition: Psych facility External Planned Provider: [facility] DCP follow-up note: CM SPOKE TO MOISES SANON, PT IS STABLE FOR DISCHARGE TO INPATIENT PSYCHIATRIC CARE TODAY. CM SPOKE TO PT IN ROOM WHO IS WILLING FOR INPATIENT PSYCHATIRIC CARE. PT ASKED FOR CM TO FIND OUT WHO TOWED HER CAR FROM THE HOSPTIAL PARKING LOT. CM REFERRED PT TO [facility], [phone]. CM CALLED [facility] IN HOSPITAL ADMINSTRATION, WAS ADVISED THE HOSPITAL HAS NOT HAD ANY VEHICLES TOWED OFF LOT. CM CALLED [facility] WHO REPORTED THEY DID NOT TOW PT'S VEHICLE. CM CALLED PT'S DINING SERVICE WORKER, ALEXANDER CHRISTIANSEN, , WHO ADVISED THAT THE CAR WAS REPOSSESSED DUE TO NON PAYMENT TO HIS KNOWLEDGE. CM INFORMED DINING SERVICE WORKER OF PT'S PENDING PSYCHIATRIC CARE PLACEMENT AFTER OBSERVING A SIGNED CONSENT FOR RELEASE OF MEDICAL INFORMATION TO MR. CHRISTIANSEN IN CHART. CM INFORMED PT IN ROOM. CM SPOKE TO BEDSIDE NURSE WHO HAD TALKED TO TRANSFER CENTER, PT IS BEING CONSIDERED FOR ADMISSION BY [facility] INPATIENT PSYCHIATRIC CARE; THEY WILL NOT ACCEPT PT IS ON HEPARIN DRIP. BEDSIDE NURSE REPORT THIS HAS BEEN DISCONTINUED TODAY. CM CALLED [facility], , SPOKE TO TYREL WHO INFORMED CM THAT PT WILL NEED TO HAVE NEW LAB WORK IN THE MORNING AND FAX THAT ALONG WITH NURSES NOTE INDICATING WHEN DRIP WAS STOPPED TO TRANSFER CENTER IN THE MORNING, 07-30-18 AND THEY WILL RETRY FOR INPATIENT PSYCHIATRIC ADMISSION. BEDSIDE NURSE AND PT NOTIFIED. All Howard, CASE MANAGEMENT DCP- Discharge Planning Updated by [id number]: Susan Richardson on 10/16/18 3:[address] CM trying to find out if patient has insurance or if it has termed. [employer] is working on trying to figure this information out. Patient is going to need psych placement once medically stable. Patient is most likely going to need dialysis and psych at a facility. CM has notified Jodee Sepulveda that patient will need outpatient dialysis setup. Jodee informed CM that the only facility that will accept dialysis/ psych patient is [facility]. CM will continue to follow and assist as needed with discharge planning / needs. DCP- Discharge Planning Updated by [id number]: Susan Richardson on 10/13/18 2:[address] Patient Name: ERNESTINA SIMS Admission Status: ER Accout number: [id number] Admission Date: 10-12-2018 : 1980 Admission Diagnosis: Attending: VAMSHI LARA Current LOS: 1 Anticipated DC Date: Planned Disposition: Psych facility Primary Insurance: UNINSURED DISCOUNT PLAN Discharge Planning Comments: CM met with patient at bedside after explaining CM role and obtaining verbal consent. Patient lives at home with two roommates and plans to return there upon discharge. Patient is currently having dialysis this is her second treatment thus far. Pysch consult once medically stable. Psych evaluation will determine discharge plan. CM will continue to follow and assist as needed with discharge planning / needs. Management Technician: Susan Richardson DCPIA - Discharge Planning Initial Assessment Updated by [id number]: Susan Richardson on 10/13/18 3:36 pm * Is the patient Alert and Oriented? Yes * How many steps to enter\\exit or inside your home? * PCP NO PCP * Pharmacy NO PHARMACY - CURRENTLY ? [facility] * Preadmission Environment Home with Family * ADLs Independent * Equipment None * List name and contact numbers for known caregivers / representatives who currently or will assist patient after discharge: OLVIN LIU - [facility]- [phone] * Verbal permission to speak to the caregivers and representatives has been obtained from the patient. N/A * Community resources currently utilized None * Additional services required to return to the preadmission environment? No * Can the patient safely return to the preadmission environment? Yes * Has this patient been hospitalized within the prior 30 days at any hospital? No Last DP export: 11/10/18 8:47 a Patient Name: ERNESTINA SIMS Page [id number] at 1000 All edits/amendments must be made on the electronic document DICTATION DATE: 11/10/18 1000 CAMPAIGN SPECIALIST: DIRK 11/10/18 1000 RPT#: [id number] DC DATE: STATUS: ADM IN [facility] [address] [place] [address] END OF REPORT
[2018-11-10 11:58] VITALS: BP 100/63
--- NOTE | 2018-11-10 12:16 | MORECARE ---
CASE MANAGEMENT DISCHARGE SUMMARY PATIENT: ERNESTINA SIMS UNIT: [id number] ADM DATE: 10/12/18 AGE: 38 : [birth year] SEX: F ROOM/BED: D.0077 AUTHOR: SURI GREEN PHYSICIAN: REFERRING PHYSICIAN: VAMSHI LARA MD DATE OF SERVICE: 11/10/18 Discharge Plan Patient Name: ERNESTINA SIMS Facility: [facility]:[place] : 1980 Planned Disposition: Psych facility Anticipated Discharge Date: 11/10/18 Discharge Date: Expected LOS: 29 Initial Reviewer: [email or web address] Initial Review Date: 10/13/2018 Generated: 11/10/18 1:16 pm Comments DCP- Discharge Planning Updated by [id number]: All Howard on 11/10/18 11:[address] Patient Name: ERNESTINA SIMS Encounter No: [id number] : 1980 Primary Insurance: MEDICAID [place] PENDING Anticipated DC Date: 11-10-2018 Planned Disposition: Psych facility External Planned Provider: [facility] DCP follow-up note: CM RECEIVED CALL FROM DEB OF [facility] REGARDING REFERRAL. CM ASSISTED WITH ANSWERING MEDICAL QUESTIONS, MET WITH PT IN ROOM WITH DEB ON THE PHONE AND PT ANSWERED QUESTIONS FOR [facility]. DEB INFORMED CM THAT DR. BAIN WILL ACCEPT PT TODAY, ROOM 208, BED 1, NUMBER FOR NURSE REPORT IS [phone]. CM NOTIFIED PT WHO IS IN AGREEMENT WITH TRANSFER TO [facility]. CM NOTIFIED GUZMAN OF TRANSFER CENTER. CM NOTIFIED MANUFACTURING ASSISTANT NURSE AND BEDSIDE NURSE. CM CALLED AND NOTIFIED [facility] OFFICE OF PT'S TRANSFER. CM NOTIFIED MOISES SANON. FOR DISCHARGE, CALL NURSE REPORT TO [facility] AT [phone]. PT TO TRANSPORT VIA AMBULANCE TO ROOM 208, BED 1. RAJEEV Deluca DCP- Discharge Planning Updated by [id number]: All Howard on 11/10/18 8:[address] Patient Name: ERNESTINA SIMS Encounter No: [id number] : 1980 Primary Insurance: MEDICAID [place] PEND[place] Anticipated DC Date: 11-03-2018 Planned Disposition: Psych facility External [facility] DCP follow-up note: CM SPOKE TO UNIT NURSE JAVA JSF DEVELOPER MEL WHO HAS RECEIVED CALL FROM TRANSFER CENTER REQUESTING DOCTOR PROGRESS NOTES FOR THREE DAYS AND VITALS FOR THE LAST 48 HOURS. CM FAXED REQUESTED INFORMATION WELL TODAYS MEDICATION LISTING TO TRANSFER CENTER AT [phone]. CM CALLED AND SPOKE TO HORACE OF [facility], , WHO INFORMED CM THAT THEY DID NOT RECEIVE FAX LAST EVENING. CM FAXED REFERRAL FOR [facility] PSYCH FACILITIES IN [facility] TO [phone]. CM RECEIVED CALL FROM [facility], ; HE HAS DISCUSSED REFERRAL WITH PURE CULTURE OPERATOR OF FACILITY, PT IS NOT APPROPRIATE FOR THE FACILITY. CM WAITING ADMISSION DETERMINATIONS FROM [facility] IN [facility]. CM ALSO WAITING RESULTS FROM [facility] WHO CONTINUES SEEKING PLACEMENT FOR INPATIENT PSYCHIATRIC STABALIZATION. All Howard, CASE MANAGEMENT Appended by All Howard on 11/10/2018 9:58 CDT: CM CALLED PT'S AUTOBODY TECHNICIAN, ALEXANDER CHRISTIANSEN, ; CM SPOKE TO OFFICE STEPHAN WHO ADVISED THAT ALEXANDER IS OUT UNTIL FRIDAY OF THIS WEEK. CM EXPLAINED PLACEMENT ISSUE FOR PATIENT. OFFICER ROBERT ADVISED THEY WOULD UTILIZE THE SAME RESOURCES FOR PLACEMENT. CM ASKED IF THERE WERE ANY OTHER OPTIONS AVAILABLE THROUGH [facility] OR IF THERE IS A [facility] HOLD OR VIOLATION. OFFICER STEPHAN REVIEWED [facility] FILE AND INFORMED CM THAT THERE IS NO HOLD DOCUMENTED AT THIS TIME AND THAT THERE IS NO DOCUMENTATION OF VIOLATION; OFFICER KULDIP HAS DOCUMENTED AN EXCEPTION FOR PT'S OFFICE REPORTING VISITS PT IS IN THE HOSPITAL. OFFICER KULDIP ALSO NOTED IN HIS FILE THAT [facility] MAY HAVE RESOURCES TO ASSIST. CM ASKED IF THERE IS ANY RESOURCE FOR PT TO BE PLACED THROUGH [facility], AGAIN, OFFICER STEPHAN REPORTS SHE WOULD USE THE SAME PSYCHIATRIC FACILITIES AVAILABLE TO THE COMMUNITY. CM WAITING ADMISSION DETERMINATIONS FROM [facility] IN [facility]. CM ALSO WAITING RESULTS FROM [facility] WHO CONTINUES SEEKING PLACEMENT FOR INPATIENT PSYCHIATRIC STABALIZATION. All Howard, CASE MANAGEMENT DCP- Discharge Planning Updated by [id number]: All Howard on 11/09/18 4:[address] Patient Name: ERNESTINA SIMS Encounter No: [id number] : 1980 Primary Insurance: MEDICAID [place] PENDING Anticipated DC Date: 11-03-2018 Planned Disposition: Psych facility External Planned Provider: [facility] DCP follow-up note: CM CALLED , , SPOKE TO BREEZY AND PROVIDED REFERRAL INFORMATION. CM WAS IN PROCESS OF FAXING REFERRAL FOR CONSIDERATION AND RECEIVED CALL FROM BREEZY WHO INFORMED CM THAT SHE CHECKED WITH THE "FLOOR" AND WAS ADVISED THEY COULD NOT MEET PT'S NEEDS. CM CALLED AND SPOKE TO HORACE OF [facility], , WHO INFORMED CM THAT THEY DO NOT KEEP REFERRALS WHEN DECLINED AND STATES THAT CM CAN FAX ANOTHER REFERRAL TO THEM FOR CONSIDERATION. CM FAXED REFERRAL FOR [facility] INPATIENT PSYCH FACILITIES IN [facility] TO [phone]. CM RECEIVED CALL FROM [place] [facility], CM EXPLAINED PROBLEM WITH PLACEMENT. [place] FIRST SUGGESTED PARTIAL HOSPITALIZATION AT [facility] WHERE PT WOULD GO FRIDAY THRU FRIDAY, 9AM TO 3:30PM AND GO HOME AT NIGHT. CM EXPLAINED THIS WOULD NOT BE APPROPRIATE. [place] SUGGESTED CM CALL [facility]IS[facility] STABALIZATION UN[facility]. CM CALLED AND SPOKE TO SUE OF [facility] CRIS[facility] STABALIZATION [facility], ; SUE ADVISED THAT PT WOULD HAVE TO BE VOLUNTARY AND THAT THE FACILITY IS NOT LOCKED AND PT CAN LEAVE AT ANY TIME. CM FAXED REFERRAL TO [facility] AT [phone]. CM WAITING ADMISSION DETERMINATIONS FROM [facility] IN [facility] ST[facility]IZATION UN[facility]. CM ALSO WAITING RESULTS FROM [facility] WHO CONTINUES SEEKING PLACEMENT FOR INPATIENT PSYCHIATRIC STABALIZATION. All Howard, CASE MANAGEMENT DCP- Discharge Planning Updated by [id number]: Ronel Ross on 11/09/18 1:[address] PER TRANSFER CENTER DOCUMENTATION, THIS IS THE FOLLOWING CONTACTS AND OUTCOMES: 1. [facility]: DENIED ON 10/30 AND 11/02 2. [facility]: DENIED 10/1968, NO REASON GIVEN 3. [facility]: 10/29 DENIED STATING COULD NOT MEET NEEDS 4. [facility]: DENIED 10/30 WITH NO REASON GIVEN 5. [facility]: DENIED, WITH FINAL DENIAL ON 11/05 AFTER WE MET ALL THEIR REQUEST FOR THE PATIENT STATING SHE IS TOO SICK 6. [facility]: DENIED FOR NO INSURANCE ON 10/30 & 11/05 7. [facility]: NO ANSWER AFTER REFERRAL SENT 8. [facility]: 10/30 DENIED, CAN'T MEET NEEDS 9. [facility]: 11/01 HAD NO BEDS 10. [facility]: DENIED 10/31 FOR NO INSURANCE 11. [facility]: 10/31 DENIED STATING NEEDS MEDICAL PSYCH 12. [facility]: 10/31 DENIED SECONDARY TO HD (WHICH ENDED 10/25) 13. [facility]: 10/30 & 11/05 DENIED BECAUSE NO INSURANCE 14. [facility]: IS CONSIDERING THE PATIENT 15. [facility]: 11/01 DENIED, NO REASON GIVEN 16. [facility]: 11/05 DENIED, STATED NOT A GOOD FIT FOR THEM 17. [facility]: NO BEDS, KEEP CALLING BACK 18. [facility]- : DENIED BECAUSE OF HD ON 11/08 (AGAIN, NO LONGER ON HD) 19. [facility]: HAS NOT ANSWERED ANY ATTEMPT THE TRANSFER CENTER HAS MADE TO CALL. CÉSAR AND I WILL CALL THE ABOVE, WE HAVE TIME,, AND SEE IF THEY WILL CHANGE THEIR MIND. DCP- Discharge Planning Updated by [id number]: Ronel Ross on 11/09/18 10:41 am SOFIA LEAL, COOK HELPER PASTRY STATED THAT SHE TALKED WITH AAYUSH, COOK HELPER PASTRY OF [facility], AND SHE RECOMMENDED THAT WE BYPASS THE TRANSFER CENTER AND START CALLING ALL THE PSYCH FACILITIES OURSELVES BECAUSE SHE KNEW FOR A FACT THAT THEY WERE PLACING PATIENT OUT OF THE ER THIS WEEKEND. I CALLED AND SPOKE WITH AAYUSH, EXPLAINED THAT THERE WAS A DIFFERENCE PLACING PATIENTS FROM THE ER AND ON THE FLOOR. SHE STATED THAT SHE KNEW THIS. SHE ALSO STATED THAT SHE KNEW THE TRANSFER CENTER PUTS THE PSYCH PATIENTS ON THE BACK BURNER AND DOESN'T TRY HARD. SHE RECOMMENDED THAT WE CALL AROUND TO THE PSYCH FACILITIES IN [place] OURSELF. I EXPLAINED THAT I GUESS I WOULD STOP TENDING TO THE PATIENTS ON THE FLOOR AND CALL AROUND AND DO WHAT THE TRANSFER CENTER IS DOING. SHE STATED THAT I DIDN'T NEED TO DO THAT, JUST SEND A PACKET OUT TO MULTIPLE PLACES AND GIVE THEM A CHANCE TO REFER THE PACKET BEFORE I CALL THEM TO TALK TO THEM. I EXPLAINED I WOULD SEE WHAT I COULD DO. I CALLED AND SPOKE WITH TYREL AT THE TRANSFER CENTER @ 0908. EXPLAINED THE SITUTATION TO HIM AND THE OPINION OF THE CREDIT REVIEW MANAGER FROM OUR PSYCH DEPARTMENT. HE HAS ASSURED ME THAT THEY ARE DOING ALL THEY CAN, AND HE HAS EVEN FAXED ME THE RUNNING LOG OF ALL CONTACTS MADE IN REGARDS TO TRANSFER WITH THE REASON OF REFUSAL TO TAKE (8 PAGES TYPED), AND I HAVE SCANNED IT INTO [email or web address]. TIME PERMITS, CÉSAR AND I WILL CALL AROUND TO OTHER FACILITIES ABOUT POSSIBLE TRANSFER. DCP- Discharge Planning Updated by [id number]: All Howard on 11/09/18 7:[address] Patient Name: ERNESTINA SIMS Encounter No: [id number] : 1980 Primary Insurance: MEDICAID [place] PENDING Anticipated DC Date: 11-03-2018 Planned Disposition: Psych facility External Planned Provider: [facility] DCP follow-up note: CM FAXED UPDATE TO TRANSFER CENTER REQUESTING INPATIENT PSYCHIATRIC PLACEMENT. PT'S AUTOBODY TECHNICIAN HAS NOT RETURNED TELPHONE MESSAGE FROM FRIDAY. CM WAITING PSYCHIATRIC INPATIENT BED AVAILABLITY AND ACCEPTANCE FROM ANY FACILITY STATEWIDE. All Howard, CASE MANAGEMENT DCP- Discharge Planning Updated by [id number]: Lashay Griffith on 11/07/18 3:[address] EASY ADMIT TRANSFER CENTER CALLED. THE TRUCK SHOP MECHANIC TOOK THE CALL. NO AVAILABLE BED AT THIS TIME. DCP- Discharge Planning Updated by [id number]: All Howard on 11/06/18 8:[address] Patient Name: ERNESTINA SIMS Encounter No: [id number] : 1980 Primary Insurance: MEDICAID [place] PENDING Anticipated DC Date: 11-03-2018 Planned Disposition: Psych facility External Planned Provider: TO BE DETERMINED DCP follow-up note: CM CALLED PT'S AUTOBODY TECHNICIAN, ALEXANDER CHRISTIANSEN, , LEFT DETAILED MESSAGE REGARDING BEING UNSUCCESSFUL IN PLACING PT INTO INPATIENT PSYCHIATRIC FACIILITY IN THE ENTIRE [place]. CM ALSO EXPLAINED THAT PT NOW REPORTING NO SUICIDAL IDEATION AND WANTS TO DISCHARGE TO COMMUNITY FOR OUTPATIENT MENTAL HEALTH FOLLOWUP. CM ADVISED THAT THE DOCTOR IS RECONSULTING PSYCHIATRISTS FOR RECOMMENDATIONS. CM TO CONTINUE TO FOLLOW AND ASSIST NEEDED. RAJEEV Deluca DCP- Discharge Planning Updated by [id number]: All Howard on 11/04/18 4:[address] Patient Name: ERNESTINA SIMS Encounter No: [id number] : 1980 Primary Insurance: MEDICAID [place] PENDING Anticipated DC Date: 11-03-2018 Planned Disposition: Psych facility External Planned Provider:[facility] DCP follow-up note: CM SPOKE TO ERNESTINE OF THE TRANSFER [place], , WHO INFORMED CM THAT PT HAS BEEN DECLINED BY 16 FACILITIES IN THE [facility], SOME OF WHICH DECLINED DUE TO NO FUNDING SOURCE. ERNESTINE WILL CONTINUE TO TRY PLACEMENT AND ASKED CM TO NOTIFY [facility] IF ANY FUNDING SOURCE CAN BE LOCATED. CM CALLED [facility], , SPOKE TO [place] [facility] AND REQEUSTED INDIGENT CONTACT FOR INPATIENT PSYCHIATRIC CARE. [place] REQUESTED REFERRAL VIA EMAIL. CM EMAILED REFERRAL FOR INDIGENT FUNDING REQUEST TO "[email or web address] [place] WILL RESPOND VIA EMAIL. CM WAITING TO DETERMINE IF INDIGENT FUNDING CAN BE OBTAINED FOR INPATIENT PSYCHIATRIC CARE FROM [facility]. All Howard CASE MANAGEMENT Appended by All Howard on 11/04/2018 15:20 CDT: CM RECEIVED EMAIL CONFIRMATION OF INITIAL 3 DAY APPROVAL FOR INDIGENT INPATIENT PSYCHIATRIC CONTACT. CM CALLED [facility], , NOTIFIED ERNESTINE WHO WILL UPDATE PACKET AND CONTINUE SEEKING INPATIENT PSYCHIATRIC CARE FOR PT. CM FAXED COPY OF EMAIL TO ERNESTINE AT [facility]. CM CONTINUES TO AWAIT ACCEPTANCE AT ANY INPATIENT PSYCHIATRIC FACILITY IN [place]. RAJEEV DELUCA DCP- Discharge Planning Updated by [id number]: All Howard on 11/03/18 7:[address] Patient Name: ERNESTINA SIMS Encounter No: [id number] : 1980 Primary Insurance: MEDICAID [place] PENDING Anticipated DC Date: 11-03-2018 Planned Disposition: Psych facility External Planned Provider: [facility] DCP follow-up note: CM FAXED HOSPITAL UPDATE TO TRANSFER CENTER AT [phone]. CM CONTINUES TO WAIT INPATIENT PSYCHIATRIC FACILITY ACCEPTANCE. RAJEEV Deluca MANAGEMENT DCP- Discharge Planning Updated by [id number]: All Howard on 11/02/18 8:[address] Patient Name: ERNESTINA SIMS Encounter No: [id number] : 1980 Primary Insurance: MEDICAID [place] PENDING Anticipated DC Date: 11-02-2018 Planned Disposition: Psych facility External Planned Provider: [facility] DCP follow-up note: CM FAXED HOSPITAL UPDATE TO TRANSFER CENTER AT [phone]. CM CONTINUES TO WAIT INPATIENT PSYCHIATRIC FACILITY ACCEPTANCE. RAJEEV Deluca DCP- Discharge Planning Updated by [id number]: Lashay Griffith on 10/31/18 11:[address] CM TELEPHONED EASY ADMIT. SPOKE W/ DANIELLE. VERBAL UPDATE GIVEN, CM ALSO FAXED UPDATED MED LIST, OXYGEN NOTE, PROGRESS NOTE FOR TODAY AND DISCHARGE SUMMARY. NURSE REPORTED MULTIPLE CALLS ON FRIDAY REGARDING PROGRESS AND DENIALS. AWAIT CALL BACK WITH ACCEPTANCE WHEN PSYCH BED IS AVAILABLE. DCP- Discharge Planning Updated by [id number]: All Howard on 10/30/18 2:[address] Patient Name: ERNESTINA SIMS Encounter No: [id number] : 1980 Primary Insurance: MEDICAID [place] PENDING Anticipated DC Date: 10-29-2018 Planned Disposition: Psych facility External Planned Provider: [facility] OR [facility] DCP follow-up note: TRANSFER CENTER INFORMED BEDSIDE NURSE THAT PT WILL NEED TO BE OFF ALL OXYGEN AND UPDRAFT TREATMENTS FOR 24 HOURS FOR THEM TO ATTEMPT PLACEMENT IN INPATIENT PSYCHIATRIC CARE. TRANSFER CENTER TO CONTINUE ATTEMPTING PLACMENT TOMORROW, 10-31-18. RAJEEV Deluca DCP- Discharge Planning Updated by [id number]: All Howard on 10/30/18 6:[address] Patient Name: ERNESTINA SIMS Encounter No: [id number] : 1980 Primary Insurance: MEDICAID [place] PENDING Anticipated DC Date: 10-29-2018 Planned Disposition: Psych facility External Planned Provider: [facility] follow-up note: CM FAXED NEW COAGULATION LAB RESULTS ALONG WITH NURSES NOTE INDICATING WHEN DRIP WAS STOPPED TO TRANSFER CENTER. 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 MANUFACTURING ASSISTANT NURSE. All Howard CASE MANAGEMENT DCP- Discharge Planning Updated by [id number]: All Howard on 10/29/18 3:[address] Patient Name: ERNESTINA SIMS Encounter No: [id number] : 1980 Primary Insurance: MEDICAID [place] PENDING Anticipated DC Date: 10-29-2018 Planned Disposition: Psych facility External Planned Provider: [facility] follow-up note: CM SPOKE TO MOISES SANON, PT IS STABLE FOR DISCHARGE TO INPATIENT PSYCHIATRIC CARE TODAY. CM SPOKE TO PT IN ROOM WHO IS WILLING FOR INPATIENT PSYCHATIRIC CARE. PT ASKED FOR CM TO FIND OUT WHO TOWED HER CAR FROM THE HOSPTIAL PARKING LOT. CM REFERRED PT TO [facility], [phone]. CM CALLED [facility] IN HOSPITAL ADMINSTRATION, WAS ADVISED THE HOSPITAL HAS NOT HAD ANY VEHICLES TOWED OFF LOT. CM CALLED [facility] POLICE WHO REPORTED THEY DID NOT TOW PT'S VEHICLE. CM CALLED PT'S AUTOBODY TECHNICIAN, ALEXANDER CHRISTIANSEN, , WHO ADVISED THAT THE CAR WAS REPOSSESSED DUE TO NON PAYMENT TO HIS KNOWLEDGE. CM INFORMED AUTOBODY TECHNICIAN OF PT'S PENDING PSYCHIATRIC CARE PLACEMENT AFTER OBSERVING A SIGNED CONSENT FOR RELEASE OF MEDICAL INFORMATION TO MR. CHRISTIANSEN IN CHART. CM INFORMED PT IN ROOM. CM SPOKE TO BEDSIDE NURSE WHO HAD TALKED TO TRANSFER CENTER, PT IS BEING CONSIDERED FOR ADMISSION BY [facility] INPATIENT PSYCHIATRIC CARE; THEY WILL NOT ACCEPT PT IS ON HEPARIN DRIP. BEDSIDE NURSE REPORT THIS HAS BEEN DISCONTINUED TODAY. CM CALLED [facility], , SPOKE TO TYREL WHO INFORMED CM THAT PT WILL NEED TO HAVE NEW LAB WORK IN THE MORNING AND FAX THAT ALONG WITH NURSES NOTE INDICATING WHEN DRIP WAS STOPPED TO TRANSFER CENTER IN THE MORNING, 07-30-18 AND THEY WILL RETRY FOR INPATIENT PSYCHIATRIC ADMISSION. BEDSIDE NURSE AND PT NOTIFIED. All Howard CASE ADE DCP- Discharge Planning Updated by [id number]: Susan Richardson on 10/16/18 3:[address] CM trying to find out if patient has insurance or if it has termed. [employer] is working on trying to figure this information out. Patient is going to need psych placement once medically stable. Patient is most likely going to need dialysis and psych at a facility. CM has notified Jodee Sepulveda that patient will need outpatient dialysis setup. Jodee informed CM that the only facility that will accept dialysis/ psych patient is [facility]. CM will continue to follow and assist as needed with discharge planning / needs. DCP- Discharge Planning Updated by [id number]: Susan Richardson on 10/13/18 2:[address] Patient Name: ERNESTINA SIMS Admission Status: ER Accout number: [id number] Admission Date: 10-12-2018 : 1980 Admission Diagnosis: Attending: VAMSHI LARA Current LOS: 1 Anticipated DC Date: Planned Disposition: Psych facility Primary Insurance: UNINSURED DISCOUNT PLAN Discharge Planning Comments: CM met with patient at bedside after explaining CM role and obtaining verbal consent. Patient lives at home with two roommates and plans to return there upon discharge. Patient is currently having dialysis this is her second treatment thus far. [facility] once medically stable. Psych evaluation will determine discharge plan. CM will continue to follow and assist as needed with discharge planning / needs. Brazer Crawler Torch: Susan Richardson DCPIA - Discharge Planning Initial Assessment Updated by [id number]: Susan Richardson on 10/13/18 3:36 pm * Is the patient Alert and Oriented? Yes * How many steps to enter\\exit or inside your home? * PCP NO PCP * Pharmacy NO PHARMACY - CURRENTLY ? [facility] * Preadmission Environment Home with Family * ADLs Independent * Equipment None * List name and contact numbers for known caregivers / representatives who currently or will assist patient after discharge: OLVIN LIU - [facility]- [phone] * Verbal permission to speak to the caregivers and representatives has been obtained from the patient. N/A * Community resources currently utilized None * Additional services required to return to the preadmission environment? No * Can the patient safely return to the preadmission environment? Yes * Has this patient been hospitalized within the prior 30 days at any hospital? No Last DP export: 11/10/18 9:00 a Patient Name: ERNESTINA SIMS Page [id number] at 1216 All edits/amendments must be made on the electronic document DICTATION DATE: 11/10/181214 AIR FORCE SENIOR OFFICER: DIRK 11/10/181214 RPT#: [id number] DC DATE: STATUS: ADM IN [facility] [address] [place] [address] END OF REPORT
--- NOTE | 2018-11-10 12:25 | MORECARE ---
CASE MANAGEMENT DISCHARGE SUMMARY PATIENT: ERNESTINA SIMS UNIT: [id number] ADM DATE: 10/12/18 AGE: 38 : [birth year] SEX: F ROOM/BED: D.9648 AUTHOR: SURI GREEN PHYSICIAN: REFERRING PHYSICIAN: VAMSHI LARA MD DATE OF SERVICE: 11/10/18 Discharge Plan Patient Name: ERNESTINA SIMS Facility: [facility]:[place] : 1980 Planned Disposition: Psych facility Anticipated Discharge Date: 11/10/18 Discharge Date: Expected LOS: 29 Initial Reviewer: [id number] Initial Review Date: 10/13/2018 Generated: 11/10/18 1:25 pm Comments DCP- Discharge Planning Updated by [id number]: All Howard on 11/10/18 11:[address] Patient Name: ERNESTINA SIMS Encounter No: [id number] : 1980 Primary Insurance: MEDICAID [place] PEND[place] Anticipated DC Date: 11-10-2018 Planned Disposition: Psych facility External Planned Provider: [facility] DCP follow-up note: CM RECEIVED CALL FROM DEB OF [facility] REGARDING REFERRAL. CM ASSISTED WITH ANSWERING MEDICAL QUESTIONS, MET WITH PT IN ROOM WITH DEB ON THE PHONE AND PT ANSWERED QUESTIONS FOR [facility]. DEB INFORMED CM THAT DR. BAIN WILL ACCEPT PT TODAY, ROOM 208, BED 1, NUMBER FOR NURSE REPORT IS [phone]. CM NOTIFIED PT WHO IS IN AGREEMENT WITH TRANSFER TO [facility]. CM NOTIFIED GUZMAN OF TRANSFER CENTER. CM NOTIFIED CHIEF RADIOLOGIC TECHNOLOGIST NURSE AND BEDSIDE NURSE. CM CALLED AND NOTIFIED [facility] OFFICE OF PT'S TRANSFER. CM NOTIFIED MOISES SANON. FOR DISCHARGE, CALL NURSE REPORT TO [facility] AT [phone]. PT TO TRANSPORT VIA AMBULANCE TO ROOM 208, BED 1. RAJEEV Deluca DCP- Discharge Planning Updated by [id number]: All Howard on 11/10/18 8:[address] Patient Name: ERNESTINA SIMS Encounter No: [id number] : 1980 Primary Insurance: MEDICAID [place]END[place] Anticipated DC Date: 11-03-2018 Planned Disposition: Psych facility External Planned [facility] DCP follow-up note: CM SPOKE TO UNIT NURSE GENERAL WAREHOUSE ASSOCIATE MEL WHO HAS RECEIVED CALL FROM TRANSFER CENTER REQUESTING DOCTOR PROGRESS NOTES FOR THREE DAYS AND VITALS FOR THE LAST 48 HOURS. CM FAXED REQUESTED INFORMATION WELL TODAYS MEDICATION LISTING TO TRANSFER CENTER AT [phone]. CM CALLED AND SPOKE TO HORACE OF [facility] INTAKE, , WHO INFORMED CM THAT THEY DID NOT RECEIVE FAX LAST EVENING. CM FAXED REFERRAL FOR [facility] PSYCH FACILITIES IN [facility] TO [phone]. CM RECEIVED CALL FROM [facility] CRISIS STABALIZATION UNIT, ; HE HAS DISCUSSED REFERRAL WITH WEATHER ANALYST OF FACILITY, PT IS NOT APPROPRIATE FOR THE FACILITY. CM WAITING ADMISSION DETERMINATIONS FROM [facility] IN [facility]. CM ALSO WAITING RESULTS FROM [facility] TRANSFER CENTER WHO CONTINUES SEEKING PLACEMENT FOR INPATIENT PSYCHIATRIC STABALIZATION. All Howard, CASE MANAGEMENT Appended by All Howard on 11/10/2018 9:58 CDT: CM CALLED PT'S PIPER INSTALLER, ALEXANDER CHRISTIANSEN, ; CM SPOKE TO OFFICE STEPHAN WHO ADVISED THAT ALEXANDER IS OUT UNTIL FRIDAY OF THIS WEEK. CM EXPLAINED PLACEMENT ISSUE FOR PATIENT. OFFICER ROBERT ADVISED THEY WOULD UTILIZE THE SAME RESOURCES FOR PLACEMENT. CM ASKED IF THERE WERE ANY OTHER OPTIONS AVAILABLE THROUGH [facility] OR IF THERE IS A [facility] HOLD OR VIOLATION. OFFICER STEPHAN REVIEWED [facility] FILE AND INFORMED CM THAT THERE IS NO HOLD DOCUMENTED AT THIS TIME AND THAT THERE IS NO DOCUMENTATION OF VIOLATION; OFFICER KULDIP HAS DOCUMENTED AN EXCEPTION FOR PT'S OFFICE REPORTING VISITS PT IS IN THE HOSPITAL. OFFICER KULDIP ALSO NOTED IN HIS FILE THAT [facility] MAY HAVE RESOURCES TO ASSIST. CM ASKED IF THERE IS ANY RESOURCE FOR PT TO BE PLACED THROUGH [facility], AGAIN, OFFICER STEPHAN REPORTS SHE WOULD USE THE SAME PSYCHIATRIC FACILITIES AVAILABLE TO THE COMMUNITY. CM WAITING ADMISSION DETERMINATIONS FROM [facility] IN [facility]. CM ALSO WAITING RESULTS FROM [facility] TRANSFER CENTER WHO CONTINUES SEEKING PLACEMENT FOR INPATIENT PSYCHIATRIC STABALIZATION. All Howard, CASE MANAGEMENT DCP- Discharge Planning Updated by [id number]: All Howard on 11/09/18 4:[address] Patient Name: ERNESTINA SIMS Encounter No: [id number] : 1980 Primary Insurance: MEDICAID [place] PEND[place] Anticipated DC Date: 11-03-2018 Planned Disposition: Psych facility External Planned Provider: [facility] DCP follow-up note: CM CALLED [facility], , SPOKE TO BREEZY AND PROVIDED REFERRAL INFORMATION. CM WAS IN PROCESS OF FAXING REFERRAL FOR CONSIDERATION AND RECEIVED CALL FROM BREEZY WHO INFORMED CM THAT SHE CHECKED WITH THE "FLOOR" AND WAS ADVISED THEY COULD NOT MEET PT'S NEEDS. CM CALLED AND SPOKE TO HORACE OF [facility] INTAKE, , WHO INFORMED CM THAT THEY DO NOT KEEP REFERRALS WHEN DECLINED AND STATES THAT CM CAN FAX ANOTHER REFERRAL TO THEM FOR CONSIDERATION. CM FAXED REFERRAL FOR [facility] INPATIENT PSYCH FACILITIES IN [facility] TO [phone]. CM RECEIVED CALL FROM [place] [facility] AND [facility], CM EXPLAINED PROBLEM WITH PLACEMENT. [place] FIRST SUGGESTED PARTIAL HOSPITALIZATION AT [facility] WHERE PT WOULD GO FRIDAY THRU FRIDAY, 9AM TO 3:30PM AND GO HOME AT NIGHT. CM EXPLAINED THIS WOULD NOT BE APPROPRIATE. [place] SUGGESTED CM CALL [facility] CRISIS STABALIZATION UNIT. CM CALLED AND SPOKE TO SUE OF [facility] STABALIZATION UN[facility], ; SUE ADVISED THAT PT WOULD HAVE TO BE VOLUNTARY AND THAT THE FACILITY IS NOT LOCKED AND PT CAN LEAVE AT ANY TIME. CM FAXED REFERRAL TO [facility] AT [phone]. CM WAITING ADMISSION DETERMINATIONS FROM [facility] IN [facility] CR[facility] STABALIZATION UNIT. CM ALSO WAITING RESULTS FROM [facility] TRANSFER CENTER WHO CONTINUES SEEKING PLACEMENT FOR INPATIENT PSYCHIATRIC STABALIZATION. All Howard, CASE MANAGEMENT DCP- Discharge Planning Updated by [id number]: Ronel Ross on 11/09/18 1:[address] PER TRANSFER CENTER DOCUMENTATION, THIS IS THE FOLLOWING CONTACTS AND OUTCOMES: 1. [facility]: DENIED ON 10/30 AND 11/02 2. [facility]: DENIED 10/1968, NO REASON GIVEN 3. [facility]: 10/29 DENIED STATING COULD NOT MEET NEEDS 4. [facility]: DENIED 10/30 WITH NO REASON GIVEN 5. [facility]: DENIED, WITH FINAL DENIAL ON 11/05 AFTER WE MET ALL THEIR REQUEST FOR THE PATIENT STATING SHE IS TOO SICK 6. [facility]: DENIED FOR NO INSURANCE ON 10/30 & 11/05 7. [facility]: NO ANSWER AFTER REFERRAL SENT 8. [facility]: 10/30 DENIED, CAN'T MEET NEEDS 9. [facility]: 11/01 HAD NO BEDS 10. [facility]: DENIED 10/31 FOR NO INSURANCE 11. [facility]: 10/31 DENIED STATING NEEDS MEDICAL PSYCH 12. [facility]: 10/31 DENIED SECONDARY TO HD (WHICH ENDED 10/25) 13. [facility]: 10/30 & 11/05 DENIED BECAUSE NO INSURANCE 14. [facility]: IS CONSIDERING THE PATIENT 15. [facility]: 11/01 DENIED, NO REASON GIVEN 16. [facility]: 11/05 DENIED, STATED NOT A GOOD FIT FOR THEM 17. [facility]: NO BEDS, KEEP CALLING BACK 18. [facility] : DENIED BECAUSE OF HD ON 11/08 (AGAIN, NO LONGER ON HD) 19. [facility]: HAS NOT ANSWERED ANY ATTEMPT THE TRANSFER CENTER HAS MADE TO CALL. CÉSAR AND I WILL CALL THE ABOVE, WE HAVE TIME,, AND SEE IF THEY WILL CHANGE THEIR MIND. DCP- Discharge Planning Updated by [id number]: Ronel Ross on 11/09/18 10:41 am SOFIA LEAL, HEALTH AND FITNESS INSTRUCTOR STATED THAT SHE TALKED WITH AAYUSH, HEALTH AND FITNESS INSTRUCTOR OF [facility], AND SHE RECOMMENDED THAT WE BYPASS THE TRANSFER CENTER AND START CALLING ALL THE PSYCH FACILITIES OURSELVES BECAUSE SHE KNEW FOR A FACT THAT THEY WERE PLACING PATIENT OUT OF THE ER THIS WEEKEND. I CALLED AND SPOKE WITH AAYUSH, EXPLAINED THAT THERE WAS A DIFFERENCE PLACING PATIENTS FROM THE ER AND ON THE FLOOR. SHE STATED THAT SHE KNEW THIS. SHE ALSO STATED THAT SHE KNEW THE TRANSFER CENTER PUTS THE PSYCH PATIENTS ON THE BACK BURNER AND DOESN'T TRY HARD. SHE RECOMMENDED THAT WE CALL AROUND TO THE PSYCH FACILITIES IN [place] OURSELF. I EXPLAINED THAT I GUESS I WOULD STOP TENDING TO THE PATIENTS ON THE FLOOR AND CALL AROUND AND DO WHAT THE TRANSFER CENTER IS DOING. SHE STATED THAT I DIDN'T NEED TO DO THAT, JUST SEND A PACKET OUT TO MULTIPLE PLACES AND GIVE THEM A CHANCE TO REFER THE PACKET BEFORE I CALL THEM TO TALK TO THEM. I EXPLAINED I WOULD SEE WHAT I COULD DO. I CALLED AND SPOKE WITH TYREL AT THE TRANSFER CENTER @ 0908. EXPLAINED THE SITUTATION TO HIM AND THE OPINION OF THE PLANNING DIRECTOR FROM OUR PSYCH DEPARTMENT. HE HAS ASSURED ME THAT THEY ARE DOING ALL THEY CAN, AND HE HAS EVEN FAXED ME THE RUNNING LOG OF ALL CONTACTS MADE IN REGARDS TO TRANSFER WITH THE REASON OF REFUSAL TO TAKE (8 PAGES TYPED), AND I HAVE SCANNED IT INTO [employer]. TIME PERMITS, CÉSAR AND I WILL CALL AROUND TO OTHER FACILITIES ABOUT POSSIBLE TRANSFER. DCP- Discharge Planning Updated by [id number]: All Howard on 11/09/18 7:[address] Patient Name: ERNESTINA SIMS Encounter No: [id number] : 1980 Primary Insurance: MEDICAID [place] PEND[place] Anticipated DC Date: 11-03-2018 Planned Disposition: Psych facility External Planned Provider: [facility] DCP follow-up note: CM FAXED UPDATE TO TRANSFER CENTER REQUESTING INPATIENT PSYCHIATRIC PLACEMENT. PT'S PIPER INSTALLER HAS NOT RETURNED TELPHONE MESSAGE FROM FRIDAY. CM WAITING PSYCHIATRIC INPATIENT BED AVAILABLITY AND ACCEPTANCE FROM ANY FACILITY STATE[facility]IDE. All Howard, CASE MANAGEMENT DCP- Discharge Planning Updated by [id number]: Lashay Griffith on 11/07/18 3:[address] EASY ADMIT TRANSFER CENTER CALLED. THE IMAGING ENGINEER TOOK THE CALL. NO AVAILABLE BED AT THIS TIME. DCP- Discharge Planning Updated by [id number]: All Howard on 11/06/18 8:[address] Patient Name: ERNESTINA SIMS Encounter No: [id number] : 1980 Primary Insurance: MEDICAID [place] Anticipated DC Date: 11-03-2018 Planned Disposition: Psych facility External Planned Provider: TO BE DETERMINED DCP follow-up note: CM CALLED PT'S PIPER INSTALLER, ALEXANDER CHRISTIANSEN, , LEFT DETAILED MESSAGE REGARDING BEING UNSUCCESSFUL IN PLACING PT INTO INPATIENT PSYCHIATRIC FACIILITY IN THE [place]NTIRE [place]. CM ALSO EXPLAINED THAT PT NOW REPORTING NO SUICIDAL IDEATION AND WANTS TO DISCHARGE TO COMMUNITY FOR OUTPATIENT MENTAL HEALTH FOLLOWUP. CM ADVISED THAT THE DOCTOR IS RECONSULTING PSYCHIATRISTS FOR RECOMMENDATIONS. CM TO CONTINUE TO FOLLOW AND ASSIST NEEDED. RAJEEV Deluca DCP- Discharge Planning Updated by [id number]: All Howard on 11/04/18 4:[address] Patient Name: ERNESTINA SIMS Encounter No: [id number] : 1980 Primary Insurance: MEDICAID [place] Anticipated DC Date: 11-03-2018 Planned Disposition: Psych facility External Planned Provider:[facility] DCP follow-up note: CM SPOKE TO ERNESTINE OF THE TRANSFER [place], , WHO INFORMED CM THAT PT HAS BEEN DECLINED BY 16 FACILITIES IN THE [facility], SOME OF WHICH DECLINED DUE TO NO FUNDING SOURCE. ERNESTINE WILL CONTINUE TO TRY PLACEMENT AND ASKED CM TO NOTIFY [facility] IF ANY FUNDING SOURCE CAN BE LOCATED. CM CALLED [facility], , SPOKE TO [place] CHA AND REQEUSTED INDIGENT CONTACT FOR INPATIENT PSYCHIATRIC CARE. [place] REQUESTED REFERRAL VIA EMAIL. CM EMAILED REFERRAL FOR INDIGENT FUNDING REQUEST TO "[email or web address]". [place] WILL RESPOND VIA EMAIL. CM WAITING TO DETERMINE IF INDIGENT FUNDING CAN BE OBTAINED FOR INPATIENT PSYCHIATRIC CARE FROM [facility]. All Howard CASE MANAGEMENT Appended by All Howard on 11/04/2018 15:20 CDT: CM RECEIVED EMAIL CONFIRMATION OF INITIAL 3 DAY APPROVAL FOR INDIGENT INPATIENT PSYCHIATRIC CONTACT. CM CALLED [facility], , NOTIFIED ERNESTINE WHO WILL UPDATE PACKET AND CONTINUE SEEKING INPATIENT PSYCHIATRIC CARE FOR PT. CM FAXED COPY OF EMAIL TO ERNESTINE AT [facility]. CM CONTINUES TO AWAIT ACCEPTANCE AT ANY INPATIENT PSYCHIATRIC FACILITY IN [place]. RAJEEV DELUCA DCP- Discharge Planning Updated by [id number]: All Howard on 11/03/18 7:[address] Patient Name: ERNESTINA SIMS Encounter No: [id number] : 1980 Primary Insurance: MEDICAID [place] Anticipated DC Date: 11-03-2018 Planned Disposition: Psych facility External Planned Provider: [facility] DCP follow-up note: CM FAXED HOSPITAL UPDATE TO TRANSFER CENTER AT [phone]. CM CONTINUES TO WAIT INPATIENT PSYCHIATRIC FACILITY ACCEPTANCE. RAJEEV Deluca MANAGEMENT DCP- Discharge Planning Updated by [id number]: All Howard on 11/02/18 8:[address] Patient Name: ERNESTINA SIMS Encounter No: [id number] : 1980 Primary Insurance: MEDICAID [place] PEND[place] Anticipated DC Date: 11-02-2018 Planned Disposition: Psych facility External Planned Provider: [facility] PSYCH[facility]RIC DCP follow-up note: CM FAXED HOSPITAL UPDATE TO TRANSFER CENTER AT [phone]. CM CONTINUES TO WAIT INPATIENT PSYCHIATRIC FACILITY ACCEPTANCE. RAJEEV Deluca DCP- Discharge Planning Updated by [id number]: Lashay Griffith on 10/31/18 11:[address] CM TELEPHONED EASY ADMIT. SPOKE W/ DANIELLE. VERBAL UPDATE GIVEN, CM ALSO FAXED UPDATED MED LIST, OXYGEN NOTE, PROGRESS NOTE FOR TODAY AND DISCHARGE SUMMARY. NURSE REPORTED MULTIPLE CALLS ON FRIDAY REGARDING PROGRESS AND DENIALS. AWAIT CALL BACK WITH ACCEPTANCE WHEN PSYCH BED IS AVAILABLE. DCP- Discharge Planning Updated by [id number]: All Howard on 10/30/18 2:[address] Patient Name: ERNESTINA SIMS Encounter No: [id number] : 1980 Primary Insurance: MEDICAID [place] Anticipated DC Date: 10-29-2018 Planned Disposition: Psych facility External Planned Provider: [facility] OR FIRST ACCEPTING INPATIENT PSYCHIATRIC FACILITY DCP follow-up note: TRANSFER CENTER INFORMED BEDSIDE NURSE THAT PT WILL NEED TO BE OFF ALL OXYGEN AND UPDRAFT TREATMENTS FOR 24 HOURS FOR THEM TO ATTEMPT PLACEMENT IN INPATIENT PSYCHIATRIC CARE. TRANSFER CENTER TO CONTINUE ATTEMPTING PLACMENT TOMORROW, 10-31-18. RAJEEV Deluca DCP- Discharge Planning Updated by [id number]: All Howard on 10/30/18 6:[address] Patient Name: ERNESTINA SIMS Encounter No: [id number] : 1980 Primary Insurance: MEDICAID [place] Anticipated DC Date: 10-29-2018 Planned Disposition: Psych facility External Planned Provider: [facility] follow-up note: CM FAXED NEW COAGULATION LAB RESULTS ALONG WITH NURSES NOTE INDICATING WHEN DRIP WAS STOPPED TO TRANSFER CENTER. 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 CHIEF RADIOLOGIC TECHNOLOGIST NURSE. All Howard CASE MANAGEMENT DCP- Discharge Planning Updated by [id number]: All Howard on 10/29/18 3:[address] Patient Name: ERNESTINA SIMS Encounter No: [id number] : 1980 Primary Insurance: MEDICAID [place] Anticipated DC Date: 10-29-2018 Planned Disposition: Psych facility External Planned Provider: [facility] follow-up note: CM SPOKE TO MOISES SANON, PT IS STABLE FOR DISCHARGE TO INPATIENT PSYCHIATRIC CARE TODAY. CM SPOKE TO PT IN ROOM WHO IS WILLING FOR INPATIENT PSYCHATIRIC CARE. PT ASKED FOR CM TO FIND OUT WHO TOWED HER CAR FROM THE HOSPTIAL PARKING LOT. CM REFERRED PT TO [facility] TRANSFER CENTER, [phone]. CM CALLED [facility] IN HOSPITAL ADMINSTRATION, WAS ADVISED THE HOSPITAL HAS NOT HAD ANY VEHICLES TOWED OFF LOT. CM CALLED [facility] WHO REPORTED THEY DID NOT TOW PT'S VEHICLE. CM CALLED PT'S PIPER INSTALLER, ALEXANDER CHRISTIANSEN, , WHO ADVISED THAT THE CAR WAS REPOSSESSED DUE TO NON PAYMENT TO HIS KNOWLEDGE. CM INFORMED PIPER INSTALLER OF PT'S PENDING PSYCHIATRIC CARE PLACEMENT AFTER OBSERVING A SIGNED CONSENT FOR RELEASE OF MEDICAL INFORMATION TO MR. CHRISTIANSEN IN CHART. CM INFORMED PT IN ROOM. CM SPOKE TO BEDSIDE NURSE WHO HAD TALKED TO TRANSFER CENTER, PT IS BEING CONSIDERED FOR ADMISSION BY [facility] INPATIENT PSYCHIATRIC CARE; THEY WILL NOT ACCEPT PT IS ON HEPARIN DRIP. BEDSIDE NURSE REPORT THIS HAS BEEN DISCONTINUED TODAY. CM CALLED [facility] TRANSFER CENTER, , SPOKE TO TYREL WHO INFORMED CM THAT PT WILL NEED TO HAVE NEW LAB WORK IN THE MORNING AND FAX THAT ALONG WITH NURSES NOTE INDICATING WHEN DRIP WAS STOPPED TO TRANSFER CENTER IN THE MORNING, 07-30-18 AND THEY WILL RETRY FOR INPATIENT PSYCHIATRIC ADMISSION. BEDSIDE NURSE AND PT NOTIFIED. All Howard CASE ADE DCP- Discharge Planning Updated by [id number]: Susan Richardson on 10/16/18 3:[address] CM trying to find out if patient has insurance or if it has termed. [employer] is working on trying to figure this information out. Patient is going to need psych placement once medically stable. Patient is most likely going to need dialysis and psych at a facility. CM has notified Jodee Sepulveda that patient will need outpatient dialysis setup. Jodee informed CM that the only facility that will accept dialysis/ psych patient is [facility]. CM will continue to follow and assist as needed with discharge planning / needs. DCP- Discharge Planning Updated by [id number]: Susan Richardson on 10/13/18 2:[address] Patient Name: ERNESTINA SIMS Admission Status: ER Accout number: [id number] Admission Date: 10-12-2018 : 1980 Admission Diagnosis: Attending: VAMSHI LARA Current LOS: 1 Anticipated DC Date: Planned Disposition: Psych facility Primary Insurance: UNINSURED DISCOUNT PLAN Discharge Planning Comments: CM met with patient at bedside after explaining CM role and obtaining verbal consent. Patient lives at home with two roommates and plans to return there upon discharge. Patient is currently having dialysis this is her second treatment thus far. [facility] consult once medically stable. Psych evaluation will determine discharge plan. CM will continue to follow and assist as needed with discharge planning / needs. Dementia Program Director: Susan Richardson DCPIA - Discharge Planning Initial Assessment Updated by [id number]: Susan Richardson on 10/13/18 3:36 pm * Is the patient Alert and Oriented? Yes * How many steps to enter\\exit or inside your home? * PCP NO PCP * Pharmacy NO PHARMACY - CURRENTLY ? [facility] * Preadmission Environment Home with Family * ADLs Independent * Equipment None * List name and contact numbers for known caregivers / representatives who currently or will assist patient after discharge: OLVIN LIU - [facility]- [phone] * Verbal permission to speak to the caregivers and representatives has been obtained from the patient. N/A * Community resources currently utilized None * Additional services required to return to the preadmission environment? No * Can the patient safely return to the preadmission environment? Yes * Has this patient been hospitalized within the prior 30 days at any hospital? No Last DP export: 11/10/18 9:00 a Patient Name: ERNESTINA SIMS Page 53211 at 1225 All edits/amendments must be made on the electronic document DICTATION DATE: 11/10/181224 SHANK RANDER: DIRK 11/10/18 1225 RPT#: [id number] DC DATE: STATUS: ADM IN [facility] [address] [place] [address] END OF REPORT
--- NOTE | 2018-11-10 14:07 | MORECARE ---
CASE MANAGEMENT DISCHARGE SUMMARY PATIENT: ERNESTINA SIMS UNIT: [id number] ADM DATE: 10/12/18 AGE: 38 : [birth year] SEX: F ROOM/BED: D.2153 AUTHOR: SURI GREEN PHYSICIAN: REFERRING PHYSICIAN: VAMSHI LARA MD DATE OF SERVICE: 11/10/18 Discharge Plan Patient Name: ERNESTINA SIMS Facility: [facility]:[place] : 1980 Planned Disposition: Psych facility Anticipated Discharge Date: 11/10/18 Discharge Date: Expected LOS: 29 Initial Reviewer: [id number] Initial Review Date: 10/13/2018 Generated: 11/10/18 3:06 pm Comments DCP- Discharge Planning Updated by [id number]: All Howard on 11/10/18 11:[address] Patient Name: ERNESTINA SIMS Encounter No: [id number] : 1980 Primary Insurance: MEDICAID [place] PEND[place] Anticipated DC Date: 11-10-2018 Planned Disposition: Psych facility External Planned Provider: [facility] DCP follow-up note: CM RECEIVED CALL FROM DEB OF [facility] REGARDING REFERRAL. CM ASSISTED WITH ANSWERING MEDICAL QUESTIONS, MET WITH PT IN ROOM WITH DEB ON THE PHONE AND PT ANSWERED QUESTIONS FOR [facility]. DEB INFORMED CM THAT DR. BAIN WILL ACCEPT PT TODAY, ROOM 208, BED 1, NUMBER FOR NURSE REPORT IS [phone]. CM NOTIFIED PT WHO IS IN AGREEMENT WITH TRANSFER TO [facility]. CM NOTIFIED GUZMAN OF TRANSFER CENTER. CM NOTIFIED ADULT SPECIALIST NURSE AND BEDSIDE NURSE. CM CALLED AND NOTIFIED [facility] OFFICE OF PT'S TRANSFER. CM NOTIFIED MOISES SANON. FOR DISCHARGE, CALL NURSE REPORT TO [facility] AT [phone]. PT TO TRANSPORT VIA AMBULANCE TO ROOM 208, BED 1. RAJEEV Deluca DCP- Discharge Planning Updated by [id number]: All Howard on 11/10/18 8:[address] Patient Name: ERNESTINA SIMS Encounter No: [id number] : 1980 Primary Insurance: MEDICAID [place]END[place] Anticipated DC Date: 11-03-2018 Planned Disposition: Psych facility External Planned [facility] DCP follow-up note: CM SPOKE TO UNIT NURSE SAFETY PIN ASSEMBLING MACHINE OPERATOR MEL WHO HAS RECEIVED CALL FROM TRANSFER CENTER REQUESTING DOCTOR PROGRESS NOTES FOR THREE DAYS AND VITALS FOR THE LAST 48 HOURS. CM FAXED REQUESTED INFORMATION [facility] MEDICATION LISTING TO TRANSFER CENTER AT [phone]. CM CALLED AND SPOKE TO HORACE OF [facility], , WHO INFORMED CM THAT THEY DID NOT RECEIVE FAX LAST EVENING. CM FAXED REFERRAL FOR [facility] TO [phone]. CM RECEIVED CALL FROM [facility], ; HE HAS DISCUSSED REFERRAL WITH ELECTROMECHANICAL ASSEMBLER OF FACILITY, PT IS NOT APPROPRIATE FOR THE FACILITY. CM WAITING ADMISSION DETERMINATIONS FROM [facility] IN [facility]. CM ALSO WAITING RESULTS FROM [facility] WHO CONTINUES SEEKING PLACEMENT FOR INPATIENT PSYCHIATRIC STABALIZATION. All Howard, CASE MANAGEMENT Appended by All Howard on 11/10/2018 9:58 CDT: CM CALLED PT'S CASING MAN, ALEXANDER CHRISTIANSEN, ; CM SPOKE TO OFFICE STEPHAN WHO ADVISED THAT ALEXANDER IS OUT UNTIL FRIDAY OF THIS WEEK. CM EXPLAINED PLACEMENT ISSUE FOR PATIENT. OFFICER ROBERT ADVISED THEY WOULD UTILIZE THE SAME RESOURCES FOR PLACEMENT. CM ASKED IF THERE WERE ANY OTHER OPTIONS AVAILABLE THROUGH [facility] OR IF THERE IS A [facility] HOLD OR VIOLATION. OFFICER STEPHAN REVIEWED [facility] FILE AND INFORMED CM THAT THERE IS NO HOLD DOCUMENTED AT THIS TIME AND THAT THERE IS NO DOCUMENTATION OF VIOLATION; OFFICER KULDIP HAS DOCUMENTED AN EXCEPTION FOR PT'S OFFICE REPORTING VISITS PT IS IN THE HOSPITAL. OFFICER KULDIP ALSO NOTED IN HIS FILE THAT [facility] MAY HAVE RESOURCES TO ASSIST. CM ASKED IF THERE IS ANY RESOURCE FOR PT TO BE PLACED THROUGH [facility], AGAIN, OFFICER STEPHAN REPORTS SHE WOULD USE THE SAME PSYCHIATRIC FACILITIES AVAILABLE TO THE COMMUNITY. CM WAITING ADMISSION DETERMINATIONS FROM [facility] IN [facility]. CM ALSO WAITING RESULTS FROM [facility] WHO CONTINUES SEEKING PLACEMENT FOR INPATIENT PSYCHIATRIC STABALIZATION. All Howard, CASE MANAGEMENT DCP- Discharge Planning Updated by [id number]: All Howard on 11/09/18 4:[address] Patient Name: ERNESTINA SIMS Encounter No: [id number] : 1980 Primary Insurance: MEDICAID [place] PENDING Anticipated DC Date: 11-03-2018 Planned Disposition: Psych facility External Planned Provider: [facility] DCP follow-up note: CM CALLED [facility], , SPOKE TO BREEZY AND PROVIDED REFERRAL INFORMATION. CM WAS IN PROCESS OF FAXING REFERRAL FOR CONSIDERATION AND RECEIVED CALL FROM BREEZY WHO INFORMED CM THAT SHE CHECKED WITH THE "FLOOR" AND WAS ADVISED THEY COULD NOT MEET PT'S NEEDS. CM CALLED AND SPOKE TO HORACE OF [facility], , WHO INFORMED CM THAT THEY DO NOT KEEP REFERRALS WHEN DECLINED AND STATES THAT CM CAN FAX ANOTHER REFERRAL TO THEM FOR CONSIDERATION. CM FAXED [facility] TO [phone]. CM RECEIVED CALL FROM [place] [facility], CM EXPLAINED PROBLEM WITH PLACEMENT. [place] FIRST SUGGESTED PARTIAL HOSPITALIZATION AT [facility] WHERE PT WOULD GO FRIDAY THRU FRIDAY, 9AM TO 3:30PM AND GO HOME AT NIGHT. CM EXPLAINED THIS WOULD NOT BE APPROPRIATE. [place] SUGGESTED CM CALL [facility]. CM CALLED AND SPOKE TO SUE OF [facility], ; SUE ADVISED THAT PT WOULD HAVE TO BE VOLUNTARY AND THAT THE FACILITY IS NOT LOCKED AND PT CAN LEAVE AT ANY TIME. CM FAXED REFERRAL TO [facility] AT [phone]. CM WAITING ADMISSION DETERMINATIONS FROM [facility] IN [facility]. CM ALSO WAITING RESULTS FROM [facility] WHO CONTINUES SEEKING PLACEMENT FOR INPATIENT PSYCHIATRIC STABALIZATION. All Howard, CASE MANAGEMENT DCP- Discharge Planning Updated by [id number]: Ronel Ross on 11/09/18 1:[address] PER TRANSFER CENTER DOCUMENTATION, THIS IS THE FOLLOWING CONTACTS AND OUTCOMES: 1. [facility]: DENIED ON 10/30 AND 11/02 2. [facility]: DENIED 10/1968, NO REASON GIVEN 3. [facility]: 10/29 DENIED STATING COULD NOT MEET NEEDS 4. [facility]: DENIED 10/30 WITH NO REASON GIVEN 5. [facility]: DENIED, WITH FINAL DENIAL ON 11/05 AFTER WE MET ALL THEIR REQUEST FOR THE PATIENT STATING SHE IS TOO SICK 6. [facility]: DENIED FOR NO INSURANCE ON 10/30 & 11/05 7. [facility]: NO ANSWER AFTER REFERRAL SENT 8. [facility]: 10/30 DENIED, CAN'T MEET NEEDS 9. [facility]: 11/01 HAD NO BEDS 10. [facility]: DENIED 10/31 FOR NO INSURANCE 11. [facility]: 10/31 DENIED STATING NEEDS MEDICAL PSYCH 12. [facility]: 10/31 DENIED SECONDARY TO HD (WHICH ENDED 10/25) 13. [facility]: 10/30 & 11/05 DENIED BECAUSE NO INSURANCE 14. [facility]: IS CONSIDERING THE PATIENT 15. [facility]: 11/01 DENIED, NO REASON GIVEN 16. [facility]: 11/05 DENIED, STATED NOT A GOOD FIT FOR THEM 17. [facility]: NO [facility]EDS, KEEP CALLING BACK 18. [facility]- : DENIED BECAUSE OF HD ON 11/08 (AGAIN, NO LONGER ON HD) 19. [facility]: HAS NOT ANSWERED ANY ATTEMPT THE TRANSFER CENTER HAS MADE TO CALL. CÉSAR AND I WILL CALL THE ABOVE, WE HAVE TIME,, AND SEE IF THEY WILL CHANGE THEIR MIND. DCP- Discharge Planning Updated by [id number]: Ronel Ross on 11/09/18 10:41 am SOFIA LEAL, HOSPITAL MEDICAL BILLER STATED THAT SHE TALKED WITH AAYUSH, HOSPITAL MEDICAL BILLER OF [facility], AND SHE RECOMMENDED THAT WE BYPASS THE TRANSFER CENTER AND START CALLING ALL THE PSYCH FACILITIES OURSELVES BECAUSE SHE KNEW FOR A FACT THAT THEY WERE PLACING PATIENT OUT OF THE ER THIS WEEKEND. I CALLED AND SPOKE WITH AAYUSH, EXPLAINED THAT THERE WAS A DIFFERENCE PLACING PATIENTS FROM THE ER AND ON THE FLOOR. SHE STATED THAT SHE KNEW THIS. SHE ALSO STATED THAT SHE KNEW THE TRANSFER CENTER PUTS THE PSYCH PATIENTS ON THE BACK BURNER AND DOESN'T TRY HARD. SHE RECOMMENDED THAT WE CALL AROUND TO THE PSYCH FACILITIES IN [place] OURSELF. I EXPLAINED THAT I GUESS I WOULD STOP TENDING TO THE PATIENTS ON THE FLOOR AND CALL AROUND AND DO WHAT THE TRANSFER CENTER IS DOING. SHE STATED THAT I DIDN'T NEED TO DO THAT, JUST SEND A PACKET OUT TO MULTIPLE PLACES AND GIVE THEM A CHANCE TO REFER THE PACKET BEFORE I CALL THEM TO TALK TO THEM. I EXPLAINED I WOULD SEE WHAT I COULD DO. I CALLED AND SPOKE WITH TYREL AT THE TRANSFER CENTER @ [phone]. EXPLAINED THE SITUTATION TO HIM AND THE OPINION OF THE COMPONENT INSPECTOR FROM OUR PSYCH DEPARTMENT. HE HAS ASSURED ME THAT THEY ARE DOING ALL THEY CAN, AND HE HAS EVEN FAXED ME THE RUNNING LOG OF ALL CONTACTS MADE IN REGARDS TO TRANSFER WITH THE REASON OF REFUSAL TO TAKE (8 PAGES TYPED), AND I HAVE SCANNED IT INTO [employer]. TIME PERMITS, CÉSAR AND I WILL CALL AROUND TO OTHER FACILITIES ABOUT POSSIBLE TRANSFER. DCP- Discharge Planning Updated by [id number]: All Howard on 11/09/18 7:[address] Patient Name: ERNESTINA SIMS Encounter No: [id number] : 1980 Primary Insurance: MEDICAID [place] PENDING Anticipated DC Date: 11-03-2018 Planned Disposition: Psych facility External Planned Provider: [facility] ACCEPT[facility] DCP follow-up note: CM FAXED UPDATE TO TRANSFER CENTER REQUESTING INPATIENT PSYCHIATRIC PLACEMENT. PT'S CASING MAN HAS NOT RETURNED TELPHONE MESSAGE FROM FRIDAY. CM WAITING PSYCHIATRIC INPATIENT BED AVAILABLITY AND ACCEPTANCE FROM ANY FACILITY STATEWIDE. All Howard, CASE MANAGEMENT DCP- Discharge Planning Updated by [id number]: Lashay Griffith on 11/07/18 3:[address] EASY ADMIT TRANSFER CENTER CALLED. THE BOX PRINTING MACHINE OPERATOR TOOK THE CALL. NO AVAILABLE BED AT THIS TIME. DCP- Discharge Planning Updated by [id number]: All Howard on 11/06/18 8:[address] Patient Name: ERNESTINA SIMS Encounter No: [id number] : 1980 Primary Insurance: MEDICAID [place] PEND[place] Anticipated DC Date: 11-03-2018 Planned Disposition: Psych facility External Planned Provider: TO BE DETERMINED DCP follow-up note: CM CALLED PT'S CASING MAN, ALEXANDER CHRISTIANSEN, , LEFT DETAILED MESSAGE REGARDING BEING UNSUCCESSFUL IN PLACING PT INTO INPATIENT PSYCHIATRIC FACIILITY IN THE [place]IRE [place]. CM ALSO EXPLAINED THAT PT NOW REPORTING NO SUICIDAL IDEATION AND WANTS TO DISCHARGE TO COMMUNITY FOR OUTPATIENT MENTAL HEALTH FOLLOWUP. CM ADVISED THAT THE DOCTOR IS RECONSULTING PSYCHIATRISTS FOR RECOMMENDATIONS. CM TO CONTINUE TO FOLLOW AND ASSIST NEEDED. RAJEEV Deluca DCP- Discharge Planning Updated by [id number]: All Howard on 11/04/18 4:[address] Patient Name: ERNESTINA SIMS Encounter No: [id number] : 1980 Primary Insurance: MEDICAID [place] PENDING Anticipated DC Date: 11-03-2018 Planned Disposition: Psych facility External Planned Provider:[facility] DCP follow-up note: CM SPOKE TO ERNESTINE OF THE TRANSFER P[facility]LE[facility], , WHO INFORMED CM THAT PT HAS BEEN DECLINED BY 16 FACILITIES IN THE [facility], SOME OF WHICH DECLINED DUE TO NO FUNDING SOURCE. ERNESTINE WILL CONTINUE TO TRY PLACEMENT AND ASKED CM TO NOTIFY [facility] IF ANY FUNDING SOURCE CAN BE LOCATED. CM CALLED [facility], , SPOKE TO [place] CHA AND REQEUSTED INDIGENT CONTACT FOR INPATIENT PSYCHIATRIC CARE. [place] REQUESTED REFERRAL VIA EMAIL. CM EMAILED REFERRAL FOR INDIGENT FUNDING REQUEST TO "[email or web address]". [place] WILL RESPOND VIA EMAIL. CM WAITING TO DETERMINE IF INDIGENT FUNDING CAN BE OBTAINED FOR INPATIENT PSYCHIATRIC CARE FROM [facility]. All Howard CASE MANAGEMENT Appended by All Howard on 11/04/2018 15:20 CDT: CM RECEIVED EMAIL CONFIRMATION OF INITIAL 3 DAY APPROVAL FOR INDIGENT INPATIENT PSYCHIATRIC CONTACT. CM CALLED [facility], , NOTIFIED ERNESTINE WHO WILL UPDATE PACKET AND CONTINUE SEEKING INPATIENT PSYCHIATRIC CARE FOR PT. CM FAXED COPY OF EMAIL TO ERNESTINE AT [facility]. CM CONTINUES TO AWAIT ACCEPTANCE AT ANY INPATIENT PSYCHIATRIC FACILITY IN [place]. RAJEEV DELUCA DCP- Discharge Planning Updated by [id number]: All Howard on 11/03/18 7:[address] Patient Name: ERNESTINA SIMS Encounter No: [id number] : 1980 Primary Insurance: MEDICAID [place]END[place] Anticipated DC Date: 11-03-2018 Planned Disposition: Psych facility External Planned Provider: [facility] DCP follow-up note: CM FAXED HOSPITAL UPDATE TO TRANSFER CENTER AT [phone]. CM CONTINUES TO WAIT INPATIENT PSYCHIATRIC FACILITY ACCEPTANCE. RAJEEV Deluac MANAGEMENT DCP- Discharge Planning Updated by [id number]: All Howard on 11/02/18 8:[address] Patient Name: ERNESTINA SIMS Encounter No: [id number] : 1980 Primary Insurance: MEDICAID [place] PENDING Anticipated DC Date: 11-02-2018 Planned Disposition: Psych facility External Planned Provider: [facility] DCP follow-up note: CM FAXED HOSPITAL UPDATE TO TRANSFER CENTER AT [phone]. CM CONTINUES TO WAIT INPATIENT PSYCHIATRIC FACILITY ACCEPTANCE. RAJEEV Deluca DCP- Discharge Planning Updated by [id number]: Lashay Griffith on 10/31/18 11:[address] CM TELEPHONED EASY ADMIT. SPOKE W/ DANIELLE. VERBAL UPDATE GIVEN, CM ALSO FAXED UPDATED MED LIST, OXYGEN NOTE, PROGRESS NOTE FOR TODAY AND DISCHARGE SUMMARY. NURSE REPORTED MULTIPLE CALLS ON FRIDAY REGARDING PROGRESS AND DENIALS. AWAIT CALL BACK WITH ACCEPTANCE WHEN PSYCH BED IS AVAILABLE. DCP- Discharge Planning Updated by [id number]: All Howard on 10/30/18 2:[address] Patient Name: ERNESTINA SIMS Encounter No: [id number] : 1980 Primary Insurance: MEDICAID [place] PENDING Anticipated DC Date: 10-29-2018 Planned Disposition: Psych facility External Planned Provider: [facility] OR [facility] ACCEPTING INPATIENT PS[facility]CHIATRIC FACILITY DCP follow-up note: TRANSFER CENTER INFORMED BEDSIDE NURSE THAT PT WILL NEED TO BE OFF ALL OXYGEN AND UPDRAFT TREATMENTS FOR 24 HOURS FOR THEM TO ATTEMPT PLACEMENT IN INPATIENT PSYCHIATRIC CARE. TRANSFER CENTER TO CONTINUE ATTEMPTING PLACMENT TOMORROW, 10-31-18. RAJEEV Deluca DCP- Discharge Planning Updated by [id number]: All Howard on 10/30/18 6:[address] Patient Name: ERNESTINA SIMS Encounter No: [id number] : 1980 Primary Insurance: MEDICAID [place] PENDING Anticipated DC Date: 10-29-2018 Planned Disposition: Psych facility External Planned Provider: [facility] follow-up note: CM FAXED NEW COAGULATION LAB RESULTS ALONG WITH NURSES NOTE INDICATING WHEN DRIP WAS STOPPED TO TRANSFER CENTER. 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 ADULT SPECIALIST NURSE. All Howard CASE MANAGEMENT DCP- Discharge Planning Updated by [id number]: All Howard on 10/29/18 3:[address] Patient Name: ERNESTINA SIMS Encounter No: [id number] : 1980 Primary Insurance: MEDICAID [place] PENDING Anticipated DC Date: 10-29-2018 Planned Disposition: Psych facility External Planned Provider: [facility] follow-up note: CM SPOKE TO MOISES SANON, PT IS STABLE FOR DISCHARGE TO INPATIENT PSYCHIATRIC CARE TODAY. CM SPOKE TO PT IN ROOM WHO IS WILLING FOR INPATIENT PSYCHATIRIC CARE. PT ASKED FOR CM TO FIND OUT WHO TOWED HER CAR FROM THE HOSPTIAL PARKING LOT. CM REFERRED PT TO [facility], [phone]. CM CALLED [facility] IN HOSPITAL ADMINSTRATION, WAS ADVISED THE HOSPITAL HAS NOT HAD ANY VEHICLES TOWED OFF LOT. CM CALLED [facility] POLICE WHO REPORTED THEY DID NOT TOW PT'S VEHICLE. CM CALLED PT'S CASING MAN, ALEXANDER CHRISTIANSEN, , WHO ADVISED THAT THE CAR WAS REPOSSESSED DUE TO NON PAYMENT TO HIS KNOWLEDGE. CM INFORMED CASING MAN OF PT'S PENDING PSYCHIATRIC CARE PLACEMENT AFTER OBSERVING A SIGNED CONSENT FOR RELEASE OF MEDICAL INFORMATION TO MR. CHRISTIANSEN IN CHART. CM INFORMED PT IN ROOM. CM SPOKE TO BEDSIDE NURSE WHO HAD TALKED TO TRANSFER CENTER, PT IS BEING CONSIDERED FOR ADMISSION BY [facility] INPATIENT PSYCHIATRIC CARE; THEY WILL NOT ACCEPT PT IS ON HEPARIN DRIP. BEDSIDE NURSE REPORT THIS HAS BEEN DISCONTINUED TODAY. CM CALLED [facility], , SPOKE TO TYREL WHO INFORMED CM THAT PT WILL NEED TO HAVE NEW LAB WORK IN THE MORNING AND FAX THAT ALONG WITH NURSES NOTE INDICATING WHEN DRIP WAS STOPPED TO TRANSFER CENTER IN THE MORNING, 07-30-18 AND THEY WILL RETRY FOR INPATIENT PSYCHIATRIC ADMISSION. BEDSIDE NURSE AND PT NOTIFIED. All Howard CASE ADE DCP- Discharge Planning Updated by [id number]: Susan Richardson on 10/16/18 3:[address] CM trying to find out if patient has insurance or if it has termed. [employer] is working on trying to figure this information out. Patient is going to need psych placement once medically stable. Patient is most likely going to need dialysis and psych at a facility. CM has notified Jodee Coco that patient will need outpatient dialysis setup. Jodee informed CM that the only facility that will accept dialysis/ psych patient is [facility]. CM will continue to follow and assist as needed with discharge planning / needs. DCP- Discharge Planning Updated by [id number]: Susan Richardson on 10/13/18 2:[address] Patient Name: ERNESTINA SIMS Admission Status: ER Accout number: [id number] Admission Date: 10-12-2018 : 1980 Admission Diagnosis: Attending: VAMSHI LARA Current LOS: 1 Anticipated DC Date: Planned Disposition: Psych facility Primary Insurance: UNINSURED DISCOUNT PLAN Discharge Planning Comments: CM met with patient at bedside after explaining CM role and obtaining verbal consent. Patient lives at home with two roommates and plans to return there upon discharge. Patient is currently having dialysis this is her second treatment thus far. [facility] once medically stable. Psych evaluation will determine discharge plan. CM will continue to follow and assist as needed with discharge planning / needs. Overhead Garage Door Hanger: Susan Richardson DCPIA - Discharge Planning Initial Assessment Updated by [id number]: Susan Richardson on 10/13/18 3:36 pm * Is the patient Alert and Oriented? Yes * How many steps to enter\\exit or inside your home? * PCP NO PCP * Pharmacy NO PHARMACY - CURRENTLY ? [facility] * Preadmission Environment Home with Family * ADLs Independent * Equipment None * List name and contact numbers for known caregivers / representatives who currently or will assist patient after discharge: OLVIN LIU - [facility]- [phone] * Verbal permission to speak to the caregivers and representatives has been obtained from the patient. N/A * Community resources currently utilized None * Additional services required to return to the preadmission environment? No * Can the patient safely return to the preadmission environment? Yes * Has this patient been hospitalized within the prior 30 days at any hospital? No Last DP export: 11/10/18 11:25 a Patient Name: ERNESTINA SIMS Page [id number] at 1407 All edits/amendments must be made on the electronic document DICTATION DATE: 11/10/181405 [facility]: DIRK 11/10/181405 RPT#: [id number] DC DATE: STATUS: ADM IN [facility] [address] [place] [address] END OF REPORT
[2018-11-26 14:09] LABS: FUNGUS MYCOLOGY CULTURE Final report (())
== END 2018-11-10 15:00 | disposition short-term general hospital (02) | DRG 907 ==
LOC: D.ER 08:22 → D.ICU 10:20 → D.M2 10:20 → D.ICU 10:50 → D.M2 10-23 15:54
PROVIDERS: Anesthesiology; Emergency Medicine; Family Medicine; Internal Medicine; Internal Medicine Nephrology; Radiology Vascular & Interventional Radiology; Surgery; Thoracic Surgery (Cardiothoracic Vascular Surgery); ADMIT Internal Medicine Nephrology; ATTEND Internal Medicine Nephrology
PROC: 05H633Z Insertion of Infusion Device into Left Subclavian Vein, Percutaneous Approach (ICD-10-PCS; principal; 2018-10-12)
PROC: 0JH63XZ Insertion of Tunneled Vascular Access Device into Chest Subcutaneous Tissue and Fascia, Percutaneous Approach (ICD-10-PCS; 2018-10-19)
PROC: 0W9930Z Drainage of Right Pleural Cavity with Drainage Device, Percutaneous Approach (ICD-10-PCS; 2018-10-19)
PROC: 05H633Z Insertion of Infusion Device into Left Subclavian Vein, Percutaneous Approach (ICD-10-PCS; 2018-10-19)
PROC: 0JHL3XZ Insertion of Tunneled Vascular Access Device into Right Upper Leg Subcutaneous Tissue and Fascia, Percutaneous Approach (ICD-10-PCS; 2018-10-20)
PROC: 06H033Z Insertion of Infusion Device into Inferior Vena Cava, Percutaneous Approach (ICD-10-PCS; 2018-10-20)
PROC: 06PY03Z Removal of Infusion Device from Lower Vein, Open Approach (ICD-10-PCS; 2018-10-21)
PROC: 0BCF0ZZ Extirpation of Matter from Right Lower Lung Lobe, Open Approach (ICD-10-PCS; 2018-10-21 13:15)
PROC: 06PY33Z Removal of Infusion Device from Lower Vein, Percutaneous Approach (ICD-10-PCS; 2018-10-27)
PROC: 0W993ZZ Drainage of Right Pleural Cavity, Percutaneous Approach (ICD-10-PCS; 2018-10-28)
DX: T52.8X2A Toxic effect of other organic solvents, intentional self-harm, initial encounter (principal); G92 Toxic encephalopathy; E87.2 Acidosis; N39.0 Urinary tract infection, site not specified; N17.9 Acute kidney failure, unspecified; J90 Pleural effusion, not elsewhere classified; J94.2 Hemothorax; D62 Acute posthemorrhagic anemia; R45.851 Suicidal ideations; I82.622 Acute embolism and thrombosis of deep veins of left upper extremity; I10 Essential (primary) hypertension; D75.89 Other specified diseases of blood and blood-forming organs; E87.5 Hyperkalemia; F32.9 Major depressive disorder, single episode, unspecified; F17.200 Nicotine dependence, unspecified, uncomplicated; X78.9XXA Intentional self-harm by unspecified sharp object, initial encounter; E87.6 Hypokalemia

== ENCOUNTER 2018-11-25 04:54 | Inpatient (IN) | payer MEDICAID ==
[~2018-11-25] VITALS: Ht 167.6 cm; Wt 56.8 kg
[~2018-11-25 04:54] MED LIST: ASPIRIN EC81 M1 PO; ELIQUIS5 MG PO; LOPRESSOR25 MG PO; ZOLOFT50 MG PO; Zoloft PO
[2018-11-25 05:40] LABS: BASOPHILS 0.2 % (0-2); EOSINOPHILS 0.9 % (0-7); HEMATOCRIT 30.8 % (36.0-48.0); IMMATURE GRANULOCYTES 0.5 % (0-5); LYMPHOCYTES 21.5 % (15-50); MCH 31.8 pg (26.0-34.0); MCHC 35.7 g/dL (31.0-37.0); MEAN PLATELET VOLUME 9.6 fL (7.4-10.4); MONOCYTES 9.3 % (2-11); NEUTROPHILS 67.6 % (40-80); RBC 3.46 10x6/uL (4.00-5.40); RDW 15.3 % (11.5-14.5); WBC 9.3 10x3/uL (4.8-10.8)
[2018-11-25 05:43] LABS: PLATELET COUNT 190 10x3/uL (130-400)
[2018-11-25 05:49] LABS: APTT 31.3 SECONDS (22.8-39.4); INR 1.15 (0.85-1.17); PROTIME 14.2 SECONDS (11.6-15.0)
[2018-11-25 05:50] LABS: D-DIMER-QUANTITATIVE 0.81 ug/mLFEU (0.20-0.54)
[2018-11-25 06:03] LABS: ALBUMIN 4.1 g/dL (3.4-5.0); ALKALINE PHOSPHATASE 132 U/L (46-116); ALT (SGPT) 40 U/L (10-68); BILIRUBIN - TOTAL 1.22 mg/dL (0.2-1.3); CALCIUM 8.8 mg/dL (8.5-10.1); CARBON DIOXIDE 12.8 mmol/L (21.0-32.0); CHLORIDE - SERUM 92 mmol/L (98-107); CREATININE - SERUM 1.3 mg/dL (0.6-1.3); POTASSIUM - SERUM 3.2 mmol/L (3.5-5.1); PROTEIN - SERUM 7.7 g/dL (6.4-8.2); SODIUM 130 mmol/L (136-145); UREA NITROGEN 20 mg/dL (7-18); eGFR NON AFRICAN AMERICAN 48 mL/min (90-120)
--- NOTE | 2018-11-25 06:03 | NUR ---
PSYCH NURSE HERE TO DO SUICIDE SCREENING FOLLOW UP.
[2018-11-25 06:09] LABS: APPEARANCE HAZY (CLEAR); BILIRUBIN NEGATIVE (NEGATIVE); COLOR STRAW (YELLOW); GLUCOSE NEGATIVE (NEGATIVE); KETONE MODERATE mg/dL (NEGATIVE); NITRITE NEGATIVE (NEGATIVE); PROTEIN NEGATIVE (NEGATIVE); UROBILINOGEN NORMAL (NORMAL)
[2018-11-25 06:14] LABS: MAGNESIUM - SERUM 1.5 mg/dL (1.8-2.4); PRO BNP 517 pg/mL (0-125); THYROID STIMULATING HORMONE 1.86 uIU/mL (0.36-3.74); TROPONIN-I < 0.017 ng/mL (0.000-0.060)
[2018-11-25 06:15] LABS: CALC OSMOLALITY 260 mosm/kg (275-300); CREATINE KINASE 1405 UL (21-215); LIPASE 47 U/L (73-393)
[2018-11-25 06:16] LABS: CKMB 9.4 U/L (0.0-3.6); GLUCOSE 51 mg/dL (74-106)
[2018-11-25 06:18] LABS: UDS - AMPHET POSITIVE QUAL (NEGATIVE); UDS - BARB NEGATIVE QUAL (NEGATIVE); UDS - BENZO NEGATIVE QUAL (NEGATIVE); UDS - COCAINE NEGATIVE QUAL (NEGATIVE); UDS - OPIATE NEGATIVE QUAL (NEGATIVE); UDS - PCP NEGATIVE QUAL (NEGATIVE); UDS - THC NEGATIVE QUAL (NEGATIVE)
--- NOTE | 2018-11-25 06:23 | NUR ---
DR SHEEHAN NOTIFIED AND REVIEWED PT'S BEHAVIOR AND ASSESSMENT RESULTS. PT IS A LOW RISK PER DR SHEEHAN. DR SHEEHAN STATED TO GIVE RESOURCES TO PT AT TIME OF DISCHARGE. NO FURTHER ORDERS AT THIS TIME. RESOURCES REVIEWED WITH PT AND SHE VERBALIZED UNDERSTANDING.
[2018-11-25] MEDS ORDERED: VISTARIL25 MG (06:24)
[2018-11-25] MEDS ORDERED: DEPAKOTE125 MG (06:24)
--- NOTE | 2018-11-25 07:00 | NUR ---
REPORT GIVEN TO DANIELA WOODRUFF
--- NOTE | 2018-11-25 07:38 | NUR ---
PT GIVEN BREAKFAST TRAY PRIOR TO LEAVING ED.
--- NOTE | 2018-11-25 08:30 | NUR ---
NEW PATIENT ADMIT FROM ER VIA STRETCHER AND ER STAFF. PATIENT IS VERY LETHARGIC AND DIFFICULT TO AROUSE. VS COMPLETED ARE WNL. SEE VS RECORD. IV K+20 MEQ INFUSING AT 200 ML/HR. UNABLE TO OBTAIN ADMISSION HISTORY DUE TO PATIENT NOT ABLE TO ANSWER QUESTIONS. PLACE PATIENT IN YELLOW GOWN AND ABHINAV BED ALARM IN PLACE AND TURNED ON. SR UP X 2 BED IN LOW POSITION AND CALL LIGHT IN REACH. WILL CONTINUE TO MONITOR.
[2018-11-25 09:07] VITALS: BP 105/59; BMI 20.2
[2018-11-25 09:59] VITALS: BP 156/65
--- NOTE | 2018-11-25 10:00 | NUR ---
ORDERS RECEIVED BY DR LRAA FOR PATIENT TRANSFER TO ICU. ROOM 2304 ASSIGNED. CALLED REPORT TO ROHAN. WILL TRANSPORT MOMENTARILY. SR UP X 2 BED IN LOW POSITION AND CALL LIGHT IN REACH.
--- NOTE | 2018-11-25 10:45 | NUR ---
DR LARA AND HUMBLE, RN FROM ICU IN ROOM. PATIENT IS AWAKE AND VERBAL . PER DR LARA VERBAL INSTRUCTIONS, PATIENT IS NOT BE TRANSPORTED TO ICU AND REMAIN ON MED 2 UNIT. WILL CONTINUE TO MONITOR. SR UP X 2 BED IN LOW POSITION AND CALL LIGHT IN REACH.
[2018-11-25 11:18] VITALS: Ht 167.6 cm; Wt 56.8 kg
--- NOTE | 2018-11-25 11:38 | NUR ---
STORAGE ARCHITECT CALLED TO REASSESS S.I. DUE TO CHANGE IN PATIENT'S BEHAVIOR AND STATUS. STAFF SAID PATIENT WAS NOT MAKING ANY SENSE VERBALLY DURING ASSESSMENT. SHE WAS ASLEEP AND UNABLE TO BE AWAKENED AT THIS TIME. SHE IS TO BE TRANSFERRED TO ICU LATER AND WILL ATTEMPT TO REASSESS HER LATER.
[2018-11-25 12:36] LABS: ANION GAP 18.2 mmol/L (8-16); CALCIUM 8.1 mg/dL (8.5-10.1); CARBON DIOXIDE 21.7 mmol/L (21.0-32.0); CREATININE - SERUM 1.1 mg/dL (0.6-1.3); POTASSIUM - SERUM 3.9 mmol/L (3.5-5.1)
--- NOTE | 2018-11-25 12:55 | NUR ---
CALLED HOUSE KIMBERLY HORACE AGAIN ABOUT STATUS OF SUICIDE WATCH. HORACE STATES THAT SHE HAS SPOKEN WITH PSYCH AND THEY ARE COMING UP TO DO AN EVAL. SHE ALSO STATED THAT SHE NEEDS TO SPEAK WITH MORIAH RN,CNO AND SHE IS CURRENTLY UNAVAILABLE. I AGAIN ASKED ABOUT NEEDING A SITTER IMMEDIATELY HORACE STATED THAT PSYCH WITH ASSIGN ON AFTER EVALUATION. STARTED NS AND MAG ORDERED. WILL CONTINUE TO MONITOR. SR UP X 2 BED IN LOW POSITION AND CALL LIGHT IN REACH. PATIENT ON ABHINAV BED ALARM THAT IS TRUNED ON AND WORKING.
[2018-11-25 14:05] VITALS: BP 110/62
--- NOTE | 2018-11-25 14:18 | NUR ---
PATIENT RESTING QUIETLY ON BACK WITH EYES CLOSED AND RESPIRATIONS EVEN AND NON LABORED. CALLED DEVAN VU ONCE AGAIN ASKING ABOUT STATUS OF PSYCH EVAL/SITTER/ICU TRANSFER. HORACE STATED THAT SHE SPOKE WITH DANIELA MAJOR CNO AND WAS TOLD THAT PATIENT WILL HAVE A SITTER. I INFORMED THAT NO SITTER IN ROOM. HORACE INFORMED ME THAT SHE WAS IN MIDDLE OF HYPERTHERMIA DRILL AND WILL CALL ME BACK. SR UP X 2 BED IN LOW POSITION AND CALL LIGHT IN REACH.
--- NOTE | 2018-11-25 14:45 | NUR ---
ARRIVED IN ROOM TO SIT WITH PATIENT. SHE HAS REMAINED ASLEEP FOR 15 MINUTES, THEN SHE STARTED GETTING UPSET THAT SOMEONE WAS GOING TO HAVE TO SIT WHEN HER. SHE STILL DENIES COMING TO [facility] FOR HARMING HERSELF. I AM NOT THINKING OF SUICIDE OF ANY SORT. WILL CONTINUE TO SIT AT BEDSIDE WITH PATIENT.
--- NOTE | 2018-11-25 15:00 | NUR ---
DANIELA BRAUN FROM [facility] IN ROOM. ATTEMPTING EVAL BUT PATIENT UNABLE TO STAY AWAKE AND ANSWER QUESTIONS. DANIELA BRAUN TO REMAIN IN ROOM WITH PATIENT.
--- NOTE | 2018-11-25 16:34 | NUR ---
PATIENT LAYING IN BED ON BACK WITH EYES CLOSED AND BREATHING EVENLY. VSS. APARNA RN IN ROOM AT ALL TIMES. ALL SUICEDE PRECAUTIONS IN PLACE. SR UP X 2 BED IN LOW POSITION AND CALL LIGHT IN REACH. WILL CONTINUE TO MONITOR.
[2018-11-25 17:12] LABS: APPEARANCE CLEAR (CLEAR); BILIRUBIN NEGATIVE (NEGATIVE); COLOR YELLOW (YELLOW); GLUCOSE NEGATIVE (NEGATIVE); KETONE MODERATE mg/dL (NEGATIVE); NITRITE NEGATIVE (NEGATIVE); PROTEIN NEGATIVE (NEGATIVE); SPECIFIC GRAVITY 1.015 (1.005-1.020); UROBILINOGEN NORMAL (NORMAL)
[2018-11-25 17:16] LABS: UDS - AMPHET POSITIVE QUAL (NEGATIVE); UDS - BARB NEGATIVE QUAL (NEGATIVE); UDS - BENZO NEGATIVE QUAL (NEGATIVE); UDS - COCAINE NEGATIVE QUAL (NEGATIVE); UDS - OPIATE NEGATIVE QUAL (NEGATIVE); UDS - PCP NEGATIVE QUAL (NEGATIVE); UDS - THC NEGATIVE QUAL (NEGATIVE)
[2018-11-25 17:31] VITALS: BP 110/62
--- NOTE | 2018-11-25 17:49 | NUR ---
PATIENT SITTING UP IN BED EATING DINNER. PATIENT ANSWERS QUESTIONS APPROPRIATELY. PATIENT MEDICATED PER MAY. DANIELA BRAUN AT . PATIENT DENIES ANY NEEDS OR PAIN. WILL CONTINUE TO MONITOR. SR UP X 2 BED IN LOW POSITION AND CALL LIGHT IN REACH.
[2018-11-25 20:00] VITALS: BP 107/62
--- NOTE | 2018-11-25 20:00 | NUR ---
PATIENT LAYING IN BED. NO COMPLAINTS AT THIS TIME. NO DISTRESS NOTED.
--- NOTE | 2018-11-25 22:00 | NUR ---
PATIENT'S IV TO RIGHT FOREARM INFILTRATED. IV TIP INTACT. NEW IV TO RIGHT FOREARM 22G STARTED X 2 ATTEMPTS.
--- NOTE | 2018-11-25 23:00 | NUR ---
PATIENT ASLEEP WHEN THIS NURSE WENT TO FILL OUT ADMISSION HISTORY AND SUICIDAL SCREENING.
[2018-11-26] VITALS: BP 89/45
[2018-11-26 05:37] LABS: BASOPHILS 0.2 % (0-2); EOSINOPHILS 4.1 % (0-7); HEMATOCRIT 27.8 % (36.0-48.0); HEMOGLOBIN 9.8 g/dL (12-16); IMMATURE GRANULOCYTES 0.6 % (0-5); LYMPHOCYTES 34.1 % (15-50); MCH 31.3 pg (26.0-34.0); MCHC 35.3 g/dL (31.0-37.0); MCV 88.8 fL (80.0-100.0); MEAN PLATELET VOLUME 9.3 fL (7.4-10.4); MONOCYTES 10.7 % (2-11); NEUTROPHILS 50.3 % (40-80); PLATELET COUNT 155 10x3/uL (130-400); RBC 3.13 10x6/uL (4.00-5.40); RDW 15.8 % (11.5-14.5)
[2018-11-26 05:43] VITALS: BP 98/57
[2018-11-26 05:51] LABS: WBC 5.3 10x3/uL (4.8-10.8)
[2018-11-26 06:03] LABS: ALKALINE PHOSPHATASE 87 U/L (46-116); BILIRUBIN - TOTAL 0.61 mg/dL (0.2-1.3); CALCIUM 7.5 mg/dL (8.5-10.1); CARBON DIOXIDE 22.8 mmol/L (21.0-32.0); CHLORIDE - SERUM 109 mmol/L (98-107); GLUCOSE 86 mg/dL (74-106); SODIUM 141 mmol/L (136-145)
[2018-11-26 06:14] LABS: ALBUMIN 2.6 g/dL (3.4-5.0); ALT (SGPT) 26 U/L (10-68); CALC OSMOLALITY 278 mosm/kg (275-300); CREATININE - SERUM 0.7 mg/dL (0.6-1.3); POTASSIUM - SERUM 3.1 mmol/L (3.5-5.1); PROTEIN - SERUM 5.6 g/dL (6.4-8.2); UREA NITROGEN 9 mg/dL (7-18); eGFR NON AFRICAN AMERICAN > 90 mL/min (90-120)
--- NOTE | 2018-11-26 07:29 | NUR ---
REPORT RECEIVED. WILL CONTINUE WITH POC. PT CURRENTLY SITTING ON EDGE OF BED. SITTER AT BEDSIDE. RR EVEN AND UNLABORED ON RA. NS INFUSING @125ML/HR VIA R.FOR PIV. PT DENIES ANY NEEDS. WILL CTM.
--- NOTE | 2018-11-26 09:05 | NUR ---
DRIED RUPTURED BLISTERS NOTED ON SIDES OF FEET AND AN INTACT BLISTER ON #4LEFT TOE. PT'S FEET ARE SLIGHTLY EDEMATOUS AND TENDER TO THE TOUCH. PT STATES THAT WHEN SHE STANDS UP THE RUPTURED BLISTER AREAS WEEP. THERE IS NO ODOR. ENCOURAGED TO ELEVATE FEET WHILE IN BED OR UP IN CHAIR. WOUND CARE WILL MONITOR.
[2018-11-26 09:16] VITALS: BP 117/67
--- NOTE | 2018-11-26 09:41 | NUR ---
AM MEDICATIONS ADMINISTERED. SITER AT BEDSIDE. PT ASKING TO USE COMPUTER. EXPLAINED TO PT THAT SHE IS NOT ALLOWED TO DO SO. WILL CTM.
--- NOTE | 2018-11-26 11:05 | NUR ---
PT STATES THAT SHE WANTS TO DISCHAGE NOW AND SPEAK TO HER RETAIL ASSET PROTECTION SPECIALIST. EXPLAINED TO PT THAT SHE IS ON HOLD FOR SUICIDE WATCH. NOTIFIED OLVIN DE LEON.
[2018-11-26 13:30] VITALS: BP 107/59
--- NOTE | 2018-11-26 16:33 | MORECARE ---
CASE MANAGEMENT DISCHARGE SUMMARY PATIENT: ERNESTINA SIMS UNIT: [id number] ADM DATE: 11/25/18 AGE: 38 : 78 SEX: F ROOM/BED: D.4349 AUTHOR: SURI GREEN PHYSICIAN: REFERRING PHYSICIAN: VAMSHI LARA MD DATE OF SERVICE: 11/26/18 Discharge Plan Patient Name: ERNESTINA SIMS Facility: [facility]:[place] : 1980 Planned Disposition: Home Anticipated Discharge Date: Discharge Date: Expected LOS: Initial Reviewer: [email or web address] Initial Review Date: 11/26/2018 Generated: 11/26/18 5:33 pm Patient Name: ERNESTINA SIMS Page 34527 at 1633 All edits/amendments must be made on the electronic document DICTATION DATE: 11/26/18 1633 VENEER REDRIER: DIRK 11/26/18 1633 RPT#: [id number] DC DATE: STATUS: ADM IN [facility] [address] [place] [address] END OF REPORT
--- NOTE | 2018-11-26 16:40 | MORECARE ---
CASE MANAGEMENT DISCHARGE SUMMARY PATIENT: ERNESTINA SIMS UNIT: [id number] ADM DATE: 11/25/18 AGE: 38 : 78 SEX: F ROOM/BED: D.2129 AUTHOR: SURI GREEN PHYSICIAN: REFERRING PHYSICIAN: VAMSHI LARA MD DATE OF SERVICE: 11/26/18 Discharge Plan Patient Name: ERNESTINA SIMS Facility: [facility]:[place] : 1980 Planned Disposition: Home Anticipated Discharge Date: Discharge Date: Expected LOS: Initial Reviewer: [email or web address] Initial Review Date: 11/26/2018 Generated: 11/26/18 5:40 pm DCPIA - Discharge Planning Initial Assessment Updated by [email or web address]: All Howard on 11/26/18 4:34 pm * Is the patient Alert and Oriented? Yes * How many steps to enter\exit or inside your home? NONE * PCP NONE * 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 N/A * Community resources currently utilized Other * Please name any agencies selected above. [facility] OF COMMUNITY CORRECTIONS ([facility] * Additional services required to return to the preadmission environment? No * Can the patient safely return to the preadmission environment? Yes * Has this patient been hospitalized within the prior 30 days at any hospital? Yes Last DP export: 11/26/18 3:33 p Patient Name: ERNESTINA SIMS Page 36556 at 1640 All edits/amendments must be made on the electronic document DICTATION DATE: 11/26/18 1640 SUPERVISOR TRUST ACCOUNTS: DIRK 11/26/18 1640 RPT#: [id number] DC DATE: STATUS: ADM IN [facility] [address] [place] [address] END OF REPORT
[2018-11-26 16:45] VITALS: BP 107/65
--- NOTE | 2018-11-26 16:47 | MORECARE ---
CASE MANAGEMENT DISCHARGE SUMMARY PATIENT: ERNESTINA SIMS UNIT: [id number] ADM DATE: 11/25/18 AGE: 38 : 78 SEX: F ROOM/BED: D.2794 AUTHOR: SURI GREEN PHYSICIAN: REFERRING PHYSICIAN: VAMSHI LARA MD DATE OF SERVICE: 11/26/18 Discharge Plan Patient Name: ERNESTINA SIMS Facility: [facility]:[place] : 1980 Planned Disposition: Home Anticipated Discharge Date: Discharge Date: Expected LOS: Initial Reviewer: [email or web address] Initial Review Date: 11/26/2018 Generated: 11/26/18 5:47 pm Comments DCP- Discharge Planning Updated by [email or web address]: All Howard on 11/26/18 3:[address] Patient Name: ERNESTINA SIMS Admission Status: ER Accout number: [id number] Admission Date: 11-25-2018 : 1980 Admission Diagnosis: Attending: VAMSHI LARA Current LOS: 1 Anticipated DC Date: Planned Disposition: Home Primary Insurance: MEDICAID [place] Discharge Planning Comments: CM RECEIVED REQUEST TO ASSIST PT WITH CALLING HER BELLMAN PT HAS NO PHONE IN ROOM. CM MET WITH PT IN ROOM TO DISCUSS DISCHARGE PLANNING AND NEEDS. PT HAS CALLED HER BELLMAN, THERE IS A PHONE IN THE ROOM. PT REPORTS BEING EVICTED FROM HER HOME AND IS NOW HOMELESS. SHE IS NOT ABLE TO FIND [facility] GROUP HOME IN [place] THEY ARE FULL. PT REFUSED TO GO OUTSIDE [facility] FOR GROUP HOME AT THIS TIME SHE IS IN PROCESS OF LOOKING FOR A JOB AND TRYING TO GET HER BELONGINGS FROM HER PREVIOUS [place]LORD. PT REPORTS HER PAROLE OFFICE HAS REFERRED HER TO [employer] FOR POSSIBLE ASSISTANCE. PT HAS A LIST OF LOCAL ASSISTANCE ORGANIZATIONS PROVIDED TO HER BY [facility]. PT REPORTS USING THE [employer] FOR PHONE AND INTERNET ACCESS. CM OFFERED OUT OF AREA PLACEMENT ASSISTANCE, PT AGAIN REFUSED. PT STATES HE COULD USE HELP WITH TRANSPORT AT DISCHARGE SHE IS WALKING AND HAS BLISTERS ON HER FEET. CM PROVIDED PT WITH A BUS PASS FOR DISCHARGE. CM PROVIDED PT WITH MAP TO [employer] AND CONTACT INFORMATION. CM ADVISED PT TO CALL [facility] FROM THE ROOM WHILE IN HOSPITAL SO THAT IF THEY ARE ABLE TO ASSIST, THEY CAN START WORKING ON IT PRIOR TO DISCHARGE. PT REPORTS UNDERSTANDING. PT HAS NO MEDICAL EQUIPMENT. PT HAS BELLMAN HELPING HER. CM ASKED ABOUT BEING HOMELESS AND BEING ON PAROLE NOT HAVING DISCHARGE ADDRESS; PT REPORTS LONG SHE CALLS EVERY DAY OR SOMEONE ELSE CALLS BELLMAN FOR HER, THEY WILL NOT REVOKE HER PAROLE. PT REPORTS IT TO BE VERY IMPORTANT THAT SHE STAY IN CONTACT WITH BELLMAN. CM DISCUSSED AVAILABILITY OF HOME HEALTH, REHAB SERVICES AND MEDICAL EQUIPMENT. PT DENIES DISCHARGE NEEDS. Manager Finance: All Howard DCPIA - Discharge Planning Initial Assessment Updated by [email or web address]: All Howard on 11/26/18 4:34 pm * Is the patient Alert and Oriented? Yes * How many steps to enter\exit or inside your home? NONE * PCP NONE * Pharmacy [facility] ON [facility] * Preadmission Environment Homeless * Other Environment LIVING ON THE STREETS * Facility Name NONE - PT'S BELLMAN REFERRED PT TO [facility] ALL [facility] SHELTERS IN [place] ARE FULL * ADLs Independent * Equipment None * Other Equipment NO MEDICAL EQUIPMENT PROVIDER PREFERENCE * List name and contact numbers for known caregivers / representatives who currently or will assist patient after discharge: JEN LIU, , * Verbal permission to speak to the caregivers and representatives has been obtained from the patient. N/A * Community resources currently utilized Other * Please name any agencies selected above. DE[facility] OF COMMUNITY CORRECTIONS ([facility] * Additional services required to return to the preadmission environment? No * Can the patient safely return to the preadmission environment? Yes * Has this patient been hospitalized within the prior 30 days at any hospital? Yes Last DP export: 11/26/18 3:40 p Patient Name: ERNESTINA SIMS Page 20449 at 1647 All edits/amendments must be made on the electronic document DICTATION DATE: 11/26/181646 INSTRUCTOR ADJUNCT SURGICAL TECHNICIAN: DIRK 11/26/181646 RPT#: [id number] DC DATE: STATUS: ADM IN [facility] [address] [place] [address] END OF REPORT
--- NOTE | 2018-11-26 17:16 | MORECARE ---
CASE MANAGEMENT DISCHARGE SUMMARY PATIENT: ERNESTINA SIMS UNIT: [id number] ADM DATE: 11/25/18 AGE: 38 : 76 SEX: F ROOM/BED: D.3467 AUTHOR: SURI GREEN PHYSICIAN: REFERRING PHYSICIAN: VAMSHI LARA MD DATE OF SERVICE: 11/26/18 Discharge Plan Patient Name: ERNESTINA SIMS Facility: [facility]:[place] : 1980 Planned Disposition: Home Anticipated Discharge Date: Discharge Date: Expected LOS: Initial Reviewer: [email or web address] Initial Review Date: 11/26/2018 Generated: 11/26/18 6:16 pm Comments DCP- Discharge Planning Updated by [email or web address]: All Howard on 11/26/18 4:[address] Patient Name: ERNESTINA SIMS Admission Status: ER Accout number: [id number] Admission Date: 11-25-2018 : 1980 Admission Diagnosis: Attending: VAMSHI LARA Current LOS: 1 Anticipated DC Date: Planned Disposition: Home Primary Insurance: MEDICAID [place] Discharge Planning Comments: CM RECEIVED REQUEST TO ASSIST PT WITH CALLING HER HAMMERER TAB PT HAS NO PHONE IN ROOM. CM MET WITH PT IN ROOM TO DISCUSS DISCHARGE PLANNING AND NEEDS. PT HAS CALLED HER HAMMERER TAB, THERE IS A PHONE IN THE ROOM. PT REPORTS BEING EVICTED FROM HER HOME AND IS NOW HOMELESS. SHE IS NOT ABLE TO FIND [facility]UST[facility] IN [place] THEY ARE FULL. PT REFUSED TO GO OUTSIDE [facility] FOR CUSTODIAL AT THIS TIME SHE IS IN PROCESS OF LOOKING FOR A JOB AND TRYING TO GET HER BELONGINGS FROM HER PREVIOUS [place]. PT REPORTS HER PAROLE OFFICE HAS REFERRED HER TO [employer] FOR POSSIBLE ASSISTANCE. PT HAS A LIST OF LOCAL ASSISTANCE ORGANIZATIONS PROVIDED TO HER BY [facility]. PT REPORTS USING THE [employer] FOR PHONE AND INTERNET ACCESS. CM OFFERED OUT OF AREA PLACEMENT ASSISTANCE, PT AGAIN REFUSED. PT STATES HE COULD USE HELP WITH TRANSPORT AT DISCHARGE SHE IS WALKING AND HAS BLISTERS ON HER FEET. CM PROVIDED PT WITH A BUS PASS FOR DISCHARGE. CM PROVIDED PT WITH MAP TO [employer] AND CONTACT INFORMATION. CM ADVISED PT TO CALL [facility] FROM THE ROOM WHILE IN HOSPITAL SO THAT IF THEY ARE ABLE TO ASSIST, THEY CAN START WORKING ON IT PRIOR TO DISCHARGE. PT REPORTS UNDERSTANDING. PT HAS NO MEDICAL EQUIPMENT. PT HAS HAMMERER TAB HELPING HER. CM ASKED ABOUT BEING HOMELESS AND BEING ON PAROLE NOT HAVING DISCHARGE ADDRESS; PT REPORTS LONG SHE CALLS EVERY DAY OR SOMEONE ELSE CALLS HAMMERER TAB FOR HER, THEY WILL NOT REVOKE HER PAROLE. PT REPORTS IT TO BE VERY IMPORTANT THAT SHE STAY IN CONTACT WITH HAMMERER TAB. CM DISCUSSED AVAILABILITY OF HOME HEALTH, REHAB SERVICES AND MEDICAL EQUIPMENT. PT DENIES DISCHARGE NEEDS. PT DENIES SUICIDAL IDEATIONS. PT REPORTS SHE CAN NOW GET HER MEDICATIONS SHE HAS HER MEDICAID NUMBER THAT WAS APPROVED AND SHE DID NOT KNOW IT. PATIENT IS HOMELESS AND REFUSES OUT OF AREA REFERRALS TO ANY CUSTODIAL. PT WILL DISCHARGE TO THE COMMUNITY TO FOLLOW UP WITH HER HAMMERER TAB AND COMMUNITY RESOURCES. PT WILL TAKE BUS AND HAS BUS PASS FOR DISCHARGE AND PLANS TO GO TO [facility] IN SEARCH OF CUSTODIAL IN [place]. Manager Business Continuity: All Howard DCPIA - Discharge Planning Initial Assessment Updated by [email or web address]: All Howard on 11/26/18 4:34 pm * Is the patient Alert and Oriented? Yes * How many steps to enter\exit or inside your home? NONE * PCP NONE * [facility] * Preadmission Environment Homeless * Other Environment LIVING ON THE STREETS * Facility Name NONE - PT'S HAMMERER TAB REFERRED PT TO [facility] ALL [facility]S IN [place] ARE FULL * ADLs Independent * Equipment None * Other Equipment NO MEDICAL EQUIPMENT PROVIDER PREFERENCE * List name and contact numbers for known caregivers / representatives who currently or will assist patient after discharge: JEN LIU, SISTER, * Verbal permission to speak to the caregivers and representatives has been obtained from the patient. N/A * Community resources currently utilized Other * Please name any agencies selected above. DEPARTMENT OF COMMUNITY CORRECTIONS ([facility] * Additional services required to return to the preadmission environment? No * Can the patient safely return to the preadmission environment? Yes * Has this patient been hospitalized within the prior 30 days at any hospital? Yes Last DP export: 11/26/18 3:47 p Patient Name: ERNESTINA SIMS Page 56093 at 1716 All edits/amendments must be made on the electronic document DICTATION DATE: 11/26/181715 WAITER/WAITRESS: DIRK 11/26/181715 RPT#: [id number] DC DATE: STATUS: ADM IN [facility] [address] [place] [address] END OF REPORT
[2018-11-26 21:20] VITALS: BP 105/60
[2018-11-27 00:54] VITALS: BP 93/54
--- NOTE | 2018-11-27 03:34 | NUR ---
I have reviewed this patient and I concur with the Shift Assessment completed by the Licensed Practical Nurse today this shift.
[2018-11-27 06:31] LABS: BASOPHILS 0.2 % (0-2); EOSINOPHILS 2.9 % (0-7); HEMATOCRIT 29.1 % (36.0-48.0); IMMATURE GRANULOCYTES 0.5 % (0-5); LYMPHOCYTES 43.9 % (15-50); MCH 31.3 pg (26.0-34.0); MCHC 34.4 g/dL (31.0-37.0); MONOCYTES 11.2 % (2-11); NEUTROPHILS 41.3 % (40-80); PLATELET COUNT 176 10x3/uL (130-400); RDW 16.2 % (11.5-14.5); WBC 4.1 10x3/uL (4.8-10.8)
[2018-11-27 06:33] LABS: MCV 90.9 fL (80.0-100.0)
[2018-11-27 06:41] VITALS: BP 113/69
[2018-11-27 06:53] LABS: ALBUMIN 2.8 g/dL (3.4-5.0); ALKALINE PHOSPHATASE 91 U/L (46-116); ALT (SGPT) 26 U/L (10-68); BILIRUBIN - TOTAL 0.37 mg/dL (0.2-1.3); CALC OSMOLALITY 282 mosm/kg (275-300); CALCIUM 8.3 mg/dL (8.5-10.1); CARBON DIOXIDE 26.8 mmol/L (21.0-32.0); CHLORIDE - SERUM 110 mmol/L (98-107); CREATININE - SERUM 0.7 mg/dL (0.6-1.3); GLUCOSE 87 mg/dL (74-106); POTASSIUM - SERUM 3.8 mmol/L (3.5-5.1); PROTEIN - SERUM 5.9 g/dL (6.4-8.2); SODIUM 144 mmol/L (136-145); eGFR NON AFRICAN AMERICAN > 90 mL/min (90-120)
[2018-11-27 06:54] LABS: UREA NITROGEN 4 mg/dL (7-18)
--- NOTE | 2018-11-27 07:19 | NUR ---
REPORT RECEIVED. WILL CONTINUE WITH POC. PT CURRENTLY SITTING ON EDGE OF BED. CALL LIGHT W/I REACH. RR EVEN AND UNLABORED ON RA. NO S/S OF DISTRESS NOTED. PT DENIES ANY NEEDS. WILL CTM. SITTER AT BEDSIDE.
[2018-11-27] MEDS ORDERED: ELIQUIS5 MG PO (11:30)
--- NOTE | 2018-11-27 13:35 | NUR ---
PT DISCHARGED HOME VIA AMBULATION. PT REFUSED WHEELCHAIR. PIV REMOVED WITH CATEHTER TIP FULLY INTACT. PT SIGNED DISCHARGE INSTRUCTIONS AND REMOVED ALL VALUABLES FROM THE ROOM.
--- NOTE | 2018-11-27 18:15 | MORECARE ---
CASE MANAGEMENT DISCHARGE SUMMARY PATIENT: ERNESTINA SIMS UNIT: [id number] ADM DATE: 11/25/18 AGE: 38 : 76 SEX: F ROOM/BED: D.0770 AUTHOR: PETERDOC PHYSICIAN: REFERRING PHYSICIAN: VAMSHI LARA MD DATE OF SERVICE: 11/27/18 Discharge Plan Patient Name: ERNESTINA SIMS Facility: [facility]:[place] : 1980 Planned Disposition: Home Anticipated Discharge Date: 11/27/18 Discharge Date: 11/27/2018 Expected LOS: 2 Initial Reviewer: [email or web address] Initial Review Date: 11/26/2018 Generated: 11/27/18 7:15 pm Comments DCP- Discharge Planning Updated by [email or web address]: All Howard on 11/26/18 4:[address] Patient Name: ERNESTINA SIMS Admission Status: ER Accout number: [id number] Admission Date: 11-25-2018 : 1980 Admission Diagnosis: Attending: VAMSHI LARA Current LOS: 1 Anticipated DC Date: Planned Disposition: Home Primary Insurance: MEDICAID [place] Discharge Planning Comments: CM RECEIVED REQUEST TO ASSIST PT WITH CALLING HER SCRIPT GIRL PT HAS NO PHONE IN ROOM. CM MET WITH PT IN ROOM TO DISCUSS DISCHARGE PLANNING AND NEEDS. PT HAS CALLED HER SCRIPT GIRL, THERE IS A PHONE IN THE ROOM. PT REPORTS BEING EVICTED FROM HER HOME AND IS NOW HOMELESS. SHE IS NOT ABLE TO FIND [facility] SKILLED NURSING IN [place] THEY ARE FULL. PT REFUSED TO GO OUTSIDE [facility] FOR SK[facility]ED NURSING AT THIS TIME SHE IS IN PROCESS OF LOOKING FOR A JOB AND TRYING TO GET HER BELONGINGS FROM HER PREVIOUS LANDLORD. PT REPORTS HER PAROLE OFFICE HAS REFERRED HER TO [facility] FOR POSSIBLE ASSISTANCE. PT HAS A LIST OF LOCAL ASSISTANCE ORGANIZATIONS PROVIDED TO HER BY [facility]. PT REPORTS USING THE [employer] FOR PHONE AND INTERNET ACCESS. CM OFFERED OUT OF AREA PLACEMENT ASSISTANCE, PT AGAIN REFUSED. PT STATES HE COULD USE HELP WITH TRANSPORT AT DISCHARGE SHE IS WALKING AND HAS BLISTERS ON HER FEET. CM PROVIDED PT WITH A BUS PASS FOR DISCHARGE. CM PROVIDED PT WITH MAP TO [facility] AND CONTACT INFORMATION. CM ADVISED PT TO CALL [facility] FROM THE ROOM WHILE IN HOSPITAL SO THAT IF THEY ARE ABLE TO ASSIST, THEY CAN START WORKING ON IT PRIOR TO DISCHARGE. PT REPORTS UNDERSTANDING. PT HAS NO MEDICAL EQUIPMENT. PT HAS SCRIPT GIRL HELPING HER. CM ASKED ABOUT BEING HOMELESS AND BEING ON PAROLE NOT HAVING DISCHARGE ADDRESS; PT REPORTS LONG SHE CALLS EVERY DAY OR SOMEONE ELSE CALLS SCRIPT GIRL FOR HER, THEY WILL NOT REVOKE HER PAROLE. PT REPORTS IT TO BE VERY IMPORTANT THAT SHE STAY IN CONTACT WITH SCRIPT GIRL. CM DISCUSSED AVAILABILITY OF HOME HEALTH, REHAB SERVICES AND MEDICAL EQUIPMENT. PT DENIES DISCHARGE NEEDS. PT DENIES SUICIDAL IDEATIONS. PT REPORTS SHE CAN NOW GET HER MEDICATIONS SHE HAS HER MEDICAID NUMBER THAT WAS APPROVED AND SHE DID NOT KNOW IT. PATIENT IS HOMELESS AND REFUSES OUT OF AREA REFERRALS TO ANY SKILLED NURSING. PT WILL DISCHARGE TO THE COMMUNITY TO FOLLOW UP WITH HER SCRIPT GIRL AND COMMUNITY RESOURCES. PT WILL TAKE BUS AND HAS BUS PASS FOR DISCHARGE AND PLANS TO GO TO [facility] IN SEARCH OF SKILLED NURSING IN [place]. Apprenticeship Representative: All Howard DCPIA - Discharge Planning Initial Assessment Updated by [email or web address]: All Howard on 11/26/18 4:34 pm * Is the patient Alert and Oriented? Yes * How many steps to enter\exit or inside your home? NONE * PCP NONE * Pharmacy [facility] [address] * Preadmission Environment Homeless * Other Environment LIVING ON THE STREETS * Facility Name NONE - PT'S SCRIPT GIRL REFERRED PT TO [facility] ALL [facility]S IN [place] ARE FULL * ADLs Independent * Equipment None * Other Equipment NO MEDICAL EQUIPMENT PROVIDER PREFERENCE * List name and contact numbers for known caregivers / representatives who currently or will assist patient after discharge: JEN LIU, SISTER, * Verbal permission to speak to the caregivers and representatives has been obtained from the patient. N/A * Community resources currently utilized Other * Please name any agencies selected above. [facility]MENT OF COMMUNITY CORRECTIONS ([facility] * Additional services required to return to the preadmission environment? No * Can the patient safely return to the preadmission environment? Yes * Has this patient been hospitalized within the prior 30 days at any hospital? Yes Last DP export: 9/12/19 4:16 p Patient Name: ERNESTINA SIMS Page 90102 at 1815 All edits/amendments must be made on the electronic document DICTATION DATE: 11/27/181814 ASPHALT ENGINEER: DIRK 11/27/181814 RPT#: [id number] DC DATE:11/27/18 STATUS: DIS IN [facility] [address] [place] [address] END OF REPORT
== END 2018-11-27 13:36 | disposition home or self-care (01) | DRG 917 ==
LOC: D.ER 04:54 → OBSVTIME 07:02 → D.M2 07:02
PROVIDERS: Family Medicine; Internal Medicine Nephrology; ADMIT Internal Medicine Nephrology; ATTEND Internal Medicine Nephrology
DX: T52.8X2A Toxic effect of other organic solvents, intentional self-harm, initial encounter (principal); G92 Toxic encephalopathy; E87.2 Acidosis; M62.82 Rhabdomyolysis; N17.9 Acute kidney failure, unspecified; I82.622 Acute embolism and thrombosis of deep veins of left upper extremity; F17.213 Nicotine dependence, cigarettes, with withdrawal; E87.1 Hypo-osmolality and hyponatremia; D64.9 Anemia, unspecified; I10 Essential (primary) hypertension; E83.42 Hypomagnesemia; E87.6 Hypokalemia; F15.90 Other stimulant use, unspecified, uncomplicated; F10.10 Alcohol abuse, uncomplicated; F32.9 Major depressive disorder, single episode, unspecified; Z59.0 Homelessness